=== PATIENT | female | born 1955 | race Caucasian/White ===

== ENCOUNTER 2022-12-10 07:40 | Outpatient (CLI) | payer OTHER, SELFPAY | END 2022-12-10 07:41 | disposition home or self-care (01) | LOC: NFLDREF 12-13 01:15 | PROVIDERS: PCP Internal Medicine; Referring Provider Internal Medicine; Visit Provider Internal Medicine | DX: E78.5 Hyperlipidemia, unspecified (principal) | CPT/HCPCS: 80061 ==

== ENCOUNTER 2022-12-10 15:47 | Outpatient (CLI) | payer OTHER, SELFPAY ==
--- NOTE | 2022-12-10 16:00 | CRLHL7_ITS ---
For Patients: As a result of the Cures Act, medical imaging exams and procedure reports are released immediately into your electronic medical record. You may view this report before your referring provider. If you have questions, please contact your health care provider. INDICATION: Nontoxic single thyroid nodule COMPARISON: none TECHNIQUE: Portillo scale and color Doppler images were acquired of the thyroid gland. FINDINGS: The thyroid gland demonstrates heterogeneous echogenicity and has a smooth outer contour. The right lobe measures 4.1 x 1.9 x 1.9 cm and the left lobe measures 3.9 x 2.0 x 2.2 cm in size. The isthmus measures 2 millimeters. Isoechoic nodule right thyroid lobe measures 1.1 x 1.5 x 1.4 cm. Slightly hypoechoic nodule right thyroid lobe measures 4 x 6 x 6 millimeters. Small hypoechoic nodule right thyroid lobe measures 3 x 3 x 4 millimeters. Additional hypoechoic nodule right thyroid lobe measures 2 x 2 x 3 millimeters. Slightly hypoechoic nodule left thyroid lobe measures 2.6 x 1.8 x 2.1 cm. The color Doppler images demonstrate normal vascularity. No adenopathy. IMPRESSION: 2.6 cm TR 4 nodule left thyroid lobe. By patient report, this has been previously biopsied. 1.5 cm TR 3 nodule right thyroid lobe. This could be followed up in 1 year. Dictated by Kendell Wise MD @ 12/11/2022 8:56:00 AM (Electronically Signed)
== END 2022-12-10 15:48 | disposition home or self-care (01) ==
LOC: US 15:49
PROVIDERS: PCP Internal Medicine; Visit Provider Internal Medicine
DX: E04.1 Nontoxic single thyroid nodule (principal)
CPT/HCPCS: 76536

== ENCOUNTER 2023-01-04 10:30 | Emergency (ER) | payer OTHER, SELFPAY ==
[2023-01-04 10:39] VITALS: BP 192/121; PULSE 82; RESP 18; TEMP 36.6; O2SAT 99
--- NOTE | 2023-01-04 11:25 | ED.GENADULT ---
HPI - General Adult General Chief complaint: Psychiatric Problem/Disorder Stated complaint: Mental health Time Seen by Provider: 01/04/23 11:25 History of Present Illness HPI narrative: call from Dr. Esteban. pt reports feeling anxious, depressed, despair , suicidal thoughts for several weeks. plan of carbon monoxide, but states she doesn't think she could go thru with it. 67-year-old woman presenting to the emergency department with concern of suicidal ideation. sent over to by primary care provider fo a mental health assessment. These concerns of recurrence of her back pain and trying to treat with the typical measures she used to use that are not helping is generating a great deal of anxiety she says. This also then leads her to feel more depressed. Underlying history of L5-S1 laminectomy with very good results. Has flared periodically over the years but doing exercises usually allows this to settle down and this time it is not. Has had depression for years and had taken sertraline for decades which also she says resulted in an colitis. Discontinued over this last summer and was doing quite well. Over the last 8-10 weeks has now had recurrence of her low back pain. It radiates alternating into both buttock into the posterior mid thighs. Improves when she is lying down; actually not present when she is lying down. Worse when she is sitting. Not so much an issue when ambulating. No functional difficulty she says i.e. no weakness, no loss of bowel or bladder control. It appears that without this recurrence of back pain would not be having or struggling with recurrence of anxiety and depression, or at least she identifies this as the source of recent difficulties. She does have family, multiple children and her to whom she has been talking. She has never engaged in therapy otherwise. Does have a primary care provider. Has apparently been set up for appointment with the back clinic locally; [place] was unaware. Since this recurrence of her back pain she has had thoughts of suicide. Has never attempted before. Her thoughts have included exposure to carbon monoxide. But she has since to say that she does not think she would ever go through with it. Otherwise has been treating this pain with ibuprofen and acetaminophen which does take some of the edge off. She has also been seeing a chiropractor she has seen over the years and re-engaging in exercises. She would like something to help with her anxiety. Later as we discuss potential medication management, she does express appropriate concern volunteering already known information about history of alcoholism. Related Data Home Medications Medication Instructions Recorded Confirmed calcium acetate 1 cap PO BID 12/07/22 01/04/23 cholecalciferol (vitamin D3) 50 50 mcg PO QDAY 12/07/22 01/04/23 mcg (2,000 unit) capsule famotidine 20 mg tablet 20 mg PO BID 12/07/22 01/04/23 multivitamin 1 tab PO QAM 12/07/22 01/04/23 pravastatin 40 mg tablet 40 mg PO DAILY 12/07/22 01/04/23 trazodone 50 mg tablet 100 mg PO .HS 12/07/22 01/04/23 acetaminophen 325 mg capsule 325 mg PO ONCE PRN 01/04/23 01/04/23 (Tylenol) aspirin 81 mg chewable tablet 81 mg PO QDAY 01/04/23 01/04/23 Previous Rx's Medication Instructions Recorded gabapentin 300 mg capsule 300 mg PO BID radicular pain #30 01/04/23 caps lorazepam 1 mg tablet 0.5 - 1 mg (0.5 - 1 x 1 mg) PO BID 01/04/23 PRN anxiety #8 tabs sertraline 50 mg tablet 50 mg PO QDAY #30 tabs 01/04/23 Allergies Allergy/AdvReac Type Severity Reaction Status Date / Time Sulfa (Sulfonamide Allergy Unknown Rash Verified 01/04/23 09:47 Antibiotics) atorvastatin [From Lipitor] AdvReac Unknown Muscle Pain Verified 01/04/23 09:47 Review of Systems Status of ROS: Reports: 6 or more systems reviewed and unremarkable except as noted in History and below [facility] Medical History History of depression ?Z86.59 - Personal history of other mental and behavioral disorders (ICD-10) Microscopic colitis ?K52.839 - Microscopic colitis, unspecified (ICD-10) History of abnormal cervical Pap smear (2009) ?Z87.42 - Personal history of other diseases of the female genital tract (ICD-10) Surgical History History of colonoscopy ?Z98.890 - Other specified postprocedural states (ICD-10) History of hysteroscopy ?Z98.890 - Other specified postprocedural states (ICD-10) History of salpingo-oophorectomy ?Z90.79 - Acquired absence of other genital organ(s) (ICD-10) ?Z90.721 - Acquired absence of ovaries, unilateral (ICD-10) Status post biopsy of thyroid gland (2009) ?Z98.890 - Other specified postprocedural states (ICD-10) History of conization of cervix (~1986) ?Z98.890 - Other specified postprocedural states (ICD-10) History of bilateral breast implants ?Z98.82 - Breast implant status (ICD-10) Family History Mother Breast cancer Sister Breast cancer Social History Smoking Status: Never smoker Do you use any of these nicotine containing products: None Second hand tobacco smoke exposure: No How often do you have a drink containing alcohol: never How often do you have six or more drinks on one occasion: Never AUDIT-C Alcohol total score: 0 Non-prescribed substance use: denies use Little interest or pleasure in doing things: nearly every day Feeling down, depressed, or hopeless: nearly every day service: No Exam Narrative: Exam Narrative: Prone to tears. Is pleasant. Easily conversant. Transitions without difficulty to sitting. Speech isn't pressured nor slurred. She is casually and appropriately groomed. Mood is depressed and anxious in affect congruent. Skin is warm and dry without evidence of trauma. She is well-perfused peripherally. Moving all extremities without difficulty and has good strength not exacerbating pain to flexion extension at the knees and thighs. No sensory deficits. Not able to reproduce pain to palpation over the back or SI joints or piriformis. Straight leg raise is negative. Const: Vital Signs, click to edit/add: Vital Signs - 24 hr 01/04/23 10:39 Temperature 97.8 F Pulse Rate [Right Pulse Oximeter] 82 Respiratory Rate 18 Blood Pressure [Ri ght Upper Arm] 192/121 H Pulse Oximetry 99 Oxygen Delivery Me thod Room Air Documenting provider has reviewed patient's vital signs: yes Course Vital Signs Vital signs: Initial Vital Signs Temperature 97.8 F 01/04/23 10:39 Temperature Source Temporal Artery Scan 01/04/23 10:39 Pulse Rate 82 01/04/23 10:39 Respiratory Rate 18 01/04/23 10:39 Blood Pressure 192/121 H 01/04/23 10:39 Blood Pressure Mean 144 H 01/04/23 10:39 Blood Pressure Position Sitting 01/04/23 10:39 Pulse Oximetry 99 01/04/23 10:39 Oxygen Delivery Method Room Air 01/04/23 10:39 Vital Signs Temperature 97.8 F 01/04/23 10:39 Pulse Rate 82 01/04/23 10:39 Respiratory Rate 18 01/04/23 10:39 Blood Pressure 192/121 H 01/04/23 10:39 Pulse Oximetry 99 01/04/23 10:39 Oxygen Delivery Method Room Air 01/04/23 10:39 Temperature 97.8 F 01/04/23 10:39 Pulse Rate 82 01/04/23 10:39 Respiratory Rate 18 01/04/23 10:39 Blood Pressure 192/121 H 01/04/23 10:39 Pulse Oximetry 99 01/04/23 10:39 Oxygen Delivery Method Room Air 01/04/23 10:39 Medications Administered Medications: Discontinued Medications Generic Name Dose Route Start Last Admin Trade Name Freq PRN Reason Stop Dose Admin Hydrocodone Bitart/Acetaminophen 2 tab 01/04/23 12:01 01/04/23 12:30 Hydrocodone-Acetamin 5-325 Mg 1 Tab PO 01/04/23 12:02 2 tab ONCE ONE Administration Lorazepam 0.5 mg 01/04/23 12:01 01/04/23 12:30 Lorazepam 0.5 Mg Tablet PO 01/04/23 12:02 0.5 mg ONCE ONE Administration Medical Decision Making MDM Narrative Medical decision making narrative: It appears that a good deal of what is driving these suicidal ideations is fear and anxiety over potential chronic nature of this recurrent pain. Description of location would suggest an L5-S1 dermatome radiculopathy/radiculitis. We discussed that more information and having further plan would be likely therapeutic. We are actually able to do an MRI the this afternoon. This will likely be needed going forward, albeit perhaps not immediately and she does not have red flag symptoms otherwise. I believe [place] to be having passive suicidal ideations. She is able to demonstrate forward thinking. I think would be appropriate to manage mental health, other than as above with outpatient management. Did discuss this case briefly with primary care provider. Anticipation had been for DEC assessment with medication recommendations. We can certainly proceed with this assessment. In the meantime would like treatment for what appears to be some not insignificant anxiety as well as this pain. Prescribed 2 tabs of 5/325 [place] and half a mg of lorazepam while in the emergency department. On reassessment was clearly more relaxed and comfortable. Lumbar spine MRI was completed. I did review images but radiology over-read as below Impression: 1. Mild lumbar spondylosis, with mild levoconvex curvature and trace degenerative retrolisthesis at L2-3. 2. At L4-5, mild diffuse disc bulge and mild facet arthropathy contribute to lateral recess narrowing contacting the descending bilateral L5 nerve roots without imaging evidence of impingement. 3. Otherwise, no significant neural foraminal or central spinal canal stenosis. Findings I think are consistent with reported distribution of symptoms. Symptoms again are most reproducible when she is sitting. I did review images/over-read with Mrs. Ortiz. She apparently had recently tried some remaining prednisone and felt like it made her more depressed. Anticipating follow-up with [facility] for further recommendations. [place] does note that she still has the sertraline available and could restart treatment. Will also make available small and temporary amount of lorazepam. Will also trial gabapentin. reports he himself has felt that helpful before. 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 See patient discharge plan Medical Records Medical records reviewed: Yes I reviewed the patient's medical records Discharge Plan Discharge Clinical Impression: Radicular low back pain, Depression, Anxiety Patient Disposition: Home w/ Parent or Adult Condition: Improved Additional Instructions: See discharge paperwork for pending therapy appointment and psychiatry appointment. Check with your medical record for timing of the back clinic appointment. See handout on exercises for radicular low back pain. Please take this to any follow-ups. Can continue to take ibuprofen or acetaminophen for pain. Alternative to the ibuprofen might be naproxen. You might want to take the ibuprofen and naproxen with a little bit of food. I understand your hesitance toward opiates and often there are other options. I understand that the prednisone you tried recently made your anxiety/depression worse. We can try gabapentin lower dose. Continue with your exercises. Try to stay active. Try to get quality and regular sleep. Sleep deprivation certainly can amplify feelings of anxiety and depression. You are receiving as discussed, a temporary prescription of lorazepam, as you restart your sertraline. If after talking to family, therapist, primary care provider you might otherwise feel unsafe, please return to the emergency department. Prescriptions: New lorazepam 1 mg tablet 0.5 - 1 mg PO BID PRN (Reason: anxiety) Qty: 8 0RF gabapentin 300 mg capsule 300 mg PO BID Qty: 30 0RF No Action famotidine 20 mg tablet 20 mg PO BID pravastatin 40 mg tablet 40 mg PO DAILY multivitamin Tablet 1 tab PO QAM cholecalciferol (vitamin D3) 50 mcg (2,000 unit) capsule 50 mcg PO QDAY calcium acetate 1 cap PO BID trazodone 50 mg tablet 100 mg PO .HS aspirin 81 mg tablet,chewable 81 mg PO QDAY acetaminophen [Tylenol] 325 mg capsule 325 mg PO ONCE PRN sertraline 50 mg tablet 50 mg PO QDAY Qty: 30 0RF Follow Up/Referrals: Bonnie Esteban MD [Primary Care Provider] - Stand Alone Forms: [employer] Info Instructions
--- NOTE | 2023-01-04 12:01 | CRLHL7_ITS ---
For Patients: As a result of the Century Cures Act, medical imaging exams and procedure reports are released immediately into your electronic medical record. You may view this report before your referring provider. If you have questions, please contact your health care provider. Indication: Right buttock pain, bilateral leg pain Technique: Multiplanar, multisequence, MRI of the lumbar spine, obtained without contrast. Comparison: No relevant comparison studies available at this institution. Findings: Mild levoconvex curvature, with preserved lumbar lordosis. Trace retrolisthesis at L2-3. No acute osseus abnormality. Vertebral body heights are grossly maintained. Unremarkable bone marrow signal. Conus medullaris terminates at L1-2. No concerning findings in the paraspinal soft tissues. The included SI joints are unremarkable. T12-L1: Mild diffuse disc bulge with left central cranial extrusion. No significant neural foraminal or spinal canal stenosis. L1-L2: Mild diffuse disc bulge. No significant neural foraminal or spinal canal stenosis. L2-L3: Mild diffuse disc bulge. No significant neural foramina or spinal canal stenosis. L3-L4: Mild diffuse disc bulge, mild facet arthropathy. Incidental small bilateral perineural cysts. No neural foraminal or spinal canal stenosis. L4-L5: Mild diffuse disc bulge, mild facet arthropathy. No left, mild right neural foraminal narrowing. Lateral recess narrowing contacting the descending L5 nerve roots without evidence of impingement or central spinal canal stenosis. L5-S1: Mild-moderate facet arthropathy. Incidental small lumbosacral perineural cysts. No neural foraminal or spinal canal stenosis. Impression: 1. Mild lumbar spondylosis, with mild levoconvex curvature and trace degenerative retrolisthesis at L2-3. 2. At L4-5, mild diffuse disc bulge and mild facet arthropathy contribute to lateral recess narrowing contacting the descending bilateral L5 nerve roots without imaging evidence of impingement. 3. Otherwise, no significant neural foraminal or central spinal canal stenosis. Dictated by Pooja Landaverde MD @ 01/04/2023 1:10:30 PM (Electronically Signed)
[2023-01-04] MEDS: HYDROCODONE-ACETAMIN 5-325 MG 1 TAB 2 TAB PO (12:30)
[2023-01-04] MEDS: LORazepam 0.5 MG TABLET PO (12:30)
== END 2023-01-04 14:47 | disposition home or self-care (01) ==
PROVIDERS: Emergency Provider Family Medicine; PCP Internal Medicine
DX: M54.50 Low back pain, unspecified (principal); F32.A Depression, unspecified; F41.8 Other specified anxiety disorders
CPT/HCPCS: 72148; 99284; A9270

== ENCOUNTER 2023-02-25 10:45 | Outpatient (RCR) | payer OTHER, SELFPAY ==
--- NOTE | 2023-01-26 13:44 | PT.OPEX ---
[facility] PT [facility] Outpatient Eval Start: 01/26/23 08:03 Freq: Status: Active Protocol: Document 01/26/23 08:05 CRP (Rec: 01/26/23 11:31 CRP [id number]) E-signed By Enrico Fernández PT Physical Therapy Outpatient Evaluation Insurance Information Recert Due Date 04/26/23 Insurance Name [employer] Medical Diagnosis Low back pain Treating Diagnosis LBP Back stiffness lower extremity pain Referring MD Dr Sparrow Subjective Subjective 10-25-22 had no specific injury but did strain her back. Walking up stairs and felt pain in low back. Did try to do some of her past back exercises. These exercises were not helping. Pain is mainly R SI area and down the R thigh. L side can also be an issue but R is worse. Pain is worse with sitting, hamstring stretch. If up and moving her pain is mild. When sitting, especially in the car pain will get up to moderate/severe with R LE pain . Lying on stomach will get the back pain to go away completely after about 30 minutes. Once she gets up the pain does return. Will have occasional tingling but no numbness. Has significant R LE short. Does wear lift in her shoe. Did go to chiropractor 2 times. Adjustments may have aggravated her R LE. Traction may have made the next day feel good. Objective Range of Motion Trunk ROM Flex min dec with SI pain on back to neutral Ext WNL with TL pain R SB WNL L SB min dec R rot WNL L rot Min dec Bilat hip ROM WNL Strength Myotomes WNL Posture Active ext pattern Sensation/Reflexes Sensation intact to light touch Other/Pertinent Objective SLR painful at 80 deg on R Segmental testing: Painful and hypomobile at L5 R UPA Assessment Assessment/Impression Pt presents to the clinic with c.o ongoing LBP and intermittent LE radiating pain . Pts signs and sxs are consistent with segmental mechanical dysfunction of the lower lumbar spine with referred pain into the LEs. Pts presentation is characterized by painful loss of lumbar spine ROM, adverse neurodynamics and painful hypomobility of lower lumbar spine segments. Skilled PT is necessary to incorporate ther ex, nm elie, ther act, manual therapy and pt education to decrease pain and improve functional mobility. 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 Pt will be 100% independent with HEP in 8 weeks. [address] 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 3. Pt will sit for work without pain in 12 weeks. Coordination/Communication With Referral Source,Patient Caregiver,Employer,Supervisor [place] ([facility]) Treatment Plan/Direct Interventions Joint Mobilization,Manual Therapy,Neuromuscular Re-ed, Self-Care/Home Management, Therapeutic Activities, Therapeutic Exercises,Traction (Mechanical) Patient Will Be Discharged From Therapy Completion of LTG(s),Skills Plateau,Independent w/HEP, Independently Progressing Evaluation Billing Untimed Code Treatment Minutes 30 Complexity Moderate Certification Information Initial Certification Date 01/26/23 Ending Certification Date 04/26/23 Provider Signature Shows Agreement With POC & Medical Necessity Physician Signature & Date Requested Please Sign/Date Here Physician Comment/Change : Physician NPI Number #
== END 2023-06-25 23:59 | disposition home or self-care (01) ==
PROVIDERS: PCP Internal Medicine; Visit Provider Family Medicine
DX: M54.50 Low back pain, unspecified (principal); M79.606 Pain in leg, unspecified; M25.69 Stiffness of other specified joint, not elsewhere classified; Z51.89 Encounter for other specified aftercare
CPT/HCPCS: 97110; 97140; 97162

== ENCOUNTER 2023-03-02 13:24 | Outpatient (CLI) | payer OTHER, SELFPAY ==
--- OUTSIDE RECORDS SUMMARY | 2023-03-02 13:27 | XMS_ITS | Clinical Summary ---
Author Name Unknown Organization [facility] Address [address] [place] [address] Care Team Providers Care Ortho Nurse Name Role Phone Cyndee Carranza MD Primary Care Provider [phone] Source Comments You are receiving this document as you are listed as the primary care provider,follow-up provider, or the patient has been referred to you for consultation.This is in compliance with the Medicare and[facility] Health Systemca[facility] EHR Incentive Program,which states Providers who transition their patient to another setting of careor provider of care or refers their patient to another provider of care shouldprovide summary care record for each transition of care or referral. [facility] Allergies Active Allergy Reactions Criticality Noted Date Comments Atorvastatin Muscle Aches/Weakness 04/09/2013 Sulfa Antibiotics Rash Medications Medication Sig Dispensed Refills Start Date End Date Status multivitamin (AKA THERAGRAN) tablet Take 1 Tablet by mouth daily. 30 Tab 11 09/04/2009 Active cholecalciferol (VITAMIN D3) 25 MCG (1000 UT) tablet Take 1 Tablet (1,000 Units) by mouth daily. 2 tabs/day 0 Active Calcium Carb-Cholecalciferol 500-3.125 MG-MCG TABS 0 08/31/2021 Active aspirin 81 MG chewable tablet Chew and swallow 1 Tablet (81 mg) by mouth daily. 30 Tablet 0 03/24/2022 Active sertraline (ZOLOFT) 100 MG tablet TAKE 2 TABLETS(200 MG) BY MOUTH DAILY 180 Tablet 3 05/12/2022 Active pravastatin (PRAVACHOL) 40 MG tabletIndications:Hy perlipidemia with target LDL less than 130 (HRC) TAKE 1 TABLET(40 MG) BY MOUTH DAILY AT BEDTIME 90 Tablet 3 05/14/2022 Active traZODone (DESYREL) 50 MG tablet TAKE 1 TO 2 TABLETS BY MOUTH AT BEDTIME NEEDED 180 Tablet 3 07/10/2022 Active famotidine (PEPCID) 20 MG tablet TAKE 1 TABLET(20 MG) BY MOUTH TWICE DAILY 180 Tablet 3 08/10/2022 Active balsalazide (COLAZAL) 750 MG capsuleIndications:C olitis Take 1 capsule po TID 270 Each 3 09/02/2022 Active mesalamine (LIALDA) 1.2 g enteric coated tabletIndications:Co litis Take 3 tablets PO QD with food 270 Tablet 3 09/24/2022 Active Active Problems Problem Noted Date Diagnosed Date TIA (transient ischemic attack) 04/01/2022 Overview: Seen in ED 03/24/22. Work up in progress. 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 Plan: Cotesting 02/2022 IFG (impaired fasting glucose) 12/06/2012 Lateral epicondylitis 01/14/2012 Colitis 12/17/2011 Vitamin D deficiency 06/03/2011 Hyperlipidemia with target LDL less than 130 Overview: ICD 10 Thyroid nodule 07/26/2009 Overview: Small right and larger left nodules. Left nodule biopsied 2009 and was benign. Needs yearly US follow up. Uterine myoma 01/31/2008 Breast implant removal status 12/31/2001 Depressive disorder 12/26/2001 Overview: DEPRESSIVE DISORDER NOS phq-9 done 12/17/11 Panic disorder without agoraphobia 12/26/2001 Back disorder 12/26/2001 Overview: Other unspecified back disorder Alcohol dependence in remission 12/26/2001 Overview: TREATMENT 1985 ; ALCOH DEP NEC/NOS-REMISS(aka ALCOHOL) Family history of malignant neoplasm of breast 1 02/25/2001 Overview: MOTHER AND ONE SISTER Resolved Problems Problem Noted Date Diagnosed Date Resolved Date Ovarian mass 01/18/2019 03/01/2019 Overview: Added automatically from request for surgery [id number] Endometrial polyp 01/18/2019 03/01/2019 Overview: Added automatically from request for surgery [id number] Obesity 03/18/2011 05/29/2020 Overview: weight concerns Encounters Date Type Department Care Team Description 01/21/2023 8:45 AM ENGINEERING INTERN Therapy [facility] [address] [address] July Leyva, PT 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) (Primary Dx) 01/13/2023 10:30 AM ENGINEERING INTERN Therapy [facility] [address] [address] Susie Lamb, PT 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) (Primary Dx) from Last 3 Months Immunizations Name Administration Dates Next Due Flu Vac (3+ yrs) 11/26/2020, 7,10/22/2012,2011,11/29/2009 Fluzone Qiv Multidose Vial 0 .25 (6-35 Mos) 10/27/2016 Influenza IIV4 (Quadrivalent ) 0.5mL ([id number]) 11/06/2019,10/25/2018,10/26/2017,2015,10/18/2014,10/31/2013 Influenza IIV4 (Quadrivalent ) Fluzone, 65+ Yrs 11/19/2021 Influenza, Unspecified Formulation 12/24/2007 MMR 01/04/1990 PCV13 (Prevnar) 05/19/2021 PPSV23 (Pneumovax) 06/16/2022,11/29/2009 Pfizer Bivalent 12+ 11/08/2021 Pfizer Monovalent 12+ 05/19/2021 Pfizer Monovalent 12+ Purple Top 01/10/2021,05/16,05/13/2020 Td 12/25/2002,10/23/1992 Tdap 06/16/2022,03/18/2011 Varicella 12/23/1995(Deferred: Immune by Jorge garcia) Zoster RZV (Shingrix) 09/20/2019,12/21/2018 Family History Medical History Relation Name Comments Heart Disease Father of heart disease age 69, multiple MIs first CABG 48, alcohol Cancer, Breast Mother Diabetes, Type II Mother Cataract Brother Cancer, Pancreatic Maternal Aunt Cataract Maternal Grandmother Cancer Paternal Grandfather ? colon cancer, colostomy Cancer, Ovary Paternal Grandmother Cancer, Breast Sister 1 Geeta BRCA testing negative. Cataract Sister 1 Geeta Glaucoma Sister 1 Geeta Hypertension Sister 1 Geeta Cancer, Breast Sister 2 Hyperlipidemia Sister 2 age 55, Cancer, Thyroid Sister 3 Macular Degeneration Negative Family History Retinal Detachment Negative Family History Relation Name Status Comments Father (Age 64) heart dise ase Mother (Age 57) cancer Brother Maternal Aunt Maternal Grandfather (Age 60) he art attack Maternal Grandmother (Age 94) ol d age Paternal Grandfather (Age 60) ca ncer Paternal Grandmother (Age 60) ca ncer Sister 1 Geeta Sister 2 Sister 3 Son Alive Social History Tobacco Use Types Packs/Day Years Used Date Smoking Tobacco: Never Passive Smoke Exposure: Never Smokeless Tobacco: Never Tobacco Cessation:Counseling Given: Not Answered Alcohol Use Standard Drinks/Week Comments Not Currently 0 (1 standard drink = 0.6 oz pure alcohol) h/o alcohol dependence, 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 PHQ-2 Answer Date Recorded PHQ-2 Score 0 06/16/2022 Sex and Gender Information Value Date Recorded Sex Assigned at Not on file Gender Identity Not on file Sexual Orientation Not on file Last Filed Vital Signs Vital Sign Reading Time Taken Comments Blood Pressure 106/73 08/22/2022 9:44 AM CDT Pulse 78 08/22/2022 9:44 AM CDT Temperature 36.7 ??C (98.1 ??F) 08/22/2022 9:44 AM CD T Respiratory Rate 18 05/26/2022 8:22 AM CDT Oxygen Saturation 98% 08/22/2022 9:44 AM CDT Inhaled Oxygen Concentration - - Weight 75.8 kg (167 lb) 08/22/2022 9:44 AM CDT s tated Height 163.8 cm (5' 4.5) 06/16/2022 9:28 AM CDT Body Mass Index 28.22 06/16/2022 9:28 AM CDT Plan of Treatment Upcoming Encounters Date Type Department Care Team Description 03/18/2023 1:40 PM ENGINEERING INTERN Appointment [place] [address] Ophthalmology [address] [place] [address] Dominga Fink, OD [address] [place] [address] Health Maintenance Due Date Last Done Comments COVID-19 Vaccine ( season) 2022 11/08/2021, 05/19/2021, 01/10/2021, Additional history exists Influenza (#1) 2022 11/19/2021, 11/15, 11/06/2019, Additional history exists Cholesterol 11/28/2022 11/28/2021, 04/17, 05/28/2020, Additional history exists Mammogram 11/28/2022 11/28/2021, 11/15, 08/29/2019, Additional history exists Medicare Annual Wellness Visit 02/15/2023 06/16/2022, 05/19/2021 Prediabetes: HGBA1C 07/03/2023 07/02/2022, 05/15/2021, 05/28/2020, Additional history exists Colonoscopy 09/03/2027 09/02/2017, 02/2009 (Historical Completion), 10/16/2009, Additional history exists DTaP/Tdap/Td (3 - Tdap) 06/16/2032 06/17/19 23, 03/18/2011, 12/25/2002, Additional history exists Hep C Screening (Preventive Services) Completed 12/17/2011 Cervical Cancer Screening Discontinued 2017, 02/27/2014, 06/04/2011, Additional history exists Zoster/Shingles Completed 09/20/2019, 12/21/2018 Dexa Completed 07/21/2021 Pneumococcal 65+ Yrs Completed 06/16/2022, 05/19/2021, 11/29/2009 HepA Aged Out No longer eligi ble based on patient's age to complete this topic HepB Aged Out No longer eligi ble based on patient's age to complete this topic Hib Aged Out No longer eligi ble based on patient's age to complete this topic IPV (Polio) Aged Out No longer eligi ble based on patient's age to complete this topic MCV4 Aged Out No longer eligi ble based on patient's age to complete this topic Advance Directives Latest Code Status on File Code Status Date Activated Date Inactivated Comments Full Code 12/22/2012 6:16 AM 12/22/2012 1:40 PM Code Status History Code Status Date Activated Date Inactivated Comments Full Code 04/10/2008 12:22 PM 04/10/2008 5:14 PM Care Teams Ortho Nurse Relationship Specialty Start Date End Date Cyndee Carranza MD [address] [place] [address] PCP - General 01/21/23
--- OUTSIDE RECORDS SUMMARY | 2023-03-02 13:27 | XMS_ITS | Encounter Summary ---
Author Name Unknown Organization [facility] Address [address] [place] [address] Care Team Providers Care Firefighter Type One Name Role Phone Leena Spivey MD Primary Care Provider [phone] Reason for Visit * Reason Comments ANXIETY Pt stated she is hav ing tingling on her right side of face but is stating that she is feeling anxious about daily life events right now. Pt is stating that she is lowering her anxiety medication right now but due to all the stress in her life at this time she is requesting a PRN to see if that will help with the anxiety. Encounter Details Date Type Department Care Team Description 08/22/2022 10:00 AM CDT Office Visit [facility] [address] [place] [phone] Larissa Patel, VOICE AND DATA TECHNICIAN, ELEVATOR CONSTRUCTOR HELPER [address] [place] [address] Right facial numbness (Primary Dx); Anxiety (HRC) Social History Tobacco Use Types Packs/Day Years Used Date Smoking Tobacco: Never Passive Smoke Exposure: Never Smokeless Tobacco: Never Alcohol Use Standard Drinks/Week Comments Not Currently 0 (1 standard drink = 0.6 oz pure alcohol) h/o alcohol dependence, 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 PHQ-2 Answer Date Recorded PHQ-2 Score 0 06/16/2022 Sex and Gender Information Value Date Recorded Sex Assigned at Not on file Gender Identity Not on file Sexual Orientation Not on file documented as of this encounter Last Filed Vital Signs Vital Sign Reading Time Taken Comments Blood Pressure 106/73 08/22/2022 9:44 AM CDT Pulse 78 08/22/2022 9:44 AM CDT Temperature 36.7 ??C (98.1 ??F) 08/22/2022 9:44 AM CD T Respiratory Rate - - Oxygen Saturation 98% 08/22/2022 9:44 AM CDT Inhaled Oxygen Concentration - - Weight 75.8 kg (167 lb) 08/22/2022 9:44 AM CDT s tated Height - - Body Mass Index 28.22 06/16/2022 9:28 AM CDT documented in this encounter Progress Notes * Larissa Patel, VOICE AND DATA TECHNICIAN, ELEVATOR CONSTRUCTOR HELPER - 08/22/2022 10:00 AM CDT Rooming Notes: Orquidea Ortiz is a 67 y.o.female presents to the Urgent Care for ANXIETY (Pt is stating that she is feeling anxious about daily life events right now. Pt is stating that she is lowering her anxiety medication right now but due to all the stress in her life at this time she is requesting a PRN to see if that will help with the anxiety. ) . anxiety 2 day(s) ago, symptoms unchanged. Pain present No. Previous episodes or similar occurrence once before, went to ER for similar episode in mar . Any home remedies tried None. Patient requests an excuse letter for work/school: No SUBJECTIVE: Orquidea Ortiz is a 67 y.o. old female who is here for anxiety and right facial numbness. Symptoms x 2 days. She is under a high level of stress. Sold her house and is moving. Has been weaning offher anxiety meds. She attributes her facial numbness to anxiety. However, she had a similar experience March of this year in the arm and was diagnosed with a TIA. She has no extremity involvement at this time. She does voice concern for TIA/CVA on exam. Significant positive medical hx: HLD, TIA, thyroid disease, panic disorder Social History Tobacco Use Smoking Status Never Passive exposure: Never Smokeless Tobacco Never OBJECTIVE: BP 106/73 (BP Location: Right Arm, BP Cuff Size: Large) Pulse 78 Temp 98.1 ??F (36.7 ??C) (Oral) Wt 167 lb (75.8 kg) Comment: stated LMP 04/06/2011 (Exact Date) SpO2 98% BMI 28.22 kg/m?? Appears healthy and alert, comfortable Neuro: A/Ox4, without gross neuro deficit, no facial droop. Skin: Normal skin color, temperature, and turgor; no visible rashes or lesions noted. ASSESSMENT/PLAN: ICD-10-CM 1. Right facial numbness R20.0 2. Anxiety (HRC) F41.9 Unable to evaluate TIA and/or CVA in urgent care. She must be seen in the ED. She is comfortable taking herself now. Larissa Patel APRN, CNP documented in this encounter Nursing Notes * Karla Watkins MA - 08/22/2022 10:00 AM CDT Orquidea Ortiz is a 67 y.o.female presents to the Urgent Care for ANXIETY (Pt is stating that she is feeling anxious about daily life events right now. Pt is stating that she is lowering her anxiety medication right now but due to all the stress in her life at this time she is requesting a PRN to see if that will help with the anxiety. ) . anxiety 2 day(s) ago, symptoms unchanged. Pain present No. Previous episodes or similar occurrence once before, went to ER for similar episode in mar . Any home remedies tried None. Patient requests an excuse letter for work/school: No documented in this encounter Plan of Treatment Upcoming Encounters Date Type Department Care Team Description 03/18/2023 1:40 PM MACHINE WHITENER Appointment [place] [address] Ophthalmology [address] [place] [address] Dominga Fink OD [address] [place] [address] documented as of this encounter Visit Diagnoses Diagnosis Right facial numbness- Primary Disturbance of skin sensation Anxiety (HRC) Anxiety state, unspecified documented in this encounter Care Teams Firefighter Type One Relationship Specialty Start Date End Date Leena Spivey MD [address] [facility] [place] [address] PCP - General 05/06/09 01/20/23 documented as of this encounter
--- OUTSIDE RECORDS SUMMARY | 2023-03-02 13:27 | XMS_ITS | Encounter Summary ---
Author Name Unknown Organization [facility] Address [address], [place] [address] Care Team Providers Care Computer Engineering Professor Name Role Phone Leena Spivey MD Primary Care Provider [phone] Reason for Visit * Reason Comments Refill budesonide (ENTOCORT EC) 3 MG capsule [Pharmacy Med Name: BUDESONIDE 3MG DR CAPSULES] Encounter Details Date Type Department Care Team Description 07/06/2022 Refill [facility] at [address] [address] Reny Crooks, DOPE SPRAYER, CAR REPAIRMAN [address] [place] [address] Refill (budesonide (ENTOCORT EC) 3 MG capsule [Pharmacy Med Name: BUDESONIDE 3MG [address] CAPSULES]) Social History Tobacco Use Types Packs/Day Years [...] on file documented as of this encounter Nursing Notes * Interface, Out [employer] Prov Query - 07/06/2022 6:04 PM CDT budesonide (ENTOCORT EC) 3 MG capsule [Pharmacy Med Name: BUDESONIDE 3MG DR CAPSULES] IBD - Antiinflammatory -> The request contains a note from the pharmacy. -> Refill x 12 months (until due for an office visit) Last qualifying visit: 05/13/2022 (in [facility] GASTRO[facility]OLOGY with RENY CROOKS) Next scheduled visit: None Last ordered by RENY CROOKS: 07/06/2022 (0 days ago) QTY: 126, Refills: 0, Sig: take 3 capsules (9 mg) by mouth daily for 28 days, then 2 capsules (6 mg) daily for 14 days, then 1 capsule (3 mg) daily for 14 days. (changed but equivalent) Glucose (serum): 97 mg/dL on 07/02/2022 BUN: 12 mg/dL on 07/02/2022 Cr: 1 mg/dL on 07/02/2022 Na: 142 mEq/L on 07/02/2022 K: 4 mEq/L on 07/02/2022 Ca: 9.5 mg/dL on 07/02/2022 [facility] Embedded Refills, Reference: [id number], 07/06/2022 6:04:42 PM CDT, Pool: GI Refill RN/CSS () [[id number]] ([id number]) * Interface, Out [employer] Prov Query - 07/06/2022 6:04 PM CDT The following lab order(s) may be associated with the Result Note below: BASIC METABOLIC PANEL Notes recorded by Reny Crooks on 07/02/2022 at 9:41 PM CDT The basic metabolic panel is normal. The CRP (inflammatory marker) is mildly elevated, this is a non-specific marker for inflammation. Reny Crooks APRN, CNP * Interface, Out [employer] Prov Query - 07/06/2022 6:04 PM CDT The following lab order(s) may be associated with the following Patient Result Comment (Entered by Nae Pop LPN at 07/03/2022 9:36 AM): BASIC METABOLIC PANEL The basic metabolic panel is normal. The CRP (inflammatory marker) is mildly elevated, this is a non-specific marker for inflammation. Reny Crooks APRN, CNP documented in this encounter Plan of Treatment Upcoming Encounters Date Type Department Care Team Description 03/18/2023 1:40 PM MOLDER AUTOMOBILE CARPETS Appointment [place] [address] Ophthalmology [address] [place] [address] Dominga Fink, OD [address] [place] [address] documented as of this encounter Visit Diagnoses Diagnosis Diarrhea, unspecified type Lymphocytic colitis Other and unspecified noninfectious gastroenteritis and colitis documented in this encounter Care Teams Computer Engineering Professor Relationship Specialty Start Date End Date Leena Spivey MD [address] [place] [address] PCP - General 05/06/09 01/20/23 documented as of this encounter
--- OUTSIDE RECORDS SUMMARY | 2023-03-02 13:27 | XMS_ITS | Encounter Summary ---
Author Name Unknown Organization [facility] Address [address] [address] Care Team Providers Care Supervisor Scenic Arts Name Role Phone Leena Spivey MD Primary Care Provider [phone] Reason for Visit * Reason Comments Refill famotidine (PEPCID) 20 MG tablet [Pharmacy Med Name: FAMOTIDINE 20MG TABLETS] Encounter Details Date Type Department Care Team Description 08/09/2022 Refill [facility] at [facility] [address] [place] [address] Reny Crooks, TISSUE INSERTER, ORDER DESK CALLER [address] [place] [address] Refill (famotidine (PEPCID) 20 MG tablet [Pharmacy Med Name: FAMOTIDINE 20MG TABLETS]) Social History Tobacco Use Types Packs/Day Years [...] as of this encounter Nursing Notes * Jeremy Dang RN - 08/10/2022 2:47 PM CDT Refilled per standing order protocol. Jeremy Dang RN 08/10/2022, 2:47 PM * Interface, Out [employer] Query - 08/09/2022 3:21 AM CDT famotidine (PEPCID) 20 MG tablet [Pharmacy Med Name: FAMOTIDINE 20MG TABLETS] GERD / PUD - H2 Blockers & Carafate -> Refill x 12 months, qty: 180, refills: 3 (until due for an office visit) Last qualifying visit: 05/13/2022 (in [facility] GASTROENTEROLOGY with RENY CROOKS) Next scheduled visit: None Last ordered by RENY CROOKS: 11/26/2021 (256 days ago) QTY: 180, Refills: 2, Sig: take 1tablet (20 mg) by mouth two times a day. (changed but equivalent) [employer] Embedded Refills, Reference: [id number], 08/09/2022 3:21:35 AM CDT, Pool: GI Refill RN/SUKHDEV (CHRIS) [[id number]] ([id number]) documented in this encounter Plan of Treatment Upcoming Encounters Date Type Department Care Team Description 03/18/2023 1:40 PM CARBON COATER MACHINE OPERATOR Appointment [place] [address] Ophthalmology [address] [place] [address] Dominga Fink, OD [address] [place] [address] documented as of this encounter Visit Diagnoses Not on filedocumented in this encounter Care Teams Supervisor Scenic Arts Relationship Specialty Start Date End Date Leena Spivey MD [address] [place] [address] PCP - General 05/06/09 01/20/23 documented as of this encounter
--- OUTSIDE RECORDS SUMMARY | 2023-03-02 13:27 | XMS_ITS | Encounter Summary ---
Author Name [facility] Address [address], [place] [address] Care Team Providers Care Portainer Operator Name Role Phone Leena Bourne MD Primary Care Provider [phone] Reason for Visit * Reason Comments Refill traZODone (DESYREL) 50 MG tablet [Pharmacy Med Name: TRAZODONE 50MG TABLETS] Encounter Details Date Type Department Care Team Description 07/08/2022 Refill [facility] [address] [facility] [place], [place] [id number] Leena Bourne MD [address] [place], [place] [id number] Refill (traZODone (DESYREL) 50 MG tablet [Pharmacy Med Name: TRAZODONE 50MG TABLETS]) Social History Tobacco Use Types Packs/Day [...] as of this encounter Nursing Notes * Greta Santos RN - 07/10/2022 12:47 PM CDT Refilled per standing order. * Interface, Out [employer] Prov Query - 07/08/2022 3:21 AM CDT traZODone (DESYREL) 50 MG tablet [Pharmacy Med Name: TRAZODONE 50MG TABLETS] Miscellaneous - 12 Month Visit 1 -> Refill x 12 months (until due for an office visit) -> Calculate the quantity and number of refills manually. Last qualifying visit: 06/16/2022 (with LEENA BOURNE) Next scheduled visit: None Last ordered by LEENA BOURNE: 05/19/2021 (415 days ago) QTY: 180, Refills: 3, Sig: take 1-2 tablets at bedtime as needed. (changed but equivalent) [employer] Embedded Refills, Reference: [id number], 07/08/2022 3:21:34 AM CDT, Pool: GEO MAXWELL RN ([id number]) documented in this encounter Plan of Treatment Upcoming Encounters Date Type Department Care Team Description 03/18/2023 1:40 PM ELECTRICAL MAINTENANCE MECHANIC Appointment [place] [address] Ophthalmology [address] [place] [address] Dominga Fink, OD [address] [place] [address] documented as of this encounter Visit Diagnoses Not on filedocumented in this encounter Care Teams Portainer Operator Relationship Specialty Start Date End Date Leena Bourne MD [address] [facility] [place] [address] PCP - General 05/06/09 01/20/23 documented as of this encounter
--- OUTSIDE RECORDS SUMMARY | 2023-03-02 13:27 | XMS_ITS | Encounter Summary ---
Author Name Unknown Organization [facility] Address [address] [address] Care Team Providers Care Assistant Professor Of Biology Name Role Phone Cyndee Carranza MD Primary Care Provider Reason for Visit * Reason Comments Spine Lumbar Encounter Details Date Type Department Care Team Description 01/21/2023 8:45 AM RESIDENTIAL INSTALLER Therapy [facility] [address] [phone] [place] [address] [place] [address] 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) (Primary Dx) Social History Tobacco Use Types Packs/Day Years [...] on file documented as of this encounter Progress Notes * July Leyva, PT - 01/21/2023 8:45 AM CST Physical Therapy Progress Note Visit Number: 2 Initial Certification Period: 01/13/2023 to 04/13/23 Referring Provider: Nader Sparrow Visit Diagnosis: 1. 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) Precautions: currently being treated for anxiety and depression; leg length discrepancy (right leg shorter, wears a lift in shoe) SUBJECTIVE: Using a mena chair- 60 of them every other day but does not hold No change in symptoms OBJECTIVE Current Objective Findings: Observation: lumbar lordosis decreased Strength: Core Strength: Isometric Transverse Abdominus activation: fair Flexibility:mild restrictions noted bilateral lumbar paraspinals Joint Mobility: Lumbar: pain reproduction L3-S1 Palpation/Tenderness - No tenderness Special Tests: Slump Test Left: Negative Slump Test Right: Negative SLR Left: symptom reproduction at 70 degrees hip flexion SLR Right: symptom reproduction at 70 degrees hip flexion Mobility/Transfer - slightly guarded Gait Exam - decreased bilateral arm swing; limited pelvic rotation noted in transverse plane; functional hip drop noted Treatment/Education Today: Therapuaetic exercise x35min Modified plank 3x60s Supermans [id number] holds Figure 4 bridge 2x10 5s holds Supine sciatic nerve glide *increased tension with head elevated and right leg straight Standing clamshell with exercise band 2x20 -changed and reviewed HEP Timed Code Treatment Minutes: 35 Total Treatment Minutes: 35 Current Home Exercise Program List: Access Code: [email or web address] URL: [email or web address] Date: 01/21/2023 Prepared by: July Ace Exercises - Supine Sciatic Nerve [place] - 1-2 x daily - 2 sets - 10 reps - Figure 4 Bridge - 1 x daily - 5 x weekly - 2 sets - 10 reps - 5s hold - Standing Clam with Resistance Loop - 1 x daily - 5 x weekly - 2 sets - 20 reps - Superman on Table - 1 x daily - 5 x weekly - 2 sets - 10 reps - 10s hold - Plank on Knees - 1 x daily - 5 x weekly - 1 sets - 3 reps - 60s hold *changed HEP ASSESSMENT/PROGRESS TOWARD GOALS: Patient presents with bilateral low back pain with radicular symptoms into bilateral posterior buttock and thighs with lumbar flexion with improved symptoms with lumbar extension. Today pt showed good fatigue with progressed HEP. Able to hold modified plank for 60s and superman for 10s. No increased symptoms at end of session. She will benefit from working with skilled physical therapy to work onaddressing identified deficits to help maximize symptom management and therapy goal achievement. Functional Goals/Outcomes: -HEP/Independent Management: Demonstrate independence with HEP and self- management following each treatment session MET -ADL's: Perform home management tasks with ease in 4-12 weeks. -Sit for greater than 1 hour(s) with minimal/no symptoms in 4-12 weeks for increased ease for completion of work tasks. PLAN: work on progressive core stabilization strengthening as tolerated DENTIAL INSTALLER documented in this encounter Plan of Treatment Upcoming Encounters Date Type Department Care Team Description 03/18/2023 1:40 PM RESIDENTIAL INSTALLER Appointment [place] [address] Ophthalmology [address] [place] [address] Dominga Fink, OD [address] [place] [address] documented as of this encounter Visit Diagnoses Diagnosis 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)- Primary documented in this encounter Care Teams Assistant Professor Of Biology Relationship Specialty Start Date End Date Cyndee Carranza MD [address] [place] [address] PCP - General 01/21/23 documented as of this encounter
--- OUTSIDE RECORDS SUMMARY | 2023-03-02 13:27 | XMS_ITS | Encounter Summary ---
Author Name Unknown Organization [facility] Address [address] [place] [address] Care Team Providers Care Sugar Laboratory Assistant Name Role Phone Leena Spivey MD Primary Care Provider [phone] Reason for Visit * Reason Comments Spine Lumbar Encounter Details Date Type Department Care Team Description 01/13/2023 10:30 AM AIRCRAFT WORKER Therapy [facility] [address] [address] [place] [address] [place], [place] [phone] Chronic bilateral low back pain with bilateral [...] as of this encounter Progress Notes * Susie Lamb, PT - 01/13/2023 10:30 AM CST Physical Therapy - Lumbar Spine Evaluation/Plan of Care Initial Certification Period: 01/13/2023 to 04/13/23 Referring Provider: Patient Self-Referral Visit Diagnosis: 1. 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) Precautions: currently being treated for anxiety and depression; leg length discrepancy (right leg shorter, wears a lift in shoe) Orders: Evaluate & treat Onset/Referral Date: onset 10-12 weeks ago SUBJECTIVE Reason for Visit: Patient is a 67 year old female who presents with about a 10- 12 week history of low back pain. She states she moved and and feels that moving/lifting boxes likely aggravated her symptoms. Feels the worse with sitting. She feels the best with standing and with laying on her stomach(is able to lay on her back as well). Pain will go into her buttocks bilaterally and can go into the back of there thighs to about mid thighs at times. Doing cobra stretch can make symptoms in legs improve. Possible feelings of tingling in her legs but she isn't sure. Symptoms are mostly achy in sensation. Patient Therapy Goals:Resume previous level of activity symptom free. Past Medical History: Patient has a past medical history of Alcohol dependence (HR), BP (high blood pressure) (HRC), Cervical uterine polyp, Chemical dependency (HRC), Depression, Depressive disorder, not elsewhere classified (HRC), Esophageal reflux, Gastrointestinal disease, High blood pressure (HRC), Hyperlipidemia (HRC), Inflammatory bowel disease (2009), Lymphocytic colitis, Prediabetes, Psychiatric disorder (HRC), and Uterine fibroid. MRI lumbar spine 01/04/23: multi level disc bulges Recently Experienced (Red Flags): None Recently Experienced (Yellow Flags): Emotional responses (worry, fear, anxiety) Previous Treatment: physical therapy Benefited from previous treatment: yes (2001) Pain details: Current pain intensity level: 4/10 Pain location: bilateral low back and bilateral buttock pain Other symptoms: bilateral pain into the posterior mid thighs Sleep interruptions: painful if she lays on her sides; feels better with laying on stomach or back Time of day worst pain: dependent on activity vs time of day Pain quality: Aching and occasionally sharp Aggravating factors:Sitting Relieving factors: Stretching and Standing Work/Leisure/Sport: 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 Patient History: Moderate Complexity: 1-2 personal factors and/or comorbidities that impact plan of care: depressionand anxiety OBJECTIVE Observation: lumbar lordosis decreased Screening: Hip Screen: Within Normal Limits Nalini Left: WNL Nalini Right: WNL Lumbar ROM: Flexion finger tips to floor Extension WFL Sidebend left WFL Sidebend right WFL Rotation left WFL Rotation right WFL Strength: Core Strength: Isometric Transverse Abdominus activation: fair Neurological: Myotomes/Strength: Left: Hip flexion (L1, 2): 5/5 Hip abduction: 4-/5 Hip extension: 4-/5 Knee extension (L3): 5/5 Knee flexion: 5/5 Ankle dorsiflexion (L4): 5/5 Great toe extension-EHL (L5): 5/5 Great toe flexion-FHL (S1): 5/5 Right: Hip flexion (L1, 2): 5/5 Hip abduction: 4-/5 Hip extension: 4-/5 Knee extension (L3): 5/5 Knee flexion: 5/5 Ankle dorsiflexion (L4): 5/5 Great toe extension-EHL (L5): 5/5 Great toe flexion-FHL (S1): 5/5 Dermatomes: WNL bilateral Toe Walk: WNL bilat Heel Walk: WNL bilat Flexibility:mild restrictions noted bilateral lumbar paraspinals Joint [...] in transverse plane; functional hip drop noted PHQ-2 Score: 6 (is under current treatment for anxiety and depression) Patient verbalizes safety. PT - Spine, Lumbar/SI Modified Oswestry Low Back Pain Questionnaire (0-100%, 0% being best): 32 Clinical Examination: High Complexity: Addressed 4 or more elements from body structures and functions (see above), and/or functional limitations as noted below. Today's Intervention/Charges: Physical Therapy Evaluation was completed and the patient was educated on the condition, planned therapy intervention and expectations from treatment. Therapeutic exercise x 15 minutes: patient instructed in and completed exercises with cuing to not push into painful range of motion; exercises sent to patient via e-mail for home exercise completion: Access Code: [email or web address] URL: [email or web address] Exercises - Supine Bridge - 1-2 x daily - 10-20 reps - Clamshell - 1-2 x daily - 15-30 reps - Supine Pelvic Rocking - 1-2 x daily - 10-15 reps - Standing Lumbar Extension - 3-5 x daily - 10 reps - Supine Sciatic Nerve [place] - 1-2 x daily - 2 sets - 10 reps Manual therapy x 8 minutes: prone grade II and III central posterior to anterior joint mobilizations to lumbar spine Timed Code Treatment Minutes: 23 Total Treatment Minutes: 40 ASSESSMENT Therapist Impression/Summary: Patient presents with bilateral low back pain with radicular symptomsinto bilateral posterior buttock and thighs with lumbar flexion with improved symptoms with lumbar extension. She presents with some pain reproduction with spring testing to lower lumbar spine. Core and hip weakness noted. Some neural tension noted at end ranges supine straight leg- raise. Limited sitting tolerance secondary to symptoms. She will benefit from working with skilled physical therapy to work on addressing identified deficits to help maximize symptom management and therapy goal achievement. PT Clinical Presentation: Low Complexity: Stable and Uncomplicated Clinical Decision Making: Low Complexity Recommendations/Equipment: No additional recommendations at this time Significant Impairments: Pain, Muscle tightness/decreased flexibility, Muscle weakness, Proprioception deficits, Postural restrictions Functional Limitations: difficulty with household tasks, difficulty meeting work demands, and difficulty with driving Goals/Functional Outcomes: -HEP/Independent Management: Demonstrate independence with HEP and self- management following each treatment session -ADL's: Perform home management tasks with ease in 4-12 weeks. -Sit for greater than 1 hour(s) with minimal/no symptoms in 4-12 weeks for increased ease for completion of work tasks. Barriers to Goal Achievement or Learning: none Prognosis: Good PLAN Planned Intervention/Education: ADL/Self Management, Education, Manual Therapy, Mechanical Traction, Neuromuscular Re-education, Therapeutic Activities, Therapeutic Exercise Frequency: 1 x week Duration: 90 days Discharge Plan: Patient will be discharged from therapy when goals are achieved or patient plateausin progress. Informed Consent: Patient and/or family in agreement with the care plan. Plan for Next Treatment: work on progressive core stabilization strengthening as tolerated The business objects analyst is completed by the therapist and the referring clinician's electronic signature certifies medical necessity for the plan above. RAFT WORKER documented in this encounter Plan of Treatment Upcoming Encounters Date Type Department Care Team Description 03/18/2023 1:40 PM AIRCRAFT WORKER Appointment [place] [address] Ophthalmology [address] [place] [address] Dominga Fink, OD [address] [place] [address] documented as of this encounter Visit Diagnoses Diagnosis 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)- Primary documented in this encounter Care Teams Sugar Laboratory Assistant Relationship Specialty Start Date End Date Leena Spivey MD [address] [place] [address] PCP - General 05/06/09 01/20/23 documented as of this encounter
--- OUTSIDE RECORDS SUMMARY | 2023-03-02 13:28 | XMS_ITS | Encounter Summary ---
Author Name Unknown Organization [facility] Address [address] [place] [address] Care Team Providers Care Hr Administrative Assistant Name Role Phone Leena Spivey MD Primary Care Provider [phone] Reason for Referral * Procedure/Equipment (Routine) - Incomplete Specialty Diagnoses / Procedures Referred By Endyac t Referred To Contact Diagnoses LLQ abdominal pain Procedures XR Abd 2 [place] [address] [place] [address] Referral ID Status Reason Start Date Expiration Date V isits Requested Visits Authorized [id number] Incomplete 05/26/2022 08/25/2023 1 1 Reason for Visit * Reason Comments STOMACH PROBLEM Having a hard time g oing to the bathroom since last Wednesday. Would like xray done to see if there is any blockage. Encounter Details Date Type Department Care Team Description 05/26/2022 8:20 AM CDT Office Visit [facility] [address] [place] [id number] [place] [address] [place] [address] LLQ abdominal pain (Primary Dx) Social History Tobacco Use Types Packs/Day Years Used Date Smoking Tobacco: Never Passive Smoke Exposure: Never Smokeless Tobacco: Never Alcohol Use Standard Drinks/Week Comments Not Currently 0 (1 standard drink = 0.6 oz pure alcohol) h/o alcohol dependence, 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 PHQ-2 Answer Date Recorded PHQ-2 Score 2 05/12/2022 Sex and Gender Information Value Date Recorded Sex Assigned at Not on file Gender Identity Not on file Sexual Orientation Not on file documented as of this encounter Last Filed Vital Signs Vital Sign Reading Time Taken Comments Blood Pressure 118/73 05/26/2022 8:22 AM CDT Pulse 64 05/26/2022 8:22 AM CDT Temperature 36.4 ??C (97.6 ??F) 05/26/2022 8:22 AM CD T Respiratory Rate 18 05/26/2022 8:22 AM CDT Oxygen Saturation - - Inhaled Oxygen Concentration - - Weight 79.5 kg (175 lb 6 oz) 05/26/2022 8:22 AM CDT Height - - Body Mass Index 29.18 05/13/2022 8:29 AM CDT documented in this encounter Progress Notes * Cecilia Winn MD - 05/26/2022 8:20 AM CDT Subjective: Orquidea Ortiz is a 67 y.o. female with history of colitis and typical bowel pattern consistent with diarrhea who comes in with constipation type pattern and pain with passage of narrow small stools since Wednesday night, a week ago. States she ate chocolate chip cookies on Wednesday, 2 days prior, after having been dieting and eating less for the most part for awhile. She allows herself treats periodically so the chocolate chip cookies were 1 of those treats. Following that, Wednesday she had some looser stools. Then Wednesday noticed low-grade fever and smaller amounts of stools being passed with pain associated with it in the left lower quadrant of her belly and stool caliber seemed narrow. By fever was gone and the pain has been gradually getting better over the last few days. Stillcan feel the discomfort in that location and the stools are more narrow than usual and less frequent. Sees GI for her colitis issues and they had suggested she get into urgent care to make sure she didnot have a bowel obstruction or something else going on. Denies any nausea or vomiting. Pain does not wrap around to her back or go anywhere else in the belly. She does know that she has diverticulosis but has never had diverticulitis that she is aware of. Objective: BP 118/73 (BP Location: Right Arm, BP Cuff Size: Regular) Pulse 64 Temp 97.6 ??F (36.4 ??C) (Tympanic) Resp 18 Wt 175 lb 6 oz (79.5 kg) LMP 04/06/2011 (Exact Date) BMI 29.18 kg/m?? Lungs: Clear Back: No CVA tenderness Abdomen: Nondistended, slightly hypoactive bowel sounds but no high tinkling sounds. Mild tenderness on palpation over the left lower quadrant but no guarding and no rebound or abdominal masses palpable. White count 6.1 Abdominal x-ray shows normal bowel and stool patterns with no excessive amounts of stool burden. Norenal stones noted either. Assessment: Left lower quadrant abdominal pain which could be related to some mild gas or mild constipation which is starting to resolve or could also be a GI bug which is viral in origin. Plan: Will have her eat a mild diet including no spicy or fried foods until her belly feels back to normal. Keep well hydrated. If fever returns or worsening belly pain, follow-up with her PCP or GI provider. Can also try citrucel/benefiber to help with mild constipation. Cecilia Winn MD documented in this encounter Plan of Treatment Upcoming Encounters Date Type Department Care Team Description 03/18/2023 1:40 PM WINDOWS APPLICATION ADMINISTRATOR Appointment [place] [address] Ophthalmology [address] [place] [address] Dominga Fink, OD [address] [place], [place] [phone] documented as of this encounter Procedures Procedure Name Priority Date/Time Associated Diagnosis Comments WBC, BLOOD Routine 05/26/2022 8:37 AM CDT LLQ abdominal pain documented in this encounter Results * XR Abd 2 Views Routine (05/26/2022 8:48 AM CDT) Anatomical Region Laterality Modality Abdomen Computed Radiogr aphy 05/26/2022 8:48 AM CDT Narrative 05/26/2022 8:53 AM CDT EXAM: XR ABD 2 VIEWS ROUTINE LOCATION: [facility] DATE/TIME: 05/26/2022 8:48 AM INDICATION: LLQ abdominal pain last few days COMPARISON: None. IMPRESSION: Normal bowel gas pattern with no signs of obstruction. Average colonic stool burden. No free air. No renal stones evident. Procedure Note Elias Benitez MD - 05/26/2022 EXAM: XR ABD 2 VIEWS ROUTINE LOCATION: [facility] DATE/TIME: 05/26/2022 8:48 AM INDICATION: LLQ abdominal pain last few days COMPARISON: None. IMPRESSION: Normal bowel gas pattern with no signs of obstruction. Averagecolonic stool burden. No free air. No renal stones evident. Cecilia Winn MD RAD GD * WBC, Blood (05/26/2022 8:37 AM CDT) WBC 6.1 3.5 - 10.5 x10(9)/L 05/26/2022 8:41 AM CDT [facility] Blood Venipuncture / Unknown 05/26/2022 8:37 AM CDT 05/26/2022 8:37 AM CDT Cecilia Winn MD LAB_1 [facility] [address] [facility] [place] [address], [facility] [phone] documented in this encounter Visit Diagnoses Diagnosis LLQ abdominal pain- Primary Abdominal pain, left lower quadrant LLQ abdominal pain Abdominal pain, left lower quadrant documented in this encounter Care Teams Hr Administrative Assistant Relationship Specialty Start Date End Date Leena Spivey MD [address] [place] [address] PCP - General 05/06/09 01/20/23 documented as of this encounter
--- OUTSIDE RECORDS SUMMARY | 2023-03-02 13:28 | XMS_ITS | Encounter Summary ---
Author Name Unknown Organization [facility] Address [address] [place] [address] Care Team Providers Care Criminal Justice Instructor Name Role Phone Leena Spivey MD Primary Care Provider [phone] Reason for Visit * Procedure/Equipment (Routine) - New Request Specialty Diagnoses / Procedures Referred By Contabhi t Referred To Contact Diagnoses TIA (transient ischemic attack) Leena Spivey MD [address] [place] [address] Referral ID Status Reason Start Date Expiration Date V isits Requested Visits Authorized [id number] New Request 03/31/2022 06/30/2023 1 1 Encounter Details Date Type Department Care Team Description 05/06/2022 11:00 AM CDT Notes/Orders [facility] [address] [place] [address] Social History Tobacco Use Types Packs/Day Years Used Date Smoking Tobacco: Never Smokeless Tobacco: Never Alcohol Use Standard Drinks/Week Comments Not Currently 0 (1 standard drink = 0.6 oz pure alcohol) h/o alcohol dependence, 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 PHQ-2 Answer Date Recorded PHQ-2 Score 0 03/31/2022 Sex and Gender Information Value Date Recorded Sex Assigned at Not on file Gender Identity Not on file Sexual Orientation Not on file documented as of this encounter Plan of Treatment Upcoming Encounters Date Type Department Care Team Description 03/18/2023 1:40 PM STEWARD DISHWASHER Appointment [place] [address] Ophthalmology [address] [place] [address] Dominga Fink, OD [address] [place] [address] Scheduled Referrals Name Type Priority Associated Diagnoses Orde r Schedule Event Monitor Referral Routine TIA (transient ischemic attack) Ordered: 03/31/2022 documented as of this encounter Visit Diagnoses Not on filedocumented in this encounter Care Teams Criminal Justice Instructor Relationship Specialty Start Date End Date Leena Spivey MD [address] [place] [address] PCP - General 05/06/09 01/20/23 documented as of this encounter
--- OUTSIDE RECORDS SUMMARY | 2023-03-02 13:28 | XMS_ITS | Encounter Summary ---
Author Name Unknown Organization [facility] [address] [place] [address] Care Team Providers Care Ladle Handler Name Role Phone Leena Spivey MD Primary Care Provider [phone] Reason for Visit * Procedure/Equipment (Routine) - New Request Specialty Diagnoses / Procedures Referred By Laura whitlock Referred To Contact Diagnoses TIA (transient ischemic attack) Procedures Echocardiogram Leena Spivey MD [address] [place] [address] Referral ID Status Reason Start Date Expiration Date V isits Requested Visits Authorized [id number] New Request 03/31/2022 06/30/2023 1 1 Encounter Details Date Type Department Care Team Description 05/06/2022 10:00 AM CDT Procedure Visit [facility] Cardiac Non-Invasive Lab [address] [place] [address] Social History Tobacco Use Types Packs/Day Years [...] as of this encounter Progress Notes * Evan Joyce P - 05/06/2022 10:00 AM CDT Orquidea Ortiz here for an Echocardiogram. Primary Care Provider: Leena Spivey MD Procedures done today: Routine Echocardiogram 20 gauge IV catheter inserted by [facility] in the right antecubital. IV site appears: normal with intact catheter. Number of attempts: 1 . Patient Given: Contrast and Bubble Study Contrast Given: Yes: Optison IV D/C'd by: Tolerated procedure without difficulty. P Results given to Donor Center Technician documented in this encounter Plan of Treatment Upcoming Encounters Date Type Department Care Team Description 03/18/2023 1:40 PM MINING PLANT OPERATOR Appointment [place] [address] Ophthalmology [address] [place] [address] Dominga Fink, TODD [address] [place] [address] documented as of this encounter Procedures Procedure Name Priority Date/Time Associated Diagnosis Comments ECHOCARDIOGRAM Routine 05/06/2022 10:05 AM CDT TIA (transient ischemic attack) EJECTION FRACTION Routine 05/06/2022 10: 05 AM CDT documented in this encounter Results * EJECTION FRACTION (05/06/2022 10:05 AM CDT) EF 60 % PROSOLV EF test type CATH PROSOLV 05/06/2022 10:0 5 AM CDT Leena Spivey MD [facility] CATH L AB/RH PROSOLV [address] [place], [place] [id number] * Echocardiogram (05/06/2022 10:05 AM CDT) 05/06/2022 10:0 5 AM CDT Narrative PROSOLV - 05/06/2022 1:53 PM CDT Summary ??1. Normal sinus rhythm during study. ??2. Normal LV size with normal wall thickness. Calculated bi-planes LVEF 55-60%. No regional wall motion abnormalities. (Normal function). Normal diastolic function. ??3. Normal RV size with normal systolic function. ??4. No significant valvular abnormalities. ??5. Negative bubble study. ??6. A prior study is not available for comparison. Report Signatures Finalized by Elias ??Maryjane ?? on 05/06/2022 01:45 PM Procedure Note Elias Wesley MD - 05/06/2022 Summary 1. Normal sinus rhythm during study. 2. Normal LV size with normal wall thickness. Calculated bi-planesLVEF 55-60%. No regional wall motion abnormalities. (Normal function). Normal diastolic function. 3. Normal RV size with normal systolic function. 4. No significant valvular abnormalities. 5. Negative bubble study. 6. A prior study is not available for comparison. Report Signatures Finalized by Elias Wesley MD on 05/06/2022 01:45 PM Leena Spivey MD ET ECHO ORDERABLES PROSOLV [address] [place] [address] documented in this encounter Visit Diagnoses Diagnosis TIA (transient ischemic attack) Unspecified transient cerebral ischemia documented in this encounter Care Teams Ladle Handler Relationship Specialty Start Date End Date Leena Spivey MD [address] [place] [address] PCP - General 05/06/09 01/20/23 documented as of this encounter
--- OUTSIDE RECORDS SUMMARY | 2023-03-02 13:28 | XMS_ITS | Encounter Summary ---
Author Name Unknown Organization [facility] Address [address], [place] [address] Care Team Providers Care Remedial Teacher Name Role Phone Leena Spivey MD Primary Care Provider [phone] Reason for Visit * Procedure/Equipment (Routine) - Incomplete Specialty Diagnoses / Procedures Referred By Laura t Referred To Contact Diagnoses LLQ abdominal pain Procedures XR Abd 2 [place] [address] [place] [address] Referral ID Status Reason Start Date Expiration Date V isits Requested Visits Authorized [id number] Incomplete 05/26/2022 08/25/2023 1 1 Encounter Details Date Type Department Care Team Description 05/26/2022 8:40 AM CDT Ancillary Procedure [facility] [address] [place] [id number] [place] [address] [place] [address] LLQ abdominal pain Social History Tobacco Use Types Packs/Day Years [...] Department Care Team Description 03/18/2023 1:40 PM RECYCLING MANAGER Appointment [place] [address] Ophthalmology [address] [place] [address] Dominga Fink, OD [address] [place] [address] documented as of this encounter Procedures Procedure Name Priority Date/Time Associated Diagnosis Comments XR ABD 2 VIEWS ROUTINE STAT 05/26/2022 8:48 AM CDT LLQ abdominal pain documented in this encounter Results * XR Abd 2 Views Routine (05/26/2022 8:48 AM CDT) Anatomical Region Laterality Modality Abdomen Computed Radiogr aphy 05/26/2022 8:48 AM CDT Narrative 05/26/2022 8:53 AM CDT EXAM: XR ABD 2 VIEWS ROUTINE LOCATION: [facility] DATE/TIME: 05/26/2022 8:48 AM INDICATION: LLQ abdominal pain last few days COMPARISON: None. IMPRESSION: Normal bowel gas pattern with no signs of obstruction. Average colonic stool burden. No free air. No renal stones evident. Procedure Note Elias Benitez MD - 05/26/2022 EXAM: XR ABD 2 VIEWS ROUTINE LOCATION: [facility] DATE/TIME: 05/26/2022 8:48 AM INDICATION: LLQ abdominal pain last few days COMPARISON: None. IMPRESSION: Normal bowel gas pattern with no signs of obstruction. Averagecolonic stool burden. No free air. No renal stones evident. Cecilia Winn MD RAD GD documented in this encounter Visit Diagnoses Diagnosis LLQ abdominal pain Abdominal pain, left lower quadrant documented in this encounter Care Teams Remedial Teacher Relationship Specialty Start Date End Date Leena Spivey MD [address] [place] [address] PCP - General 05/06/09 01/20/23 documented as of this encounter
--- OUTSIDE RECORDS SUMMARY | 2023-03-02 13:28 | XMS_ITS | Encounter Summary ---
Author Name Unknown Organization Replaced by [facility] Address [address], [place] [address] Care Team Providers Care Electrical Sign Wirer Name Role Phone Leena Spivey MD Primary Care Provider [phone] Reason for Visit * Reason Comments Consult, New Patient Encounter Details Date Type Department Care Team Description 04/03/2022 3:00 PM BAND SAWMILL OPERATOR Office Visit [facility] Physical Medicine [address] [place] [address] Ivan Saleh MD [address] [place], [place] [id number] TIA (transient ischemic attack) (Primary Dx) Social History Tobacco Use Types [...] Sign Reading Time Taken Comments Blood Pressure 127/76 04/03/2022 3:00 PM BAND SAWMILL OPERATOR Pulse 66 04/03/2022 3:00 PM BAND SAWMILL OPERATOR Temperature - - Respiratory Rate - - Oxygen Saturation - - Inhaled Oxygen Concentration - - Weight 83.4 kg (183 lb 12.8 oz) 04/03/2022 3:00 PM BAND SAWMILL OPERATOR Height - - Body Mass Index 30.59 03/24/2022 11:29 AM BAND SAWMILL OPERATOR documented in this encounter Patient Instructions * Attachments The following attachments cannot be sent through Care Everywhere. * TIA (Transient Ischemic Attack) (Mauritian) documented in this encounter Progress Notes * Ivan Saleh MD - 04/03/2022 3:00 PM CST Physical Medicine and Rehabilitation [facility] [address] [place] [address] Date of Service: 04/03/2022 Referring Provider: PATIENT SELF REFERRAL Primary Care Provider: Leena Spivey MD Chief Complaint Patient presents with Consult, New Patient History of Present Illness: I had the pleasure of meeting Ms. Orquidea Ortiz on 04/03/2022 in the physical medicine and rehabilitation outpatient clinic in consult for Self-Referral with regards to a transient ischemic attack. Orquidea Ortiz is a 67 y.o. old female with with a history of alcohol dependence in remission, panic disorder, hyperlipidemia, who [facility]22 for evaluationof right face and arm tingling. Patient stated that she had acute neuro symptoms on the right and subsequently took her blood pressure and was found to have a systolic of greater than 180. Patient was seen in the emergency department and stated that within 2 hours of being there that her symptoms completely resolved. Since then she has not had any repeat symptoms. Currently she states that she has full sensation and full strength throughout. She has no history of a TIA that she knows of. In theED, patient was given a loading dose of aspirin and then started on dual antiplatelet therapy. The plan is for her to be on dual antiplatelet therapy for approximately 3 weeks and then aspirin only. Patient has since been seen by her primary care doctor. She is committed to making both diet and lifestyle changes which includes tight glycemic control, blood pressure control and continuing her stroke prevention meds including a statin as well as the dual antiplatelet therapy as mentioned above. Past Medical History: Past Medical History: Diagnosis Date Alcohol dependence (HRC) In remission BP (high blood pressure) (HRC) Cervical uterine polyp Chemical dependency (HRC) alcohol Depression Depressive disorder, not elsewhere classified (HRC) Esophageal reflux Gastrointestinal disease High blood pressure (HRC) Hyperlipidemia (HRC) Lymphocytic colitis Prediabetes Psychiatric disorder (HRC) panic disorder Uterine fibroid Past Surgical History: Procedure Laterality Date BREAST AUGMENTATION Bilateral has had them removed. BREAST AUGMENTATION UNILATERAL 1990, 1997 implants removed BREAST BIOPSY Left 1997 benign, no scar CONIZATION CERV W/WO D&C; KNIF/LASR 30s minor dysplasia hysteroscocpy 01/14/06 & 04/10/08 removal of endometrial polyp, path polyp and PE hysteroscopy, polypectomy 02/13/2019 For benign endometrial polyp LAMINECT W/EXPLOR; LUMBAR EX SPONDY L5-S1 discectomy LIG FALLOPION TUBE ABD/VAG UNI/MIGUEL SALPINGO-OOPHORECTOMY Bilateral 02/13/2019 Laparoscopic; for benign ovarian cysts STRABISMUS SURG; 1 HORIZONTAL MUSC chilhood strabismus TONSILLECT PRIM/SEC; UNDER AGE 13 Family History: Family History Problem Relation Age of Onset Diabetes, Type II Mother Cancer, Breast Mother 57 Heart Disease Father of heart disease age 69, multiple MIs first CABG 48, alcohol Cataract Sister Glaucoma Sister Cancer, Breast Sister 45 BRCA testing negative. Hypertension Sister Hyperlipidemia Sister age 55, Cancer, Breast Sister 63 Cancer, Thyroid Sister Cataract Brother Cancer, Pancreatic Maternal Aunt 70 Cataract Maternal Grandmother Cancer, Ovary Paternal Grandmother 60 Cancer Paternal Grandfather ? colon cancer, colostomy Macular Degeneration Negative Family History Retinal Detachment Negative Family History Social history: Patient lives with her . She reports that she has never smoked. She has never used smokelesstobacco. Medications: Current Outpatient Medications Medication Sig Dispense Refill aspirin 81 MG chewable tablet Chew and swallow 1 Tablet (81 mg) by mouth daily. 30 Tablet 0 Calcium Carb-Cholecalciferol 500-3.125 MG-MCG TABS cholecalciferol (VITAMIN D3) 25 MCG (1000 UT) tablet Take 1 Tablet (1,000 Units) by mouth daily. 2 tabs/day clopidogrel (PLAVIX) 75 MG tablet Take 1 Tablet (75 mg) by mouth daily for 21 days. 21 Tablet 0 famotidine (PEPCID) 20 MG tablet Take 1 Tablet (20 mg) by mouth two times a day. 180 Tablet 2 mesalamine (LIALDA) 1.2 g enteric coated tablet Take 3 tablets PO QD with food 270 Tablet 3 multivitamin (AKA THERAGRAN) tablet Take 1 Tablet by mouth daily. 30 Tab 11 pravastatin (PRAVACHOL) 40 MG tablet Take 1 Tablet (40 mg) by mouth daily at bedtime. 90 Tablet 3 sertraline (ZOLOFT) 100 MG tablet Take 2 Tablets (200 mg) by mouth daily. 180 Tablet 3 traZODone (DESYREL) 50 MG tablet Take 1-2 tablets at bedtime as needed. 180 Tablet 3 No current facility-administered medications for this visit. Allergies: Allergies Allergen Reactions Lipitor [Atorvastatin] Muscle Aches/Weakness Sulfa Antibiotics Rash Review of Systems: Please see complete 14 system ROS in the EMR. Physical Exam: Vitals: 04/03/22 1500 BP: 127/76 Pulse: 66 General: NAD, pleasant Mental status: displays appropriate affect Head: normocephalic and atraumatic Eyes: conjunctivae, lids, pupils, and irises are within normal limits Respiratory: normal WOB, no cough on exam Cardiovascular: normal heart rate Extremities: no obvious swelling in any of the four extremities, Skin: intact where visible Posture: shoulders level, iliac crest level, no scoliosis, normal spine curvature Gait: normal: non antalgic or ataxic Range of motion: full functional range of motion in all joints tested Sensation: Sensation intact to light touch in all major dermatomes Cranial nerves 2-12 intact Reflexes: 2 + throughout Strength: 5/5 in all muscles tested Tone: no spasticity or atrophy noted Cognition: 12/12 months backwards, able to participate in conversation fully in appropriately Imaging: Reviewed Labs: Hemoglobin Date Value 03/24/2022 14.8 g/dL 11/28/2021 14.1 g/dL 05/15/2021 14.5 g/dL 07/29/2017 14.2 g/dl 02/19/2017 15.0 g/dl 12/24/2015 14.4 g/dl WBC Date Value 03/24/2022 7.3 x10(9)/L 11/28/2021 7.3 x10(9)/L 05/15/2021 6.3 x10(9)/L 07/29/2017 7.4 k/ul 02/18/2015 7.4 k/ul 08/14/2014 8.3 k/ul BUN Date Value 03/24/2022 12 mg/dL 07/29/2017 13 mg/dl Sodium (mmol/L) Date Value 03/24/2022 140 07/29/2017 140 Potassium (mmol/L) Date Value 03/24/2022 4.0 07/29/2017 3.9 Chloride (mmol/L) Date Value 03/24/2022 105 07/29/2017 106 CO2 (mmol/L) Date Value 03/24/2022 21 07/29/2017 25 Glucose Date Value 03/24/2022 117 mg/dL (H) 07/29/2017 70 mg/dl Creatinine Date Value 03/24/2022 0.75 mg/dL 07/29/2017 0.68 mg/dl GFR, Estimated Date Value 03/24/2022 >60 mL/min/1.73m2 11/28/2021 >60 mL/min/1.73m2 07/29/2017 >60 ml/min/1.73m2 GFR, Est., If Black (ml/min/1.73m2) Date Value 07/29/2017 >60 Calcium Date Value 03/24/2022 9.5 mg/dL 07/29/2017 10.4 mg/dl Anion Gap (calc.) (mmol/L) Date Value 07/29/2017 9 Anion Gap (mmol/L) Date Value 03/24/2022 14 C-Reactive Protein (mg/dL) Date Value 11/17/2018 0.7 07/29/2017 1.0 (H) ESR (mm/hr) Date Value 07/29/2017 26 (H) Alkaline Phosphatase (U/L) Date Value 11/28/2021 66 02/19/2017 81 Impression: 67 y.o. old female with a history of an apparent transient ischemic attack which took place on 03/24/22 presents for follow-up in [facility]. Patient doing very well without any ongoing symptoms and no repeat events. Plan: Patient education: I went over the above diagnoses and treatment plan with her and answered all of her questions. Exercise program: Home exercise program, remain active Medications: No medications prescribed this visit. Continue with dual antiplatelet therapy x3 weeksand then go to aspirin only per Neurology recommendations. Imaging Orders: None Interventions: None Referrals: No new referrals indicated Follow up: As needed Billing based on: Time Total time for the visit was 45 minutes including [id number] time spent reviewing records, counseling, and coordination of care. Ivan Saleh MD 04/03/2022 Physical Medicine and Rehabilitation SAWMILL OPERATOR documented in this encounter Plan of Treatment Upcoming Encounters Date Type Department Care Team Description 03/18/2023 1:40 PM BAND SAWMILL OPERATOR Appointment [place] [address] Ophthalmology [address] [place] [address] Dominga Fink, OD [address] [place] [address] documented as of this encounter Visit Diagnoses Diagnosis TIA (transient ischemic attack)- Primary Unspecified transient cerebral ischemia documented in this encounter Care Teams Electrical Sign Wirer Relationship Specialty Start Date End Date Leena Spivey MD [address] [place] [address] PCP - General 05/06/09 01/20/23 documented as of this encounter
--- OUTSIDE RECORDS SUMMARY | 2023-03-02 13:28 | XMS_ITS | Encounter Summary ---
Author Name Unknown Organization [facility] Address [address], [place] [address] Care Team Providers Care Gray Tender Name Role Phone Leena Spivey MD Primary Care Provider [phone] Encounter Details Date Type Department Care Team Description 07/03/2022 11:20 AM CDT Lab Visit [facility] [address] [place] [address] Diarrhea, unspecified type; Abdominal tenderness, rebound tenderness presence not specified, unspecified location Social History Tobacco Use Types Packs/Day Years [...] Department Care Team Description 03/18/2023 1:40 PM CENTRAL OFFICE TECHNICIAN Appointment [place] [address] Ophthalmology [address] [place] [address] Dominga Fink, OD [address] [place] [address] documented as of this encounter Procedures Procedure Name Priority Date/Time Associated Diagnosis Comments C.DIFFICILE TOXIN,MOLECULAR DETECTION Routine 07/02/2022 2:30 PM CDT Diarrhea, unspecified type ENTERIC PARASITE MOLECULAR DETECTION (GIARDIA, CRYPTOSPORIDIUM, E.HISTOLYTICA) Routine 07/02/2022 1:00 PM CDT Diarrhea, unspecified type OVA & PARASITE EXAM PANEL Routine 07/02/2022 1:00 PM CDT Diarrhea, unspecified type ENTERIC STOOL PATHOGENS PANEL Routine 07/02/2022 1:00 PM CDT Diarrhea, unspecified type Abdominal tenderness, rebound tenderness presence not specified, unspecified location ENTERIC STOOL PATHOGENS, MOLECULAR DETECTION PANEL Routine 07/02/2022 1:00 PM CDT Diarrhea, unspecified type Abdominal tenderness, rebound tenderness presence not specified, unspecified location OVA & PARASITE EXAM #1 Routine 07/02/2022 1:00 PM CDT Diarrhea, unspecified type documented in this encounter Results * C.Difficile Toxin,Molecular Detection, (07/02/2022 2:30 PM CDT) C.difficile by PCR Not Detected Not Detected 07/06/2022 10:21 AM CDT [facility] Stool 07/02/2022 2:30 PM CDT 07/03/2022 11:28 AM CDT [facility] - 07/06/2022 10:21 AM CDT Comment: A single negative test for C. difficile means the likelihood this organism is causing the diarrheal illness is extremely low. ??Therefore repeat testing within 7 days of the same diarrheal episode is strongly discouraged. Reny A Valeriy EARL CNP LAB_[address] [address], [facility] [phone] * Ova & Parasite Exam (07/02/2022 1:00 PM CDT) Ova and Parasite Result No Parasites Seen No Parasites Seen 07/06/2022 4:15 PM CDT [facility] Stool 07/02/2022 1:00 PM CDT 07/03/2022 11:28 AM CDT Reny Segovia Valeriy CASSIUS EARL LAB_1 [facility] [address] [place] [address], [facility] [phone] * Enteric Stool Pathogens, Molecular Detection Panel (07/02/2022 1:00 PM CDT) Pathologist [facility] Campylobacter Group Not Detected Not Detected MOLECULAR BLOOD CULTURE IDENTIFICATION 07/03/2022 8:08 PM CDT [facility] Salmonella Species Not Detected Not Detected MOLECULAR BLOOD CULTURE IDENTIFICATION 07/03/2022 8:08 PM CDT [facility] Shigella Species Not Detected Not Detected MOLECULAR BLOOD CULTURE IDENTIFICATION 07/03/2022 8:08 PM CDT [facility] Vibrio Group Not Detected Not Detected MOLECULAR BLOOD CULTURE IDENTIFICATION 07/03/2022 8:08 PM CDT [facility] Shiga toxin 1 Not Detected Not Detected MOLECULAR BLOOD CULTURE IDENTIFICATION 07/03/2022 8:08 PM CDT [facility] Shiga toxin 2 Not Detected Not Detected MOLECULAR BLOOD CULTURE IDENTIFICATION 07/03/2022 8:08 PM CDT [facility] Norovirus Not Detected Not Detected MOLECULAR BLOOD CULTURE IDENTIFICATION 07/03/2022 8:08 PM CDT [facility] Rotavirus Not Detected Not Detected MOLECULAR BLOOD CULTURE IDENTIFICATION 07/03/2022 8:08 PM CDT [facility] Yersinia enterocolitica Not Detected Not Detected MOLECULAR BLOOD CULTURE IDENTIFICATION 07/03/2022 8:08 PM CDT [facility] Stool 07/02/2022 1:00 PM CDT 07/03/2022 11:28 AM CDT Narrative [facility] - 07/03/2022 8:08 PM CDT Shiga toxin producing E. coli (STEC) typically harbor one or both genes that encode for Shiga toxins 1 and 2. Testing is performed by an automated system utilizing reverse head golf coach (RT), polymerase chain reaction (PCR), and array hybridization. Shiga toxin producing E. coli (STEC) typically harbor one or both genes that encode for Shiga toxins 1 and 2. Testing is performed by an automated system utilizing reverse head golf coach (RT), polymerase chain reaction (PCR), and array hybridization. Reny A Valeriy RAJAT CASSIUS [facility]_[id number] [place] [address] * Enteric Parasite Molecular Detection (Giardia, Cryptosporidium, E.histolytica) (07/02/2022 1:00 PM CDT) Cryptosporidium sp. DNA (C hominis and C parvum) Not Detected Not Detected 07/06/2022 12:28 PM CDT [facility] Entamoeba histolytica DNA Not Detected Not Detected 07/06/2022 12:28 PM CDT [facility] Giardia duodenalis (Giardia lamblia) DNA Not Detected Not Detected 07/06/2022 12:28 PM CDT [facility] Stool 07/02/2022 1:00 PM CDT 07/03/2022 11:28 AM CDT Narrative [facility] - 07/06/2022 12:28 PM CDT Methodology: Test performed by qualitative real-time PCR If stool PCR assays are negative and diarrhea persists for more than 14 days, consider stool examination for Ova and Parasites per Smart Set Reny A Valeriy RAJATCASSIUS LAB_1 Performing Organization Address City/[facility] Co de Phone Number [facility] [address] [address], [facility] [phone] documented in this encounter Visit Diagnoses Diagnosis Diarrhea, unspecified type Abdominal tenderness, rebound tenderness presence not specified, unspecified location documented in this encounter Care Teams Gray Tender Relationship Specialty Start Date End Date Leena Spivey MD [address] [place] [address] PCP - General 05/06/09 01/20/23 documented as of this encounter
--- OUTSIDE RECORDS SUMMARY | 2023-03-02 13:28 | XMS_ITS | Encounter Summary ---
Author Name Unknown Organization [facility] Address [address] [address] Care Team Providers Care Ophthalmic Tech Name Role Phone Leena Bourne MD Primary Care Provider [phone] Reason for Visit * Reason Comments Refill sertraline (ZOLOFT) 100 MG tablet [Pharmacy Med Name: SERTRALINE 100MG TABLETS] Encounter Details Date Type Department Care Team Description 05/09/2022 Refill [facility] [address] [place], [place] [phone] Leena Bourne MD [address] [place], [place] [phone] Refill (sertraline (ZOLOFT) 100 MG tablet [Pharmacy Med Name: SERTRALINE 100MG TABLETS]) Social History Tobacco Use Types Packs/Day [...] as of this encounter Nursing Notes * Arlene Jane RN - 05/12/2022 2:43 PM CDT Refill approved per standing order * Interface, Out Contract Live Query - 05/09/2022 3:22 AM CDT sertraline (ZOLOFT) 100 MG tablet [Pharmacy Med Name: SERTRALINE 100MG TABLETS] Antidepressants -> Refill x 12 months, qty: 180, refills: 3 (until due for an office visit) Last qualifying visit: 03/31/2022 (with LEENA BOURNE) Next scheduled visit: 05/12/2022 (with LEENA BOURNE) Last ordered by LEENA BOURNE: 05/19/2021 (355 days ago) QTY: 180, Refills: 3, Sig: take 2 tablets (200 mg) by mouth daily. (changed but equivalent) Age: 67 [employer], Reference: [id number], 05/09/2022 3:22:06 AM CDT, Pool: GEO MAXWELL RN ([id number]) documented in this encounter Plan of Treatment Upcoming Encounters Date Type Department Care Team Description 03/18/2023 1:40 PM ENROLLMENT ELIGIBILITY REPRESENTATIVE Appointment [place] [address] Ophthalmology [address] [place] [address] Dominga Fink, OD [address] [place] [address] documented as of this encounter Visit Diagnoses Not on filedocumented in this encounter Care Teams Ophthalmic Tech Relationship Specialty Start Date End Date Leena Bourne MD [address] [place] [address] PCP - General 05/06/09 01/20/23 documented as of this encounter
--- OUTSIDE RECORDS SUMMARY | 2023-03-02 13:28 | XMS_ITS | Encounter Summary ---
Author Name Unknown Organization [facility] Address [address] [place] [address] Care Team Providers Care Vertical Borer Name Role Phone Leena Spivey MD Primary Care Provider [phone] Encounter Details Date Type Department Care Team Description 05/06/2022 Notes/Orders [facility] Card[facility] Non-Invasive [facility] [address] [place] [id number] Leena Spivey MD [address] [place], [place] [phone] Atrial fibrillation, unspecified type (HRC) (Primary Dx) Social History Tobacco Use [...] Department Care Team Description 03/18/2023 1:40 PM DESKTOP SUPPORT TECHNICIAN Appointment [place] [address] Ophthalmology [address] [place] [address] Dominga Fink, OD [address] [place] [address] documented as of this encounter Procedures Procedure Name Priority Date/Time Associated Diagnosis Comments MCT -REMOTE 30 DAY ECG REVIEW AND INTERPRETATION Routine 06/04/2022 11:59 PM CDT Atrial fibrillation, unspecified type (HRC) documented in this encounter Results * MCT - [id number] (06/04/2022 11:59 PM CDT) 06/04/2022 11:5 9 PM CDT Narrative [facility] - 06/08/2022 5:06 PM CDT Sinus Rhythm, No Afib noted Confirmed by Carlos Aden ([id number]) on 06/08/2022 5:06:33 PM Procedure Note Janell Aden MD - 06/08/2022 Sinus Rhythm, No Afib noted Confirmed by Carlos Aden ([id number]) on 06/08/2022 5:06:33 PM Leena Spivey MD CARDIOLOGY/AR [facility] [address] [place] [address] documented in this encounter Visit Diagnoses Diagnosis Atrial fibrillation, unspecified type (HRC)- Primary documented in this encounter Care Teams Vertical Borer Relationship Specialty Start Date End Date Leena Spivey MD [address] [place] [address] PCP - General 05/06/09 01/20/23 documented as of this encounter
--- OUTSIDE RECORDS SUMMARY | 2023-03-02 13:28 | XMS_ITS | Encounter Summary ---
Author Name Unknown Organization [facility] Address [address], [place] [address] Care Team Providers Care Director Audience Marketing Name Role Phone Leena Spivey MD Primary Care Provider [phone] Encounter Details Date Type Department Care Team Description 07/02/2022 Notes/Orders [facility] [address] [place], [place] [phone] Burt Fernandez Hyperlipidemia with target low density lipoprotein (LDL) cholesterol less than 130 mg/dL (HRC) (Primary Dx) Social History Tobacco Use [...] Department Care Team Description 03/18/2023 1:40 PM TELETYPEWRITER OPERATOR Appointment [place] [address] Ophthalmology [address] [place] [address] Dominga Fink, OD [address] [place] [address] documented as of this encounter Visit Diagnoses Diagnosis Hyperlipidemia with target low density lipoprotein (LDL) cholesterol less than 130 mg/dL (HRC)- Primary documented in this encounter Care Teams Director Audience Marketing Relationship Specialty Start Date End Date Leena Spivey MD [address] [place] [address] PCP - General 05/06/09 01/20/23 documented as of this encounter
--- OUTSIDE RECORDS SUMMARY | 2023-03-02 13:28 | XMS_ITS | Encounter Summary ---
Author Name Unknown Organization [facility] Address [address], [place] [address] Care Team Providers Care Retail Sales Specialist Name Role Phone Leena Spivey MD Primary Care Provider [phone] Encounter Details Date Type Department Care Team Description 07/02/2022 9:10 AM CDT Lab Visit [facility] [address] [place], [place] [phone] IFG (impaired fasting glucose); Hyperlipidemia with target LDL less than 130 (HRC); Thyroid nodule (HRC); Diarrhea, unspecified type; Lymphocytic colitis Social History Tobacco Use Types Packs/Day Years [...] Department Care Team Description 03/18/2023 1:40 PM SENIOR CISCO NETWORK ENGINEER Appointment [place] [address] Ophthalmology [address] [place] [address] Dominga Fink, OD [address] [place] [address] documented as of this encounter Procedures Procedure Name Priority Date/Time Associated Diagnosis Comments CBC AND DIFFERENTIAL PANEL Routine 07/02/2022 9:15 AM CDT Diarrhea, unspecified type Lymphocytic colitis COMPLETE BLOOD COUNT-W/DIFF Routine 07/02/2022 9:15 AM CDT Diarrhea, unspecified type Lymphocytic colitis TSH, SENSITIVE Routine 07/02/2022 9:15 AM CDT Thyroid nodule (HRC) BASIC METABOLIC PANEL Routine 07/02/2022 9:15 AM CDT Diarrhea, unspecified type C-REACTIVE PROTEIN Routine 07/02/2022 9: 15 AM CDT Diarrhea, unspecified type Lymphocytic colitis HGB A1C Routine 07/02/2022 9:15 AM CDT IFG (impaired fasting glucose) AST Routine 07/02/2022 9:15 AM CDT Hyperlipidemia with target LDL less than 130 (HRC) documented in this encounter Results * Complete Blood Count-W/Diff (07/02/2022 9:15 AM CDT) WBC 6.5 3.5 - 10.5 x10(9)/L 07/02/2022 9:19 AM CDT [facility] RBC 4.44 3.90 - 5.03 x10(12)/L 07/02/2022 9:19 AM CDT [facility] Hemoglobin 13.2 12.0 - 15.5 g/dL 07/02/2022 9:19 AM CDT [facility] HCT 39.6 34.9 - 44.5 % 07/02/2022 9:19 AM CDT [facility] MCV 89.2 80.0 - 100.0 fL 07/02/2022 9:19 AM CDT [facility] MCH 29.7 27.6 - 33.3 pg 07/02/2022 9:19 AM CDT [facility] MCHC 33.3 31.5 - 35.2 g/dL 07/02/2022 9:19 AM CDT [facility] RDW 12.5 11.9 - 15.5 % 07/02/2022 9:19 AM CDT [facility] Platelets 234 150 - 450 x10(9)/L 07/02/2022 9:19 AM CDT [facility] Neutrophil Absolute 4.2 1.7 - 7.0 10(9)/L 07/02/2022 9:19 AM CDT [facility] Lymphocyte Absolute 1.6 1.0 - 4.8 10(9)/L 07/02/2022 9:19 AM CDT [facility] Monocyte Absolute 0.6 0.2 - 0.9 10(9)/L 07/02/2022 9:19 AM CDT [facility] Eosinophil Absolute 0.1 0.0 - 0.5 10(9)/L 07/02/2022 9:19 AM CDT [facility] Basophil Absolute 0.0 0.0 - 0.3 10(9)/L 07/02/2022 9:19 AM CDT [facility] Immature Granulocyte % 0.2 0.0 - 0.5 % 07/02/2022 9:19 AM CDT [facility] Blood Venipuncture / Unknown 07/02/2022 9:15 AM CDT 07/02/2022 9:15 AM CDT Reny A Valeriy EARL CNP LAB_1 [facility] [address] [place] [address], [facility] [phone] * (ABNORMAL) C-Reactive Protein (07/02/2022 9:15 AM CDT) [facility] C-Reactive Protein 1.1(H) 0.0 - 0.7 mg/dL 07/02/2022 4:10 PM CDT [facility] Blood Venipuncture / Unknown 07/02/2022 9:15 AM CDT 07/02/2022 9:15 AM CDT Reny A Valeriy EARL CNP LAB_1 [facility] [address] [address], [facility] [phone] * Basic Metabolic Panel (07/02/2022 9:15 AM CDT) Sodium 142 136 - 145 mmol/L 07/02/2022 4:10 PM CDT [facility] Potassium 4.0 3.5 - 5.1 mmol/L 07/02/2022 4:10 PM CDT [facility] Chloride 107 98 - 109 mmol/L 07/02/2022 4:10 PM CDT [facility] CO2 24 20 - 29 mmol/L 07/02/2022 4:10 PM CDT [facility] Anion Gap 11 7 - 16 mmol/L 07/02/2022 4:10 PM T [facility] Calcium 9.5 8.4 - 10.4 mg/dL 07/02/2022 4:10 PM T [facility] BUN 12 7 - 26 mg/dL 07/02/2022 4:10 PM T [facility] Creatinine 1.00 0.55 - 1.02 mg/dL 07/02/2022 4:10 PM T [facility] Glucose 97 70 - 100 mg/dL 07/02/2022 4:10 PM T [facility] Comment:The given reference range is for the fasting state. Non-fasting reference range for glucose is 70 - 180 mg/dL. Hours Fasting N/A 07/02/2022 4:10 PM T [facility] GFR, Estimated >60 >60 mL/min/1. 73m2 07/02/2022 4:10 PM T [facility] Blood Venipuncture / Unknown 07/02/2022 9:15 AM CDT 07/02/2022 9:15 AM CDT Reny A Valeriy EARL CNP LAB_1 [facility] [address] [address], [facility] [phone] [facility] [address] [place] [address] [phone] * TSH (07/02/2022 9:15 AM CDT) [facility] TSH, Sensitive 3.17 0.30 - 4.50 uIU/mL 07/02/2022 4:28 PM CDT [facility] Blood Venipuncture / Unknown 07/02/2022 9:15 AM CDT 07/02/2022 9:15 AM CDT Leena Spivey MD LAB_1 Performing Organization Address [facility]/ZIP Co de Phone Number [facility] [address] [phone] * AST (07/02/2022 9:15 AM CDT) [facility] AST (SGOT) 22 10 - 40 U/L 07/02/2022 4:10 PM CDT [facility] Blood Venipuncture / Unknown 07/02/2022 9:15 AM CDT 07/02/2022 9:15 AM CDT Leena Spivey MD LAB_1 Performing Organization Address [facility] de Phone Number [facility] [address] [phone] * (ABNORMAL) Hgb A1C (07/02/2022 9:15 AM CDT) [facility] Hemoglobin A1C 6.0(H) <=5.6 % 07/02/2022 4:25 PM CDT [facility] Estimated Average Glucose (Calc) 126 < 117 mg/dL 07/02/2022 4:25 PM T [facility] Comment:Estimated average gl ucose (eAG) converts A1c into glucose units (mg/dL) and estimates average glucose over the past approximately 3 months. The eAG reference interval (<117 mg/dL) corresponds to an A1c of <5.7%. Blood Venipuncture / Unknown 07/02/2022 9:15 AM CDT 07/02/2022 9:15 AM CDT Narrative [facility] - 07/02/2022 4:25 PM CDT For patients not previously diagnosed with diabetes: 5.7-6.4%: Increased risk for diabetes 6.5% and greater: Diagnostic for diabetes For patients diagnosed with diabetes: <8.0%: Goal of therapy for ages 18-75 Clinicians may recommend a higher or lower goal for specific individuals. Leena Spivey MD LAB_1 [facility] [address] [phone] documented in this encounter Visit Diagnoses Diagnosis IFG (impaired fasting glucose) Impaired fasting glucose Hyperlipidemia with target LDL less than 130 (HRC) Other and unspecified hyperlipidemia Thyroid nodule (HRC) Nontoxic uninodular goiter Diarrhea, unspecified type Lymphocytic colitis Other and unspecified noninfectious gastroenteritis and colitis documented in this encounter Care Teams Retail Sales Specialist Relationship Specialty Start Date End Date Leena Spivey MD [address] [place] [address] PCP - General 05/06/09 01/20/23 documented as of this encounter
--- OUTSIDE RECORDS SUMMARY | 2023-03-02 13:28 | XMS_ITS | Encounter Summary ---
Author Name Unknown Organization [facility] Address [address], [place] [address] Care Team Providers Care Blueprint Cutter Name Role Phone Leena Spivey MD Primary Care Provider [phone] Reason for Visit * Reason Comments COLITIS Encounter Details Date Type Department Care Team Description 05/13/2022 8:30 AM CDT Formerly [facility] at [address] [address] Reny Crooks, WINE STEWARD, HOSPITAL EDUCATION COORDINATOR [address] [place] [address] Lymphocytic colitis (Primary Dx); Gastroesophageal reflux disease, unspecified whether esophagitis present Social History Tobacco Use Types Packs/Day Years [...] Sign Reading Time Taken Comments Blood Pressure - - Pulse - - Temperature - - Respiratory Rate - - Oxygen Saturation - - Inhaled Oxygen Concentration - - Weight 79.4 kg (175 lb) 05/13/2022 8:29 AM CDT Height 165.1 cm (5' 5) 05/13/2022 8:29 AM CDT Body Mass Index 29.12 05/13/2022 8:29 AM CDT documented in this encounter Patient Instructions * Patient Instructions* Reny Crooks APRN, CNP - 05/13/2022 8:30 AM CDT Continue taking Lialda 1.2 grams 3 tablets daily 2. I will contact you regarding change in medication if appropriate. 3. Avoid NSAIDS such as Advil, Ibuprofen, Aleve, Motrin, Naproxen and Aspirin. You can take Tylenolfor pain, no more than 4000 mg total in 24 hours. 4. If needed you can take Imodium, do not take imodium if you have not had a bowel movement in 24 hours. 5. Take Famotidine 20 mg 1 tablet in the morning and 1 tablet at bedtime. 6. Follow anti reflux measures. 7. Follow up in 6-12 months, sooner if needed. Reny Crooks APRN, CNP * Attachments The following attachments cannot be sent through Care Everywhere. * GERD (Indonesian) documented in this encounter Progress Notes * Reny Crooks APRN, CNP - 05/13/2022 8:30 AM CDT GASTROENTEROLOGY [facility] [address] [place] [address], [address] Telemedicine appointment in light of COVID19 Pandemic DATE OF SERVICE: 05/13/2022 CONSULT reason: microscopic colitis HPI Orquidea Ortiz is a 67 y.o. old female who is seen for evaluation of Lymphocytic colitis. Last GI appointment 11/24/21 Telemedicine encounter via video due to COVID 19 pandemic. Patient with a history of panic disorder, alcohol dependence in remission, thyroid nodule, IFG, other specified hypothyroidism, seen for follow up lymphocytic colitis and GERD. Patient currently taking Lialda 1.2 grams 3 tablets daily for management of lymphocytic colitis. Denies side effects to Lialda. Previously took Pentasa with good control of her symptoms. Medication was changed due to insurance formulary changes. Patient is wondering about taking balsalazide rather than Lialda. Also wonders if this would be contraindicated with sulfa allergy. There is somewhat of a contraindication with allergy to sulfasalazine will check with the pharmacist regarding this. Budesonide taper, in the past has been helpful. Last took Budesonide in 2018. Imodium is helpful if she takes 2 tablets will have 3-4 days of decreased symptoms with possibly 1 day without a bowel movement. Denies constipation associated with taking Imodium. Taking a fiber supplement causes increased loose stools. She has two days of diarrhea per week. With 2-3 bowel movements in a day. Otherwise will have 2 bowel movements in a day the first is more formed and the second can be looser stools. Some days she has small amount of stool, each time she uses the bathroom. No abdomen pain, nausea, vomiting, constipation. GERD symptoms are under good control at this time and denies dysphagia at this time. She is taking famotidine 20 mg b.i.d. which has been helpful. If the medication becomes ineffective at some point could consider referral to surgeon for consideration of Bridgette fundoplication or LINX procedure. Patient can not take PPI due to history of lymphocytic colitis. 12/10/2021 EGD normal examined duodenum, erythematous mucosa in the stomach, multiple gastric polyps, gaping lower esophageal sphincter. Esophageal mucosal changes consistent with eosinophilic esophagitis. Z-line irregular at 37 cm from the incisors. Pepcid 20 mg b.i.d. was recommended for GERD symptoms as she can not take PPI due to microscopic colitis. Esophagus dilated with Savary dilator withmild resistance at 17 cm. Pathology: Stomach random minimal nonspecific chronic gastritis no H pylori. Esophagus middle 3rd esophageal mucosa with no diagnostic abnormality. GE junction gastric type mucosa with chronic inflammation reactive changes, no intestinal metaplasia identified. REVIEW OF SYSTEMS: Gastrointestinal: Rectal bleeding: No Blood in stool: No Diarrhea: Yes Constipation: No Abdominal pain: No Nausea: Yes Vomiting: No Gassiness or bloating: No Heartburn: No Difficult or painful swallowing: No Constitutional: Fevers: No Chills: No Night sweats: No Weight loss: No Wt Readings from Last 5 Encounters: 05/13/22 175 lb (79.4 kg) 04/03/22 183 lb 12.8 oz (83.4 kg) 04/01/22 187 lb 4.8 oz (85 kg) 03/24/22 190 lb 11.2 oz (86.5 kg) 12/10/21 181 lb 14.4 oz (82.5 kg) 12/10/21 EGD Impression: - Normal examined duodenum. - Erythematous mucosa in the stomach. Biopsied. - Multiple gastric polyps. - Gaping lower esophageal sphincter. - Esophageal mucosal changes consistent with eosinophilic esophagitis. Biopsied. Dilated. - Z-line irregular, 37 cm from the incisors. Biopsied. - The examination was otherwise normal. Recommendation: - Await pathology results. - Follow an antireflux regimen indefinitely. - Use Pepcid (famotidine) 20 mg PO BID. - Repeat upper endoscopy PRN for retreatment. - Return to referring physician as previously scheduled. Surgical Path - GI: [id number] Order: [id number] Collected 12/10/2021 12:04 Status: Final result Visible to patient: Yes (seen) Dx: Dysphagia, unspecified type Specimen Information: A: Stomach; Tissue B: Esophagus, middle third; Tissue C: GE Junction; Tissue 2 Result Notes Component FINAL DIAGNOSIS A. Stomach, random, biopsy: Minimal non-specific chronic gastritis Negative for Helicobacter pylori B. Esophagus, middle third, biopsy: Esophageal mucosa with no diagnostic abnormality C. GE Junction, biopsy: Gastric type mucosa with chronic inflammation reactive changes No intestinal metaplasia identified IMPRESSION/PLAN: Patient with a history of panic disorder, alcohol dependence in remission, thyroid nodule, IFG, other specified hypothyroidism, seen for follow up lymphocytic colitis and GERD. Lymphocytic colitis Currently taking Lialda 1.2 grams 3 tablets daily Denies side effects to Lialda. Previously took Pentasa changed due to insurance formulary changes. Patient questions if Balsalazide would be an option as the cost is less. Budesonide taper, helpful. Last took Budesonide in 2018. Imodium is helpful 2 tablets will have 3-4 days of decreased symptoms and 1 day without a bowel movement. Denies constipation associated with taking Imodium. Taking a fiber supplement causes increased loose stools. --no NSAIDs --will contact the patient regarding balasalzide is contraindicated with sulfa allergy. --can consider change to balsalazide, if ineffective would need to consider other options for managing lymphocytic colitis. 2. GERD GERD symptoms controlled at this time Denies dysphagia Taking famotidine 20 mg b.i.d. helpful. 12/10/2021 EGD normal examined duodenum, erythematous mucosa in the stomach, multiple gastric polyps, gaping lower esophageal sphincter. Esophageal mucosal changes consistent with eosinophilic esophagitis. Z-line irregular at 37 cm from the incisors. Pepcid 20 mg b.i.d. was recommended for GERD symptoms as she can not take PPI due to microscopic colitis. Esophagus dilated with Savary dilator withmild resistance at 17 cm. Pathology: Stomach random minimal nonspecific chronic gastritis no H pylori. Esophagus middle 3rd esophageal mucosa with no diagnostic abnormality. GE junction gastric type mucosa with chronic inflammation reactive changes, no intestinal metaplasia identified. --lifestyle changes: Avoid laying down until 2-3 hours after eating, avoid/minimize caffeine/chocolate/peppermint, avoid triggers: Spicy foods, etc; avoid tight fitting clothing --famotidine 20 mg b.i.d. --Consider referral to surgeon for consideration of Bridgette fundoplication or LINX procedure. Patient can not take PPI due to history of lymphocytic colitis. --anti-reflux measures provided on AVS GERD symptoms are under good control at this time and denies dysphagia at this time. She is taking famotidine 20 mg b.i.d. which has been helpful. If the medication becomes ineffective at some point could consider referral to surgeon for consideration of Bridgette fundoplication or LINX procedure. Patient can not take PPI due to history of lymphocytic colitis. 12/10/2021 EGD normal examined duodenum, erythematous mucosa in the stomach, multiple gastric polyps, gaping lower esophageal sphincter. Esophageal mucosal changes consistent with eosinophilic esophagitis. Z-line irregular at 37 cm from the incisors. Pepcid 20 mg b.i.d. was recommended for GERD symptoms as she can not take PPI due to microscopic colitis. Esophagus dilated with Savary dilator withmild resistance at 17 cm. Pathology: Stomach random minimal nonspecific chronic gastritis no H pylori. Esophagus middle 3rd esophageal mucosa with no diagnostic abnormality. GE junction gastric type mucosa with chronic inflammation reactive changes, no intestinal metaplasia identified. This visit was conducted via video. Location of clinician: clinic Location of patient: home Time spent on video in [id number] contact with patient, if applicable: 20 minutes where >80% was spent in counseling the patient regarding the impression and plan of care. Reny Crooks APRN, HOSPITAL EDUCATION COORDINATOR 05/13/2022, 8:30 AM This document may, in part, created with a voice recognition software and may contain some unintended word substitution or power originator errors. REVIEW OF SYSTEMS: The remainder of complete review of systems is negative unless otherwise stated above. PAST MEDICAL HISTORY: The patient has a past medical history of Alcohol dependence (HRC), BP (high blood pressure) (HRC), Cervical uterine polyp, Chemical dependency (HRC), Depression, Depressive disorder, not elsewhere classified (HRC), Esophageal reflux, Gastrointestinal disease, High blood pressu re (HRC), Hyperlipidemia (HRC), Lymphocytic colitis, Prediabetes, Psychiatric disorder (HRC), and Uterine fibroid. PAST SURGICAL HISTORY: has a past surgical history that includes Strabismus Surg; 1 Horizontal Musc; Laminect W/Explor; Lumbar Ex Spondy (L5-S1); breast augmentation unilateral (1990, 1997); Lig Fallopion Tube Abd/Vag Uni/Cole; Tonsillect Prim/Sec; Under Age 13; hysteroscocpy (01/14/06 & 04/10/08); Conization Cerv W/Wo D&C; Knif/Lasr (30s); salpingo-oophorectomy (Bilateral, 02/13/2019); hysteroscopy, polypectomy (02/13/2019); breast biopsy (, 1997); and breast augmentation (Bilateral). MEDICATIONS: Patient has a current medication list which includes the following prescription(s): aspirin, calcium carb-cholecalciferol, cholecalciferol, clopidogrel, famotidine, mesalamine, multivitamin, pravastatin, sertraline, and trazodone. ALLERGIES: Lipitor [atorvastatin] and Sulfa antibiotics SOCIAL HISTORY: The patient reports that she has never smoked. She has never used smokeless tobacco. She reports that she does not currently use alcohol. She reports that she does not use drugs. FAMILY HISTORY: The patient's family history includes Cancer in her paternal grandfather; Cancer, Breast (age of onset: 45) in her sister; Cancer, Breast (age of onset: 57) in her mother; Cancer, Breast (age of onset: 63) in her sister; Cancer, Ovary (age of onset: 60) in her paternal grandmother; Cancer, Pancreatic (age of onset: 70) in her maternal aunt; Cancer, Thyroid in her sister; Cataract in her brother, maternal grandmother, and sister; Diabetes, Type II in her mother; Glaucoma in her sister; Heart Disease in her father; Hyperlipidemia in her sister; Hypertension in her sister. There is no history of Macular Degeneration or Retinal Detachment. documented in this encounter Plan of Treatment Upcoming Encounters Date Type Department Care Team Description 03/18/2023 1:40 PM [facility] Appointment [place] [address] Ophthalmology [address] [place] [address] Dominga Fink, OD [address] [place] [address] documented as of this encounter Visit Diagnoses Diagnosis Lymphocytic colitis- Primary Other and unspecified noninfectious gastroenteritis and colitis Gastroesophageal reflux disease, unspecified whether esophagitis present documented in this encounter Care Teams Blueprint Cutter Relationship Specialty Start Date End Date Leena Spivey MD [address] [place] [address] PCP - General 05/06/09 01/20/23 documented as of this encounter
--- OUTSIDE RECORDS SUMMARY | 2023-03-02 13:28 | XMS_ITS | Encounter Summary ---
Author Name Unknown Organization [facility] Address [address], [place] [address] Care Team Providers Care Outboard Motorboat Operator Name Role Phone Leena Bourne MD Primary Care Provider [phone] Reason for Visit * Reason Comments Refill pravastatin (PRAVACH OL) 40 MG tablet [Pharmacy Med Name: PRAVASTATIN 40MG TABLETS] Encounter Details Date Type Department Care Team Description 05/12/2022 Refill [facility] [address] [place], [place] [id number] Leena Bourne MD [address] [place], [place] [id number] Refill (pravastatin (PRAVACHOL) 40 MG tablet [Pharmacy Med Name: PRAVASTATIN 40MG TABLETS]) Social History Tobacco Use Types Packs/Day [...] as of this encounter Nursing Notes * Paty Perez RN - 05/14/2022 10:42 AM CDT Refilled per standing order. * Alfred [facility] Query - 05/12/2022 3:22 AM CDT pravastatin (PRAVACHOL) 40 MG tablet [Pharmacy Med Name: PRAVASTATIN 40MG TABLETS] Miscellaneous - 12 Month Visit 1 -> Patient has a visit scheduled within the next 3 days. -> Refill x 12 months, qty: 90, refills: 3 (until due for an office visit) Last qualifying visit: 03/31/2022 (with LEENA BOURNE) Next scheduled visit: 05/12/2022 (with LEENA BOURNE) Last ordered by LEENA BOURNE: 05/23/2021 (354 days ago) QTY: 90, Refills: 3, Sig: take 1 tablet (40 mg) by mouth daily at bedtime. (changed but equivalent) [employer] Embedded Refills, Reference: [id number], 05/12/2022 3:22:09 AM CDT, Pool: GEO MAXWELL RN ([id number]) documented in this encounter Plan of Treatment Upcoming Encounters Date Type Department Care Team Description 03/18/2023 1:40 PM [facility] Appointment [place] [address] [place] [phone] Dominga Fink, OD [address] [place] [address] documented as of this encounter Visit Diagnoses Diagnosis Hyperlipidemia with target LDL less than 130 (HRC) Other and unspecified hyperlipidemia documented in this encounter Care Teams Outboard Motorboat Operator Relationship Specialty Start Date End Date Leena Bourne MD [address] [place] [address] PCP - General 05/06/09 01/20/23 documented as of this encounter
--- OUTSIDE RECORDS SUMMARY | 2023-03-02 13:28 | XMS_ITS | Encounter Summary ---
Author Name Unknown [facility] Address [address] [address] Care Team Providers Care Powder Truck Driver Name Role Phone Leena Spivey MD Primary Care Provider [phone] Reason for Visit * Reason Comments Reschedule Appointment Encounter Details Date Type Department Care Team Description 05/12/2022 [facility] [address] [facility] [place] [address] Leena Spivey MD [address] [place] [address] Reschedule Appointment Social History Tobacco Use Types Packs/Day Years [...] as of this encounter Nursing Notes * Betty Kinney I - 05/12/2022 3:07 PM CDT CA called patient to get her to schedule appt that she had with Dr. Spivey. Dr. Spivey is openingup her 05/21 please schedule on whatever time is open documented in this encounter Plan of Treatment Upcoming Encounters Date Type Department Care Team Description 03/18/2023 1:40 PM WIRE SETTER Appointment [place] [id number] Ophthalmology [address] [place] [address] Dominga Fink, OD [address] [place] [address] documented as of this encounter Visit Diagnoses Not on filedocumented in this encounter Care Teams Powder Truck Driver Relationship Specialty Start Date End Date Leena Spivey MD [address] [place] [address] PCP - General 05/06/09 01/20/23 documented as of this encounter
--- OUTSIDE RECORDS SUMMARY | 2023-03-02 13:28 | XMS_ITS | Encounter Summary ---
Author Name Unknown Organization [facility] Address [address] [place] [address] Care Team Providers Care Food Analyst Name Role Phone Leena Spivey MD Primary Care Provider [phone] Reason for Referral * Procedure/Equipment (Routine) - Incomplete Specialty Diagnoses / Procedures Referred By Laura whitlock Referred To Contact Diagnoses Thyroid nodule (HRC) Procedures US Thyroid Leena Spivey MD [address] [place] [address] Referral ID Status Reason Start Date Expiration Date V isits Requested Visits Authorized [id number] Incomplete 07/21/2022 10/20/2023 1 1 * Consult/Transfer Care (Routine) - New Request Specialty Diagnoses / Procedures Referred By Laura whitlock Referred To Contact Diagnoses Encounter for hearing examination, unspecified whether abnormal findings Leena Spivey MD [address] [place] [address] Referral ID Status Reason Start Date Expiration Date V isits Requested Visits Authorized [id number] New Request 06/16/2022 09/15/2023 1 1 Scheduling Instructions Your clinician has recommended an appointment with [facility]. You may call [phone] to schedule your appointment. We suggest you call your health insurance company about your coverage and benefits for this appointment. Question Answer Appointment Urgency? Non-Urgent Reason for visit? hearing test Reason for Visit * Reason Comments Medicare Annual Wellness Encounter Details Date Type Department Care Team Description 06/16/2022 9:30 AM CDT Office Visit [facility] [address] [facility] [place] [address] Leena Spivey MD [address] [place] [address] Encounter for Medicare annual wellness exam (Primary Dx); Hyperlipidemia with target LDL less than 130 (HRC); IFG (impaired fasting glucose); Thyroid nodule (HRC); Encounter for hearing examination, unspecified whether abnormal findings; Depressive disorder Social History Tobacco Use Types Packs/Day Years [...] Sign Reading Time Taken Comments Blood Pressure 102/71 06/16/2022 9:28 AM CDT Pulse 65 06/16/2022 9:28 AM CDT Temperature 36.3 ??C (97.4 ??F) 06/16/2022 9:28 AM CD T Respiratory Rate - - Oxygen Saturation 97% 06/16/2022 9:28 AM CDT Inhaled Oxygen Concentration - - Weight 77.8 kg (171 lb 9.6 oz) 06/16/2022 9:28 A M CDT Height 163.8 cm (5' 4.5) 06/16/2022 9:28 AM CDT Body Mass Index 29 06/16/2022 9:28 AM CDT documented in this encounter Patient Instructions * Patient Instructions* Leena Spivey MD - 06/16/2022 9:30 AM CDT It was a pleasure to see you in clinic. Please let me know if you have any questions or concerns: Please schedule Fasting lab visit in the next month. You can schedule this at any [facility]. Congratulations on the healthy changes you have made. Leena Spivey MD [facility]. [phone] Appointment Center [phone] CareLine (for evenings and weekends) [phone] If you would like to know cost before you schedule or have tests/procedures performed you can call the cost of care number which is [phone]. Recommended service/s may not be covered by your insurance coverage. To find out your specific benefit coverage, please call the number on the back of your insurance card. Annual Wellness Visit Summary Your care team is recommending the following tests, procedures or services. Some of these recommendations may not be fully covered by Medicare or your insurance. If you have questions, check with your insurance to determine coverage before completing these services. Health Maintenance Due Health Maintenance Due Topic Date Due DTaP/Tdap/Td (2 - Tdap) 03/18/2021 Prediabetes: HGBA1C 05/15/2022 Pneumococcal 65+ Yrs (3 - PPSV23 if available, else PCV20) 05/19/2022 If your Medicare Welcome or Annual Wellness Visit is showing you are due in the above list, this will be updated after this visit. You had this completed today and are not due for another year. documented in this encounter Progress Notes * Leena Spivey MD - 06/16/2022 9:30 AM CDT Medicare Annual Wellness Visit Subjective/Historical: Orquidea Ortiz is a 67 y.o. old female Chief Complaint Patient presents with Medicare Annual Wellness Orquidea Ortiz is a 67 y.o. female who comes to clinic today for medicare wellness visit and other concerns: Medicare wellness forms reviewed. She is very active. No memory concerns. No falls. Reviewed fall preventions. Current Concerns: TIA in March. Now on asa and statin. Will continue. Due to recheck FLP. Abd pain: seen in urgent care. Notes reviewed. Symptoms have resolved. Impaired fasting glucose: due for monitoring. Since March, she has changed her diet and has lostweight. Depression in remission. Discussed decreasing sertraline to 150 mg. Will follow up by my chart in 4weeks. No alcohol use. Thyroid nodule: needs repeat US in July. That will be 5 years of monitoring. Advance Directives: No advance directives are on file. Plan future discussion of advance directives. Observed Vitals: BP 102/71 (BP Location: Right Arm, BP Cuff Size: Regular - Long) Pulse 65 Temp 97.4 ??F(36.3 ??C) (Tympanic) Ht 5' 4.5 (1.638 m) Wt 171 lb 9.6 oz (77.8 kg) LMP 04/06/2011 (Exact Date) SpO2 97% BMI 29.00 kg/m?? Physical Exam: General Appearance: alert, well appearing, and in no apparent distress HEENT: lids normal, sclera clear, conjunctiva normal, and EOMs intact and oropharynx clear, ear canals clear, and TMs normal Neck: no lymphadenopathy and goiter unchanged. Heart: regular rate and rhythm and no murmurs, gallops or rubs Lungs: clear to auscultation and no wheezes, rales or rhonchi Assessment/Plan Encounter for Medicare annual wellness exam Hyperlipidemia with target LDL less than 130 (HRC) - Lipid Panel and Direct LDL (If Needed); Future - AST; Future - Est Pt Visit Mod (98790) 30-39 Min IFG (impaired fasting glucose) - Hgb A1C; Future - Est Pt Visit Mod (59589) 30-39 Min Thyroid nodule (HRC) - TSH; Future - US Thyroid; Future - Est Pt Visit Mod (82097) 30-39 Min Encounter for hearing examination, unspecified whether abnormal findings - Audiology Consult-Adult/Peds Depressive disorder - Est Pt Visit Mod (41494) 30-39 Min Other orders - PPSV23 (PNEUMOVAX) - TDAP Counseling and education provided today includes proper nutrition and health habits, fall prevention, and for those items ordered above. See plan for future preventive services in Patient Instructions. Leena Spivey MD 06/16/2022, 9:34 AM documented in this encounter Plan of Treatment Upcoming Encounters Date Type Department Care Team Description 03/18/2023 1:40 PM CASH MANAGEMENT ASSOCIATE Appointment [place] [address] Ophthalmology [address] [place] [address] Dominga Fink, OD [address] [place] [address] Scheduled Orders Name Type Priority Associated Diagnoses Orde r Schedule US Thyroid Imaging New Routine Thyroid nodule (HRC) Expected: 07/21/2022 (Approximate), Expires: 06/18/2023 Scheduled Referrals Name Type Priority Associated Diagnoses Orde r Schedule Audiology Consult-Adult/Peds Referral Routine Encounter for hearing examination, unspecified whether abnormal findings Ordered: 06/16/2022 documented as of this encounter Results * TSH (07/02/2022 9:15 AM CDT) TSH, Sensitive 3.17 0.30 - 4.50 uIU/mL 07/02/2022 4:28 PM CDT [facility] Blood Venipuncture / Unknown 07/02/2022 9:15 AM CDT 07/02/2022 9:15 AM CDT Leena Spivey MD LAB_1 [facility] [address] [phone] * AST (07/02/2022 9:15 AM CDT) AST (SGOT) 22 10 - 40 U/L 07/02/2022 4:10 PM CDT [facility] Blood Venipuncture / Unknown 07/02/2022 9:15 AM CDT 07/02/2022 9:15 AM CDT Leena Spivey MD LAB_1 Performing Organization Address [facility] Co de Phone Number [facility] [address] [phone] * (ABNORMAL) Hgb A1C (07/02/2022 9:15 AM CDT) Hemoglobin A1C 6.0(H) <=5.6 % 07/02/2022 4:25 PM CDT [facility] Estimated Average Glucose (Calc) 126 < 117 mg/dL 07/02/2022 4:25 PM CDT [facility] Comment:Estimated average gl ucose (eAG) converts A1c into glucose units (mg/dL) and estimates average glucose over the past approximately 3 months. The eAG reference interval (<117 mg/dL) corresponds to an A1c of <5.7%. Blood Venipuncture / Unknown 07/02/2022 9:15 AM CDT 07/02/2022 9:15 AM CDT Narrative [facility] - 07/02/2022 4:25 PM CDT For patients not previously diagnosed with diabetes: 5.7-6.4%: Increased risk for diabetes 6.5% and greater: Diagnostic for diabetes For patients diagnosed with diabetes: <8.0%: Goal of therapy for ages 18-75 Clinicians may recommend a higher or lower goal for specific individuals. Leena Spivey MD LAB_1 Performing Organization Address [facility] Co de Phone Number [facility] [address] [phone] documented in this encounter Visit Diagnoses Diagnosis Encounter for hearing examination, unspecified whether abnormal findings Hyperlipidemia with target LDL less than 130 (HRC) Other and unspecified hyperlipidemia IFG (impaired fasting glucose) Impaired fasting glucose Thyroid nodule (HRC) Nontoxic uninodular goiter Depressive disorder Depressive disorder, not elsewhere classified documented in this encounter Care Teams Food Analyst Relationship Specialty Start Date End Date Leena Spivey MD [address] [place] [address] PCP - General 05/06/09 01/20/23 documented as of this encounter
--- OUTSIDE RECORDS SUMMARY | 2023-03-02 13:28 | XMS_ITS | Encounter Summary ---
Author Name Unknown Organization [facility] Address [address], [place] [address] Care Team Providers Care Ophthalmic Assistant Name Role Phone Leena Spivey MD Primary Care Provider [phone] Reason for Visit * Reason Comments Refill mesalamine (LIALDA) 1.2 g enteric coated tablet [Pharmacy Med Name: MESALAMINE 1.2GM TABLETS] Encounter Details Date Type Department Care Team Description 06/28/2022 Refill [facility] at [address] [address] Reny Crooks APRN, WAFER FABRICATION OPERATOR [address] [place] [address] Refill (mesalamine (LIALDA) 1.2 g enteric coated tablet [Pharmacy Med Name: MESALAMINE 1.2GM TABLETS]) Social History Tobacco Use Types Packs/Day [...] as of this encounter Nursing Notes * Reny Crooks APRN, CASSIUS - 07/01/2022 12:26 PM CDT Will need to change therapy after lab testing is completed. Reny Crooks APRN, CNP * Reny Crooks APRN, CNP - 06/29/2022 3:54 PM CDT On line message sent to the patient If she would like to change medication. Reny Crooks APRN, CNP * Meredith Greer RN - 06/29/2022 3:49 PM CDT To Reny Crooks ENGINEERING GROUP LEADER to advise on refill of Lialda. Recent appt in April and TE from May 13 discuss changing to Balsalazide. Meredith Greer RN 06/29/2022, 3:50 PM * Interface, Out Surescripts Prov Query - 06/28/2022 3:22 AM CDT mesalamine (LIALDA) 1.2 g enteric coated tablet [Pharmacy Med Name: MESALAMINE 1.2GM TABLETS] IBD - Antiinflammatory -> Glucose (serum) is abnormal (117 mg/dL lies outside 60.0 mg/dL - 100.0 mg/dL) -> Refill x 9 months (until due for a(n) BUN check, Ca check, Cr check, Glucose (serum) check, Kcheck and Na check) Last qualifying visit: 05/13/2022 (in [facility] with RENY CROOKS) Next scheduled visit: None Last ordered by RENY CROOKS: 07/01/2021 (362 days ago) QTY: 270, Refills: 3, Sig: take 3tablets po qd with food (changed but equivalent) Glucose (serum): 117 mg/dL on 03/24/2022 BUN: 12 mg/dL on 03/24/2022 Cr: 0.75 mg/dL on 03/24/2022 Na: 140 mEq/L on 03/24/2022 K: 4 mEq/L on 03/24/2022 Ca: 9.5 mg/dL on 03/24/2022 [employer] Embedded Refills, Reference: [id number], 06/28/2022 3:22:04 AM CDT, Pool: GI Refill RN/CSS () [[id number]] ([id number]) documented in this encounter Plan of Treatment Upcoming Encounters Date Type Department Care Team Description 03/18/2023 1:40 PM RETAIL COORDINATOR Appointment [place] [address] Ophthalmology [address] [place] [address] Dominga Fink, OD [address] [place] [address] documented as of this encounter Visit Diagnoses Diagnosis Colitis Other and unspecified noninfectious gastroenteritis and colitis documented in this encounter Care Teams Ophthalmic Assistant Relationship Specialty Start Date End Date Leena Spivey MD [address] [place] [address] PCP - General 05/06/09 01/20/23 documented as of this encounter
--- OUTSIDE RECORDS SUMMARY | 2023-03-02 13:28 | XMS_ITS | Encounter Summary ---
Author Name Unknown Organization [facility] Address [address] [place] [address] Care Team Providers Care Touring Production Manager Name Role Phone Leena Spivey MD Primary Care Provider [phone] Reason for Visit * Reason Comments MEDICATION, NOS Encounter Details Date Type Department Care Team Description 05/13/2022 [facility] Care at [address] [address] Reny Crooks APRN, MATHEMATICS PROFESSOR [address] [place] [address] MEDICATION, NOS Social History Tobacco Use Types Packs/Day Years [...] as of this encounter Nursing Notes * Kaylynn Katz RN - 05/13/2022 2:10 PM CDT I called Pat back and updated her on Reny Crooks APRN, MATHEMATICS PROFESSOR Message below. She will contact the clinic when she needs the fill. Kaylynn Katz RN 05/13/2022, 2:10 PM * Reny Crooks APRN, CNP - 05/13/2022 1:46 PM CDT She should be able to just switch over to Balsalazide. Have her call or message when she needs th refill. Reny Crooks APRN, CNP * Kaylynn Katz RN - 05/13/2022 1:16 PM CDT I called Pat. Pat said its ok to wait. Pat did ask if she needed to wean off of Lialda and have it over lap with taking the balsalazide. Kaylynn Katz RN 05/13/2022, 1:26 PM * Reny Crooks APRN, CNP - 05/13/2022 10:34 AM CDT Please call the patient Discussed with the patient there should not be a contraindication with sulfa allergy and taking Balsalazide. Does she want the prescription sent now or wait until she is due for refill of the Lialda? Reny Crooks APRN, CNP documented in this encounter Plan of Treatment Upcoming Encounters Date Type Department Care Team Description 03/18/2023 1:40 PM HYDROGRAPHICAL TECHNICAL OFFICER Appointment [place] [address] Ophthalmology [address] [place] [address] Dominga Fink, TODD [address] [place] [address] documented as of this encounter Visit Diagnoses Not on filedocumented in this encounter Care Teams Touring Production Manager Relationship Specialty Start Date End Date Leena Spivey MD [address] [place] [address] PCP - General 05/06/09 01/20/23 documented as of this encounter
--- OUTSIDE RECORDS SUMMARY | 2023-03-02 13:29 | XMS_ITS | Encounter Summary ---
Author Name Unknown Organization [facility] Address [address], [place] [address] Care Team Providers Care Planograph Operator Name Role Phone Cyndee Carranza MD Primary Care Provider [phone] Encounter Details Date Type Department Care Team Description 09/02/2017 Consent for Procedure/Treatme [facility] [address] [place] [address] Sampson Crocker MD [address] [place] [address] INFORMED CONSENT FOR TREATMENTS OR PROCEDURES Social History Tobacco Use Types Packs/Day Years Used Date Smoking Tobacco: Never Smokeless Tobacco: Never Alcohol Use Standard Drinks/Week Comments No 0 (1 standard drink = 0.6 oz pur e alcohol) Sex and Gender Information Value Date Recorded Sex Assigned at Not on file Gender Identity Not on file Sexual Orientation Not on file documented as of this encounter Plan of Treatment Upcoming Encounters Date Type Department Care Team Description 03/18/2023 1:40 PM UTILITY LOCATE TECHNICIAN Appointment [place] [address] Ophthalmology [address] [place] [address] Dominga Fink, OD [address] [place] [address] documented as of this encounter Visit Diagnoses Not on filedocumented in this encounter Care Teams Planograph Operator Relationship Specialty Start Date End Date Cyndee Carranza MD [address] [place] [address] PCP - General 01/21/23 documented as of this encounter
--- OUTSIDE RECORDS SUMMARY | 2023-03-02 13:29 | XMS_ITS | Encounter Summary ---
Author Name Unknown Organization [facility] Address [address] [place] [address] Care Team Providers Care Muck Miner Name Role Phone Cyndee Carranza MD Primary Care Provider [phone] Encounter Details Date Type Department Care Team Description 01/18/2019 Consent for Procedure/Treatment [facility] INFORMED CONSENT RECORD Social History Tobacco Use Types Packs/Day Years Used Date Smoking Tobacco: Never Smokeless Tobacco: Never Alcohol Use Standard Drinks/Week Comments Not Currently 0 (1 standard drink = 0.6 oz pure alcohol) h/o alcohol dependence, 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 Sex and Gender Information Value Date Recorded Sex Assigned at Not on file Gender Identity Not on file Sexual Orientation Not on file documented as of this encounter Plan of Treatment Upcoming Encounters Date Type Department Care Team Description 03/18/2023 1:40 PM AUTOMATIC TIRE TESTER Appointment [place] [address] Ophthalmology [address] [facility] [place] [address] Dominga Fink, OD [address] [place] [address] documented as of this encounter Visit Diagnoses Not on filedocumented in this encounter Care Teams Muck Miner Relationship Specialty Start Date End Date Cyndee Carranza MD [address] [place] [address] PCP - General 01/21/23 documented as of this encounter
--- OUTSIDE RECORDS SUMMARY | 2023-03-02 13:29 | XMS_ITS | Encounter Summary ---
Author Name Unknown Organization [facility] Address [address] [address] Care Team Providers Care Group Fitness Assistant Department Head Name Role Phone Leena Spivey MD Primary Care Provider [phone] Reason for Visit * Procedure/Equipment (Routine) - Incomplete Specialty Diagnoses / Procedures Referred By Laura t Referred To Contact Procedures MR Brain W/WO IV Cont Annie Huerta PA-C [address] [place] [address] Referral ID Status Reason Start Date Expiration Date V isits Requested Visits Authorized [id number] Incomplete 03/24/2022 06/23/2023 1 1 Encounter Details Date Type Department Care Team Description 03/24/2022 1:45 PM WOOL HAT FORMING MACHINE TENDER Ancillary Procedure [facility] [address] [place] [address] Social History Tobacco Use Types Packs/Day Years Used Date Smoking Tobacco: Never Smokeless Tobacco: Never Alcohol Use Standard Drinks/Week Comments Not Currently 0 (1 standard drink = 0.6 oz pure alcohol) h/o alcohol dependence, 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 PHQ-2 Answer Date Recorded PHQ-2 Score 0 05/19/2021 Sex and Gender Information Value Date Recorded Sex Assigned at Not on file Gender Identity Not on file Sexual Orientation Not on file documented as of this encounter Plan of Treatment Upcoming Encounters Date Type Department Care Team Description 03/18/2023 1:40 PM WOOL HAT FORMING MACHINE TENDER Appointment [place] [address] Ophthalmology [address] [place] [address] Dominga Fink, OD [address] [place] [address] documented as of this encounter Procedures Procedure Name Priority Date/Time Associated Diagnosis Comments MR BRAIN W/WO IV CONT STAT 03/24/2022 2:19 PM WOOL HAT FORMING MACHINE TENDER documented in this encounter Visit Diagnoses Not on filedocumented in this encounter Administered Medications Inactive Administered Medications - up to 3 most recent administrations Medication Order MAR Action Action Date Dose Rate Site gadobutrol (GADAVIST) 1 MMOL/ML injection 8.5 mL 8.5 mL, Intravenous, ONCE (NON-SCHEDULED), Starting on Wed03/24/22 at 1357, Until Wed03/24/22 at 1410, For 1 dose Given 03/24/2022 2:10 PM WOOL HAT FORMING MACHINE TENDER 8.5 mL documented in this encounter Care Teams Group Fitness Assistant Department Head Relationship Specialty Start Date End Date Leena Spivey MD [address] [place] [address] PCP - General 05/06/09 01/20/23 documented as of this encounter
--- OUTSIDE RECORDS SUMMARY | 2023-03-02 13:29 | XMS_ITS | Encounter Summary ---
Author Name Unknown Organization formerly [facility] Address [address] [place] [address] Care Team Providers Care Business Process Engineer Name Role Phone Leena Spivey MD Primary Care Provider [phone] Reason for Referral * Consult/Transfer Care (Routine) - Closed Specialty Diagnoses / Procedures Referred By Contabhi t Referred To Contact Diagnoses Arm paresthesia, right TIA (transient ischemic attack) Annie Huerta PA-C [address] [place] [address] Referral ID Status Reason Start Date Expiration Date Visits Re quested Visits Authorized [id number] Closed 03/24/2022 06/22/2022 1 1 Scheduling Instructions Your clinician has recommended an appointment with [facility] for your ongoing patient care. You can quickly make your appointment online at [employer]/schedule. You can also call [phone] for help scheduling your appointment. We suggest you call your health insurance company about your coverage and benefits for this appointment. Question Answer What type of follow up? Routine Appointment Urgency? Within 1 Week (Urgent) Comments Primary Care Provider: Leena Spivey MD EL OPERATOR * Procedure/Equipment (Routine) - Incomplete Specialty Diagnoses / Procedures Referred By Contac t Referred To Contact Procedures MR Brain W/WO IV Cont Annie Huerta PA-C [address] [place] [address] Referral ID Status Reason Start Date Expiration Date V isits Requested Visits Authorized [id number] Incomplete 03/24/2022 06/23/2023 1 1 EL OPERATOR * Procedure/Equipment (Routine) - Incomplete Specialty Diagnoses / Procedures Referred By Laura t Referred To Contact Procedures CT Angio Head Neck W IV Cont Code CVA Annie Huerta PA-C [address] [place] [id number] Referral ID Status Reason Start Date Expiration Date V isits Requested Visits Authorized [id number] Incomplete 03/24/2022 06/23/2023 1 1 EL OPERATOR Reason for Visit * Reason Comments SENSORY PROBLEM--FOCAL--ED Right side fa ce, hand/arm numbness Encounter Details Date Type Department Care Team Description 03/24/2022 11:18 AM SHOVEL OPERATOR - 03/24/2022 3:32 PM SHOVEL OPERATOR [facility] [address] [place] [address] [phone] Renard Michael MD [address] [place] [address] [phone] Arm paresthesia, right (Primary Dx); TIA (transient ischemic attack) Discharge Disposition: Home Social History Tobacco Use Types Packs/Day Years [...] Sign Reading Time Taken Comments Blood Pressure 139/78 03/24/2022 12:30 PM SHOVEL OPERATOR Pulse 65 03/24/2022 12:30 PM SHOVEL OPERATOR Temperature 36.7 ??C (98.1 ??F) 03/24/2022 1 1:29 AM SHOVEL OPERATOR Respiratory Rate 16 03/24/2022 12:1 5 PM SHOVEL OPERATOR Oxygen Saturation 97% 03/24/2022 12: 30 PM SHOVEL OPERATOR Inhaled Oxygen Concentration - - Weight 86.5 kg (190 lb 11.2 oz) 023 11:29 AM SHOVEL OPERATOR Height 165.1 cm (5' 5) 03/24/2022 11:2 9 AM SHOVEL OPERATOR Body Mass Index 31.73 03/24/2022 11:29 AM SHOVEL OPERATOR documented in this encounter Discharge Instructions * Discharge Instructions* Annie Huerta PA-C - 03/24/2022 3:05 PM SHOVEL OPERATOR You may have had a TIA. You need to see your primary care provider to have a workup to further assess your risk for stroke. All of your testing today was normal. Start taking 81 mg of aspirin every day. Come back to the ER if you have progressive numbness, headache, chest pain, weakness, slurred speech. EL OPERATOR * Attachments The following attachments cannot be sent through Care Everywhere. * Numbness and Tingling (Lithuanian) documented in this encounter Medications at Time of Discharge Medication Sig Dispensed Refills Start Date End Date aspirin 81 MG chewable tablet Chew and swallow 1 Tablet (81 mg) by mouth daily. 30 Tablet 0 03/24/2022 Calcium Carb-Cholecalciferol 500-3.125 MG-MCG TABS 0 08/31/2021 cholecalciferol (VITAMIN D3) 25 MCG (1000 UT) tablet Take 1 Tablet (1,000 Units) by mouth daily. 2 tabs/day 0 multivitamin (AKA THERAGRAN) tablet Take 1 Tablet by mouth daily. 30 Tab 11 09/04/2009 famotidine (PEPCID) 20 MG tablet Take 1 Tablet (20 mg) by mouth two times a day. 180 Tablet 2 11/26/2021 08/10/2022 mesalamine (LIALDA) 1.2 g enteric coated tabletIndications:Colit is Take 3 tablets PO QD with food 270 Tablet 3 07/01/2021 09/24/2022 pravastatin (PRAVACHOL) 40 MG tabletIndications:Hyper lipidemia with target LDL less than 130 (HRC) Take 1 Tablet (40 mg) by mouth daily at bedtime. 90 Tablet 3 05/23/2021 05/14/2022 sertraline (ZOLOFT) 100 MG tablet Take 2 Tablets (200 mg) by mouth daily. 180 Tablet 3 05/19/2021 05/12/2022 traZODone (DESYREL) 50 MG tablet Take 1-2 tablets at bedtime as needed. 180 Tablet 3 05/19/2021 07/10/2022 documented as of this encounter Consult Notes * Deepika Persaud MD - 03/24/2022 12:27 PM CST [facility] Date of Service: 03/24/2022 Chief Complaint: Stroke alert History of Present Illness: Orquidea is a 67 y.o. year-old with HTN, HLD, pre diabetes, lymphocyticcolitis, prior alcohol dependence brought to the ED due to sudden onset of right arm numbness/abnormal feeling (described as swelling and tightness) which then went to the right face. No headache. Noweakness, no difficulty walking. Onset was around 9::30 AM per nurse triage note. 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 for lower back, hx of back surgery 2002 Exercise No Bike Helmet Yes Seat Belt Yes Self-Exams Yes Social History Narrative Not on file Social Determinants of Health Financial Resource Strain: Not on file Food Insecurity: Not on file Transportation Needs: Not on file Physical Activity: Not on file Intimate Partner Violence: Not on file Housing Stability: Not on file Family History Problem Relation Age of Onset [...] Family History Retinal Detachment Negative Family History Physical Examination: Patient Vitals for the past 4 hrs: BP Temp Temp src Pulse Resp SpO2 Height Weight 03/24/22 1215 (!) 141/93 -- -- 62 16 98 % -- -- 03/24/22 1200 (!) 161/85 -- -- 64 -- 99 % -- -- 03/24/22 1145 (!) 149/70 -- -- 66 13 99 % -- -- 03/24/22 1135 -- -- -- 64 12 98 % -- -- 03/24/22 1130 (!) 143/84 -- -- 65 15 98 % -- -- 03/24/22 1129 (!) 123/108 98.1 ??F (36.7 ??C) Oral 68 16 98 % 5' 5 (1.651 m) 86.5 kg (190 lb 11.2 oz) 03/24/22 1125 -- -- -- 70 16 99 % -- -- 03/24/22 1120 (!) 123/108 -- -- 67 -- 98 % -- -- General: sitting in bed, NAD 1A: Level of Consciousness: No Deficits (+0) 1B: Ask Month and Age: No Deficit (+0) 1C: Tell Patient To Open and Close Eyes, then Hand Elephant Tamer Squeeze: No Deficit (+0) 2: Test Horizontal Extraocular Movements: No Deficit (+0) 3: Test Visual Wagner: No Deficit (+0) 4: Test Facial Palsy: No Deficit (+0) 5A: Test Left Arm Motor Drift: No Deficit (+0) 5B: Test Right Arm Motor Drift: No Deficit (+0) 6A: Test Left Leg Motor Drift: No Deficit (+0) 6B: Test Right Leg Motor Drift: No Deficit (+0) 7: Test Limb Ataxia: No Deficit (+0) 8: Test Sensation: No Deficit (+0) 9: Test Language/Aphasia: No Deficit (+0) 10: Test Dysarthria: No Deficit (+0) 11: Test Extinction/Inattention: No Deficit (+0) Total NIHSS: 0 Impression: Orquidea is a 67 y.o. year-old with HTN, HLD, pre diabetes, lymphocytic colitis, prior alcohol dependence brought to the ED due to sudden onset of right arm numbness/abnormal feeling (described as swelling and tightness) which then went to the right face. CT and CTA head and neck unremarkable. No tPA given the minor sx. ABCD2 score is 2 so she could be appropriate for outpatient work up if MRI isnegative. Recommendations: -ASA 325 mg once and 81 mg/day ongoing -Plavix 75 mg/day for 21 days and then stop it (continue just aspirin monotherapy) -MRI brain -TTE -A1c, lipids -If outpatient, recommend neurology f/u within 2 weeks Deepika Persaud MD 03/24/2022, 12:27 PM I spent greater than 30 critical care minutes with the care of the patient including face to face time, counseling, coordination of care, and chart review. Pt is critically ill in the ED with a stroke EL OPERATOR documented in this encounter ED Notes * Radha Harris RN - 03/24/2022 3:30 PM CST [facility] ED Nursing Discharge Note Arrival Information: Patient arrived: Ambulance Patient escorted by: EMS/Ambulance Discharge Information: Patient discharged: Home Patient accompanied by: Transport mode: personal vehicle Discharge instructions given and explained to patient: Patient appropriately dressed for weather: Yes LDA in place: Patient verbalized understanding of discharge plan and capable of completing discharge plan: Yes Does patient require hand-off or assistance with discharge plan: No Belongings and medication returned to patient and prompted to retrieve weapons: Yes Patient level of pain on discharge: Holds documented by nursing during this visit - reviewed chart for most current hold status: Yes Legal Status Orders (From admission, onward) None EL OPERATOR * Annie Huerta PA-C - 03/24/2022 11:33 AM CST [facility] Emergency Medicine Visit Note Chief Complaint: SENSORY PROBLEM--FOCAL--ED (Right side face, hand/arm numbness) HPI Orquidea Ortiz is a 67 y.o. old female With a history of alcohol dependence in remission, panic disorder, hyperlipidemia, who presents to emergency department for evaluation of right face and arm tingling that began 40 minutes ago. Sx's are now improving. She did not feel like she had any weakness or deficit. No vision change, headache, injury, speech change, trouble thinking. She was at work on her computer when this started. Also denies chest pain, shortness of breath, vomiting. Triage Vitals [03/24/22 1129] Temp 98.1 ??F (36.7 ??C) Temp src Oral Pulse 68 Resp 16 BP (!) 123/108 SpO2 98 % Physical Exam Vitals reviewed. Constitutional: Appearance: She is well-developed. HENT: Head: Normocephalic and atraumatic. Cardiovascular: Rate and Rhythm: Normal rate. Pulmonary: Effort: Pulmonary effort is normal. Breath sounds: Normal breath sounds. Abdominal: Palpations: Abdomen is soft. Tenderness: There is no abdominal tenderness. Musculoskeletal: General: Normal range of motion. Cervical back: Normal range of motion. Neurological: Mental Status: She is alert and oriented to person, place, and time. GCS: GCS eye subscore is 4. GCS verbal subscore is 5. GCS motor subscore is 6. Cranial Nerves: No cranial nerve deficit or dysarthria. Sensory: No sensory deficit. Motor: No weakness. Psychiatric: Mood and Affect: Mood normal. Behavior: Behavior normal. MDM: Patient presents to the emergency department for evaluation of numbness of right side of her face and arm. This has improved since onset 40 minutes ago. She has some subjective paresthesias at this time, but overall her NIH score is 0. A code CVA was called. Neurologist evaluated the patient at bedside, and agrees that her symptoms are very minimal, and would not recommend any intervention at this time. Will proceed with CT/CTA, likely MRI as well. She is overall a fairly healthy patient, in his low risk for other events. Annie Huerta PA-C ED Course as of 03/24/22 1515 Tue Mar 24, [address]/CTA without intracranial bleed or vascular abnormality. CTA neck likewise is reassuring. Will proceed with MRI. [EA] 1318 ATTENDING: I personally saw the patient, performed oconnor elements of the visit, and supervised patient care with the program clinician. MDM: 67 yo female with hx of CVD risk factors, here with transient right face and arm parasthesias. Given time course, code CVA called, low NIH score. CT/CTA sarahy rgently obtained and normal. Will obtain labs, MRI, reassess. If benign workup, likely outpt eval for TIA, close follow up, return for worsening sxs. CRITICAL CARE ADDENDUM: Based on my exam, arrived critically ill, requiring my immediate evaluation. Critical situation: focal neurologic abnormalities concerning for acute CVA. Interventions to address the situation:see attending physician, physician team assistant and/or resident/fellow physician notes for interventions., IV fluids, emergent diagnostic testing, and consulted with neurology Critical care time: 15 minutes performing reviewing test results, coordination of care, documentation, discussion with family to obtain medical information for decision making, and discussion with consultants.Time excludes teaching time and procedures. [BW] 2052 MRI without any significant findings. Will discuss with Neurology. Will discuss with Neurology. [EA] 1457 Patient signed out pending Neurology discussion of inpatient vs outpatient workup. [EA] 1503 Discussed with Neurology. Agrees patient can discharge with close follow up. Advises 81 mg daily ASA. Discussed with patient. She will follow closely with primary care provider. Indications for return to the ER were discussed. Patient discharged in stable condition. [EA] ED Course User Index [BW] Renard Michael MD [EA] Annie uHerta PA-C Clinical Impressions as of 03/24/22 1515 Arm paresthesia, right TIA (transient ischemic attack) EL OPERATOR documented in this encounter Plan of Treatment Upcoming Encounters Date Type Department Care Team Description 03/18/2023 1:40 PM SHOVEL OPERATOR Appointment [place] [address] [address] [address] [place] [address] Dominga Fink, OD [address] [place] [address] Scheduled Referrals Name Type Priority Associated Diagnoses Orde r Schedule Primary Care Follow-Up Referral Routine Arm paresthesia, right TIA (transient ischemic attack) Ordered: 03/24/2022 documented as of this encounter Procedures Procedure Name Priority Date/Time Associated Diagnosis Comments MR BRAIN W/WO IV CONT STAT 03/24/2022 2:19 PM SHOVEL OPERATOR [id number] ELECTROCARDIOGRAM TRACING STAT 03/24/2022 12:[address] ANGIO HEAD NECK W IV CONT CODE CVA STAT 03/24/2022 11:53 AM SHOVEL OPERATOR BASIC METABOLIC PANEL STAT 03/24/2022 11:34 AM SHOVEL OPERATOR APTT (ACTIVATED PARTIAL THROMBOPLASTIN TIME STAT 03/24/2022 11:34 AM SHOVEL OPERATOR TROPONIN I STAT 03/24/2022 11:34 AM SHOVEL OPERATOR COMPLETE BLOOD COUNT-NO DIFF STAT 03/24/2022 11:34 AM SHOVEL OPERATOR INR/PROTIME STAT 03/24/2022 11:34 AM SHOVEL OPERATOR documented in this encounter Results * MR Brain W/WO IV Cont (03/24/2022 2:19 PM SHOVEL OPERATOR) Anatomical Region Laterality Modality Head Magnetic Resonan ce 03/24/2022 2:19 PM SHOVEL OPERATOR Narrative 03/24/2022 2:30 PM SHOVEL OPERATOR EXAM: MR BRAIN W/WO IV CONT LOC[facility]: [facility] DATE/TIME: 03/24/2022 2:19 PM INDICATION: Transient ischemic attack (TIA). Right face and arm weakness. COMPARISON: CTA 03/24/2022 CONTRAST: GADOBUTROL 1 MMOL/ML IV SOLN 8.5 mL TECHNIQUE: Routine multiplanar multisequence head MRI without and with intravenous contrast. FINDINGS: INTRACRANIAL CONTENTS: No acute or subacute infarct. No mass, acute hemorrhage, or extra-axial fluid collections. Scattered nonspecific foci of T2/FLAIR hyperintense signal in the cerebral white matter. Unchanged, age-appropriate ventricles and sulci. Normal position of the cerebellar tonsils. No pathologic contrast enhancement. SELLA: No abnormality accounting for technique. OSSEOUS STRUCTURES/SOFT TISSUES: Normal marrow signal. The major intracranial vascular flow voids are maintained. ORBITS: No abnormality accounting for technique. SINUSES/MASTOIDS: Mucosal thickening primarily involving the ethmoid air cells. No middle ear or mastoid effusion. IMPRESSION: 1. ??No acute intracranial process. 2. ??A few T2/FLAIR hyperintensities within the cerebral white matter may reflect minor sequela of previous left vascular ischemic or inflammatory insults and have also been described in the setting of chronic migraine headaches. Procedure Note Kristian López MD - 03/24/2022 EXAM: MR BRAIN W/WO IV CONT LOCATION: [facility] DATE/TIME: 03/24/2022 2:19 PM INDICATION: Transient ischemic attack (TIA). Right face and armweakness. COMPARISON: CTA 03/24/2022 CONTRAST: GADOBUTROL 1 MMOL/ML IV SOLN 8.5 mL TECHNIQUE: Routine multiplanar multisequence head MRI without and withintravenous contrast. FINDINGS: INTRACRANIAL CONTENTS: No acute or subacute infarct. No mass, acutehemorrhage, or extra-axial fluid collections. Scattered nonspecific fociof T2/FLAIR hyperintense signal in the cerebral white matter. Unchanged,age-appropriate ventricles and sulci. Normal position of the cerebellartonsils. No pathologic contrast enhancement. SELLA: No abnormality accounting for technique. OSSEOUS STRUCTURES/SOFT TISSUES: Normal marrow signal. The majorintracranial vascular flow voids are maintained. ORBITS: No abnormality accounting for technique. SINUSES/MASTOIDS: Mucosal thickening primarily involving the ethmoid aircells. No middle ear or mastoid effusion. IMPRESSION: 1. No acute intracranial process. 2. A few T2/FLAIR hyperintensities within the cerebral white matter mayreflect minor sequela of previous left vascular ischemic or inflammatoryinsults and have also been described in the setting of chronic migraineheadaches. Annie Huerta PA-C RAD MRI * ECG 12-Lead (03/24/2022 12:00 PM SHOVEL OPERATOR) Ventricular Rate 65 BPM [facility] Atrial Rate 65 BPM [facility] P-R Interval 144 ms [facility] QRS Duration 82 ms MUSE [facility] QT 450 ms MUSE [facility] QTc 468 ms MUSE [facility] P Steele 23 degrees MUSE GHP R Steele 29 degrees MUSE GHP T Steele 58 degrees MUSE [facility] 03/24/2022 12:0 0 PM SHOVEL OPERATOR Narrative [facility] - 03/25/2022 1:59 PM SHOVEL OPERATOR Sinus rhythm Normal ECG When compared with ECG of 18-JAN-2019 14:36, No significant change was found Confirmed by Elias Wesley ([id number]) on 03/25/2022 1:59:07 PM Procedure Note Elias Wesley MD - 03/25/2022 Sinus rhythm Normal ECG When compared with ECG of 18-JAN-2019 14:36, No significant change was found Confirmed by Elias Wesley ([id number]) on 03/25/2022 1:59:07 PM Annie A Arcand PA-C EKG [facility] [address] [place] [address] * CT Angio Head Neck W IV Cont Code CVA (03/24/2022 11:53 AM SHOVEL OPERATOR) Anatomical Region Laterality Modality Head, Vascular Computed Tomogra phy 03/24/2022 11:5 3 AM SHOVEL OPERATOR Narrative 03/24/2022 12:40 PM SHOVEL OPERATOR EXAM: CT ANGIO HEAD NECK W IV CONT CODE CVA LOCATION: [facility] DATE/TIME: 03/24/2022 11:53 AM INDICATION: Neuro deficit, acute, stroke suspected. Right facial and arm weakness. COMPARISON: None. CONTRAST: IOHEXOL 350 MG/ML IV SOLN 100 mL. TECHNIQUE: Head and neck CT angiogram with IV contrast. Noncontrast head CT followed by axial helical CT images of the head and neck vessels obtained during the arterial phase of intravenous contrast administration. Axial 2D reconstructed images and multiplanar 3D MIP reconstructed images of the head and neck vessels were performed by the technologist. Dose reduction techniques were used. All stenosis measurements made according to NASCET criteria unless otherwise specified. FINDINGS: NONCONTRAST HEAD CT: INTRACRANIAL CONTENTS: No finding for intracranial hemorrhage, mass or convincing finding for acute infarct. Mild prominence of the lateral ventricles. There is low-attenuation change along the lateral aspect of both temporal lobes, left greater than right, and favored to relate to beam hardening artifact. Cerebellar tonsils are normally positioned. Sella is unremarkable for technique. Corpus callosum is normally formed. VISUALIZED ORBITS/SINUSES/MASTOIDS: No intraorbital abnormality. No paranasal sinus mucosal disease. No middle ear or mastoid effusion. BONES/SOFT TISSUES: Calvarium is intact, without fracture or suspicious lytic or blastic foci. HEAD CTA: ANTERIOR CIRCULATION: Mild atherosclerotic plaque is seen within both carotid siphons with mild associated luminal narrowing but no clear flow-limiting stenosis. Anterior and middle cerebral arteries are patent. POSTERIOR CIRCULATION: Right vertebral artery is slightly larger than the left. Intracranial vertebral arteries, basilar artery and posterior cerebral arteries are normal in appearance. Posterior communicating arteries are not identified. DURAL VENOUS SINUSES: Dural venous sinuses are not well evaluated on the basis of this exam. NECK CTA: RIGHT CAROTID: No measurable stenosis or dissection. LEFT CAROTID: No measurable stenosis or dissection. VERTEBRAL ARTERIES: No focal stenosis or dissection. Right vertebral artery is slightly larger than the left. AORTIC ARCH: Left common carotid artery arises from the takeoff of the right brachiocephalic artery. Visualized aortic arch otherwise unremarkable. NONVASCULAR STRUCTURES: Visualized portion of the lungs reveals small amount of apical scarring but otherwise clear. There are bilateral heterogeneously attenuating but predominantly low-attenuation nodules within both lobes of the thyroid. The larger focus on the left measures up to 2 cm in diameter. These are better visualized on prior thyroid ultrasound from 07/21/2021. IMPRESSION: HEAD CT: 1. ??No finding for intracranial hemorrhage or mass or convincing finding for acute infarct. 2. ??Apparent low-attenuation change within the lateral aspect of both temporal lobes is favored to relate to artifact/technique. HEAD CTA: 1. ??Mild atherosclerotic plaque is seen within both carotid siphons. Mild associated luminal narrowing without flow limiting stenosis. 2. ??No finding for aneurysm or vascular cutoff. NECK CTA: 1. ??No significant stenosis is seen within either cervical carotid or vertebral system. No findings for dissection. 2. ??Bilateral thyroid nodules, better evaluated on thyroid ultrasound from 07/22/2019. Findings for the noncontrast head CT and CTA vascular findings were communicated to the stroke team at 11:48 and 11:54 AM respectively. ? Procedure Note Chester Trinidad II, MD - 03/24/2022 EXAM: CT ANGIO HEAD NECK W IV CONT CODE CVA [facility] DATE/TIME: 03/24/2022 11:53 AM INDICATION: Neuro deficit, acute, stroke suspected. Right facial and armweakness. COMPARISON: None. CONTRAST: IOHEXOL 350 MG/ML IV SOLN 100 mL. TECHNIQUE: Head and neck CT angiogram with IV contrast. Noncontrast headCT followed by axial helical CT images of the head and neck vesselsobtained during the arterial phase of intravenous contrast administration.Axial 2D reconstructed images and multiplanar 3D MIP reconstructed imagesof the head and neck vessels were performed by the technologist. Dosereduction techniques were used. All stenosis measurements made accordingto NASCET criteria unless otherwise specified. FINDINGS: NONCONTRAST HEAD CT: INTRACRANIAL CONTENTS: No finding for intracranial hemorrhage, mass orconvincing finding for acute infarct. Mild prominence of the lateralventricles. There is low-attenuation change along the lateral aspect ofboth temporal lobes, left greater than right, and favored to relate tobeam hardening artifact. Cerebellar tonsils are normally positioned. Sellais unremarkable for technique. Corpus callosum is normally formed. VISUALIZED ORBITS/SINUSES/MASTOIDS: No intraorbital abnormality. Noparanasal sinus mucosal disease. No middle ear or mastoid effusion. BONES/SOFT TISSUES: Calvarium is intact, without fracture or suspiciouslytic or blastic foci. HEAD CTA: ANTERIOR CIRCULATION: Mild atherosclerotic plaque is seen within bothcarotid siphons with mild associated luminal narrowing but no clearflow-limiting stenosis. Anterior and middle cerebral arteries arepatent. POSTERIOR CIRCULATION: Right vertebral artery is slightly larger than theleft. Intracranial vertebral arteries, basilar artery and posteriorcerebral arteries are normal in appearance. Posterior communicatingarteries are not identified. DURAL VENOUS SINUSES: Dural venous sinuses are not well evaluated on thebasis of this exam. NECK CTA: RIGHT CAROTID: No measurable stenosis or dissection. LEFT CAROTID: No measurable stenosis or dissection. VERTEBRAL ARTERIES: No focal stenosis or dissection. Right vertebralartery is slightly larger than the left. AORTIC ARCH: Left common carotid artery arises from the takeoff of theright brachiocephalic artery. Visualized aortic arch otherwiseunremarkable. NONVASCULAR STRUCTURES: Visualized portion of the lungs reveals smallamount of apical scarring but otherwise clear. There are bilateralheterogeneously attenuating but predominantly low-attenuation noduleswithin both lobes of the thyroid. The larger focus on the left measures upto 2 cm in diameter. These are better visualized on prior thyroidultrasound from 07/21/2021. IMPRESSION: HEAD CT: 1. No finding for intracranial hemorrhage or mass or convincing findingfor acute infarct. 2. Apparent low-attenuation change within the lateral aspect of bothtemporal lobes is favored to relate to artifact/technique. HEAD CTA: 1. Mild atherosclerotic plaque is seen within both carotid siphons. Mildassociated luminal narrowing without flow limiting stenosis. 2. No finding for aneurysm or vascular cutoff. NECK CTA: 1. No significant stenosis is seen within either cervical carotid orvertebral system. No findings for dissection. 2. Bilateral thyroid nodules, better evaluated on thyroid ultrasound from07/22/2019. Findings for the noncontrast head CT and CTA vascular findings werecommunicated to the stroke team at 11:48 and 11:54 AM respectively. Annie Huerta PA-C RAD CT * Troponin I (03/24/2022 11:34 AM SHOVEL OPERATOR) Troponin I <0.01 0.00 - 0.03 ng/mL 03/24/2022 12:14 PM SHOVEL OPERATOR [facility] Blood Venipuncture / Unknown 03/24/2022 11:34 AM SHOVEL OPERATOR 03/24/2022 11:39 AM SHOVEL OPERATOR Annie VAUGHN-C LAB_1 Performing Organization Address [facility]/[place] [address], [facility] [phone] * aPTT (Activated Partial Thromboplastin Time) (03/24/2022 11:34 AM SHOVEL OPERATOR) APTT 24.0 22.5 - 36.5 Seconds 03/24/2022 11:52 AM SHOVEL OPERATOR [facility] Blood Venipuncture / Unknown 03/24/2022 11:34 AM SHOVEL OPERATOR 03/24/2022 11:39 AM SHOVEL OPERATOR Annie A Bradley VAUGHN-C LAB_1 Performing Organization Address [facility] [place] [address], [facility] [phone] * INR/Protime (03/24/2022 11:34 AM SHOVEL OPERATOR) Protime 12.9 11.8 - 14.6 Seconds 03/24/2022 11:52 AM SHOVEL OPERATOR [facility] INR 1.0 0.9 - 1.1 03/24/2022 11:52 AM SHOVEL OPERATOR [facility] Blood Venipuncture / Unknown 03/24/2022 11:34 AM SHOVEL OPERATOR 03/24/2022 11:39 AM SHOVEL OPERATOR Narrative [facility] - 03/24/2022 11:52 AM SHOVEL OPERATOR Therapeutic range determined by protocol established by anticoagulation provider. Annie VAUGHN-C LAB_1 [place] [address], [facility] [phone] * (ABNORMAL) Basic Metabolic Panel (03/24/2022 11:34 AM SHOVEL OPERATOR) Pathologist [facility] Sodium 140 136 - 145 mmol/L 03/24/2022 12:[address] [facility] Potassium 4.0 3.5 - 5.1 mmol/L 03/24/2022 12:[address] [facility] Chloride 105 98 - 109 mmol/L 03/24/2022 12:[address] [facility] CO2 21 20 - 29 mmol/L 03/24/2022 12:[address] [facility] Anion Gap 14 7 - 16 mmol/L 03/24/2022 12:[address] [facility] Calcium 9.5 8.4 - 10.4 mg/dL 03/24/2022 12:[address] [facility] BUN 12 7 - 26 mg/dL 03/24/2022 12:[address] [facility] Creatinine 0.75 0.55 - 1.02 mg/dL 03/24/2022 12:[address] [facility] Glucose 117(H) 70 - 100 mg/dL 03/24/2022 12:[address] [facility] Comment:The given reference range is for the fasting state. Non-fasting reference range for glucose is 70 - 180 mg/dL. GFR, Estimated >60 >60 mL/min/1.7 3m2 03/24/2022 12:[address] [facility] Blood Venipuncture / Unknown 03/24/2022 11:34 AM SHOVEL OPERATOR 03/24/2022 11:39 AM SHOVEL OPERATOR Annie Huerta PA-C LAB_1 [place] [address], [facility] [phone] * Complete Blood Count-No Diff (03/24/2022 11:34 AM SHOVEL OPERATOR) Pathologist [facility] WBC 7.3 3.5 - 10.5 x10(9)/L 03/24/2022 11:[address] [facility] RBC 4.88 3.90 - 5.03 x10(12)/L 03/24/2022 11:[address] [facility] Hemoglobin 14.8 12.0 - 15.5 g/dL 03/24/2022 11:[address] [facility] HCT 43.5 34.9 - 44.5 % 03/24/2022 11:[address] [facility] MCV 89.1 80.0 - 100.0 fL 03/24/2022 11:[address] [facility] MCH 30.3 27.6 - 33.3 pg 03/24/2022 11:[address] [facility] MCHC 34.0 31.5 - 35.2 g/dL 03/24/2022 11:[address] [facility] RDW 12.3 11.9 - 15.5 % 03/24/2022 11:[address] [facility] Platelets 255 150 - 450 x10(9)/L 03/24/2022 11:[address] [facility] Automated NRBC 0 <=0 /100 WBC 03/24/2022 11:[address] [facility] Blood Venipuncture / Unknown 03/24/2022 11:34 AM SHOVEL OPERATOR 03/24/2022 11:39 AM SHOVEL OPERATOR Annie Huerta PA-C LAB_1 Performing Organization Address City/State/[facility] Co de Phone Number [address] [phone] documented in this encounter Visit Diagnoses Diagnosis Arm paresthesia, right- Primary Disturbance of skin sensation TIA (transient ischemic attack) Unspecified transient cerebral ischemia * Triage Assessment Note - Radha Harris RN - 03/24/2022 11:27 AM SHOVEL OPERATOR Alert female arrived via cart accompanied by EMS. Pt arriving w reports of right side face, arm/hand numbness (started 1040). Paradise score neg. Pt denies head ache, vertigo, or balance issues. Provider to room upon pt arrival. EL OPERATOR documented in this encounter Active and Recently Administered Medications Care Teams Business Process Engineer Relationship Specialty Start Date End Date Leena Spivey MD [address] [place] [address] PCP - General 05/06/09 01/20/23 documented as of this encounter
--- OUTSIDE RECORDS SUMMARY | 2023-03-02 13:29 | XMS_ITS | Encounter Summary ---
Author Name Unknown Organization [facility] Address [address] [place] [address] Care Team Providers Care Sales And Service Engineer Name Role Phone Cyndee Carranza MD Primary Care Provider [phone] Encounter Details Date Type Department Care Team Description 02/07/2019 Correspondence External to External, [place] [address] RH CONSENT AND RELEASE Social History Tobacco Use Types Packs/Day Years [...] Department Care Team Description 03/18/2023 1:40 PM SOLID WASTE COLLECTION WORKER Appointment [place] [address] Ophthalmology [address] [place] [address] Dominga Fink, OD [address] [place] [address] documented as of this encounter Visit Diagnoses Not on filedocumented in this encounter Care Teams Sales And Service Engineer Relationship Specialty Start Date End Date Cyndee Carranza MD [address] [place] [address] PCP - General 01/21/23 documented as of this encounter
--- OUTSIDE RECORDS SUMMARY | 2023-03-02 13:29 | XMS_ITS | Encounter Summary ---
Author Name Unknown Organization [facility] Address [address] [place] [address] Care Team Providers Care Spent Grain Dryer Name Role Phone Cyndee Carranza MD Primary Care Provider [phone] Encounter Details Date Type Department Care Team Description 01/18/2019 Consent for Procedure/Treatmen t [facility] RH HYSTERECTOMY ACKNOWLEDGEMENT STATEMENT Social History Tobacco Use Types Packs/Day Years [...] Department Care Team Description 03/18/2023 1:40 PM PHARMACY STUDENT Appointment [place] [address] Ophthalmology [address] [place] [address] Dominga Fink, OD [address] [place] [address] documented as of this encounter Visit Diagnoses Not on filedocumented in this encounter Care Teams Spent Grain Dryer Relationship Specialty Start Date End Date Cyndee Carranza MD [address] [place] [address] PCP - General 01/21/23 documented as of this encounter
--- OUTSIDE RECORDS SUMMARY | 2023-03-02 13:29 | XMS_ITS | Encounter Summary ---
Author Name Unknown Organization [facility] Address [address] [address] Care Team Providers Care Documentation Consultant Name Role Phone Leena Spivey MD Primary Care Provider [phone] Reason for Visit * Procedure/Equipment (Routine) - Incomplete Specialty Diagnoses / Procedures Referred By Contac t Referred To Contact Procedures CT Angio Head Neck W IV Cont Code Annie Brandt PA-C [address] [place] [address] Referral ID Status Reason Start Date Expiration Date V isits Requested Visits Authorized [id number] Incomplete 03/24/2022 06/23/2023 1 1 Encounter Details Date Type Department Care Team Description 03/24/2022 11:35 AM CHANCELLOR Ancillary Procedure [facility] [address] [place] [address] Social History Tobacco Use Types Packs/Day Years [...] Department Care Team Description 03/18/2023 1:40 PM CHANCELLOR Appointment [place] [address] Ophthalmology [address] [place] [address] Dominga Fink, OD [address] [place] [address] documented as of this encounter Procedures Procedure Name Priority Date/Time Associated Diagnosis Comments CT ANGIO HEAD NECK W IV CONT CODE CVA STAT 03/24/2022 11:53 AM CHANCELLOR documented in this encounter Visit Diagnoses Not on filedocumented in this encounter Administered Medications Inactive Administered Medications - up to 3 most recent administrations Medication Order MAR Action Action Date Dose Rate Site iohexol (OMNIPAQUE 350) 350 MG/ML injection 100 mL 100 mL, Intravenous, ONCE, On Wed03/24/22 at 1215, For 1 dose Given 03/24/2022 11:46 AM CHANCELLOR 100 mL documented in this encounter Care Teams Documentation Consultant Relationship Specialty Start Date End Date Leena Spivey MD [address] [place] [address] PCP - General 05/06/09 01/20/23 documented as of this encounter
--- OUTSIDE RECORDS SUMMARY | 2023-03-02 13:29 | XMS_ITS | Encounter Summary ---
Author Name Unknown Organization [facility] Address [address], [place] [address] Care Team Providers Care Feather Drying Machine Operator Name Role Phone Leena Bourne MD Primary Care Provider [phone] Reason for Visit * Reason Comments Refill clopidogrel (PLAVIX) 75 MG tablet [Pharmacy Med Name: CLOPIDOGREL 75MG TABLETS] Encounter Details Date Type Department Care Team Description 04/01/2022 Refill [facility] [address] [place], [place] [id number] Leena Bourne MD [address] [place], [place] [id number] Refill (clopidogrel (PLAVIX) 75 MG tablet [Pharmacy Med Name: CLOPIDOGREL 75MG TABLETS]) Social History Tobacco Use Types Packs/Day [...] as of this encounter Nursing Notes * Licha Meyer LPN - 04/06/2022 2:25 PM CST Informed Jsoe's pharmacist per Dr. Bourne's message below. Patient also informed. Licha Levy LPN Please contact patient and pharmacy. She only needs to be on this medication for 3 weeks. So 3 months supply not appropriate. Leena Bourne MD LEAD * Leena Bourne MD - 04/06/2022 1:20 PM CST Please contact patient and pharmacy. She only needs to be on this medication for 3 weeks. So 3 months supply not appropriate. Leena Bourne MD LEAD * Interface, Out Surescripts Prov Query - 04/01/2022 4:57 PM CST clopidogrel (PLAVIX) 75 MG tablet [Pharmacy Med Name: CLOPIDOGREL 75MG TABLETS] None Exists -> The request contains a note from the pharmacy. -> Medication cannot be delegated. Last qualifying visit: 03/31/2022 (with LEENA BOURNE) Next scheduled visit: 05/12/2022 (with LEENA BOURNE) Last ordered by LEENA BOURNE: 04/01/2022 (0 days ago) QTY: 21, Refills: 0, Sig: take 1 tablet(75 mg) by mouth daily for 21 days. (changed but equivalent) [employer] Embedded Refills, Reference: [id number], 04/01/2022 4:57:38 PM ETL LEAD, Pool: GEO MAXWELL RN ([id number]) LEAD documented in this encounter Plan of Treatment Upcoming Encounters Date Type Department Care Team Description 03/18/2023 1:40 PM ETL LEAD Appointment [place] [address] Ophthalmology [address] [place] [address] Dominga Fink, OD [address] [place] [address] documented as of this encounter Visit Diagnoses Not on filedocumented in this encounter Care Teams Feather Drying Machine Operator Relationship Specialty Start Date End Date Leena Bourne MD [address] [place] [address] PCP - General 05/06/09 01/20/23 documented as of this encounter
--- OUTSIDE RECORDS SUMMARY | 2023-03-02 13:29 | XMS_ITS | Encounter Summary ---
Author Name Unknown Organization [facility] Address [address], [place] [address] Care Team Providers Care Cook Enchilada Name Role Phone Leena Spivey MD Primary Care Provider [phone] Reason for Visit * Reason Comments [place] [facility] Seat #2 Encounter Details Date Type Department Care Team Description 03/06/2022 11:20 AM RAW STOCK DRIER TENDER Office Visit [facility] [address] [place] [address] Twyla Perez, BEAR [address] [place] [address] [place] [facility] (Seat #2) Social History Tobacco Use Types Packs/Day Years [...] as of this encounter Progress Notes * Twyla Perez DDS - 03/06/2022 11:20 AM CST DENTAL VISIT NOTE Subjective Reason for Visit/Chief Complaint: Lorene is a 66 y.o. female who presents for [place] [facility] (Seat #2) Chief Complaint: No CC Objective/Assessment Chart Review: The following information was reviewed with the patient: Medical history, Dental history, Problem list, Periodontal charting, and Radiographs. DIAGNOSIS: History of root canal procedure (primary encounter diagnosis) Fracture of tooth enamel and dentin PROGNOSIS: #2 Favorable Plan Treatment Discussion: I discussed the Dental findings, Prognosis, and Treatment options with patient. All questions answered and the patient gave informed consent to proceed with dental treatment/services. Procedural Pause: Patient identity verified: Yes Treatment plan/site verified with the patient: Yes Instruments/equipment verified: Yes Medication/allergy contraindications: No Completed Procedures: ANESTHESIA: None used CROWN AND BRIDGE SEAT, #2: [place] cementation with glass ionomer Radiographs: N/A Verified occlusion, contacts, margins, aesthetics, and cement removal POST-OP INSTRUCTIONS: Patient was advised of normal post-operative instructions Care was assisted by EZEKIEL Betancourt DDS 03/06/2022, 11:39 AM Next Planned Visit: recall --End of Progress Note-- 11:23 AM STOCK DRIER TENDER documented in this encounter Plan of Treatment Upcoming Encounters Date Type Department Care Team Description 03/18/2023 1:40 PM RAW STOCK DRIER TENDER Appointment [place] [address] Ophthalmology [address] [place] [address] Dominga Fink, OD [address] [place] [address] documented as of this encounter Procedures Procedure Name Priority Date/Time Associated Diagnosis Comments 2 CROWN SEAT Routine 03/06/2022 11:20 AM RAW STOCK DRIER TENDER History of root canal procedure Fracture of tooth enamel and dentin documented in this encounter Visit Diagnoses Diagnosis History of root canal procedure- Primary Fracture of tooth enamel and dentin documented in this encounter Care Teams Cook Enchilada Relationship Specialty Start Date End Date Leena Spivey MD [address] [place] [address] PCP - General 05/06/09 01/20/23 documented as of this encounter
--- OUTSIDE RECORDS SUMMARY | 2023-03-02 13:29 | XMS_ITS | Encounter Summary ---
Author Name Unknown Organization [facility] Address [address] [place] [address] Care Team Providers Care Technician Support Association Name Role Phone Leena Spivey MD Primary Care Provider [phone] Reason for Referral * Consult/Transfer Care (Routine) - New Request Specialty Diagnoses / Procedures Referred By Laura whitlock Referred To Contact Diagnoses TIA (transient ischemic attack) Leena Spivey MD [address] [place] [address] Referral ID Status Reason Start Date Expiration Date V isits Requested Visits Authorized [id number] New Request 03/31/2022 06/30/2023 1 1 Scheduling Instructions Your clinician has recommended an appointment with [facility] Neurology. You can quickly make your appointment by calling [phone] We suggest you call your health insurance company about your coverage and benefits for this appointment. Question Answer Appointment Urgency? Within 1 Week (Urgent) Reason for visit? follow up TIA UM WORKER * Procedure/Equipment (Routine) - New Request Specialty Diagnoses / Procedures Referred By Laura whitlock Referred To Contact Diagnoses TIA (transient ischemic attack) Leena Spivey MD [address] [place] [address] Referral ID Status Reason Start Date Expiration Date V isits Requested Visits Authorized [id number] New Request 03/31/2022 06/30/2023 1 1 Scheduling Instructions You will be contacted within a week by cardiology regarding your monitor heating and blending supervisor. This recommended service may not be covered by your insurance coverage. We suggest you call your health insurance company about your coverage and benefits for this appointment. Question Answer Appointment Urgency? Non-Urgent Location: [facility] Is patient appropriate candidate for self hookup of monitor? Yes Does this patient have a pacemaker No Diagnosis: Post Stroke/TIA UM WORKER * Procedure/Equipment (Routine) - New Request Specialty Diagnoses / Procedures Referred By Laura whitlock Referred To Contact Diagnoses TIA (transient ischemic attack) Procedures Echocardiogram Leena Spivey MD [address] [place] [address] Referral ID Status Reason Start Date Expiration Date V isits Requested Visits Authorized [id number] New Request 03/31/2022 06/30/2023 1 1 UM WORKER Reason for Visit * Reason Comments Ed Discharge Follow-up * Consult/Transfer Care (Routine) - Closed Specialty Diagnoses / Procedures Referred By Laura whitlock Referred To Contact Diagnoses Arm paresthesia, right TIA (transient ischemic attack) Annie Huerta PA-C [address] [place] [id number] Referral ID Status Reason Start Date Expiration Date Visits Re quested Visits Authorized [id number] Closed 03/24/2022 06/22/2022 1 1 Encounter Details Date Type Department Care Team Description 03/31/2022 5:30 PM VACUUM WORKER Office Visit [facility] [address] [place], [place] [phone] Leena Spivey MD [address] [place], [place] [id number] TIA (transient ischemic attack) (Primary Dx) Social [...] Sign Reading Time Taken Comments Blood Pressure 120/82 04/01/2022 4:51 PM VACUUM WORKER Pulse 79 04/01/2022 4:51 PM VACUUM WORKER Temperature - - Respiratory Rate - - Oxygen Saturation 97% 04/01/2022 4:51 PM VACUUM WORKER Inhaled Oxygen Concentration - - Weight 85 kg (187 lb 4.8 oz) 04/01/2022 4:51 PM VACUUM WORKER Height - - Body Mass Index 31.17 03/24/2022 11:29 AM VACUUM WORKER documented in this encounter Patient Instructions * Patient Instructions* Leena Spivey MD - 03/31/2022 5:30 PM VACUUM WORKER It was a pleasure to see you in clinic. Please let me know if you have any questions or concerns: I've placed orders for echocardiogram and heart monitor for further evaluation of TIA. I will talk with neurology tomorrow about the second anti-platelet drug they had initially talked about. I've also placed order for f/u I neurology. Leena Spivey MD [facility]. [phone] Appointment Center [phone] CareLine (for evenings and weekends) [phone] If you would like to know cost before you schedule or have tests/procedures performed you can call the cost of care number which is [phone]. Recommended service/s may not be covered by your insurance coverage. To find out your specific benefit coverage, please call the number on the back of your insurance card. UM WORKER * Attachments The following attachments cannot be sent through Care Everywhere. * Diet: DASH (Afghan) documented in this encounter Progress Notes * Leena Spivey MD - 03/31/2022 5:30 PM CST Historical: Chief Complaint Patient presents with Ed Discharge Follow-up Orquidea Ortiz is a 67 y.o. female seen today for followup of recent ED visit at [facility] 03/24/22.She was seen for evaluation of paresthesias of right arm and right side of face. She had evaluationincluding MRI showing non-specific changes. CTA of carotids did not show stenosis. No significant abnormalities of labs or EKG. She was seen by neurology in the ED. Recommendations were for ASA loading dose and then daily 81 g.Also 3 weeks of clopidogrel. She was discharged on ASA only. She feels well today. No recurrence of symptoms. She has been working on changing her diet and getting more exercise. Out snow shoeing over the weekend without problems. She report that her BP at home has been elevated with systolic in 140-150. BP is normal in clinic x2 readings. She does remember that her BP was lower when taken by the paramedics that when she had taken it at home. So her cuff may not be accurate. Emergency Department Follow-Up Which emergency department were you seen at? [facility] Date of Emergency Department Visit? March 24, 2022 What were you seen for? Right arm paresthesia and TIA Do you know what tests were performed while you were there? YES, Brain MRI, CT Angio Head and Neck,Cardiac Monitoring, CBC, BMP, INR/Protime, aPTT, Troponin 1, and ECG 12-Lead Did you receive any treatment(s) in the emergency room? YES IV Fluid and Medications Since you were seen in the emergency department, have your symptoms improved, worsened or stayed the same? Improved I have personally reviewed the patient's allergies, medications, and past medical history in detailand updated the patient record as necessary. Observed: BP 120/82 Pulse 79 Wt 187 lb 4.8 oz (85 kg) LMP 04/06/2011 (Exact Date) SpO2 97% BMI 31.17 kg/m?? Physical Exam: alert,well appearing, no acute distress. HEENT : pupils equal and reactive to light and accomadation, pharynx benign. LUNGS:clear COR:regular rate and rhythm no murmur. Assessment/Plan: Orquidea Ortiz is a 67 y.o. female seen today for f/u ER visit for TIA. Discussed with neurologyand she should be on both aspiring and clopidogrel. Clopidogrel can be discontinued after 3 weeks. Orders placed for further evaluation with event monitor and echocardiogram. Will have her schedule nurse visit for BP check and to check her cuff for accuracy. TIA (transient ischemic attack) - Echocardiogram; Future - Event Monitor - Neurology Consult-Adults Other orders - clopidogrel (PLAVIX) 75 MG tablet; Take 1 Tablet (75 mg) by mouth daily for 21 days. Please see orders and patient instructions Leena Spivey MD UM WORKER documented in this encounter Plan of Treatment Upcoming Encounters Date Type Department Care Team Description 03/18/2023 1:40 PM VACUUM WORKER Appointment [place] [address] Ophthalmology [address] [place] [address] Dominga Fink, TODD [address] [place] [address] Scheduled Referrals Name Type Priority Associated Diagnoses Orde r Schedule Event Monitor Referral Routine TIA (transient ischemic attack) Ordered: 03/31/2022 Neurology Consult-Adults Referral Routine TIA (transient ischemic attack) Ordered: 03/31/2022 documented as of this encounter Results * Echocardiogram (05/06/2022 10:05 AM CDT) 05/06/2022 [...] PM Leena Spivey MD ET ECHO ORDERABLES Performing Organization Address City/State/[facility] Co de Phone Number [facility] [address] [place] [address] documented in this encounter Visit Diagnoses Diagnosis TIA (transient ischemic attack)- Primary Unspecified transient cerebral ischemia TIA (transient ischemic attack) Unspecified transient cerebral ischemia documented in this encounter Care Teams Technician Support Association Relationship Specialty Start Date End Date Leena Spivey MD [address] [place] [address] PCP - General 05/06/09 01/20/23 documented as of this encounter
--- OUTSIDE RECORDS SUMMARY | 2023-03-02 13:29 | XMS_ITS | Encounter Summary ---
Author Name Unknown Organization [facility] Address [address] [place] [address] Care Team Providers Care Singe Machine Operator Name Role Phone Leena Spivey MD Primary Care Provider [phone] Reason for Visit * Reason Comments HYPERTENSION SWELLING Encounter Details Date Type Department Care Team Description 03/24/2022 Nurse Triage Careline [address] [place], [place] [address] Unassigned, Provider [address] [place] [address] HYPERTENSION; SWELLING Social History Tobacco Use Types Packs/Day Years [...] as of this encounter Nursing Notes * Dianna Castaneda RN - 03/24/2022 10:16 AM CST Verified patient identity: Yes Situation/Background (brief explanation of current symptoms/situation): Patient reports swelling and tightness in both hand in both hands more in right. She reports possibly numbness/tingling in right hand that started 1 hr ago.She denies any chest pain or difficulty breathing. Reports her current BP is 183/76. Reviewed with patient pertinent medical history (as it related to the call): Yes Reviewed with patient pertinent medications (as they relate to call): Yes Reviewed with patient pertinent allergies (as they relate to call): Yes Reason for Disposition [1] Numbness (i.e., loss of sensation) of the face, arm / hand, or leg / foot on one side of the body AND [2] sudden onset AND [3] present now Protocols used: Neurologic [id number] Plan: Patient to call 911. Patient/caller agrees with plan. Patient/caller verbalizes understandingand has no further questions at this time. Advised patient/caller to call back CareLine if there are further questions or concerns. The CareLine is available 07/09. Dianna Hua RN 03/24/2022 10:22 AM OR ACCOUNT REPRESENTATIVE * Indiana Daugherty - 03/24/2022 10:01 AM CST Verified patient identity using three identifiers: Yes Caller's relationship to patient: Self Do you get your primary care at a [facility] or [facility] clinic: [facility] Do you see a PN specialist for the reason you are calling? No [facility] Select Member: No Are you calling about a positive COVID result: No Symptoms Describe the reason for call/symptoms (include location and duration if applicable): BP 183/76 - swelling in hands Plan:Caller transferred directly to CareLine nurse. OR ACCOUNT REPRESENTATIVE documented in this encounter Plan of Treatment Upcoming Encounters Date Type Department Care Team Description 03/18/2023 1:40 PM SENIOR ACCOUNT REPRESENTATIVE Appointment [place] [address] Ophthalmology [address] [place] [address] Dominga Fink, OD [address] [place] [address] documented as of this encounter Visit Diagnoses Not on filedocumented in this encounter Care Teams Singe Machine Operator Relationship Specialty Start Date End Date Leena Spivey MD [address] [place], [place] [id number] PCP - General 05/06/09 01/20/23 documented as of this encounter
--- OUTSIDE RECORDS SUMMARY | 2023-03-02 13:29 | XMS_ITS | Encounter Summary ---
Author Name Unknown Organization [facility] Address [address] [address] Care Team Providers Care Senior Planning Analyst Name Role Phone Cyndee Carranza MD Primary Care Provider [phone] Encounter Details Date Type Department Care Team Description 09/02/2017 Correspondence [facility] Gastroenterology [address] [facility] [place] [address] Sampson Crocker MD [address] [place] [address] INSTRUCTIONS AFTER COLONOSCOPY Social History Tobacco Use Types Packs/Day Years [...] Department Care Team Description 03/18/2023 1:40 PM DRIER TRANSFER CAR OPERATOR Appointment [place] [address] Ophthalmology [address] [place] [address] Dominga Fink, OD [address] [place] [address] documented as of this encounter Visit Diagnoses Not on filedocumented in this encounter Care Teams Senior Planning Analyst Relationship Specialty Start Date End Date Cyndee Carranza MD [address] [place] [address] PCP - General 01/21/23 documented as of this encounter
--- OUTSIDE RECORDS SUMMARY | 2023-03-02 13:29 | XMS_ITS | Encounter Summary ---
Author Name Unknown Organization [facility] Address [address] [place] [address] Care Team Providers Care Brake Holder Name Role Phone Cyndee Carranza MD Primary Care Provider [phone] Encounter Details Date Type Department Care Team [...] Department Care Team Description 03/18/2023 1:40 PM RESEARCH CHIEF ENGINEER Appointment [place] [address] Ophthalmology [address] [place] [address] Dominga Fink, OD [address] [place] [address] documented as of this encounter Visit Diagnoses Not on filedocumented in this encounter Care Teams Brake Holder Relationship Specialty Start Date End Date Cyndee Carranza MD [address] [place] [address] PCP - General 01/21/23 documented as of this encounter
--- OUTSIDE RECORDS SUMMARY | 2023-03-02 13:29 | XMS_ITS | Encounter Summary ---
Author Name Unknown Organization [facility] Address [address], [place] [address] Care Team Providers Care Historic Sites Registrar Name Role Phone Leena Spivey MD Primary Care Provider [phone] Reason for Visit * Reason Comments [facility] Seat #2 Encounter Details Date Type Department Care Team Description 03/04/2022 8:10 AM BRAIN SURGEON Office Visit [facility] [address] [place] [address] Twyla Perez, LORIS [address] [place] [address] [facility] (Seat #2) Social History [...] Progress Notes * Twyla Perez DDS - 03/04/2022 8:10 AM CST DENTAL VISIT NOTE Subjective Reason for Visit/Chief Complaint: Lorene is a 66 y.o. female who presents for [facility] (Seat #2) Chief Complaint: [...] Procedures: ANESTHESIA: None used CROWN AND BRIDGE RETURN: #2 in progress. Return to lab for Inadequate contacts. Temporary made with custom material crown material was seated with with non-eugenol. Verified occlusion, contacts, margins, aesthetics, and cement removal. Post-Op Instructions: Patient was advised of normal post-operative instructions Care was assisted by EZEKIEL Betancourt DDS 03/04/2022, 9:52 AM Next Planned Visit: crown seat #2 --End of Progress Note-- 8:20 AM N SURGEON documented in this encounter Plan of Treatment Upcoming Encounters Date Type Department Care Team Description 03/18/2023 1:40 PM BRAIN SURGEON Appointment [place] [address] Ophthalmology [address] [place] [address] Dominga Fink, OD [address] [place] [address] documented as of this encounter Procedures Procedure Name Priority Date/Time Associated Diagnosis Comments 2 CROWN INTERIM VISIT Routine 03/04/2022 8:10 AM BRAIN SURGEON History of root canal procedure Fracture of tooth enamel and dentin documented in this encounter Visit Diagnoses Diagnosis History of root canal procedure- Primary Fracture of tooth enamel and dentin documented in this encounter Care Teams Historic Sites Registrar Relationship Specialty Start Date End Date Leena Spivey MD [address] [place] [address] PCP - General 05/06/09 01/20/23 documented as of this encounter
--- OUTSIDE RECORDS SUMMARY | 2023-03-02 13:29 | XMS_ITS | Encounter Summary ---
Author Name Unknown Organization [facility] Address [address] [place] [address] Care Team Providers Care Contact Center Engineer Name Role Phone Cyndee Carranza MD Primary Care Provider [phone] Encounter Details Date Type Department Care Team [...] Department Care Team Description 03/18/2023 1:40 PM FOOD DEHYDRATOR OPERATOR Appointment [place] [address] Ophthalmology [address] [facility] [place] [address] Dominga Fink, OD [address] [place] [address] documented as of this encounter Visit Diagnoses Not on filedocumented in this encounter Care Teams Contact Center Engineer Relationship Specialty Start Date End Date Cyndee Carranza MD [address] [place] [address] PCP - General 01/21/23 documented as of this encounter
--- OUTSIDE RECORDS SUMMARY | 2023-03-02 13:30 | XMS_ITS | Encounter Summary ---
Author Name Unknown [facility] Address [address] [address] Care Team Providers Care Log Manager Name Role Phone Cyndee Carranza MD Primary Care Provider [phone] Encounter Details Date Type Department Care Team Description 01/27/1996 Orders Only Neeraj Zhong Social History Tobacco Use Types Packs/Day Years Used Date Smoking Tobacco: Never Assessed Sex and Gender Information Value Date Recorded Sex Assigned at Not on file Gender Identity Not on file Sexual Orientation Not on file documented as of this encounter Plan of Treatment Upcoming Encounters Date Type Department Care Team Description 03/18/2023 1:40 PM CIVIL ATTORNEY Appointment [place] [address] Ophthalmology [address] [place] [address] Dominga Fink, OD [address] [place] [address] documented as of this encounter Visit Diagnoses Not on filedocumented in this encounter Care Teams Log Manager Relationship Specialty Start Date End Date Cyndee Carranza MD [address] [place] [address] PCP - General 01/21/23 documented as of this encounter
--- OUTSIDE RECORDS SUMMARY | 2023-03-02 13:30 | XMS_ITS | Encounter Summary ---
Author Name Unknown Organization [facility] Address [address] [address] Care Team Providers Care Senior Industrial Engineer Name Role Phone Cyndee Carranza MD Primary Care Provider [phone] Encounter Details Date Type Department Care Team Description 09/26/1996 Orders Only Neeraj Zhong Social History Tobacco Use Types Packs/Day Years Used Date Smoking Tobacco: Never Assessed Sex and Gender Information Value Date Recorded Sex Assigned at Not on file Gender Identity Not on file Sexual Orientation Not on file documented as of this encounter Plan of Treatment Upcoming Encounters Date Type Department Care Team Description 03/18/2023 1:40 PM CORN SHUCKER Appointment [place] [address] Ophthalmology [address] [place] [address] Dominga Fink, OD [address] [place] [address] documented as of this encounter Visit Diagnoses Not on filedocumented in this encounter Care Teams Senior Industrial Engineer Relationship Specialty Start Date End Date Cyndee Carranza MD [address] [place] [address] PCP - General 01/21/23 documented as of this encounter
--- OUTSIDE RECORDS SUMMARY | 2023-03-02 13:30 | XMS_ITS | Encounter Summary ---
Author Name Unknown Organization [facility] Address [address] [place] [address] Care Team Providers Care Publications Writer Name Role Phone Cyndee Carranza MD Primary Care Provider [phone] Encounter Details Date Type Department Care Team Description 12/22/1995 Orders Only Garland Phillips MD [address] [place], [place] [address] Social History Tobacco Use Types Packs/Day Years Used Date Smoking Tobacco: Never Assessed Sex and Gender Information Value Date Recorded Sex Assigned at Not on file Gender Identity Not on file Sexual Orientation Not on file documented as of this encounter Plan of Treatment Upcoming Encounters Date Type Department Care Team Description 03/18/2023 1:40 PM SAW EDGE FUSER CIRCULAR Appointment [place] [address] Ophthalmology [address] [place] [address] Dominga Fink, OD [address] [place] [address] documented as of this encounter Visit Diagnoses Not on filedocumented in this encounter Care Teams Publications Writer Relationship Specialty Start Date End Date Cyndee Carranza MD [address] [place] [address] PCP - General 01/21/23 documented as of this encounter
--- OUTSIDE RECORDS SUMMARY | 2023-03-02 13:30 | XMS_ITS | Encounter Summary ---
Author Name Unknown Organization [facility] Address [address] [address] Care Team Providers Care Production Assembly Operator Name Role Phone Cyndee Carranza MD Primary Care Provider [phone] Encounter Details Date Type Department Care Team Description 01/07/2015 Correspondence None No Primary/Referring, Phy CHIROPRACTIC PT LIABILITY PAW Social History Tobacco Use Types Packs/Day Years [...] Department Care Team Description 03/18/2023 1:40 PM SUGAR CANE PLANTER Appointment [place] [address] Ophthalmology [address] [place] [address] Dominga Fink, OD [address] [place] [address] documented as of this encounter Visit Diagnoses Not on filedocumented in this encounter Care Teams Production Assembly Operator Relationship Specialty Start Date End Date Cyndee Carranza MD [address] [place] [address] PCP - General 01/21/23 documented as of this encounter
--- OUTSIDE RECORDS SUMMARY | 2023-03-02 13:30 | XMS_ITS | Encounter Summary ---
Author Name Unknown Organization [facility] Address [address] [address] Care Team Providers Care Stallion Manager Name Role Phone Cyndee Carranza MD Primary Care Provider [phone] Encounter Details Date Type Department Care Team Description 12/22/2012 Consent for Procedure/Treatment [facility] Department INFORMED CONSENT [...] as of this encounter Progress Notes * [facility], PROVIDER - 12/22/2012 12:00 AM CST UM CURATOR documented in this encounter Plan of Treatment Upcoming Encounters Date Type Department Care Team Description 03/18/2023 1:40 PM MUSEUM CURATOR Appointment [place] [address] Ophthalmology [address] [place] [address] Dominga Fink, OD [address] [place] [address] documented as of this encounter Visit Diagnoses Not on filedocumented in this encounter Care Teams Stallion Manager Relationship Specialty Start Date End Date Cyndee Carranza MD [address] [place] [address] PCP - General 01/21/23 documented as of this encounter
--- OUTSIDE RECORDS SUMMARY | 2023-03-02 13:30 | XMS_ITS | Encounter Summary ---
Author Name Unknown Organization [facility] Address [address] [address] Care Team Providers Care Air Valve Repairer Name Role Phone Cyndee Carranza MD Primary Care Provider Encounter Details Date Type Department Care Team Description 01/31/1996 Orders Only Neeraj Zhong Social History Tobacco Use Types Packs/Day Years Used Date Smoking Tobacco: Never Assessed Sex and Gender Information Value Date Recorded Sex Assigned at Not on file Gender Identity Not on file Sexual Orientation Not on file documented as of this encounter Plan of Treatment Upcoming Encounters Date Type Department Care Team Description 03/18/2023 1:40 PM RETAIL TRAINING MANAGER Appointment [place] [address] Ophthalmology [address] [place] [phone] Dominga Fink, OD [address] [place] [address] documented as of this encounter Visit Diagnoses Not on filedocumented in this encounter Care Teams Air Valve Repairer Relationship Specialty Start Date End Date Cyndee Carranza MD [address] [place] [address] PCP - General 01/21/23 documented as of this encounter
--- OUTSIDE RECORDS SUMMARY | 2023-03-02 13:30 | XMS_ITS | Encounter Summary ---
Author Name Unknown Organization [facility] Address [address] [address] Care Team Providers Care Technical Aide Name Role Phone Cyndee Carranza MD Primary Care Provider [phone] Encounter Details Date Type Department Care Team Description 12/31/1995 Orders Only ErpyandyingMichael Social History Tobacco Use Types Packs/Day Years Used Date Smoking Tobacco: Never Assessed Sex and Gender Information Value Date Recorded Sex Assigned at Not on file Gender Identity Not on file Sexual Orientation Not on file documented as of this encounter Plan of Treatment Upcoming Encounters Date Type Department Care Team Description 03/18/2023 1:40 PM AQUARIST Appointment [place] [address] Ophthalmology [address] [place] [phone] Dominga Fink, OD [address] [place] [address] documented as of this encounter Visit Diagnoses Not on filedocumented in this encounter Care Teams Technical Aide Relationship Specialty Start Date End Date Cyndee Carranza MD [address] [place] [address] PCP - General 01/21/23 documented as of this encounter
--- OUTSIDE RECORDS SUMMARY | 2023-03-02 13:30 | XMS_ITS | Encounter Summary ---
Author Name Unknown Organization [facility] Address [address] [address] Care Team Providers Care Medical Cost Consultant Name Role Phone Cyndee Carranza MD Primary Care Provider [phone] Encounter Details Date Type Department Care Team Description 10/17/1996 Orders Only Neeraj Zhong Social History Tobacco Use Types Packs/Day Years Used Date Smoking Tobacco: Never Assessed Sex and Gender Information Value Date Recorded Sex Assigned at Not on file Gender Identity Not on file Sexual Orientation Not on file documented as of this encounter Plan of Treatment Upcoming Encounters Date Type Department Care Team Description 03/18/2023 1:40 PM SAFETY SEALER Appointment [place] [address] Ophthalmology [address] [place] [phone] Dominga Fink, OD [address] [place] [address] documented as of this encounter Visit Diagnoses Not on filedocumented in this encounter Care Teams Medical Cost Consultant Relationship Specialty Start Date End Date Cyndee Carranza MD [address] [place] [address] PCP - General 01/21/23 documented as of this encounter
--- OUTSIDE RECORDS SUMMARY | 2023-03-02 13:30 | XMS_ITS | Encounter Summary ---
Author Name Unknown Organization [facility] Address [address] [address] Care Team Providers Care Hog Confinement System Manager Name Role Phone Cyndee Carranza MD Primary Care Provider Encounter Details Date Type Department Care Team Description 04/03/1996 Orders Only Neeraj Zhong Social History Tobacco Use Types Packs/Day Years Used Date Smoking Tobacco: Never Assessed Sex and Gender Information Value Date Recorded Sex Assigned at Not on file Gender Identity Not on file Sexual Orientation Not on file documented as of this encounter Plan of Treatment Upcoming Encounters Date Type Department Care Team Description 03/18/2023 1:40 PM BUSINESS DEAN Appointment [place] [address] Ophthalmology [address] [place] [phone] Dominga Fink, OD [address] [place] [address] documented as of this encounter Visit Diagnoses Not on filedocumented in this encounter Care Teams Hog Confinement System Manager Relationship Specialty Start Date End Date Cyndee Carranza MD [address] [place] [address] PCP - General 01/21/23 documented as of this encounter
--- OUTSIDE RECORDS SUMMARY | 2023-03-02 13:30 | XMS_ITS | Encounter Summary ---
Author Name Unknown Organization [facility] Address [address] [place] [address] Care Team Providers Care Bingo Manager Name Role Phone Cyndee Carranza MD Primary Care Provider [phone] Encounter Details Date Type Department Care Team Description 09/02/2006 Consent for Procedure/Treatme [facility] Gastroenterology [address] [place], [place] [phone] Sonu Mireles MD [facility] [address] [place] [address] [facility] Colonoscopy Informed Consent Social History Tobacco Use Types Packs/Day Years Used Date Smoking Tobacco: Never Alcohol Use Standard Drinks/Week Comments Not Asked 0 (1 standard drink = 0.6 oz pur e alcohol) Sex and Gender Information Value Date Recorded Sex Assigned at Not on file Gender Identity Not on file Sexual Orientation Not on file documented as of this encounter Progress Notes * Sonu Mireles - 09/02/2006 12:00 AM CDT documented in this encounter Plan of Treatment Upcoming Encounters Date Type Department Care Team Description 03/18/2023 1:40 PM LIP CUTTER AND SCORER Appointment [place] [address] Ophthalmology [address] [place] [phone] Dominga Fink, OD [address] [place] [address] documented as of this encounter Visit Diagnoses Not on filedocumented in this encounter Care Teams Bingo Manager Relationship Specialty Start Date End Date Cyndee Carranza MD [address] [place] [address] PCP - General 01/21/23 documented as of this encounter
--- OUTSIDE RECORDS SUMMARY | 2023-03-02 13:30 | XMS_ITS | Encounter Summary ---
Author Name Unknown Organization [facility] Address [address] [address] Care Team Providers Care Graphic Designer Name Role Phone Cyndee Carranza MD Primary Care Provider [phone] Encounter Details Date Type Department Care Team Description 02/23/1997 Orders Only Neeraj Zhong Social History Tobacco Use Types Packs/Day Years Used Date Smoking Tobacco: Never Assessed Sex and Gender Information Value Date Recorded Sex Assigned at Not on file Gender Identity Not on file Sexual Orientation Not on file documented as of this encounter Plan of Treatment Upcoming Encounters Date Type Department Care Team Description 03/18/2023 1:40 PM DIRECTOR WRITING Appointment [place] [address] Ophthalmology [address] [place] [phone] Dominga Fink, OD [address] [place] [address] documented as of this encounter Visit Diagnoses Not on filedocumented in this encounter Care Teams Graphic Designer Relationship Specialty Start Date End Date Cyndee Carranza MD [address] [place] [address] PCP - General 01/21/23 documented as of this encounter
--- OUTSIDE RECORDS SUMMARY | 2023-03-02 13:30 | XMS_ITS | Encounter Summary ---
Author Name Unknown Organization [facility] Address [address] [place] [address] Care Team Providers Care Nail Kegger Name Role Phone Cyndee Carranza MD Primary Care Provider [phone] Encounter Details Date Type Department Care Team Description 07/22/2015 Correspondence None No Primary/Referring, Phy AUTH TO BILL SELF PAY CHARGES IN LIEU OF INSUREANC Social History Tobacco Use Types Packs/Day Years [...] Department Care Team Description 03/18/2023 1:40 PM GROCERY SACKER Appointment [place] [address] Ophthalmology [address] [facility] [place] [address] Dominga Fink, OD [address] [place] [address] documented as of this encounter Visit Diagnoses Not on filedocumented in this encounter Care Teams Nail Kegger Relationship Specialty Start Date End Date Cyndee Carranza MD [address] [place] [address] PCP - General 01/21/23 documented as of this encounter
--- OUTSIDE RECORDS SUMMARY | 2023-03-02 13:30 | XMS_ITS | Encounter Summary ---
Author Name Unknown Organization [facility] Address [address] [place] [address] Care Team Providers Care Crab Butcher Name Role Phone Cyndee Carranza MD Primary Care Provider [phone] Encounter Details Date Type Department Care Team Description 10/11/1996 Orders Only Teressa Salas MD [address] [place] [address] Social History Tobacco Use Types Packs/Day Years Used Date Smoking Tobacco: Never Assessed Sex and Gender Information Value Date Recorded Sex Assigned at Not on file Gender Identity Not on file Sexual Orientation Not on file documented as of this encounter Plan of Treatment Upcoming Encounters Date Type Department Care Team Description 03/18/2023 1:40 PM CLAIM APPROVER Appointment [place] [address] Ophthalmology [address] [place] [address] Dominga Fink, OD [address] [place] [address] documented as of this encounter Visit Diagnoses Not on filedocumented in this encounter Care Teams Crab Butcher Relationship Specialty Start Date End Date Cyndee Carranza MD [address] [place] [address] PCP - General 01/21/23 documented as of this encounter
--- OUTSIDE RECORDS SUMMARY | 2023-03-02 13:30 | XMS_ITS | Encounter Summary ---
Author Name Unknown Organization [facility] Address [address] [address] Care Team Providers Care Hand Binder Cutter Name Role Phone Cyndee Carranza MD Primary Care Provider Encounter Details Date Type Department Care Team Description 01/19/1996 Orders Only Neeraj Zhong Social History Tobacco Use Types Packs/Day Years Used Date Smoking Tobacco: Never Assessed Sex and Gender Information Value Date Recorded Sex Assigned at Not on file Gender Identity Not on file Sexual Orientation Not on file documented as of this encounter Plan of Treatment Upcoming Encounters Date Type Department Care Team Description 03/18/2023 1:40 PM DRYWALL INSTALLER Appointment [place] [address] Ophthalmology [address] [place] [phone] Dominga Fink, OD [address] [place] [address] documented as of this encounter Visit Diagnoses Not on filedocumented in this encounter Care Teams Hand Binder Cutter Relationship Specialty Start Date End Date Cyndee Carranza MD [address] [place] [address] PCP - General 01/21/23 documented as of this encounter
--- OUTSIDE RECORDS SUMMARY | 2023-03-02 13:30 | XMS_ITS | Encounter Summary ---
Author Name Unknown Organization [facility] Address [address] [place] [address] Care Team Providers Care Bottom Filler Name Role Phone Cyndee Carranza MD Primary Care Provider [phone] Encounter Details Date Type Department Care Team Description 11/04/2015 [facility] Internal Medicine [address] [place] [id number] Leena Spivey MD [address] [place], [place] [phone] Social History Tobacco Use Types Packs/Day Years Used Date Smoking Tobacco: Never Smokeless Tobacco: Never Alcohol Use Standard Drinks/Week Comments No 0 (1 standard drink = 0.6 oz pur e alcohol) Sex and Gender Information Value Date Recorded Sex Assigned at Not on file Gender Identity Not on file Sexual Orientation Not on file documented as of this encounter Nursing Notes * Zachary Fernandez CMA - 11/04/2015 4:09 PM CDT Pt notified. aZchary Fernandez CMA 11/04/2015, 4:09 PM documented in this encounter Plan of Treatment Upcoming Encounters Date Type Department Care Team Description 03/18/2023 1:40 PM PAVING AND SURFACING LABOURER Appointment [place] [address] Ophthalmology [address] [place] [address] Dominga Fink, OD [address] [place] [address] documented as of this encounter Visit Diagnoses Diagnosis Encounter for long-term (current) use of medications- Primary Encounter for long-term (current) use of other medications documented in this encounter Care Teams Bottom Filler Relationship Specialty Start Date End Date Cyndee Carranza MD [address] [facility] [place], [place] [phone] PCP - General 01/21/23 documented as of this encounter
--- OUTSIDE RECORDS SUMMARY | 2023-03-02 13:30 | XMS_ITS | Encounter Summary ---
Author Name Unknown Organization [facility] Address [address] [address] Care Team Providers Care Weld Engineer Name Role Phone Cyndee Carranza MD Primary Care Provider [phone] Encounter Details Date Type Department Care Team Description 08/07/2014 Consent for Procedure/Treatment [facility] Department INFORMED CONSENT [...] Department Care Team Description 03/18/2023 1:40 PM PUDDLER HELPER Appointment [place] [address] Ophthalmology [address] [place] [phone] Dominga Fink, OD [address] [place] [address] documented as of this encounter Visit Diagnoses Not on filedocumented in this encounter Care Teams Weld Engineer Relationship Specialty Start Date End Date Cyndee Carranza MD [address] [place] [address] PCP - General 01/21/23 documented as of this encounter
--- OUTSIDE RECORDS SUMMARY | 2023-03-02 13:30 | XMS_ITS | Encounter Summary ---
Author Name Unknown Organization [facility] Address [address], [place] [address] Care Team Providers Care Dry Pan Feeder Name Role Phone Cyndee Carranza MD Primary Care Provider [phone] Encounter Details Date Type Department Care Team Description 04/29/1996 Orders Only Puja Hernandez Social History Tobacco Use Types Packs/Day Years Used Date Smoking Tobacco: Never Assessed Sex and Gender Information Value Date Recorded Sex Assigned at Not on file Gender Identity Not on file Sexual Orientation Not on file documented as of this encounter Plan of Treatment Upcoming Encounters Date Type Department Care Team Description 03/18/2023 1:40 PM BUFFERER Appointment [place] [address] Ophthalmology [address] [place] [phone] Dominga Fink, OD [address] [place] [address] documented as of this encounter Visit Diagnoses Not on filedocumented in this encounter Care Teams Dry Pan Feeder Relationship Specialty Start Date End Date Cyndee Carranza MD [address] [place] [address] PCP - General 01/21/23 documented as of this encounter
--- NOTE | 2023-03-02 13:40 | CRLHL7_ITS ---
For Patients: As a result of the Century Cures Act, medical imaging exams and procedure reports are released immediately into your electronic medical record. You may view this report before your referring provider. If you have questions, please contact your health care provider. BILATERAL SCREENING MAMMOGRAM WITH COMPUTER-AIDED DETECTION AND TOMOSYNTHESIS TECHNIQUE: CC and MLO views were obtained. These mammographic images have been obtained using full-field digital technique. These mammographic images were interpreted with the benefit of computer-aided detection. Breast Tomosynthesis was used in this interpretation. COMPARISON FILM: 11/28/21, 11/26/20, 08/29/19. FINDINGS: There are scattered areas of fibroglandular density. IMPRESSION: There is no radiographic evidence for malignancy. ASSESSMENT: BI-RADS Category 2: Benign RECOMMENDATION: Routine screening mammogram in 1 year. A lay language report of this examination will be provided to the patient. Kendell Wsie M.D. Diagnostic Radiologist [email or web address] SP/Dictated by: Kendell Wise MD @ 03/12/2023 12:00:00 PM (Electronically Signed)
== END 2023-03-02 13:25 | disposition home or self-care (01) ==
LOC: MAMMO 13:25
PROVIDERS: PCP Internal Medicine; Visit Provider Internal Medicine
DX: Z12.31 Encounter for screening mammogram for malignant neoplasm of breast (principal)
CPT/HCPCS: 77063; 77067

== ENCOUNTER 2023-09-10 10:21 | Emergency (ER) | payer OTHER, SELFPAY ==
[2023-09-10 10:25] VITALS: BP 129/81; PULSE 78; RESP 18; TEMP 36.3; O2SAT 98
--- NOTE | 2023-09-10 11:06 | CRLHL7_ITS ---
For Patients: As a result of the Cures Act, medical imaging exams and procedure reports are released immediately into your electronic medical record. You may view this report before your referring provider. If you have questions, please contact your health care provider. INDICATION: Fall, left upper anterior rib pain COMPARISON: None. TECHNIQUE: Three views chest and left ribs. FINDINGS: No acute or healing rib fractures. Other osseous structures in the field of view appear normal. Normal bone mineralization. No focal bone lesion. No focal or diffuse lung opacities. No pneumothorax. No pleural effusion. IMPRESSION: Normal chest and left rib radiographs. Dictated by Erin Tucker MD @ 09/10/2023 11:30:27 AM (Electronically Signed)
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
--- OUTSIDE RECORDS SUMMARY | 2023-09-10 11:24 | XMS_ITS | Encounter Summary ---
Author Organization [facility] Address [address] [address] Care Team Providers Care Service Or Work Dispatcher Chief Name Role Phone Cyndee Carranza MD Primary Care Provider [phone] Encounter Details Date Type Department Care Team (Late st Contact Info) Description 02/07/2019 Correspondence External to External, [place] [address] RH CONSENT AND RELEASE Social History Tobacco [...] as of this encounter Plan of Treatment Scheduled Procedures Name Priority Associated Diagnoses Date/Ti me PLACEMENT SPINAL CORD STIMULATOR TRIAL Lumbar radiculitis documented as of this encounter Visit Diagnoses Not on filedocumented in this encounter Care Teams Service Or Work Dispatcher Chief Relationship Specialty Start Date End Date Cyndee Carranza MD [address] [place] [address] PCP - General 01/21/23 documented as of this encounter
--- OUTSIDE RECORDS SUMMARY | 2023-09-10 11:24 | XMS_ITS | Encounter Summary ---
Author Organization [facility] Address [address], [place] [address] Care Team Providers Care Shift Production Supervisor Name Role Phone Cyndee Carranza MD Primary Care Provider [phone] Reason for Visit * Reason Comments QUESTIONS, GENERAL Entered automaticall y based on patient selection in [employer]. Encounter Details Date Type Department Care Team (Late st Contact Info) Description 09/02/2023 7:45 AM CDT E-Visit [facility] Pain Management [address] [facility] [place], [place] [phone] Sudheer Hussein, [address] [place], [place] [id number] Chief Comp: QUESTIONS, GENERAL Social History Tobacco Use Types Packs/Day Years [...] as of this encounter Nursing Notes * Coretta Garcia - 09/09/2023 2:07 PM CDT No Prior Authorization Needed Date Entered: 09/03/23 10:04 AM CPT: 27302 Procedure: PLACEMENT SPINAL CORD STIMULATOR TRIAL DX: M54.16 DOS: Inpatient/Outpatient: Outpatient Provider: Dr. Hussein Location: 435 Reference #: [id number] Insurance: [email or web address] Med Adv Contact/Submission: Portal documented in this encounter Plan of Treatment Scheduled Procedures Name Priority Associated Diagnoses Date/Ti me PLACEMENT SPINAL CORD STIMULATOR TRIAL Lumbar radiculitis documented as of this encounter Visit Diagnoses Not on filedocumented in this encounter Care Teams Shift Production Supervisor Relationship Specialty Start Date End Date Cyndee Carranza MD [address] [place] [address] PCP - General 01/21/23 documented as of this encounter
--- OUTSIDE RECORDS SUMMARY | 2023-09-10 11:24 | XMS_ITS | Encounter Summary ---
Author Organization [facility] Address [address] [place] [address] Care Team Providers Care Corporate Human Resources Manager Name Role Phone Cyndee Carranza MD Primary Care Provider [phone] Reason for Visit * Reason Onset Date Comments Refill 07/25/2023 traZODone (DESYR EL) 50 MG tablet Encounter Details Date Type Department Care Team (Late st Contact Info) Description 07/25/2023 Refill [facility] [address] [facility]. [place], [place] [phone] Cyndee Carranza MD [address] [place], [place] [phone] Refill (traZODone (DESYREL) 50 MG tablet) Social History Tobacco Use Types Packs/Day Years [...] as of this encounter Nursing Notes * Harshad Peña - 07/27/2023 3:45 PM CDT Medication Refill - Due for Visit Refill was approved for 90 day supply, patient is due to be seen in the next 90 days. Called patient, was: Successful in reaching patient We recently received a refill request for one of your medications. To continue managing your medication refills, your clinician would like to see you for a(n): Patient is due for: Video/Office Visit Patient declined to schedule due to: patient informed * Becka Sam, RN - 07/27/2023 3:45 PM CDT Further Assistance Needed on Refill from Master At Arms Patient is due for Qualifying Visit or Qualifying Visit & lab(s) Medication has been refilled for 90 day supply per standing order. Patient is due for a Office/Video Visit in the next 90 days. Call Patient and document using .[email or web address]. After attempting to schedule patient: Close encounter. Medication(s) refilled per standing order. Requested Prescriptions Pending Prescriptions Disp Refills traZODone (DESYREL) 50 MG tablet 180 Tablet Sig: TAKE 1 TO 2 TABLETS BY MOUTH AT BEDTIME NEEDED * Aamir Lu Xrwcomm - 07/25/2023 10:03 AM CDT traZODone (DESYREL) 50 MG tablet Miscellaneous - 12 Month Visit 1 -> An office visit is overdue (performed over 13 months ago, required every 12 months). Last qualifying visit: 06/16/2022 (with CHRISTIANO BOURNE) Next scheduled visit: None Last ordered by CHRISTIANO BOURNE: 07/10/2022 (380 days ago) QTY: 180, Refills: 3, Sig: take 1 to 2 tablets by mouth at bedtime as needed (unchanged) [facility] Embedded Refills, Reference: [id number], 07/25/2023 10:03:08 AM CDT, Pool: Refill Centralized Services - Primary Care ([id number]) documented in this encounter Plan of Treatment Scheduled Procedures Name Priority Associated Diagnoses Date/Ti me PLACEMENT SPINAL CORD STIMULATOR TRIAL Lumbar radiculitis documented as of this encounter Visit Diagnoses Not on filedocumented in this encounter Care Teams Corporate Human Resources Manager Relationship Specialty Start Date End Date Cyndee Carranza MD [address] [place] [address] PCP - General 01/21/23 documented as of this encounter
--- OUTSIDE RECORDS SUMMARY | 2023-09-10 11:24 | XMS_ITS | Encounter Summary ---
Author Organization [facility] Address [address] [place] [address] Care Team Providers Care Bandsaw Operator Name Role Phone Cyndee Carranza MD Primary Care Provider [phone] Reason for Visit * Reason Onset Date Comments Refill 07/29/2023 pravastatin (PRA VACHOL) 40 MG tablet Encounter Details Date Type Department Care Team (Late st Contact Info) Description 07/29/2023 Refill [facility] [address] [facility] [place], [place] [phone] Cyndee Carranza MD [address] [place], [place] [phone] Refill (pravastatin (PRAVACHOL) 40 MG tablet) Social History Tobacco Use Types [...] of this encounter Nursing Notes * Paty Baugh RN - 07/30/2023 4:29 PM CDT Refill request denied. Request send to incorrect clinician. * Cassia Danielle - 07/30/2023 11:26 AM CDT Medication Refill - Due for Visit Medication still pending, patient is due to be seen in the next 30 days. Called patient, was: Successful in reaching patient. We recently received a refill request for one of your medications. To continue managing your medication refills, your clinician would like to see you for a(n): Patient is due for a: Video/Office Visit Patient declined to schedule due to: Patient no longer receiving care within organization. Frontline Action: Remove pended medication and Sign Visit or if unable, route as low priority to Refill executor of estate. * Greta Santos RN - 07/30/2023 10:14 AM CDT Further Assistance Needed on Refill from Delicatessen Goods Stock Clerk Patient is due for Qualifying Visit or Qualifying Visit and Lab(s) Medication is still pending. Patient is due for an Office/Video Visit in the next 30 days. Call Patient and document using .Lottay. After attempting to schedule patient: If appointment is scheduled within 60 days: Please route to: Primary Care: Refill sugar chipper machine operator Specialty Care: Refill sugar chipper machine operator/Care Team Pool If unable to schedule appointment or scheduled greater than 60 days: Please route to: Cyndee Carranza MD Requested Prescriptions Pending Prescriptions Disp Refills pravastatin (PRAVACHOL) 40 MG tablet 90 Tablet 0 Sig: Take 1 Tablet (40 mg) by mouth daily at bedtime. * Aamir Lu Xrwcomm - 07/29/2023 1:13 PM CDT pravastatin (PRAVACHOL) 40 MG tablet Miscellaneous - 12 Month Visit 1 -> Unable to determine if sig has changed, review required. -> An office visit is overdue (performed 14 months ago, required every 12 months). Last qualifying visit: 06/16/2022 (with CHRISTIANO BOURNE) Next scheduled visit: None Last ordered by CHRISTIANO BOURNE: 04/30/2023 (90 days ago) QTY: 90, Refills: 0, Sig: take 1 tablet(40 mg) by mouth daily at bedtime (changed) [facility] Embedded Refills, Reference: [id number], 07/29/2023 1:12:58 PM CDT, Pool: Refill Centralized Services - Primary Care ([id number]) * Aamir Lu - 07/29/2023 11:54 AM CDT The patient chart could not be locked at 07/29/2023 11:54 AM by [employer] in order to process thisrefill request. Please try re-routing to attempt to retry processing through [employer]. * Tabitha Refillwizard Xrwcomm - 07/29/2023 11:08 AM CDT The patient chart could not be locked at 07/29/2023 11:08 AM by [employer] in order to process thisrefill request. Please try re-routing to attempt to retry processing through [employer]. * Aamir Lu - 07/29/2023 10:58 AM CDT The patient chart could not be locked at 07/29/2023 10:58 AM by [employer] in order to process thisrefill request. Please try re-routing to attempt to retry processing through [employer]. documented in this encounter Plan of Treatment Scheduled Procedures Name Priority Associated Diagnoses Date/Ti me PLACEMENT SPINAL CORD STIMULATOR TRIAL Lumbar radiculitis documented as of this encounter Visit Diagnoses Diagnosis Hyperlipidemia with target LDL less than 130 (HRC) Other and unspecified hyperlipidemia documented in this encounter Care Teams Bandsaw Operator Relationship Specialty Start Date End Date Cyndee Carranza MD [address] [place] [address] PCP - General 01/21/23 documented as of this encounter
--- OUTSIDE RECORDS SUMMARY | 2023-09-10 11:24 | XMS_ITS | Encounter Summary ---
Author Organization [facility] Address [address], [place] [address] Care Team Providers Care Needle Punch Machine Operator Name Role Phone Cyndee Carranza MD Primary Care Provider [phone] Encounter Details Date Type Department Care Team (Late st Contact Info) Description 01/18/2019 Consent for Procedure/Treatme nt [facility] Department INFORMED CONSENT RECORD Social History Tobacco [...] on filedocumented in this encounter Care Teams Needle Punch Machine Operator Relationship Specialty Start Date End Date Cyndee Carranza MD [address] [place] [address] PCP - General 01/21/23 documented as of this encounter
--- OUTSIDE RECORDS SUMMARY | 2023-09-10 11:24 | XMS_ITS | Continuity of Care Document ---
Author Organization [facility] Address [address] [place] [address] Phone Care Team Providers Care National Opelint Analyst Name Role Phone Austen Franklin Unavailable Unavailable Allergies, Adverse Reactions, Alerts Substance Reaction Status Criticality ATORVASTATIN CALCIUM leg painMuscle weakness Active No Information Sulfa (Sulfonamide Antibiotics) Hives Active No Information Medications Medication Instructions Dosage Effective Dates (start - stop) Status Comments CALCIUM ACETATE (unknown strength) Not Available - Active TRAZODONE HCL (unknown strength) Not Available - Active THERA-D (unknown strength) Not Available - Active DULOXETINE HCL (unknown strength) Not Available - Active GABAPENTIN (unknown strength) Not Available - Active PRAVASTATIN SODIUM (unknown strength) Not Available - Active MELOXICAM (unknown strength) Not Available - Active FAMOTIDINE (unknown strength) Not Available - Active LORAZEPAM (unknown strength) Not Available - Active TYLOPHEN (unknown strength) Not Available - Active Procedures Procedure Date OFFICE/OUTPATIENT VISIT EST Phone OFFICE/OUTPATIENT VISIT EST Phone Office/Outpatient Visit,Est, Mod 2023 Office/Outpatient Visit,Est, Mod 2023 Office/Outpatient Visit,New, Mod 2023 Advance Directives Directive Yes / No Effective Date File Name No Information Encounters Encounter Description Practice Location Reason(s) For Visit Diagnoses Date Provider Providers Copied on Encounter OFFICE/OUTPAT IENT VISIT EST Phone [facility], [address], [place], [id number], [place] tel:[phone] [facility] No Information Hebert Boyce. [facility], [address], [facility], [id number] , [place]. tel:[phone] Referring Provider: Bonnie Morales, [facility] [address] [place], [address]. tel:[phone] OFFICE/OUTPAT IENT VISIT EST Phone [facility], [address], [place], [id number], [place] tel:[phone] [facility] Spinal stenosis, lumbar region Apr-2 [address] [facility], [address], [facility], [id number] , [place]. [phone] Referring Provider: Bonnie Morales, [facility] [address] [place], [address]. tel:[phone] Office/Outpat ient Visit,Est, Mod [facility], [address], [place], [id number], [place] tel:[phone] [facility] Spinal stenosis, lumbar region with neurogenic claudication Apr-0 4 Hebert Boyce. [facility], [address], [facility] [place], [address] , [place]. [phone] Referring Provider: Bonnie Morales, [facility] [address] [place], [address]. tel:[phone] Office/Outpat ient Visit,Est, Mod [facility], [address], [place], [id number], [place] tel:[phone] [facility] Low back pain, unspecifiedRadi culopathy, lumbar regionSpinal stenosis, lumbar region with neurogenic claudication Feb-0 4 Kenia Brown. [facility], [address] [place] [address], [address], [place], [place], [address] , [place]. tel:[phone] Referring Provider: Bonnie Morales, [facility] [address] [place], [address]. tel:[phone] Office/Outpat ient Visit,New, Gaurang Majano/HAYLEE Fox, [address], [place], [place], [id number], [place] tel:[phone] [facility] Other intervertebral disc degeneration, lumbar region 4 Marky Sarmiento. [facility], [address], [address], [place], [place], [id number] , [place]. tel:[phone] Referring Provider: Nader Velasco, [facility] [address] [place], [address]. 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
--- OUTSIDE RECORDS SUMMARY | 2023-09-10 11:24 | XMS_ITS | Encounter Summary ---
Author Organization [facility] Address [address] [place] [address] Care Team Providers Care Ring Barker Operator Name Role Phone Cyndee Carranza MD Primary Care Provider [phone] Reason for Visit * Reason Comments LETTER NEEDED Outside Records on File [facility] Encounter Details Date Type Department Care Team (Late st Contact Info) Description 08/06/2023 Telephone [facility] [address] [facility] [place], [place] [phone] Sudheer Hussein, [address] [place], [place] [phone] LETTER NEEDED; Outside Records on File ([facility]) Social History Tobacco Use Types Packs/Day Years [...] as of this encounter Nursing Notes * Glendy Cordova RN - 08/11/2023 2:47 PM CDT Moved to scanning from Right fax. Glendy Cordova RN 08/11/2023, 2:48 PM * Austin Wong - 08/11/2023 10:41 AM CDT Received outside records from [facility] Date(s) of services: 02/25/23 - 06/22/23 15 pages Records placed in provider folder in right fax on 08/11/23 So we don't lose the fax, please print or send to scan - (remember faxes auto delete in 60 days) Austin Wong 08/11/2023, 10:41 AM * Coretta Garcia - 08/09/2023 12:22 PM CDT Information from RN faxed to [facility] for SCS trial PA. Thanks! * Glendy Cordova RN - 08/09/2023 12:03 PM CDT Letter and OV notes placed on machine fancy stitcher desk. Please forward letter for no PT and OV from Dr. Mccullough, [facility] Neurosurgery for PA for SCS trial. Thank you, Glendy Cordova RN 08/09/2023, 12:05 PM * Glendy Cordova RN - 08/06/2023 5:14 PM CDT Per pt message 08/06/2023 My last physical therapy was in early February at [facility] in [place]. It did help a little. I have been doing some of the exercises they gave me and they havedefinitely made me stronger but not a lot of help with the pain. Glendy Cordova RN 08/06/2023, 5:15 PM Message from patient. Fagoting Machine Operator requested pt request office visit note from consult noted below: I think it might be helpful to know that I consulted Darron Sarmiento MD, PhD from [facility] about surgical options and he indicated that there was nothing he could do surgically. In case you need additional documentation. Thanks. Glendy Cordova RN 08/09/2023, 11:36 AM documented in this encounter Plan of Treatment Scheduled Procedures Name Priority Associated Diagnoses Date/Ti me PLACEMENT SPINAL CORD STIMULATOR TRIAL Lumbar radiculitis documented as of this encounter Visit Diagnoses Not on filedocumented in this encounter Care Teams Ring Barker Operator Relationship Specialty Start Date End Date Cyndee Carranza MD [address] [place] [address] PCP - General 01/21/23 documented as of this encounter
--- OUTSIDE RECORDS SUMMARY | 2023-09-10 11:24 | XMS_ITS | Encounter Summary ---
Author Organization [facility] Address [address], [place] [address] Care Team Providers Care Card Checker Name Role Phone Cyndee Carranza MD Primary Care Provider Encounter Details Date Type Department Care Team (Latest Contact Info) Description 01/18/2019 Consent for Procedure/Treatm ent [facility] Department RH HYSTERECTOMY ACKNOWLEDGEMENT STATEMENT Social [...] on filedocumented in this encounter Care Teams Card Checker Relationship Specialty Start Date End Date Cyndee Carranza MD [address] [place] [address] PCP - General 01/21/23 documented as of this encounter
--- OUTSIDE RECORDS SUMMARY | 2023-09-10 11:24 | XMS_ITS | Encounter Summary ---
Author Organization [facility] Address [address] [address] Care Team Providers Care Jig And Fixture Repairer Name Role Phone Cyndee Carranza MD Primary Care Provider [phone] Reason for Referral * Consult/Transfer Care (Routine) - New Request Specialty Diagnoses / Procedures Referred By Laura whitlock Referred To Contact Diagnoses Lumbar radiculitis Sudheer Hussein DO [address] [place] [address] Referral ID Status Reason Start Date Expiration Date V isits Requested Visits Authorized [id number] New Request 08/04/2023 11/02/2024 1 1 Scheduling Instructions Your clinician has recommended an appointment for a pain consultation within [facility]. For scheduling at our [facility] or [place] location please call [phone]. To schedule at our [place] location call [phone]. Question Answer Appointment Urgency? Non-Urgent Consult for Interventional Pain Consult Reason for visit? scs trial Comments Please schedule the patient to see a Pain Psychologist in the Pain Management department. Reason for Visit * Reason Comments QUESTIONS, GENERAL Entered automaticall y [facility] Encounter Details Date Type Department Care Team ([facility] st Contact Info) Description 07/30/2023 10:00 AM CDT E-Visit [facility] Pain Management [address] [place] [address] Sudheer Hussein DO [address] [place] [address] Dx: Lumbar radiculitis (Primary Dx) Social History Tobacco Use Types [...] as of this encounter Nursing Notes * Sudheer Hussein DO - 08/04/2023 12:33 PM CDT Noted Fyi I ordered dr. Hernandez appt and scs trial * Bam Martel RN - 07/30/2023 10:20 AM CDT patient gave status update post L4 TESI. Do you recommend to place orders to proceed with SCS? Per patient's E-visit message: Update on Steroid injection. It has been two weeks since the L4 steroid shot. While I had about 4 days of improvement I am back to the pre-shot pain level It seems these injections don't provide senior living relief. Thanks for trying but I think we need to move on to the stimulator. Let me know whats next. Pat 07/16/23 PROCEDURE: Right L4 Transforaminal Epidural Steroid injection under flouroscopy 06/30/23 Patient last OV with . Per visit note: Assessment: 1. Chronic low back pain, facet 2. Lumbar radicular pain, L4/5, nn irritation Plan Patient education: I went over the above diagnoses and treatment plan with her and answered all of her questions. Reviewed images Right L4 tesi Continue hep May do future therapy pending #3 Consider SCS No new medications Thank you for the consult. Sudheer Hussein DO 06/30/2023, 9:34 AM documented in this encounter Plan of Treatment Scheduled Procedures Name Priority Associated Diagnoses Date/Ti me PLACEMENT SPINAL CORD STIMULATOR TRIAL Lumbar radiculitis Scheduled Referrals Name Type Priority Associated Diagnoses Orde r Schedule PAIN PSYCHOLOGIST CONSULT [CXP803] Referral Routine Lumbar radiculitis Ordered: 08/04/2023 documented as of this encounter Visit Diagnoses Diagnosis Lumbar radiculitis- Primary Thoracic or lumbosacral neuritis or radiculitis, unspecified documented in this encounter Care Teams Jig And Fixture Repairer Relationship Specialty Start Date End Date Cyndee Carranza MD [address] [place] [address] PCP - General 01/21/23 documented as of this encounter
--- OUTSIDE RECORDS SUMMARY | 2023-09-10 11:24 | XMS_ITS | Encounter Summary ---
Author Organization [facility] Address [address] [place] [id number] Care Team Providers Care Sole Stapler Welt Name Role Phone Cyndee Carranza MD Primary Care Provider [phone] Reason for Visit * Reason Comments Refill famotidine (PEPCID) 20 MG tablet [Pharmacy Med Name: FAMOTIDINE 20MG TABLETS] Encounter Details Date Type Department Care Team (Late st Contact Info) Description 07/25/2023 Refill [facility] [address] [address] Reny Crooks, WOODWORKING MACHINE OFFBEARER, [employer]ER [address] [place] [address] Refill (famotidine (PEPCID) 20 MG [...] as of this encounter Nursing Notes * Dolly Vargas - 07/26/2023 1:08 PM CDT Medication Refill - Overdue Visit Called patient, was: Successful in reaching patient We recently received a refill request on one of your medications. Your clinician would like to see you for a(n): office visit Patient declined to schedule due to: Patient goes to [facility] now, will have them take care of this Please route to: (HP) Care Team Pool/ (PN) Clinician * Angy Waldron - 07/26/2023 9:56 AM CDT Please call patient and let them know a courtesy refill has been sent to their pharmacy. Please schedule patient for a follow up appointment with Reny Crooks APRN, CASSIUS in order tocontinue to receive refills. Thanks. Angy Waldron 12/24/2022, 12:40 PM * Aamir Lu Xrwcomm - 07/25/2023 3:45 AM CDT famotidine (PEPCID) 20 MG tablet [Pharmacy Med Name: FAMOTIDINE 20MG TABLETS] GERD / PUD - H2 Blockers & Carafate -> An office visit is overdue (performed 15 months ago, required every 12 months). -> Refill x 3 months (courtesy refill. overdue for an office visit) Last qualifying visit: 05/13/2022 (in [facility] with RENY CROOKS) Next scheduled visit: None Last ordered by RENY CROOKS: 08/10/2022 (349 days ago) QTY: 180, Refills: 3, Sig: take 1tablet(20 mg) by mouth twice daily (unchanged) [facility] Embedded Refills, Reference: [id number], 07/25/2023 3:45:45 AM CDT, Pool: ANN-MARIE Moody RN/SUKHDEV () [[id number]] ([id number]) documented in this encounter Plan of Treatment Scheduled Procedures Name Priority Associated Diagnoses Date/Ti me PLACEMENT SPINAL CORD STIMULATOR TRIAL Lumbar radiculitis documented as of this encounter Visit Diagnoses Not on filedocumented in this encounter Care Teams Sole Stapler Welt Relationship Specialty Start Date End Date Cyndee Carranza MD [address] [facility] [place] [address] PCP - General 01/21/23 documented as of this encounter
--- OUTSIDE RECORDS SUMMARY | 2023-09-10 11:24 | XMS_ITS | Clinical Summary ---
[facility] Address [address] [place] [address] Care Team Providers Care Safety Clothing And Equipment Developer Name Role Phone Cyndee Carranza MD Primary Care Provider [phone] Source Comments You are receiving this document as you are listed as the primary care provider,follow-up provider, or the patient has been referred to you for consultation.This is in compliance with the Medicare andMedicaid EHR Incentive Program,which states Providers who transition their patient to another setting of careor provider of care or refers their patient to another provider of care shouldprovide summary care record for each transition of care or referral. [employer] Allergies Active Allergy Reactions Criticality Noted Date Comments Atorvastatin Muscle Aches/Weakness 04/09/2013 Sulfa Antibiotics Rash Medications Medication Sig Dispensed Refills Start Date End Date Status multivitamin (AKA THERAGRAN) tablet Take 1 Tablet by mouth daily. 30 Tab 11 09/04/2009 Active cholecalciferol (VITAMIN D3) 25 MCG (1000 UT) tablet Take 1 Tablet (1,000 Units) by mouth daily. 2 tabs/day Active Calcium Carb-Cholecalciferol 500-3.125 MG-MCG TABS 08/31/2021 Active aspirin 81 MG chewable tablet Chew and swallow 1 Tablet (81 mg) by mouth daily. 30 Tablet 03/24/2022 Active sertraline (ZOLOFT) 100 MG tablet TAKE 2 TABLETS(200 MG) BY MOUTH DAILY 180 Tablet 3 05/12/2022 Active balsalazide (COLAZAL) 750 MG capsuleIndications:C olitis Take 1 capsule po TID 270 Each 3 09/02/2022 Active mesalamine (LIALDA) 1.2 g enteric coated tabletIndications:Co litis Take 3 tablets PO QD with food 270 Tablet 3 09/24/2022 Active pravastatin (PRAVACHOL) 40 MG tabletIndications:Hy perlipidemia with target LDL less than 130 (HRC) TAKE 1 TABLET(40 MG) BY MOUTH DAILY AT BEDTIME 90 Tablet 04/30/2023 Active acetaminophen (TYLENOL EXTRA STRENGTH) 500 MG tablet 11/02/2022 Active budesonide (ENTOCORT EC) 3 MG capsule 03/31/2023 Active Calcium Acetate 667 MG Active DULoxetine (CYMBALTA) 60 MG capsule Take 1 Capsule (60 mg) by mouth daily. 06/22/2023 Active gabapentin (NEURONTIN) 300 MG capsule Take 2 Capsules (600 mg) by mouth three times a day. 06/16/2023 Active LORazepam (ATIVAN) 1 MG tablet Active famotidine (PEPCID) 20 MG tablet TAKE 1 TABLET(20 MG) BY MOUTH TWICE DAILY 180 Tablet 07/26/2023 Active traZODone (DESYREL) 50 MG tablet TAKE 1 TO 2 TABLETS BY MOUTH AT BEDTIME NEEDED 180 Tablet 07/27/2023 Active Active Problems Problem Noted Date Diagnosed Date Follow-up examination 07/29/2023 Lumbar radiculitis 06/30/2023 TIA (transient ischemic attack) 04/01/2022 Overview: Seen in ED 03/24/22. Work up in progress. 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 [address] [place] [address] Sudheer Hussein DO Chief Comp: QUESTIONS, GENERAL 08/06/2023 Telephone [facility] [address] [facility] [place] [address] Sudheer Hussein DO LETTER NEEDED; Outside Records on File ([facility]) 08/04/2023 Prep for Surgery [facility] [address] [place] [address] Sudheer Hussein, Lumbar radiculitis (Primary Dx) 07/30/2023 10:00 AM CDT E-Visit [facility] [address] [place] [address] Sudheer Hussein DO Dx: Lumbar radiculitis (Primary Dx) 07/29/2023 Refill [facility] [address] [place] [address] Cyndee Carranza MD Refill (pravastatin (PRAVACHOL) 40 MG tablet) 07/29/2023 Notes/Orders [facility] [address] [place] [address] Sudheer Hussein DO Follow-up examination (Primary Dx) 07/25/2023 Refill [facility] [address] [place] [address] Cyndee Carranza MD Refill (traZODone (DESYREL) 50 MG tablet) 07/25/2023 Refill [facility] at [address] [phone] Reny Crooks, RAJAT, WAFER POLISHER Refill (famotidine (PEPCID) 20 MG tablet [Pharmacy Med Name: FAMOTIDINE 20MG TABLETS]) 07/16/2023 8:20 AM CDT - 07/16/2023 8:40 AM CDT Surgery [facility] [address] [place] [address] Sudheer Hussein DO INJECTION TRANSFORAMINAL APPROACH EPIDURAL LUMBAR SPINE right L4 07/16/2023 7:39 AM CDT - 07/16/2023 8:38 AM CDT Hospital Encounter [facility] [address] [place] [address] Sudheer Hussein DO Lumbar radiculitis Discharge Disposition: Home 07/16/2023 6:35 AM CDT Ancillary Procedure [facility] [place] [address] [place] [address] Snian Mccullough MD Lumbosacral radiculopathy at L5; Low back pain radiating to both legs; Greater trochanteric bursitis of both hips; Bilateral iliotibial band tendinitis; Pain of both sacroiliac joints (HRC); Tarlov cyst 07/14/2023 8:00 AM CDT Telemedicine [facility] [address] [facility] [place] [address] Teressa Hernandez, PhD, LP Pain disorder associated with psychological factors and medical condition (HRC) (Primary Dx); Chronic pain disorder 06/30/2023 9:15 AM CDT Office Visit [facility] [address] [facility] [place] [address] Sudheer Hussein, Lumbar radiculitis (Primary Dx) from Last 3 Months Immunizations Name Administration Dates Next Due Flu Vac (3+ yrs) 11/26/2020, 7,10/22/2012,2011,11/29/2009 Influenza ([place] Only) (Flul aval Quad 0.5, 3+ yrs) 10/27/2016 Influenza IIV4 (Quadrivalent ) 0.5mL ([id number]) 11/06/2019,10/25/2018,10/26/2017,2015,10/18/2014,10/31/2013 Influenza IIV4 (Quadrivalent ) Fluzone, 65+ [...] Sign Reading Time Taken Comments Blood Pressure 137/74 07/16/2023 7:42 AM CDT Pulse 77 07/16/2023 7:42 AM CDT Temperature 36.3 ??C (97.3 ??F) 07/16/2023 7:42 AM CD T Respiratory Rate 18 07/16/2023 7:42 AM CDT Oxygen Saturation 98% 07/16/2023 7:42 AM CDT Inhaled Oxygen Concentration - - Weight 80.7 kg (178 lb) 06/30/2023 9:26 AM CDT Height 162.6 cm (5' 4) 06/30/2023 9:26 AM CDT Body Mass Index 30.55 06/30/2023 9:26 AM CDT Plan of Treatment Scheduled Procedures Name Priority Associated Diagnoses Date/Ti me PLACEMENT SPINAL CORD STIMULATOR TRIAL Lumbar radiculitis Health Maintenance Due Date Last Done Comments MTM Targeted 1955 COVID-19 Vaccine ( season) 2022 11/08/2021, 05/19/2021, 01/10/2021, Additional history exists Cholesterol 11/28/2022 11/28/2021, 04/17, 05/28/2020, Additional history exists Mammogram 11/28/2022 11/28/2021, 11/15, 08/29/2019, Additional history exists Medicare Annual Wellness Visit 02/15/2023 06/16/2022, 05/19/2021 Prediabetes: HGBA1C 07/03/2023 07/02/2022, 05/15/2021, 05/28/2020, Additional history exists Influenza (#1) 2023 11/03/2022, 06/2021, 11/26/2020, Additional history exists Colonoscopy 09/03/2027 09/02/2017, 02/2009 [...] on patient's age to complete this topic Procedures Procedure Name Priority Date/Time Associated Diagnosis Comments INTERVENTIONAL PAIN PROCEDURE Routine 07/16/2023 8:32 AM CDT Lumbosacral radiculopathy at L5 Low back pain radiating to both legs Greater trochanteric bursitis of both hips Bilateral iliotibial band tendinitis Pain of both sacroiliac joints (HRC) Tarlov cyst INJECTION TRANSFORAMINAL APPROACH EPIDURAL LUMBAR SPINE PAIN 07/16/2023 8:20 AM CDT Lumbar radiculitis Case Notes INJECTION TRANSFORAMINAL APPROACH EPIDURAL LUMBAR SPINE right L4 HGB A1C Routine 07/02/2022 9:15 AM CDT IFG (impaired fasting glucose) LIPID PANEL & DIRECT LDL (IF NEEDED) Routine 11/28/2021 9:18 AM CDT Hyperlipidemia with target LDL less than 130 MM MAMMOGRAM SCREENING BILAT W 3D HO W CAD Routine 11/28/2021 9:16 AM CDT DXA BONE DENSITY SPINE/HIP Routine 07/21/2021 3:11 PM CDT Menopausal disorder COLONOSCOPY Routine 09/02/2017 11:26 AM CDT Diarrhea, unspecified type Lymphocytic colitis PAP TEST, ROUTINE Routine 02/22/2017 4:19 PM SLEEPING [employer] Screening for malignant neoplasm of cervix HEPATITIS C ANTIBODY, WITH REFLEX Routine 12/17/2011 9:18 AM CDT Special screening examination for viral disease from Last 3 Months or Most Recently Relevant to Health Maintenance Results * Interventional Pain Procedure (07/16/2023 8:32 AM CDT) Anatomical Region Laterality Modality X-Ray Angiograph y Narrative 07/16/2023 8:34 AM CDT This is an imaging order that has been read externally. Sinan Mccullough MD RAD GD * (ABNORMAL) Hgb A1C (07/02/2022 9:15 AM CDT) Hemoglobin A1C 6.0(H) <=5.6 % 07/02/2022 4:25 PM CDT [facility] Estimated Average Glucose (Calc) 126 < 117 mg/dL 07/02/2022 4:25 PM CDT [facility] Comment:Estimated average gl ucose (eAG) converts A1c into glucose units (mg/dL) and estimates average glucose over the past approximately 3 months. The eAG reference interval (<117 mg/dL) corresponds to an A1c of <5.7%. Blood Venipuncture / Unknown 07/02/2022 9:15 AM CDT 07/02/2022 9:15 AM CDT Narrative [facility] - 07/02/2022 4:25 PM CDT For patients not previously diagnosed with diabetes: 5.7-6.4%: Increased risk for diabetes 6.5% and greater: Diagnostic for diabetes For patients diagnosed with diabetes: <8.0%: Goal of therapy for ages 18-75 Clinicians may recommend a higher or lower goal for specific individuals. Leena Spivey MD LAB_1 [facility] [address] [phone] * (ABNORMAL) Lipid Panel and Direct LDL(If Needed) (11/28/2021 9:18 AM CDT) [facility] Cholesterol 224(H) 0 - 199 mg/dL 11/28/2021 5:49 PM CDT [facility] Triglyceride 260(H) <=149 mg/dL 11/28/2021 5:49 PM CDT [facility] HDL Cholesterol 52 >=40 mg/dL 11/28/2021 5:49 PM CDT [facility] LDL, Calculated 120 <130 mg/dL 11/28/2021 5:49 PM CDT [facility] Non HDL Chol, Calculated 172(H) <=159 mg/dL 11/28/2021 5:49 PM CDT [facility] Cholesterol/HDL Ratio 4.3 11/28/2021 5:49 PM CDT [facility] Hours Fasting 2 11/28/2021 5:49 PM CDT [facility] Blood Venipuncture / Unknown 11/28/2021 9:18 AM CDT 11/28/2021 9:18 AM CDT Leena Spivey MD LAB_1 [facility] [address] [address], [facility] [phone] [facility] [address] [place] [address], [facility] [phone] * MM Mammogram Screening Bilat W 3D Ho W CAD (11/28/2021 9:16 AM CDT) Anatomical Region Laterality Modality Breast Bilateral Mammography Impressions 12/01/2021 5:28 PM CDT : ACR BI-RADS Category 2: Benign RECOMMENDATION: Follow Up Imaging in 12 months - Bilateral The provided family history indicates that the patient might be at a high lifetime risk of breast cancer. Consider a formal risk assessment if not previously performed. The results and recommendations of this examination will be communicated to the patient. Narrative 12/01/2021 5:28 PM CDT MM MAMMOGRAM SCREENING BILAT W 3D HO W CAD performed on 11/28/21 Compared to: 11/26/2020 MM Mammogram Screening Bilat W 3D Ho W CAD, 08/29/2019 MM Mammogram Screening Bilat W 3D Ho W CAD, 05/06/2018 MM Mammogram Screening Bilat W 3D Ho W CAD, 08/29/2015 MM Mammogram Screening Bilat W CAD, and priors to 09/12/2007 BILATERAL SCREENING MAMMOGRAM ?? FINDINGS: Bilateral screening mammogram was performed with the assistance of Computer-Aided Detection and breast tomosynthesis. The breasts have scattered areas of fibroglandular density. There are benign findings, not significantly changed. There is no radiographic evidence of malignancy. ?? Leena Spivey MD RAD LUIS MIGUEL * DXA Bone Density Spine/Hip (07/21/2021 3:11 PM CDT) Anatomical Region Laterality Modality Lower Extremity, Spine, Hip, L-Spine Other Narrative 07/22/2021 11:57 AM CDT [employer] Effects Person and Model of Instrument: [employer] Demographics Age: 66 y.o. Gender: female Height: 5' 4.5 (1.638 m) Weight: 175 lb (79.4 kg) Race: Medical/Surgical History Menstrual periods:None Age of menopause:56 History of hip fractures in parents:No History of previous fractures occurring spontaneously, or a fracture as a result of a fall from a standing height or less:Yes If yes, indicated area:ribs Glucocorticoids use:No Currently taking medication:None Have or had listed medical conditions:None Dietary/Habit Alcohol 3 units or more per day (on average):No Currently smoking:No Other pertinent history: Dual-X-ray Absorptiometry (DXA Results) AP spine (L1-L4) Left hip (neck) Left ??hip (total) ?? BMD (gm/cm2) 0.813 0.644 0.723 ? T score -2.1 -1.8 -1.8 ? Z score -0.3 -0.3 -0.6 ?? %change from previous scan dated: ? FRAX Score: 10 YR Risk Hip Fracture % 1.3% Typical threshold to start therapy in patients is a 10-year risk of hip fracture >3%. Clinician? s judgment and/or patient preferences may indicate treatment for people with 10-year fracture probabilities above or below these levels. 10 YR Risk Major Osteoporotic Fracture % 9.8% Typical threshold to start therapy in patients is a 10-year risk of any osteoporotic fracture >20%.Clinicians judgment and/or patient preferences may indicate treatment for people with 10-year fracture probabilities above or below these levels. Comments: *Degenerative joint disease, compression fractures, or calcification artifacts may falsely increase bone mineral density. Diagnosis: *Osteopenia of left hip. Patient has a low risk of fracture. Recommendations:. *Recommend lifestyle modifications, including proper calcium/vitamin d intake, weight bearing exercises, and fall prevention. *Consider follow up DXA ??in 3-5 years, unless clinical circumstances change. WHO DEFINITIONS: Normal BMD: T-score ? -1.0 Osteopenia: T-score between -1.0 and -2.5 Osteoporosis: T-score ? -2.5 FRAX Score : ??The FRAX?? algorithms give the 10-year probability of fracture. The output is a 10-year probability of hip fracture and the 10-year probability of a major osteoporotic fracture (clinical spine, forearm, hip or shoulder fracture). ?? The FRAX score takes into account the bone density, but also age, gender, weight, height, previous fracture, parental hip fracture, smoking status, glucocorticoid intake, history of RA, secondary osteoporosis, and high alcohol intake in determining fracture risk in patients with osteopenia and osteoporosis. FRAX and Fracture Risk Categories in terms of major osteoporotic fracture risk (clinical spine, forearm, hip, or shoulder): < 10% ? = ? low fracture risk ? 10% and <15% ?= ? mildly increased fracture risk ? 15% and <20% ?= ? moderately increased fracture risk ? 20% and <30% ?= ?high fracture risk ? 30% ? = ? very high fracture risk A clinician may consider FDA-approved medical therapies in postmenopausal women and men aged 50 years and older, if one or more of the following is present (clinical correlation required and therapy may not always be indicated): 1. ??The patient has a hip or vertebral (clinical or morphometric) fracture. 2. ??T-score ? -2.5 at the femoral neck, hip, or spine after appropriate evaluation to exclude secondary causes. 3. ??Low bone mass (T-score between -1.0 and -2.5 at the femoral neck, hip or spine) and a 10-year probability of a hip fracture ? 3% or a 10-year probability of a major osteoporosis-related fracture ? 20% based on the FRAX scores. 4. ??Clinicians judgment and/or patient preferences may result in a decision to patients with 10-year fracture probabilities above or below these levels. Leena Spivey MD RAD DEXA * COLONOSCOPY [[id number]] (09/02/2017 11:26 AM CDT) 09/02/2017 11:2 6 AM CDT Narrative GI ([facility]) - 09/02/2017 11:56 AM CDT Indications: ? Diarrhea, Family history of colon cancer in a distant ? relative, Follow-up of microscopic colitis Providers: ? Sampson Crocker MD, Karolyn Hill RN, Nae ? Domenica Pop LPN Patient Profile: ? This is a 62 year old female here for ? diarrhea/microscopic colitis; +FH CRC (PGF). Referring MD: ?Reny Crooks NP Medicines: ? Midazolam 4 mg IV, Fentanyl 100 micrograms IV Complications: ? No immediate complications. Procedure: ? Pre-Anesthesia Assessment: ? - Prior to the procedure, a History and Physical was ? performed, and patient medications and allergies were ? reviewed. The patient is competent. The risks and ? benefits of the procedure and the sedation options ? and risks were discussed with the patient. All ? questions were answered and informed consent was ? obtained. Patient identification and proposed ? procedure were verified by the physician and the ? nurse in the procedure room. Mental Status ? Examination: alert and oriented. Airway Examination: ? normal oropharyngeal airway and neck mobility. ? Respiratory Examination: clear to auscultation. CV ? Examination: normal. Prophylactic Antibiotics: The ? patient does not require prophylactic antibiotics. ? Prior Anticoagulants: The patient has taken no ? previous anticoagulant or antiplatelet agents. ASA ? Grade Assessment: II - A patient with mild systemic ? disease. After reviewing the risks and benefits, the ? patient was deemed in satisfactory condition to ? undergo the procedure. The anesthesia plan was to use ? moderate sedation / analgesia (conscious sedation). ? Immediately prior to administration of medications, ? the patient was re-assessed for adequacy to receive ? sedatives. The heart rate, respiratory rate, oxygen ? saturations, blood pressure, adequacy of pulmonary ? ventilation, and response to care were monitored ? throughout the procedure. The physical status of the ? patient was re-assessed after the procedure. ? After I obtained informed consent, the scope was ? passed under direct vision. Prior to sedation, ? patient identity and procedure was reverified. ? Throughout the procedure, the patient's blood ? pressure, pulse, and oxygen saturations were ? monitored continuously. The [id number] was introduced ? through the anus and advanced to the terminal ileum, ? with identification of the appendiceal orifice and IC ? valve. The colonoscopy was performed without ? difficulty. The patient tolerated the procedure well. ? The quality of the bowel preparation was evaluated ? using the BBPS ([place] Bowel Preparation Scale) with ? scores of: Right Colon = 2 (minor amount of residual ? staining, small fragments of stool and/or opaque ? liquid, but mucosa seen well), Transverse Colon = 3 ? (entire mucosa seen well with no residual staining, ? small fragments of stool or opaque liquid) and Left ? Colon = 3 (entire mucosa seen well with no residual ? staining, small fragments of stool or opaque liquid). ? The total BBPS score equals 8. The quality of the ? bowel preparation was good. Findings: ? The terminal ileum appeared normal. ? Normal mucosa was found in the entire colon. Biopsies for histology ? were taken with a cold forceps from the cecum, ascending colon, ? transverse colon, descending colon and sigmoid colon for evaluation ? of microscopic colitis. ? A few small and large-mouthed diverticula were found in the ascending ? colon. ? Many small and large-mouthed diverticula were found in the sigmoid ? colon. There was narrowing of the colon in association with the ? diverticular opening. ? Non-bleeding internal hemorrhoids were found during retroflexion. The ? hemorrhoids were small. Moderate Sedation: ? Moderate (conscious) sedation was administered by the endoscopy nurse ? and supervised by the endoscopist. The following parameters were ? monitored: oxygen saturation, heart rate, blood pressure, and ? response to care. Total physician intraservice time was 15 minutes. Impression: ?- The examined portion of the ileum was normal. ? - Normal mucosa in the entire examined colon. ? Biopsied. ? - Diverticulosis in the ascending colon. ? - Moderate diverticulosis in the sigmoid colon. There ? was narrowing of the colon in association with the ? diverticular opening. ? - Non-bleeding internal hemorrhoids. Recommendation: ?- Await pathology results. ? - High fiber diet. ? - Use fiber, for example Citrucel, Fibercon, Konsyl ? or Metamucil. ? - Imodium 1-2 caplets PO PRN after loose bowel ? movement. Procedure Code(s): ?? --- Professional --- ? 37473 ? G0500 ? --- Technical --- ? 31040 ? G0500 Diagnosis Code(s): ?? --- Professional --- ? K64.8 ? R19.7 ? Z80.0 ? K52.839 ? K57.30 ? --- Technical --- ? K64.8 ? R19.7 ? Z80.0 ? K52.839 ? K57.30 CPT copyright 2016 [employer]. All rights reserved. The codes documented in this report are preliminary and upon forge operator helper review may be revised to meet current compliance requirements. Attending Participation: Sampson Crocker MD 09/02/2017 11:55:57 AM This report has been signed electronically. Number of Addenda: 0 Note Initiated On: 09/02/2017 11:26 AM Procedure Note Sampson Crocker MD - 09/02/2017 Indications: Diarrhea, Family history of colon cancer in a distant relative, Follow-up of microscopic colitis Providers: Sampson Crocker MD, Karolyn Hill RN, Nae Pop LPN Patient Profile: This is a 62 year old female here for diarrhea/microscopic colitis; +FH CRC (PGF). Referring MD: Reny Crooks NP Medicines: Midazolam 4 mg IV, Fentanyl 100 micrograms IV Complications: No immediate complications. Procedure: Pre-Anesthesia Assessment: - Prior to the procedure, a History and Physical was performed, and patient medications and allergies were reviewed. The patient is competent. The risks and benefits of the procedure and the sedation options and risks were discussed with the patient. All questions were answered and informed consent was obtained. Patient identification and proposed procedure were verified by the physician and the nurse in the procedure room. Mental Status Examination: alert and oriented. Airway Examination: normal oropharyngeal airway and neck mobility. Respiratory Examination: clear to auscultation. CV Examination: normal. Prophylactic Antibiotics: The patient does not require prophylactic antibiotics. Prior Anticoagulants: The patient has taken no previous anticoagulant or antiplatelet agents. ASA Grade Assessment: II - A patient with mild systemic disease. After reviewing the risks and benefits, the patient was deemed in satisfactory condition to undergo the procedure. The anesthesia plan was to use moderate sedation / analgesia (conscious sedation). Immediately prior to administration of medications, the patient was re-assessed for adequacy to receive sedatives. The heart rate, respiratory rate, oxygen saturations, blood pressure, adequacy of pulmonary ventilation, and response to care were monitored throughout the procedure. The physical status of the patient was re-assessed after the procedure. After I obtained informed consent, the scope was passed under direct vision. Prior to sedation, patient identity and procedure was reverified. Throughout the procedure, the patient's blood pressure, pulse, and oxygen saturations were monitored continuously. The [id number] was introduced through the anus and advanced to the terminal ileum, with identification of the appendiceal orifice and IC valve. The colonoscopy was performed without difficulty. The patient tolerated the procedure well. The quality of the bowel preparation was evaluated using the BBPS ([place] Bowel Preparation Scale) with scores of: Right Colon = 2 (minor amount of residual staining, small fragments of stool and/or opaque liquid, but mucosa seen well), Transverse Colon = 3 (entire mucosa seen well with no residual staining, small fragments of stool or opaque liquid) and Left Colon = 3 (entire mucosa seen well with no residual staining, small fragments of stool or opaque liquid). The total BBPS score equals 8. The quality of the bowel preparation was good. Findings: The terminal ileum appeared normal. Normal mucosa was found in the entire colon. Biopsies for histology were taken with a cold forceps from the cecum, ascending colon, transverse colon, descending colon and sigmoid colon for evaluation of microscopic colitis. A few small and large-mouthed diverticula were found in the ascending colon. Many small and large-mouthed diverticula were found in the sigmoid colon. There was narrowing of the colon in association with the diverticular opening. Non-bleeding internal hemorrhoids were found during retroflexion. The hemorrhoids were small. Moderate Sedation: Moderate (conscious) sedation was administered by the endoscopy nurse and supervised by the endoscopist. The following parameters were monitored: oxygen saturation, heart rate, blood pressure, and response to care. Total physician intraservice time was 15 minutes. Impression: - The examined portion of the ileum was normal. - Normal mucosa in the entire examined colon. Biopsied. - Diverticulosis in the ascending colon. - Moderate diverticulosis in the sigmoid colon. There was narrowing of the colon in association with the diverticular opening. - Non-bleeding internal hemorrhoids. Recommendation: - Await pathology results. - High fiber diet. - Use fiber, for example Citrucel, Fibercon, Konsyl or Metamucil. - Imodium 1-2 caplets PO PRN after loose bowel movement. Procedure Code(s): --- Professional --- 74647 G0500 --- Technical --- 90863 G0500 Diagnosis Code(s): --- Professional --- K64.8 R19.7 Z80.0 K52.839 K57.30 --- Technical --- K64.8 R19.7 Z80.0 K52.839 K57.30 CPT copyright 2016 [employer]. All rights reserved. The codes documented in this report are preliminary and upon forge operator helper review may be revised to meet current compliance requirements. Attending Participation: Sampson Crocker MD 09/02/2017 11:55:57 AM This report has been signed electronically. Number of Addenda: 0 Note Initiated On: 09/02/2017 11:26 AM Sampson Crocker MD DIGESTIVE CARE Performing Organization Address City/State/[facility] Co de Phone Number GI (PROVATION) [place], [place] * Pap Test, Routine (02/22/2017 4:19 PM SLEEPING CAR PORTER) Cytology, Pap (NOTE) Lens Matcher Cytology Report Patient Name: ROGERS LINN Taken: 02/22/2017 Received: 02/23/2017 Reported: 02/25/2017 Physician(s): LEENA SPIVEY ?Source of Specimen Pap Test, Routine Cervical/Endocervi raul: ?Specimen Adequacy ?Satisfactory for evaluation. ??Endocervical component present. ? Final Cytologic Interpretation/Res ult NEGATIVE FOR INTRAEPITHELIAL LESION OR MALIGNANCY (NILM) ?? *Electronically Signed Out By Merced Ndiaye CT(ASCP)* Merced Ndiaye CT(ASCP) ? Pap Smear History Date of Last Menstrual Period: 04/06/2011 ?? Microscopic Description Microscopic examination is performed. [facility] Department of Pathology [address] [place] [address] ??[id number] [facility] 02/22/2017 4:19 PM SLEEPING CAR PORTER 02/23/2017 3:39 PM SLEEPING CAR PORTER Leena Spivey MD LAB_1 [facility] [phone] * HEPATITIS C ANTIBODY, WITH REFLEX (12/17/2011 9:18 AM CDT) Anti-HCV Negative (Non Reactive) [facility] Comment:Does Not Rule Out In fection with HCV 12/17/2011 9:18 AM CDT 12/17/2011 9:35 AM CDT Leena Spivey MD LAB_1 Performing Organization Address City/[facility]/ZIP Co de Phone Number [employer] [address] [address] from Last 3 Months or Most Recently Relevant to Health Maintenance Advance Directives * Full Code (Latest Code Status on File) Date Activated Date Inactivated Comments 12/22/2012 6:16 AM 12/22/2012 1:40 PM * Full Code Date Activated Date Inactivated Comments 04/10/2008 12:22 PM 04/10/2008 5:14 PM Care Teams Safety Clothing And Equipment Developer Relationship Specialty Start Date End Date Cyndee Carranza MD [address] [place] [address] PCP - General 01/21/23
--- OUTSIDE RECORDS SUMMARY | 2023-09-10 11:24 | XMS_ITS | Encounter Summary ---
Author Organization [facility] Address [address] [place] [address] Care Team Providers Care Catalyst Unit Operator Name Role Phone Cyndee Carranza MD Primary Care Provider [phone] Reason for Visit * Procedure/Equipment (Routine) - New Request Specialty Diagnoses / Procedures Referred By Laura whitlock Referred To Contact Diagnoses Lumbosacral radiculopathy at L5 Low back pain radiating to both legs Greater trochanteric bursitis of both hips Bilateral iliotibial band tendinitis Pain of both sacroiliac joints (HRC) Tarlov cyst Procedures Interventional Pain Procedure Sinan Mccullough MD [address] [place] [address] Referral ID Status Reason Start Date Expiration Date V isits Requested Visits Authorized [id number] New Request 06/01/2023 08/30/2024 1 1 Encounter Details Date Type Department Care Team (Late st Contact Info) Description 07/16/2023 6:35 AM CDT Ancillary Procedure [facility] [address] [place] [address] Sinan Mccullough MD [address] [place], [place] [id number] Lumbosacral radiculopathy at L5; Low back pain radiating to both legs; Greater trochanteric bursitis of both hips; Bilateral iliotibial band tendinitis; Pain of both sacroiliac joints (HRC); Tarlov cyst Social History Tobacco Use Types Packs/Day Years [...] Lumbar radiculitis documented as of this encounter Procedures Procedure Name Priority Date/Time Associated Diagnosis Comments INTERVENTIONAL PAIN PROCEDURE Routine 07/16/2023 8:32 AM CDT Lumbosacral radiculopathy at L5 Low back pain radiating to both legs Greater trochanteric bursitis of both hips Bilateral iliotibial band tendinitis Pain of both sacroiliac joints (HRC) Tarlov cyst documented in this encounter Results * Interventional Pain Procedure (07/16/2023 8:32 AM CDT) Anatomical Region Laterality Modality X-Ray Angiograph y Narrative 07/16/2023 8:34 AM CDT This is an imaging order that has been read externally. Sinan Mccullough MD RAD GD documented in this encounter Visit Diagnoses Diagnosis Lumbosacral radiculopathy at L5 Thoracic or lumbosacral neuritis or radiculitis, unspecified Low back pain radiating to both legs Lumbago Greater trochanteric bursitis of both hips Enthesopathy of hip region Bilateral iliotibial band tendinitis Pain of both sacroiliac joints (HRC) Tarlov cyst Mononeuritis of unspecified site documented in this encounter Care Teams Catalyst Unit Operator Relationship Specialty Start Date End Date Cyndee Carranza MD [address] [place] [address] PCP - General 01/21/23 documented as of this encounter
--- OUTSIDE RECORDS SUMMARY | 2023-09-10 11:24 | XMS_ITS | Encounter Summary ---
Author Organization [facility] Address [address], [place] [address] Care Team Providers Care Grocery Packer Name Role Phone Cyndee Carranza MD Primary Care Provider [phone] Encounter Details Date Type Department Care Team (Late st Contact Info) Description 07/16/2023 8:20 AM CDT - 07/16/2023 8:40 AM CDT Surgery [facility] [address] [place] [address] Sudheer Hussein, [address] [place], [place] [id number] INJECTION TRANSFORAMINAL APPROACH EPIDURAL LUMBAR SPINE right L4 Social History Tobacco Use Types Packs/Day Years [...] CDT Inhaled Oxygen Concentration - - Weight - - Height - - Body Mass Index - - documented in this encounter Discharge Instructions * Discharge Instructions* Meredith Moffett RN - 07/16/2023 8:04 AM CDT Discharge Instructions for: Orquidea Ortiz Thank you for choosing [facility] as your provider. A copy of your discharge instructions has been given to you. Please read the instructions carefully. The surgery nurse will review thisinformation with you and answer your questions. General Information Surgeon(s): Sudheer Hussein, Procedure(s): INJECTION TRANSFORAMINAL APPROACH EPIDURAL LUMBAR SPINE right L4 Surgeon Orders/Follow Up Appointment Interventional Pain Procedure Standing Status: Future Standing Exp. Date: 06/29/24 See case request procedure Your clinician has recommended an appointment with [facility] Pain Intervention. You may call [phone] to schedule your appointment. Procedures Other (comments) Imaging Department may modify order per department protocol. Revisions will be made without the need for a new order to be placed. Yes Epidural: Transforaminal Lumbar Epidural Instructions Follow up appointment (Non-pain department) Call or message in [address] Hussein for update: [phone] Transforaminal Lumbar Epidural Instructions Rest today. Do not drive until tomorrow. Apply ice to site (20 minutes on/20 minutes off) for the next 48 hours if you experience any soreness or pain. No heat to site for the next 48 hours. Resume diet and medications (you can start your blood thinner tonight). If you have a spinal cord stimulator which was off during the procedure, you may turn it back on in24 hours If you experience shortness of breath, pain when breathing, or severe swelling, notify your doctor.If it is after normal clinic hours (8:00 am to 5:00 pm), go to the nearest Emergency Room. You may experience the following symptoms up to 6 hours after your injections: warmth, tingling, heaviness, or numbness. If these symptoms last more than 12 hours, call your doctor. If you have severe headaches with positional changes, excruciating pain, worsening weakness or worsening numbness please call your doctor's office or the Careline at [phone]. If you have loss of bowel and bladder control- please go directly to the ER. Prior to your injection you completed a questionnaire regarding your pain. We are sending you home with 2 other questionnaires to fill out: one will be filled out in 5-10 days and then the other willbe filled out in 30 days after your injection. Please complete these questionnaires and return themin the self- addressed stamped envelopes that are providing to you. Your participation in completingthese forms will help us serve you better. We appreciate your help in collecting this information. Thank you for your help in improving patient care and experience at [facility]. Contact Information After hours call the Careline at [phone]. Please call your clinic during business hours. Physical Medicine and Rehab: [phone] Neurosurgery: [phone] Interventional Pain: [phone] Anesthesia Local: A local anesthetic was used for your procedure. Do not drive a motor vehicle for 24 hours. Additional Information Let's talk about the DANGER SIGNALS to watch for after you go home. I should call my clinic if I experience any of the following: *Temperature higher than 101 degrees Fahrenheit *Redness that has spread *Persistent bleeding *Infected drainage from injection site *Reaction to new medications *Severe pain *Swelling For Diabetic patients- The steroid used for your injection today may raise your blood sugar levels for the next 2 weeks. Check blood sugar levels more frequently and call your primary MD if there are problems. If you are taking blood thinners and had stopped them, you may restart your medication tonight. It is normal to experience a flushing sensation after the injection of a steroid medication. It is NOT normal to have an increased temperature. You may shower but DO NOT soak the injections sites (bath, hot tub, and swimming) for 2 days post injection. Medications You can resume your home medications. It is important to us that you had a great experience and great care. We want you to be completely satisfied with all aspects of your care. You might be receiving a survey in the next couple of weeksabout the care you received. We would appreciate it very much if you would complete and return it. It is our goal to make [facility] your hospital of choice and want you to feel confident in recommending [facility] to your family and friends. Thank you for choosing [facility]. The nurse has reviewed the above discharge instructions with me. I understand my discharge instructions. documented in this encounter Medications at Time of Discharge Medication Sig Dispensed Refills Start Date End Date acetaminophen (TYLENOL EXTRA STRENGTH) 500 MG tablet 11/02/2022 aspirin 81 MG chewable tablet Chew and swallow 1 Tablet (81 mg) by mouth daily. 30 Tablet 03/24/2022 balsalazide (COLAZAL) 750 MG capsuleIndications:Col itis Take 1 capsule po TID 270 Each 3 09/02/2022 budesonide (ENTOCORT EC) 3 MG capsule 03/31/2023 Calcium Acetate 667 MG Calcium Carb-Cholecalciferol 500-3.125 MG-MCG TABS 08/31/2021 cholecalciferol (VITAMIN D3) 25 MCG (1000 UT) tablet Take 1 Tablet (1,000 Units) by mouth daily. 2 tabs/day DULoxetine (CYMBALTA) 60 MG capsule Take 1 Capsule (60 mg) by mouth daily. 06/22/2023 gabapentin (NEURONTIN) 300 MG capsule Take 2 Capsules (600 mg) by mouth three times a day. 06/16/2023 LORazepam (ATIVAN) 1 MG tablet mesalamine (LIALDA) 1.2 g enteric coated tabletIndications:Coli tis Take 3 tablets PO QD with food 270 Tablet 3 09/24/2022 multivitamin (AKA THERAGRAN) tablet Take 1 Tablet by mouth daily. 30 Tab 11 09/04/2009 pravastatin (PRAVACHOL) 40 MG tabletIndications:Hype rlipidemia with target LDL less than 130 (HRC) TAKE 1 TABLET(40 MG) BY MOUTH DAILY AT BEDTIME 90 Tablet 04/30/2023 sertraline (ZOLOFT) 100 MG tablet TAKE 2 TABLETS(200 MG) BY MOUTH DAILY 180 Tablet 3 05/12/2022 famotidine (PEPCID) 20 MG tablet TAKE 1 TABLET(20 MG) BY MOUTH TWICE DAILY 180 Tablet 3 08/10/2022 07/26/2023 traZODone (DESYREL) 50 MG tablet TAKE 1 TO 2 TABLETS BY MOUTH AT BEDTIME NEEDED 180 Tablet 3 07/10/2022 07/25/2023 documented as of this encounter Procedure Notes * Sudheer Hussein DO - 07/16/2023 7:39 AM CDT PROCEDURE: Right L4 Transforaminal Epidural Steroid injection under flouroscopy Dx: 1. Lumbar radiculitis Referring physician:Dr. Hussein CONSENT: After discussing the risks, benefits, and alternatives to the procedure, the patient expressed understanding and wished to proceed. The risks included bleeding, infection, nerve damage, and spinal headache. The pt signed the consent form. PROCEDURE DESCRIPTION: Pause for the cause was performed. The pt was brought to the flouroscopy suite and placed in the prone position. After identifying theL4-5 space fluoroscopically, the skin was draped and prepped in the usual sterile fashion using Chlohexadine times three. The skin and subcutaneous tissue were anesthetized with 1% lidocaine. Using a22G, 5 inch spinal needle, the L4/5 foramen on the right was approached at the 6 o'clock position of the L4 pedicle. Negative aspiration was performed with no evidence of CSF. Omnipaque 300- 1.0 ml was then injected which showed a successful epidurogram. This was confirmed under flouroscopy in oblique/AP/lateral views. Then 10mg of Dexamethsone with 2ml of 0.25% Bupivicaine, total volume 3ml, was injected without complications. The needle was withdrawn. The skin was cleaned and a band-aid was placed. The pt tolerated the procedure well. Dr. Sudheer Hussein documented in this encounter Plan of Treatment Scheduled Orders Name Type Priority Associated Diagnoses Orde r Schedule Interventional Pain Procedure Imaging New Routine Lumbar radiculitis Expected: 06/30/2023 (Approximate), Expires: 06/29/2024 Scheduled Procedures Name Priority Associated Diagnoses Date/Ti me PLACEMENT SPINAL CORD STIMULATOR TRIAL Lumbar radiculitis documented as of this encounter Procedures Procedure Name Priority Date/Time Associated Diagnosis Comments INJECTION TRANSFORAMINAL APPROACH EPIDURAL LUMBAR SPINE PAIN 07/16/2023 8:20 AM CDT Lumbar radiculitis Case Notes INJECTION TRANSFORAMINAL APPROACH EPIDURAL LUMBAR SPINE right L4 documented in this encounter Visit Diagnoses Diagnosis Lumbar radiculitis- Primary Thoracic or lumbosacral neuritis or radiculitis, unspecified Lumbar radiculitis Thoracic or lumbosacral neuritis or radiculitis, unspecified Lumbar radiculitis Thoracic or lumbosacral neuritis or radiculitis, unspecified documented in this encounter Admitting Diagnoses Diagnosis Lumbar radiculitis Thoracic or lumbosacral neuritis or radiculitis, unspecified documented in this encounter Administered Medications Inactive Administered Medications - up to 3 most recent administrations Medication Order MAR Action Action Date Dose Rate Site BUPivacaine 0.25% PF (2.5 mg/mL) (SENSORCAINE) injection ONCE PRN, Starting on Wed07/16/23 at 0933, Until Wed07/16/23 at 1039, Intra-op Given 07/16/2023 9:33 AM CDT 2 mL dexAMETHasone PF (DECADRON) injection ONCE PRN, Starting on Wed07/16/23 at 0933, Until Wed07/16/23 at 1039, Intra-op Given 07/16/2023 9:33 AM CDT 10 mg lidocaine (XYLOCAINE) 1 % injection ONCE PRN, Starting on Wed07/16/23 at 0933, Until Wed07/16/23 at 1039, Intra-op Given 07/16/2023 9:33 AM CDT 6 mL documented in this encounter Care Teams Grocery Packer Relationship Specialty Start Date End Date Cyndee Carranza MD [address] [place] [address] PCP - General 01/21/23 documented as of this encounter
--- OUTSIDE RECORDS SUMMARY | 2023-09-10 11:24 | XMS_ITS | Encounter Summary ---
Author Organization [facility] Address [address] [place] [address] Care Team Providers Care Liquid Compounder Name Role Phone Cyndee Carranza MD Primary Care Provider [phone] Encounter Details Date Type Department Care Team (Latest Contact Info) Description 06/07/2023 Orders Only HIM DEPARTMENT ProviderSerina [place] [address] Social History Tobacco Use Types Packs/Day Years [...] Procedure Name Priority Date/Time Associated Diagnosis Comments MRI-SCAN 06/07/2023 documented in this encounter Results * MRI-SCAN (06/07/2023) Interface Provider DUMMY/OTHER/AR documented in this encounter Visit Diagnoses Not on filedocumented in this encounter Care Teams Liquid Compounder Relationship Specialty Start Date End Date Cyndee Carranza MD [address] [place] [id number] PCP - General 01/21/23 documented as of this encounter
--- OUTSIDE RECORDS SUMMARY | 2023-09-10 11:24 | XMS_ITS | Encounter Summary ---
Author Organization [facility] Address [address] [place] [address] Care Team Providers Care Belt Notcher Name Role Phone Cyndee Carranza MD Primary Care Provider [phone] Reason for Referral * Procedure/Equipment (Routine) - Authorized Specialty Diagnoses / Procedures Referred By Contac t Referred To Contact Diagnoses Lumbar radiculitis Procedures Case Request OR - Neurosurgery: PLACEMENT SPINAL CORD STIMULATOR TRIAL Sudheer Hussein DO [address] [place] [address] Referral ID Status Reason Start Date Expiration Date V isits Requested Visits Authorized [id number] Authorized 08/04/2023 11/02/2024 1 1 * Procedure/Equipment (Routine) - New Request Specialty Diagnoses / Procedures Referred By Contac t Referred To Contact Diagnoses Lumbar radiculitis Procedures Interventional Pain Procedure Sudheer Hussein DO [address] [place] [address] Referral ID Status Reason Start Date Expiration Date V isits Requested Visits Authorized [id number] New Request 08/04/2023 11/02/2024 1 1 Encounter Details Date Type Department Care Team (Latest Contact Info) Description 08/04/[address] [facility] [address] [facility] [place] [address] Sudheer Hussein, DO [address] [place], [place] [id number] Lumbar radiculitis (Primary Dx) Social History Tobacco [...] of this encounter Plan of Treatment Scheduled Orders Name Type Priority Associated Diagnoses Orde r Schedule Interventional Pain Procedure Imaging New Routine Lumbar radiculitis Expected: 08/04/2023 (Approximate), Expires: 08/03/2024 Scheduled Procedures Name Priority Associated Diagnoses Date/Ti me PLACEMENT SPINAL CORD STIMULATOR TRIAL Lumbar radiculitis documented as of this encounter Visit Diagnoses Diagnosis Lumbar radiculitis- Primary Thoracic or lumbosacral neuritis or radiculitis, unspecified documented in this encounter Care Teams Belt Notcher Relationship Specialty Start Date End Date Cyndee Carranza MD [address] [place] [address] PCP - General 01/21/23 documented as of this encounter
--- OUTSIDE RECORDS SUMMARY | 2023-09-10 11:24 | XMS_ITS | Encounter Summary ---
Author Organization [facility] Address [address], [place] [address] Care Team Providers Care Brick Paver Name Role Phone Cyndee Carranza MD Primary Care Provider [phone] Reason for Referral * Procedure/Equipment (Routine) - New Request Specialty Diagnoses / Procedures Referred By Laura whitlock Referred To Contact Diagnoses Lumbar radiculitis Procedures Interventional Pain Procedure Sudheer Hussein DO [address] [place] [address] Referral ID Status Reason Start Date Expiration Date V isits Requested Visits Authorized [id number] New Request 06/30/2023 09/28/2024 1 1 Encounter Details Date Type Department Care Team (Latest Contact Info) Description 07/16/2023 7:39 AM CDT - 07/16/2023 8:38 AM CDT Hospital Encounter [facility] [address] [place] [address] Sudheer Hussein DO [address] [place], [place] [id number] Lumbar radiculitis Discharge Disposition: Home Social History Tobacco Use [...] for: Orquidea Ortiz Thank you for choosing [facility] as your provider. A copy of your discharge instructions has been given to you. Please read the instructions carefully. The surgery nurse will review thisinformation with you and answer your questions. General Information Surgeon(s): Sudheer Hussein DO Procedure(s): INJECTION TRANSFORAMINAL APPROACH EPIDURAL LUMBAR SPINE right L4 Surgeon Orders/Follow Up Appointment Interventional Pain Procedure Standing Status: Future Standing Exp. Date: 06/29/24 See case request procedure Your clinician has recommended an appointment with [facility] Pain Intervention. You may call [phone] to schedule your appointment. Procedures Other (comments) Imaging Department may modify order per department protocol. Revisions will be made without the need for a new order to be placed. Yes Epidural: Transforaminal Lumbar Epidural Instructions Follow up appointment (Non-pain department) Call or message in [address] Hussein for update: [phone] Transforaminal Lumbar Epidural Instructions Rest today. Do [...] your doctor's office or the Careline at [phone]. If you have loss of bowel and [...] in improving patient care and experience at [facility]. Contact Information After hours call the Careline at [phone]. Please call your clinic during business hours. Physical Medicine and Rehab: [phone] Neurosurgery: [phone] Interventional Pain: [phone] Anesthesia Local: A local anesthetic was used [...] it. It is our goal to make [facility] your hospital of choice and want you to feel confident in recommending [facility] to your family and friends. Thank you [...] unspecified documented in this encounter Care Teams Brick Paver Relationship Specialty Start Date End Date Cyndee Carranza MD [address] [place] [address] PCP - General 01/21/23 documented as of this encounter
--- OUTSIDE RECORDS SUMMARY | 2023-09-10 11:24 | XMS_ITS | Encounter Summary ---
[facility] Organization [facility] Address [address], [place] [address] Care Team Providers Care Hot Sealing Machine Operator Name Role Phone Cyndee Carranza MD Primary Care Provider [phone] Encounter Details Date Type Department Care Team [...] on filedocumented in this encounter Care Teams Hot Sealing Machine Operator Relationship Specialty Start Date End Date Cyndee Carranza MD [address] [place] [address] PCP - General 01/21/23 documented as of this encounter
--- OUTSIDE RECORDS SUMMARY | 2023-09-10 11:24 | XMS_ITS | Encounter Summary ---
Author Organization [facility] Address [address] [address] Care Team Providers Care Injury Prevention Coordinator Name Role Phone Cyndee Carranza MD Primary Care Provider [phone] Reason for Referral * Procedure/Equipment (Routine) - Incomplete Specialty Diagnoses / Procedures Referred By Contac t Referred To Contact Diagnoses Lumbar radiculitis Procedures Case Request OR - Neurosurgery: INJECTION TRANSFORAMINAL APPROACH EPIDURAL LUMBAR SPINE right L4 Sudheer Hussein DO [address] [place] [address] Referral ID Status Reason Start Date Expiration Date V isits Requested Visits Authorized [id number] Incomplete 06/30/2023 09/28/2024 1 1 Reason for Visit * Reason Comments CONSULT Spinal cord stim, lo w back pain Encounter Details Date Type Department Care Team (Latest Contact Info) Description 06/30/2023 9:15 AM CDT Office Visit [facility] [address] [place], [place] [id number] Sudheer Hussein DO [address] [place], [place] [phone] Lumbar radiculitis (Primary Dx) Social History Tobacco [...] Sign Reading Time Taken Comments Blood Pressure 135/82 06/30/2023 9:26 AM CDT Pulse 74 06/30/2023 9:26 AM CDT Temperature - - Respiratory Rate - - Oxygen Saturation - - Inhaled Oxygen Concentration - - Weight 80.7 kg (178 lb) 06/30/2023 9:26 AM CDT Height 162.6 cm (5' 4) 06/30/2023 9:26 AM CDT Body Mass Index 30.55 06/30/2023 9:26 AM CDT documented in this encounter Patient Instructions * Patient Instructions* Sudheer Hussein DO - 06/30/2023 9:15 AM CDT Set up L4 injection May consider stimulator Dr. Daniela Hussein documented in this encounter Progress Notes * Sudheer Hussein DO - 06/30/2023 9:15 AM CDT I had the pleasure of meeting Ms. Orquidea Ortiz on 06/30/2023 in the outpatient pain clinic in consult for Self-Referral with regards to her back pain. Subjective: 68 yo female with c/o low back pain, buttock pain, right hamstring pain. Pain after moving in 11/07.Pain at 06/24. Went to [place], PT, shoe wear, continues to have pain. Saw surgery, no surgery decompression planned. Rec: SCS trial. Had mri done with lumbar ddd and L4/5 bulge with L5 nn irritation. Had 2 injections, no relief. No leg weakness. No b/b issues. Pt taking tylenol 4grams per day, [id number] per day. Had bilateral MBB L345, no sig relief, had right L5 snrb, no relief. Injections at [facility]. Past Medical History: Diagnosis Date Alcohol dependence (HRC) In remission BP (high blood pressure) (HRC) Cervical uterine polyp Chemical dependency (HRC) alcohol Depression Depressive disorder, not elsewhere classified (HRC) Esophageal reflux Gastrointestinal disease High blood pressure (HRC) Hyperlipidemia (HRC) Inflammatory bowel disease 2009 Colitis Lymphocytic colitis Prediabetes Psychiatric disorder (HRC) panic [...] Bilateral 02/13/2019 Laparoscopic; for benign ovarian cysts SPINE SURGERY 2001 STRABISMUS SURG; 1 HORIZONTAL MUSC chilhood strabismus TONSILLECT PRIM/SEC; UNDER AGE 13 TUBAL LIGATION 1984 Medications: Outpatient Medications Prior to Visit Medication Sig Dispense Refill acetaminophen (TYLENOL EXTRA STRENGTH) 500 MG tablet aspirin 81 MG chewable tablet Chew and swallow 1 Tablet (81 mg) by mouth daily. 30 Tablet 0 balsalazide (COLAZAL) 750 MG capsule Take 1 capsule po TID 270 Each 3 budesonide (ENTOCORT EC) 3 MG capsule Calcium Acetate 667 MG Calcium Carb-Cholecalciferol 500-3.125 MG-MCG TABS cholecalciferol (VITAMIN D3) 25 MCG (1000 UT) tablet Take 1 Tablet (1,000 Units) by mouth daily. 2 tabs/day DULoxetine (CYMBALTA) 60 MG capsule Take 1 Capsule (60 mg) by mouth daily. famotidine (PEPCID) 20 MG tablet TAKE 1 TABLET(20 MG) BY MOUTH TWICE DAILY 180 Tablet 3 gabapentin (NEURONTIN) 300 MG capsule Take 2 Capsules (600 mg) by mouth three times a day. LORazepam (ATIVAN) 1 MG tablet mesalamine (LIALDA) 1.2 g enteric coated tablet Take 3 tablets PO QD with food 270 Tablet 3 multivitamin (AKA THERAGRAN) tablet Take 1 Tablet by mouth daily. 30 Tab 11 pravastatin (PRAVACHOL) 40 MG tablet TAKE 1 TABLET(40 MG) BY MOUTH DAILY AT BEDTIME 90 Tablet 0 sertraline (ZOLOFT) 100 MG tablet TAKE 2 TABLETS(200 MG) BY MOUTH DAILY 180 Tablet 3 traZODone (DESYREL) 50 MG tablet TAKE 1 TO 2 TABLETS BY MOUTH AT BEDTIME NEEDED 180 Tablet 3 No facility-administered medications prior to visit. Allergies: Allergies for Lorene Ortiz Status Agent Date Noted Reaction Type Active LIPITOR [ATORVASTATIN] 04/09/2013 Muscle Aches/Weakness Intolerance Active SULFA ANTIBIOTICS Rash Family History: family history includes Cancer in her paternal [...] in her sister; Cataract in her brother, maternalgrandmother, and sister; Diabetes, Type II in her mother; Glaucoma in her sister; Heart Disease in her father; Hyperlipidemia in her sister; Hypertension in her sister. There is no history of Macular Degeneration or Retinal Detachment. Social history: she is retired. Objective: Vitals: 06/30/23 0926 BP: 135/82 Pulse: 74 Nad, a/o Mood/affect good At/nc Gt normal Normal lumbar lordosis Trunk arom wfl Pain with left SB. Pt able to walk on heels/toes Assessment: 1. Chronic low back pain, facet [...] unspecified documented in this encounter Care Teams Injury Prevention Coordinator Relationship Specialty Start Date End Date Cyndee Carranza MD [address] [place] [address] PCP - General 01/21/23 documented as of this encounter
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
--- OUTSIDE RECORDS SUMMARY | 2023-09-10 11:24 | XMS_ITS | Encounter Summary ---
Author Organization [facility] Address [address] [address] Care Team Providers Care Gliding Pilot Instructor Name Role Phone Cyndee Carranza MD Primary Care Provider [phone] Encounter Details Date Type Department Care Team (Late st Contact Info) Description 07/29/2023 Notes/Orders [facility] Pain Management [address] [facility] [place], [place] [phone] Sudheer Hussein DO [address] [place], [place] [phone] Follow-up examination (Primary Dx) Social History Tobacco Use Types [...] as of this encounter Visit Diagnoses Diagnosis Follow-up examination- Primary Unspecified follow-up examination documented in this encounter Care Teams Gliding Pilot Instructor Relationship Specialty Start Date End Date Cyndee Carranza MD [address] [place] [address] PCP - General 01/21/23 documented as of this encounter
--- OUTSIDE RECORDS SUMMARY | 2023-09-10 11:25 | XMS_ITS | Encounter Summary ---
Author Organization [facility] Address [address], [place] [address] Care Team Providers Care Disk Operator Name Role Phone Cyndee Carranza MD Primary Care Provider [phone] Encounter Details Date Type Department Care Team (Late st Contact Info) Description 09/02/2017 Correspondence [facility] Gastroenterology [address] [place] [address] [place] [address] Sampson Crocker MD INSTRUCTIONS AFTER COLONOSCOPY Social History Tobacco Use [...] on filedocumented in this encounter Care Teams Disk Operator Relationship Specialty Start Date End Date Cyndee Carranza MD [address] [place] [address] PCP - General 01/21/23 documented as of this encounter
--- OUTSIDE RECORDS SUMMARY | 2023-09-10 11:25 | XMS_ITS | Encounter Summary ---
Author Organization [facility] Address [address] [place] [address] Care Team Providers Care Quality Assurance Coordinator Name Role Phone Cyndee Carranza MD Primary Care Provider [phone] Encounter Details Date Type Department Care Team (Late st Contact Info) Description 08/07/2014 Consent for Procedure/Treatme nt [facility] INFORMED CONSENT RECORD Social History [...] on filedocumented in this encounter Care Teams Quality Assurance Coordinator Relationship Specialty Start Date End Date Cyndee Carranza MD [address] [place] [address] PCP - General 01/21/23 documented as of this encounter
--- OUTSIDE RECORDS SUMMARY | 2023-09-10 11:25 | XMS_ITS | Encounter Summary ---
Author Organization [facility] Address [address], [place] [address] Care Team Providers Care Custodial Operations Manager Name Role Phone Cyndee Carranza MD Primary Care Provider [phone] Encounter Details Date Type Department Care Team (Latest Contact Info) Description 01/27/1996 Orders Only Neeraj Zhong Social [...] on filedocumented in this encounter Care Teams Custodial Operations Manager Relationship Specialty Start Date End Date Cyndee Carranza MD [address] [place] [address] PCP - General 01/21/23 documented as of this encounter
--- OUTSIDE RECORDS SUMMARY | 2023-09-10 11:25 | XMS_ITS | Encounter Summary ---
Author Organization [facility] Address [address] [place] [address] Care Team Providers Care Roller Skate Assembler Name Role Phone Cyndee Carranza MD Primary Care Provider [phone] Encounter Details Date Type Department Care Team (Latest Contact Info) Description 10/11/1996 Orders Only Teressa Salas MD [address] [place] [address] Social History Tobacco Use Types Packs/Day Years [...] on filedocumented in this encounter Care Teams Roller Skate Assembler Relationship Specialty Start Date End Date Cyndee Carranza MD [address] [place] [address] PCP - General 01/21/23 documented as of this encounter
--- OUTSIDE RECORDS SUMMARY | 2023-09-10 11:25 | XMS_ITS | Encounter Summary ---
Author Organization [facility] Address [address] [place] [address] Care Team Providers Care Night Auditor Name Role Phone Cyndee Carranza MD Primary Care Provider [phone] Encounter Details Date Type Department Care Team (Late st Contact Info) Description 09/02/2017 Consent for Procedure/Treatme [facility] Gastroenterology [address] [place] [address] [place] [address] Sampson Crocker MD INFORMED CONSENT FOR TREATMENTS OR PROCEDURES Social [...] on filedocumented in this encounter Care Teams Night Auditor Relationship Specialty Start Date End Date Cyndee Carranza MD [address] [place] [address] PCP - General 01/21/23 documented as of this encounter
--- OUTSIDE RECORDS SUMMARY | 2023-09-10 11:25 | XMS_ITS | Encounter Summary ---
Author Organization [facility] Address [address] [address] Care Team Providers Care Cafeteria Server Name Role Phone Cyndee Carranza MD Primary Care Provider [phone] Encounter Details Date Type Department Care Team (Late st Contact Info) Description 01/07/2015 Correspondence None No Primary/Referring, Phy [...] on filedocumented in this encounter Care Teams Cafeteria Server Relationship Specialty Start Date End Date Cyndee Carranza MD [address] [place] [address] PCP - General 01/21/23 documented as of this encounter
--- OUTSIDE RECORDS SUMMARY | 2023-09-10 11:25 | XMS_ITS | Encounter Summary ---
Author Organization [facility] Address [address], [place] [address] Care Team Providers Care Abrasive Sawyer Name Role Phone Cyndee Carranza MD Primary Care Provider [phone] Encounter Details Date Type Department Care Team (Latest Contact Info) Description 10/17/1996 Orders Only Neeraj Zhong Social [...] on filedocumented in this encounter Care Teams Abrasive Sawyer Relationship Specialty Start Date End Date Cyndee Carranza MD [address] [place] [address] PCP - General 01/21/23 documented as of this encounter
--- OUTSIDE RECORDS SUMMARY | 2023-09-10 11:25 | XMS_ITS | Encounter Summary ---
Author Organization [facility] Address [address] [address] Care Team Providers Care Luggage Attendant Name Role Phone Cyndee Carranza MD Primary Care Provider [phone] Encounter Details Date Type Department Care Team (Late st Contact Info) Description 07/22/2015 Correspondence None No Primary/Referring, y AUTH TO BILL SELF PAY CHARGES IN [...] on filedocumented in this encounter Care Teams Luggage Attendant Relationship Specialty Start Date End Date Cyndee Carranza MD [address] [place] [address] PCP - General 01/21/23 documented as of this encounter
--- OUTSIDE RECORDS SUMMARY | 2023-09-10 11:25 | XMS_ITS | Encounter Summary ---
Author Organization [facility] Address [address] [address] Care Team Providers Care Terminal Manager Name Role Phone Cyndee Carranza MD Primary Care Provider [phone] Encounter Details Date Type Department Care Team (Latest Contact Info) Description 01/31/1996 Orders Only Neeraj Zhong Social [...] on filedocumented in this encounter Care Teams Terminal Manager Relationship Specialty Start Date End Date Cyndee Carranza MD [address] [place] [address] PCP - General 01/21/23 documented as of this encounter
--- OUTSIDE RECORDS SUMMARY | 2023-09-10 11:25 | XMS_ITS | Encounter Summary ---
Author Organization [facility] Address [address], [place] [address] Care Team Providers Care Licensed Nursing Assistant Name Role Phone Cyndee Carranza MD Primary Care Provider [phone] Encounter Details Date Type Department Care Team (Latest Contact Info) Description 02/23/1997 Orders Only Neeraj Zhong Social [...] on filedocumented in this encounter Care Teams Licensed Nursing Assistant Relationship Specialty Start Date End Date Cyndee Carranza MD [address] [place] [address] PCP - General 01/21/23 documented as of this encounter
--- OUTSIDE RECORDS SUMMARY | 2023-09-10 11:25 | XMS_ITS | Encounter Summary ---
Author Organization [facility] Address [address], [place] [address] Care Team Providers Care Woodworker Helper Name Role Phone Cyndee Carranza MD Primary Care Provider [phone] Encounter Details Date Type Department Care Team (Late st Contact Info) Description [facility] [address] [place] [id number] Leena Spivey MD Social History Tobacco Use Types Packs/Day Years [...] - 11/04/2015 4:09 PM CDT Pt notified. Zachary Fernandez CMA 11/04/2015, 4:09 PM documented in this encounter Plan of Treatment Scheduled Procedures Name Priority Associated Diagnoses Date/Ti me PLACEMENT SPINAL CORD STIMULATOR TRIAL Lumbar radiculitis documented as of this encounter Visit Diagnoses Diagnosis Encounter for long-term (current) use of medications- Primary Encounter for long-term (current) use of other medications documented in this encounter Care Teams Woodworker Helper Relationship Specialty Start Date End Date Cyndee Carranza MD [address] [place] [address] PCP - General 01/21/23 documented as of this encounter
--- OUTSIDE RECORDS SUMMARY | 2023-09-10 11:25 | XMS_ITS | Encounter Summary ---
Author Organization [facility] Address [address], [place] [address] Care Team Providers Care Document Control Manager Name Role Phone Cyndee Carranza MD Primary Care Provider [phone] Encounter Details Date Type Department Care Team (Latest Contact Info) Description 09/26/1996 Orders Only Neeraj Zhong Social [...] on filedocumented in this encounter Care Teams Document Control Manager Relationship Specialty Start Date End Date Cyndee Carranza MD [address] [place] [address] PCP - General 01/21/23 documented as of this encounter
--- OUTSIDE RECORDS SUMMARY | 2023-09-10 11:25 | XMS_ITS | Encounter Summary ---
Author Organization [facility] Address [address] [address] Care Team Providers Care Senior Planning Analyst Name Role Phone Cyndee Carranza MD Primary Care Provider Encounter Details Date Type Department Care Team (Latest Contact Info) Description 12/31/1995 Orders Only ErpMichael gomez Social History Tobacco Use Types Packs/Day Years [...] Date Cyndee Carranza MD [address] [place] [address] PCP - General 01/21/23 documented as of this encounter
--- OUTSIDE RECORDS SUMMARY | 2023-09-10 11:25 | XMS_ITS | Encounter Summary ---
Author Organization [facility] Address [address], [place] [address] Care Team Providers Care Prorate Clerk Name Role Phone Cyndee Carranza MD Primary Care Provider [phone] Encounter Details Date Type Department Care Team (Late st Contact Info) Description 01/18/2019 Consent for Procedure/Treatme nt [facility] Department INFORMED CONSENT RECORD Social History Tobacco [...] on filedocumented in this encounter Care Teams Prorate Clerk Relationship Specialty Start Date End Date Cyndee Carranza MD [address] [place] [address] PCP - General 01/21/23 documented as of this encounter
--- OUTSIDE RECORDS SUMMARY | 2023-09-10 11:25 | XMS_ITS | Encounter Summary ---
Author Organization [facility] Address [address] [address] Care Team Providers Care Channel Marketing Program Manager Name Role Phone Cyndee Carranza MD Primary Care Provider [phone] Encounter Details Date Type Department Care Team (Late st Contact Info) Description 12/22/2012 Consent for Procedure/Treatme nt [facility] INFORMED CONSENT RECORD Social History Tobacco Use [...] as of this encounter Progress Notes * [facility], PROVIDER - 12/22/2012 12:00 AM CST FIELD ROUSTABOUT documented in this encounter Plan of Treatment Scheduled Procedures Name Priority Associated Diagnoses Date/Ti me PLACEMENT SPINAL CORD STIMULATOR TRIAL Lumbar radiculitis documented as of this encounter Visit Diagnoses Not on filedocumented in this encounter Care Teams Channel Marketing Program Manager Relationship Specialty Start Date End Date Cyndee Carranza MD [address] [facility] [place] [address] PCP - General 01/21/23 documented as of this encounter
--- OUTSIDE RECORDS SUMMARY | 2023-09-10 11:25 | XMS_ITS | Encounter Summary ---
Author Organization [facility] Address [address] [place] [address] Care Team Providers Care Skein Spooler Name Role Phone Cyndee Carranza MD Primary Care Provider [phone] Encounter Details Date Type Department Care Team (Latest Contact Info) Description 12/22/1995 Orders Only Garland Phillips MD [address] [place] [address] Social History Tobacco Use Types Packs/Day Years [...] on filedocumented in this encounter Care Teams Skein Spooler Relationship Specialty Start Date End Date Cyndee Carranza MD [address] [place] [address] PCP - General 01/21/23 documented as of this encounter
--- OUTSIDE RECORDS SUMMARY | 2023-09-10 11:25 | XMS_ITS | Encounter Summary ---
Author Organization [facility] Address [address] [address] Care Team Providers Care Mountain Or Glacier Guide Name Role Phone Cyndee Carranza MD Primary Care Provider [phone] Encounter Details Date Type Department Care Team (Latest Contact Info) Description 01/19/1996 Orders Only Neeraj Zhong Social [...] on filedocumented in this encounter Care Teams Mountain Or Glacier Guide Relationship Specialty Start Date End Date Cyndee Carranza MD [address] [place] [address] PCP - General 01/21/23 documented as of this encounter
--- OUTSIDE RECORDS SUMMARY | 2023-09-10 11:25 | XMS_ITS | Encounter Summary ---
Author Organization [facility] Address [address], [place] [address] Care Team Providers Care Haul Driver Name Role Phone Cyndee Carranza MD Primary Care Provider [phone] Encounter Details Date Type Department Care Team (Late st Contact Info) Description 09/02/2006 Consent for Procedure/Treatme [facility] Gastroenter[facility] [address] [place], [place] [phone] Sonu Mireles MD [facility] [address] [place], [place] [id number] [facility] Informed Consent Social History Tobacco [...] on filedocumented in this encounter Care Teams Haul Driver Relationship Specialty Start Date End Date Cyndee Carranza MD [address] [place] [id number] PCP - General 01/21/23 documented as of this encounter
--- OUTSIDE RECORDS SUMMARY | 2023-09-10 11:25 | XMS_ITS | Encounter Summary ---
Author Organization [facility] Address [address] [address] Care Team Providers Care International Travel Consultant Name Role Phone Cyndee Carranza MD Primary Care Provider [phone] Encounter Details Date Type Department Care Team (Latest Contact Info) Description 04/03/1996 Orders Only Neeraj Zhong Social [...] on filedocumented in this encounter Care Teams International Travel Consultant Relationship Specialty Start Date End Date Cyndee Carranza MD [address] [place] [address] PCP - General 01/21/23 documented as of this encounter
--- OUTSIDE RECORDS SUMMARY | 2023-09-10 11:25 | XMS_ITS | Encounter Summary ---
Author Organization [facility] Address [address], [place] [address] Care Team Providers Care Care Coordination Manager Name Role Phone Cyndee Carranza MD Primary Care Provider [phone] Encounter Details Date Type Department Care Team (Latest Contact Info) Description 04/29/1996 Orders Only Puja Hernandez Social [...] on filedocumented in this encounter Care Teams Care Coordination Manager Relationship Specialty Start Date End Date Cyndee Carranza MD [address] [place] [address] PCP - General 01/21/23 documented as of this encounter
== END 2023-09-10 12:05 | disposition home or self-care (01) ==
PROVIDERS: Emergency Provider Emergency Medicine Emergency Medical Services; PCP Internal Medicine
DX: S20.212A Contusion of left front wall of thorax, initial encounter (principal); V19.3XXA Pedal cyclist (driver) (passenger) injured in unspecified nontraffic accident, initial encounter
CPT/HCPCS: 71101; 99283; 99284

== ENCOUNTER 2023-11-08 11:18 | Outpatient (CLI) | payer OTHER, SELFPAY ==
--- OUTSIDE RECORDS SUMMARY | 2023-11-08 11:29 | XMS_ITS | Continuity of Care Document ---
Author Organization [facility] Address [address] [place] [address] Phone Care Team Providers Care General Technician Name Role Phone Austen Franklin Unavailable Unavailable Allergies, Adverse Reactions, Alerts Substance Reaction Status Criticality ATORVASTATIN CALCIUM leg painMuscle weakness Active No Information Sulfa (Sulfonamide Antibiotics) Hives Active No Information Medications Medication Instructions Dosage Effective Dates (start - stop) Status Comments TYLOPHEN (unknown strength) Not Available - Active LORAZEPAM (unknown strength) Not Available - Active FAMOTIDINE (unknown strength) Not Available - Active MELOXICAM (unknown strength) Not Available - Active PRAVASTATIN SODIUM (unknown strength) Not Available - Active GABAPENTIN (unknown strength) Not Available - Active DULOXETINE HCL (unknown strength) Not Available - Active THERA-D (unknown strength) Not Available - Active TRAZODONE HCL (unknown strength) Not Available - Active CALCIUM ACETATE (unknown strength) Not Available - Active Procedures [...] VISIT EST Phone [facility], [address], [place], [id number], [place] tel:[phone] [facility] No Information Hebert Boyce. [facility], [address], [facility], [id number] , [place]. tel:[phone] Referring Provider: Bonnie Morales, [facility] [address] [place], [address]. tel:[phone] OFFICE/OUTPAT IENT VISIT EST Phone [facility], [address], [place], [place], [id number], [place] tel:[phone] [facility] Spinal stenosis, lumbar region Apr-2 3 4 Hebert Boyce. [facility], [address], [facility], [place], [id number] , [place]. [phone] Referring Provider: Bonnie Morales, [facility] [address] [place], [address]. tel:[phone] Office/Outpat ient Visit,Est, Mod [facility], [address], [place], [place], [id number], [place] tel:[phone] [facility] Spinal stenosis, lumbar region with neurogenic claudication Apr-0 4 Hebert Boyce. [facility], [address], [facility], [place], [id number] , [place]. [phone] Referring Provider: Bonnie Morales, [facility] [address] [place], [address]. tel:[phone] Office/Outpat ient Visit,Est, Mod [facility], [address], [place], [id number], [place] tel:[phone] [facility] [place] Low back pain, unspecifiedRadi culopathy, lumbar regionSpinal stenosis, lumbar region with neurogenic claudication Feb-0 4 Kenia Brown. [facility], [address] [place] [address], [address], [place], [place], [id number] , [place]. tel:[phone] Referring Provider: Bonnie Morales, [facility] [address] [place], [address]. tel:[phone] Office/Outpat ient Visit,New, Gaurang Majano/HAYLEE Fox, [address], [place], [place], [id number], [place] tel:[phone] [facility] Other intervertebral disc degeneration, lumbar region 4 Marky Sarmiento. [facility], [address], [address], [place], [place], [id number] , [place]. tel:[phone] Referring Provider: Nader Velasco, [facility] [address] [place], [address]. tel:[phone] Family History Family Member Type Diagnosis Age At Onset Sister Problem (finding) Hypertension Mother Problem (finding) Hypertension Father Problem (finding) Cardiovascular disease Sister Problem (finding) Cancer, unknown type Father Problem (finding) Hypertension Mother Problem (finding) Diabetes mellitus Mother Problem (finding) Cancer, unknown type Payers Payer name Insurance type Covered alliance party ID Authorsonia arita(s) [employer] Jtanny CALVERT [id number] Social History Type Description Quantity Date Captured [...]
--- OUTSIDE RECORDS SUMMARY | 2023-11-08 11:30 | XMS_ITS | Encounter Summary ---
Author Organization [facility] Address [address], [place] [address] Care Team Providers Care Instructional Manager Name Role Phone Cyndee Carranza MD Primary Care Provider [phone] Reason for Visit * Reason Comments Refill famotidine (PEPCID) 20 MG tablet [Pharmacy Med Name: FAMOTIDINE 20MG TABLETS] Encounter Details Date Type Department Care Team (Late st Contact Info) Description 07/25/2023 Refill [facility] at [address] [address] Reny Crooks, OPERATION RESEARCH ANALYST, REGULATORY COORDINATOR [address] [place] [address] Refill (famotidine (PEPCID) 20 MG [...] schedule due to: Patient goes to [facility] now, will have them take care of [...] mg) by mouth twice daily (unchanged) [facility] Embedded Refills, Reference: [id number], 07/25/2023 3:45:45 AM CDT, Pool: ANN-MARIE Moody RN/SUKHDEV () [[id number]] ([id number]) documented in this encounter Plan of Treatment Upcoming Encounters Date Type Department Care Team (Latest Contact Info) Description 11/18/2023 2:55 PM CDT Hospital Encounter [facility] Day Surgery [address] [address] Sudheer Hussein DO [address] [place] [address] 11/18/2023 2:55 PM CDT - 11/18/2023 3:45 PM CDT Surgery [facility] [place] [address] [place] [address] Sudheer Hussein DO [address] [place] [address] PLACEMENT SPINAL CORD STIMULATOR TRIAL 11/24/2023 10:00 AM CDT Appointment [facility] [address] [place], [place] [phone] Scheduled Procedures Name Priority Associated Diagnoses Date/Ti me PLACEMENT SPINAL CORD STIMUL ATOR TRIAL Lumbar radiculitis 11/18/2023 2:55 PM CDT documented as of this encounter Visit Diagnoses Not on filedocumented in this encounter Care Teams Instructional Manager Relationship Specialty Start Date End Date Cyndee Carranza MD [address] [place] [address] PCP - General 01/21/23 documented as of this encounter
--- OUTSIDE RECORDS SUMMARY | 2023-11-08 11:30 | XMS_ITS | Encounter Summary ---
Author Organization [facility] Address [address] [place] [address] Care Team Providers Care Equipment Maintenance Superintendent Name Role Phone Cyndee Carranza MD Primary Care Provider [phone] Reason for Referral * Procedure/Equipment (Routine) - Authorized Specialty Diagnoses / Procedures Referred By Contac t Referred To Contact Diagnoses Lumbar radiculitis Procedures Case Request OR - Neurosurgery: PLACEMENT SPINAL CORD STIMULATOR TRIAL Sudheer Hussein DO [address] [place] [address] Referral ID Status Reason Start Date Expiration Date V isits Requested Visits Authorized [id number] Authorized 08/04/2023 11/02/2024 1 1 * Procedure/Equipment (Routine) - New Request Specialty Diagnoses / Procedures Referred By Contac t Referred To Contact Diagnoses Lumbar radiculitis Procedures Interventional Pain Procedure Sudheer Hussein DO [address] [place] [address] Referral ID Status Reason Start Date Expiration Date V isits Requested Visits Authorized [id number] New Request 08/04/2023 11/02/2024 1 1 Encounter Details Date Type Department Care Team (Latest Contact Info) Description 08/04/2023 Prep for Surgery [facility] Pain [facility] [address] [place] [address] Sudheer Hussein DO [address] [place] [address] Lumbar radiculitis (Primary Dx) Social History Tobacco [...] Description 11/18/2023 2:55 PM CDT Hospital Encounter [facility] Surgery [place] [address] [place] [address] Sudheer Hussein DO [address] [place] [address] 11/18/2023 2:55 PM CDT - 11/18/2023 3:45 PM CDT Surgery [facility] Surgery [place] [address] [place] [address] Sudheer Hussein DO [address] [place] [address] PLACEMENT SPINAL CORD STIMULATOR TRIAL 11/24/2023 10:00 AM CDT Appointment [facility] Pain [facility] [address] [place] [address] Scheduled Orders Name Type Priority Associated Diagnoses Orde r Schedule Interventional Pain Procedure Imaging New Routine Lumbar radiculitis Expected: 08/04/2023 (Approximate), Expires: 08/03/2024 Scheduled Procedures Name Priority Associated Diagnoses Date/Ti me PLACEMENT SPINAL CORD STIMUL ATOR TRIAL Lumbar radiculitis 11/18/2023 2:55 PM CDT documented as of this encounter Visit Diagnoses Diagnosis Lumbar radiculitis- Primary Thoracic or lumbosacral neuritis or radiculitis, unspecified Lumbar radiculitis- Primary Thoracic or lumbosacral neuritis or radiculitis, unspecified Lumbar radiculitis Thoracic or lumbosacral neuritis or radiculitis, unspecified documented in this encounter Care Teams Equipment Maintenance Superintendent Relationship Specialty Start Date End Date Cyndee Carranza MD [address] [place] [address] PCP - General 01/21/23 documented as of this encounter
--- OUTSIDE RECORDS SUMMARY | 2023-11-08 11:30 | XMS_ITS | Encounter Summary ---
[facility] Address [address] [place] [address] Care Team Providers Care Store Sales Manager Name Role Phone Cyndee Carranza MD Primary Care Provider [phone] Reason for Visit * Reason Comments MEDICATION THERAPY MANAGEMENT Encounter Details Date Type Department Care Team (Late st Contact Info) Description 09/29/2023 2:00 PM CDT Phone Visit [facility] [address] [place], [place] [phone] Floridalma Vidales PharmD [address] [place], [place] [phone] Polypharmacy (Primary Dx) Social History Tobacco Use Types Packs/Day Years Used Date Smoking Tobacco: Never Passive Smoke Exposure: Never Smokeless Tobacco: Never Alcohol Use Standard Drinks/Week Comments Not Currently 0 (1 standard drink = 0.6 oz pure alcohol) h/o alcohol dependence, 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 PHQ-2 Answer Date Recorded PHQ-2 Score 0 09/29/2023 Sex and Gender Information Value Date Recorded Sex Assigned at Not on file Gender Identity Not on file Sexual Orientation Not on file documented as of this encounter Last Filed Vital Signs Vital Sign Reading Time Taken Comments Blood Pressure 129/81 09/10/2023 2:23 PM CDT [facility] Everywhere Pulse 78 09/10/2023 2:23 PM CDT Temperature - - Respiratory Rate - - Oxygen Saturation - - Inhaled Oxygen Concentration - - Weight - - Height - - Body Mass Index - - documented in this encounter Patient Instructions * Patient Instructions* Floridalma Vidales PharmD - 09/29/2023 2:00 PM CDT Images from the original note were not included. It was a pleasure working with you today. Below is a summary of our conversation. Please feel free to call me with any questions or concerns. My To-Do List: What we talked about: What I should do: It is unusual to have home blood pressure reading higher than clinic and ER readings. Consider bringing your home blood pressure cuff into clinic to check against clinic cuffs. What we talked about: What I should do: In combination famotidine, trazodone and duloxetine may increase the risk of heart rhythm changes (QT prolongation). Your last EKG did not show this change. Periodic EKG rechecks may be recommended to monitor for QT changes. What we talked about: What I should do: There are a few case reports of gabapentin causing muscle weakness. It is more commonly seen as a pravastatin side effect. If muscle weakness becomes unmanageable let your doctors know. Follow-up with me in 6-12 months or sooner if questions or concerns arise. Thanks, Floridalma Vidales PharmD [facility] documented in this encounter Progress Notes * Floridalma Vidales PharmD - 09/29/2023 2:00 PM CDT Images from the original note were not included. Subjective Orquidea Ortiz is a 68 y.o. female who was referred by Insurance company seen over the phone forAnnual Medicare medication review. 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 Budesonide is working well to control diarrhea and other associated symptoms. No appreciable side effects. budesonide (ENTOCORT EC) 3 MG capsule Take 2 tablets daily AM HTN Clinic blood pressures in goal. 129/81, 78 Home monitoring: Yes; elevated 140s/80s at home, however patient questions if cuff is accurate. Hasnot had it checked against clinic cuffs. Hyperlipidemia Patient reports muscle weakness, but this started many years after pravastatin adn coincides with gabapentin therapy. Patient does have a history of intolerance to statins. No longer taking aspirin. pravastatin (PRAVACHOL) 40 MG tablet TAKE 1 TABLET(40 MG) BY MOUTH DAILY AT BEDTIME GI H2 sara working well. She does notice if dosage is missed. famotidine (PEPCID) 20 MG tablet TAKE 1 TABLET(20 MG) BY MOUTH TWICE DAILY Mental Health 07/14/2023 8:00 AM PHQ-9 PHQ9 Score - Smartform (Adult) 1 Index Date: No date on file. 09/29/2023 2:00 PM 03/27/2022 10:00 AM 05/19/2021 2:00 PM 05/28/2020 9:30 AM 12/17/2011 8:20 AM LAST GAD7 SCORE DATE GLENDY-7 TOTAL SCORE 0 0 0 0 0 QT interval within normal limits on EKG 09/06/2022 Allanny CE. Denies s/s of serotonin syndrome including: hypertension, hyperthermia, myoclonus, mental status changes DULoxetine (CYMBALTA) 60 MG capsule Take 1 Capsule (60 mg) by mouth daily. LORazepam (ATIVAN) 1 MG tablet Take 1 tablet as needed traZODone (DESYREL) 50 MG tablet TAKE 1 TO 2 TABLETS BY MOUTH AT BEDTIME NEEDED Pain Patient hoping to eventually taper off pain medications if nerve stimulator improves back pain as anticipated. Some fatigue from gabapentin, but manageable. acetaminophen (TYLENOL EXTRA STRENGTH) 500 MG tablet Take 2 tablets every 6 hours gabapentin (NEURONTIN) 300 MG capsule Take 2 Capsules (600 mg) by mouth three times a day. Supplementation Calcium Carb-Cholecalciferol 500-3.125 MG-MCG TABS Take 2 tablets cholecalciferol (VITAMIN D3) 25 MCG (1000 UT) tablet Take 1 Tablet (1,000 Units) by mouth daily. 2 tabs/day multivitamin (AKA THERAGRAN) tablet Take 1 Tablet by mouth daily. Pt denies dizziness, headache, chest pain/pressure, palpitations, edema, bruising, and bleeding. 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 Adherence: # of times per day patient takes meds: 4 # of missed doses in the past week: 0 Use of supportive adherence tools: pill box Med cost concerns: no Objective BP 129/81 Comment: [facility] Everywhere Pulse 78 LMP 04/06/2011 (Exact Date) BP Readings from Last 2 Encounters: 07/16/23 137/74 06/30/23 135/82 Pulse Readings from Last 2 Encounters: 07/16/23 77 06/30/23 74 Lab Results Component Value Date SODIUM 142 07/02/2022 K 4.0 07/02/2022 MG 2.1 07/19/2009 CA 9.5 07/02/2022 BUN 12 07/02/2022 CREATININE 1.00 07/02/2022 GFR >60 07/02/2022 AST 22 07/02/2022 ALT 21 11/28/2021 ALB 4.2 11/28/2021 HGB 13.2 07/02/2022 INR 1.0 03/24/2022 HGBA1C 6.0 (H) 07/02/2022 CHOL 224 (H) 11/28/2021 LDL 120 11/28/2021 HDL 52 11/28/2021 TRI 260 (H) 11/28/2021 TSH 3.17 07/02/2022 VTD25 47 04/02/2017 Heart Health: Your health record shows you've had a stroke or heart attack, or evidence of arterialnarrowing due to cholesterol plaque (atherosclerosis).You can improve your heart health by doing the following in order of priority: Start or increase your dose of cholesterol medication (statin or other medication to lower cholesterol). For information on self-directed lifestyle change for weight management, go to www.myhealthwizard.org Wizard?? Assessment BP goal: <140/90. Pt is at goal. LDL goal: low intensity statin. Pt is at goal, highest tolerated dosage 1. Elevated home blood pressure Effectiveness - blood pressure monitoring needed. Status: Resolved 2. Mental health and duloxetine, trazodone Safety - Adverse Drug Reaction: clinically relevant drug interaction present Status: Resolved Concurrent use with famotidine increases risk of QT prolongation. 3. Pain control and gabapentin Safety - Adverse Drug Reaction: possible adverse reactions present Status: Resolved Muscle weakness Plan 1) Recommend patient bring home BP cuff to next clinic visit to compare readings. Patient aware it is unusual to have elevated home readings and goal readings in ER/clinic. 2) Consider follow-up EKG since starting duloxetine. QT interval within normal limits on last EKG while patient was on sertraline. 3) Patient advised there are case reports of muscle weakness with gabapentin use, however statins are more likely to cause. Patient voice understanding. 4) A copy of the After Visit Summary and/or Medicare letter was provided to patient, details were reviewed by me and all questions were answered. 5) Follow-up with me in 6-12 months or sooner if questions or concerns arise. Updated Pogo[employer] list and reviewed medications including indications with patient. Total time spent with patient 16 - 30 min minutes. Floriadlma Vidales PharmD Clinical Pharmacist Medication Therapy Management Program # of DTPs: 3 # of DTPs resolved: 3 Billing Requirements: Recipient of visit: Patient Medicare CI: no Clinician location:clinic Patient location: home Billing based on time. documented in this encounter Plan of Treatment Upcoming Encounters Date Type Department Care Team (Latest Contact Info) Description 11/18/2023 2:55 PM CDT Hospital Encounter [facility] [place] [facility] [place] [address] [place] [address] Sudheer Hussein DO [address] [place] [address] 11/18/2023 2:55 PM CDT - 11/18/2023 3:45 PM CDT Surgery [facility] [place] [address] [place] [address] Sudheer Hussein DO [address] [place] [address] PLACEMENT SPINAL CORD STIMULATOR TRIAL 11/24/2023 10:00 AM CDT Appointment [facility] [address] [place] [address] Scheduled Procedures Name Priority Associated Diagnoses Date/Ti me PLACEMENT SPINAL CORD STIMUL ATOR TRIAL Lumbar radiculitis 11/18/2023 2:55 PM CDT documented as of this encounter Visit Diagnoses Diagnosis Lumbar radiculitis- Primary Thoracic or lumbosacral neuritis or radiculitis, unspecified Polypharmacy- Primary Issue of repeat prescriptions Lumbar radiculitis Thoracic or lumbosacral neuritis or radiculitis, unspecified documented in this encounter Care Teams Store Sales Manager Relationship Specialty Start Date End Date Cyndee Carranza MD [address] [place] [address] PCP - General 01/21/23 documented as of this encounter
--- OUTSIDE RECORDS SUMMARY | 2023-11-08 11:30 | XMS_ITS | Encounter Summary ---
Author Organization [facility] Address [address], [place] [address] Care Team Providers Care Cupola Melting Supervisor Name Role Phone Cyndee Carranza MD Primary Care Provider [phone] Reason for Visit * Reason Comments QUESTIONS, GENERAL Entered automaticall y based on patient selection in [email or web address]. Encounter Details Date Type Department Care Team (Late st Contact Info) Description 09/02/2023 7:45 AM CDT E-Visit [facility] [address] [facility] [place], [place] [phone] Sudheer Hussein, [address] [place], [place] [phone] Chief Comp: QUESTIONS, GENERAL Social History Tobacco [...] Needed Date Entered: 09/03/23 10:04 AM CPT: 03058 Procedure: PLACEMENT SPINAL CORD STIMULATOR TRIAL DX: M54.16 DOS: Inpatient/Outpatient: Outpatient Provider: Dr. Hussein Location: [address] Reference #: [id number] Insurance: [email or web address] Med Adv Contact/Submission: Portal documented in this encounter Plan of Treatment Upcoming Encounters Date Type Department Care Team (Latest Contact Info) Description 11/18/2023 2:55 PM CDT Hospital Encounter [address] [address] Sudheer Hussein, [address] [place] [address] 11/18/2023 2:55 PM CDT - 11/18/2023 3:45 PM CDT Surgery [facility] [address] [place] [address] Sudheer Hussein, [address] [place] [address] PLACEMENT SPINAL CORD STIMULATOR TRIAL 11/24/2023 10:00 AM CDT Appointment [facility] [address] [place] [address] Scheduled Procedures Name Priority Associated Diagnoses Date/Ti me PLACEMENT SPINAL CORD STIMUL ATOR TRIAL Lumbar radiculitis 11/18/2023 2:55 PM CDT documented as of this encounter Visit Diagnoses Not on filedocumented in this encounter Care Teams Cupola Melting Supervisor Relationship Specialty Start Date End Date Cyndee Carranza MD [address] [place] [address] PCP - General 01/21/23 documented as of this encounter
--- OUTSIDE RECORDS SUMMARY | 2023-11-08 11:30 | XMS_ITS | Clinical Summary ---
Author Organization [facility] Address [address] [place] [address] Care Team Providers Care Ticker Installer Name Role Phone Cyndee Carranza MD Primary Care Provider Source Comments You are receiving this document [...] for each transition of care or referral. [facility] Allergies Active Allergy Reactions Criticality Noted Date [...] tabs/day Active Calcium Carb-Cholecalciferol 500-3.125 MG-MCG TABS Take 2 Tablets by mouth daily. 08/31/2021 Active pravastatin (PRAVACHOL) 40 MG tabletIndications:Hy perlipidemia with target LDL less than 130 (HRC) TAKE 1 TABLET(40 MG) BY MOUTH DAILY AT BEDTIME 90 Tablet 04/30/2023 Active acetaminophen (TYLENOL EXTRA STRENGTH) 500 MG tablet Take 2 Tablets (1,000 mg) by mouth every 6 hours as needed. 11/02/2022 Active budesonide (ENTOCORT EC) 3 MG capsule Take 2 Capsules (6 mg) by mouth daily. 03/31/2023 Active DULoxetine (CYMBALTA) 60 MG capsule Take 1 Capsule (60 mg) by mouth daily. 06/22/2023 Active gabapentin (NEURONTIN) 300 MG capsule Take 2 Capsules (600 mg) by mouth three times a day. 06/16/2023 Active LORazepam (ATIVAN) 1 MG tablet Take 1 Tablet (1 mg) by mouth every 8 hours as needed. Active famotidine (PEPCID) 20 MG tablet TAKE 1 TABLET(20 MG) BY MOUTH TWICE DAILY 180 Tablet 07/26/2023 Active traZODone (DESYREL) 50 MG tablet TAKE 1 TO 2 TABLETS BY MOUTH AT BEDTIME NEEDED 180 Tablet 07/27/2023 Active Active Problems Problem Noted Date Diagnosed Date Follow-up examination 07/29/2023 Lumbar radiculitis 06/30/2023 TIA (transient ischemic attack) 04/01/2022 Overview (04/01/2022): Seen in ED 03/24/22. Work up in progress. 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 Plan: Cotesting 02/2022 IFG (impaired fasting glucose) 12/06/2012 Lateral epicondylitis 01/14/2012 Colitis 12/17/2011 Vitamin D deficiency 06/03/2011 Hyperlipidemia with target LDL less than 130 Overview (10/24/2014): ICD 10 Thyroid nodule 07/26/2009 Overview (12/30/2011): Small right and larger left nodules. Left nodule biopsied 2009 and was benign. Needs yearly US follow up. Uterine myoma 01/31/2008 Breast implant removal status 12/31/2001 Depressive disorder 12/26/2001 Overview (10/07/2016): DEPRESSIVE DISORDER NOS phq-9 done 12/17/11 Panic disorder without agoraphobia 12/26/2001 Back disorder 12/26/2001 Overview (10/07/2016): Other unspecified back disorder Alcohol dependence in remission 12/26/2001 Overview (10/07/2016): TREATMENT 1985 ; ALCOH DEP NEC/NOS-REMISS(aka ALCOHOL) Family history of malignant neoplasm of breast 1 02/25/2001 Overview (12/26/2001): MOTHER AND ONE SISTER Resolved Problems Problem Noted Date Diagnosed Date Resolved Date Ovarian mass 01/18/2019 03/01/2019 Overview (01/18/2019): Added automatically from request for surgery [id number] Endometrial polyp 01/18/2019 03/01/2019 Overview (01/18/2019): Added automatically from request for surgery [id number] Obesity 03/18/2011 05/29/2020 Overview (10/07/2016): weight concerns Encounters Date Type Department Care Team Description 11/06/2023 6:20 AM CDT E-Visit [facility] [address] [place] [address] Sudheer Hussein DO Chief Comp: QUESTIONS, GENERAL 10/25/2023 Refill [facility] [address] [phone] Reny Crooks, CLINICAL STUDIES SPECIALIST, PRIVATE MORTGAGE BANKER SAFE Refill (famotidine (PEPCID) 20 MG tablet [Pharmacy Med Name: FAMOTIDINE 20MG TABLETS]) 10/13/2023 2:45 PM CDT E-Visit [facility] [address] [place] [address] Sudheer Hussein DO Chief Comp: QUESTIONS, GENERAL 09/29/2023 2:00 PM CDT Phone Visit [facility] [address] [place] [address] Floridalma Vidales, PharmD Polypharmacy (Primary Dx) 09/02/2023 7:45 AM CDT E-Visit [facility] [address] [place] [address] Sudheer Hussein DO Chief Comp: QUESTIONS, GENERAL from Last 3 Months Immunizations Name Administration Dates Next Due Flu Vac (3+ yrs) 11/26/2020, 7,10/22/2012,2011,11/29/2009 Influenza ([place] Only) (Flul aval Quad 0.5, 3+ yrs) 10/27/2016 Influenza IIV4 (Quadrivalent ) 0.5mL (15407) 11/06/2019,10/25/2018,10/26/2017,2015,10/18/2014,10/31/2013 Influenza IIV4 (Quadrivalent ) Fluzone, 65+ [...] Blood Pressure 129/81 09/10/2023 2:23 PM CDT [facility] Everywhere Pulse 78 09/10/2023 2:23 PM CDT Temperature 36.3 ??C (97.3 ??F) 07/16/2023 7 :42 AM CDT Respiratory Rate 18 07/16/2023 7:42 AM CDT Oxygen Saturation 98% 07/16/2023 7:4 2 AM CDT Inhaled Oxygen Concentration - - Weight 80.7 kg (178 lb) 06/30/2023 9:26 AM CDT Height 162.6 cm (5' 4) 06/30/2023 9:26 AM CDT Body Mass Index 30.55 06/30/2023 9:26 AM CDT Plan of Treatment Upcoming Encounters Date Type Department Care Team (Latest Contact Info) Description 11/18/2023 2:55 PM CDT Hospital [facility] [address] [place] [address] Sudheer Hussein, DO [address] [place] [address] 11/18/2023 2:55 PM CDT - 11/18/2023 3:45 PM CDT Surgery [facility] [address] [place] [address] Sudheer Hussein DO [address] [place] [address] PLACEMENT SPINAL CORD STIMULATOR TRIAL 11/24/2023 10:00 AM CDT Appointment [facility] [address] [facility] [place] [address] Scheduled Procedures Name Priority Associated Diagnoses Date/Ti me PLACEMENT SPINAL CORD STIMUL ATOR TRIAL Lumbar radiculitis 11/18/2023 2:55 PM CDT Health Maintenance Due Date Last Done Comments RSV (1 - Risk 60-74 years 1-dose series) 2016 Cholesterol 11/28/2022 11/28/2021, 04/17, 05/28/2020, Additional history exists Mammogram 11/28/2022 11/28/2021, 11/15, 08/29/2019, Additional history exists Medicare Annual Wellness Visit 02/15/2023 06/16/2022, 05/19/2021 Prediabetes: HGBA1C 07/03/2023 07/02/2022, 05/15/2021, 05/28/2020, Additional history exists MTM Targeted 09/28/2024 09/29/2023, 09/29/2023 Colonoscopy 09/03/2027 09/02/2017, 02/2009 (Historical Completion), 10/16/2009, Additional history exists DTaP/Tdap/Td (3 - Tdap) 06/16/2032 06/17/19 23, 03/18/2011, 12/25/2002, Additional history exists Hep C Screening (Preventive Services) Completed 12/17/2011 Cervical Cancer Screening Discontinued 2017, 02/27/2014, 06/04/2011, Additional history exists Zoster/Shingles Completed 09/20/2019, 12/21/2018 Dexa Completed 07/21/2021 Pneumococcal 65+ Yrs Completed 06/16/2022, 05/19/2021, 11/29/2009 COVID-19 Vaccine Completed 10/29/2023, , 05/19/2021, Additional history exists Influenza Completed 10/29/2023, 10/16, 11/19/2021, Additional history exists HepA Aged Out No longer eligi ble [...] Procedure Name Priority Date/Time Associated Diagnosis Comments HGB A1C Routine 07/02/2022 9:15 AM CDT [...] Lymphocytic colitis PAP TEST, ROUTINE Routine 02/22/2017 4:1 9 PM MACHINE SHOP REPAIR TECHNICIAN Screening for malignant neoplasm of cervix HEPATITIS C ANTIBODY, WITH REFLEX Routine 12/17/2011 9:18 AM CDT Special screening examination for viral disease from Last 3 Months or Most Recently Relevant to Health Maintenance Results * (ABNORMAL) Hgb A1C (07/02/2022 9:15 AM CDT) Hemoglobin A1C 6.0(H) <=5.6 % 07/02/2022 4:25 PM CDT [facility] Estimated Average Glucose (Calc) 126 < 117 mg/dL 07/02/2022 4:25 PM CDT [facility] Comment:Estimated average gl ucose (eAG) converts A1c into glucose units (mg/dL) and estimates average glucose over the past approximately 3 months. The eAG reference interval (<117 mg/dL) corresponds to an A1c of <5.7%. Blood Venipuncture / Unknown 07/02/2022 9:15 AM CDT 07/02/2022 9:15 AM CDT Narrative [facility] - 07/02/2022 4:25 PM CDT For patients not previously diagnosed with diabetes: 5.7-6.4%: Increased risk for diabetes 6.5% and greater: Diagnostic for diabetes For patients diagnosed with diabetes: <8.0%: Goal of therapy for ages 18-75 Clinicians may recommend a higher or lower goal for specific individuals. Leena Spivey MD LAB_1 [facility] [address] [phone] * (ABNORMAL) Lipid Panel and Direct LDL(If Needed) (11/28/2021 9:18 AM CDT) [facility] Signature Cholesterol 224(H) 0 - 199 mg/dL 11/28/2021 5:49 PM T [facility] Triglyceride 260(H) <=149 mg/dL 11/28/2021 5:49 PM T [facility] HDL Cholesterol 52 >=40 mg/dL 11/28/2021 5:49 PM T [facility] LDL, Calculated 120 <130 mg/dL 11/28/2021 5:49 PM T [facility] Non HDL Chol, Calculated 172(H) <=159 mg/dL 11/28/2021 5:49 PM T [facility] Cholesterol/HDL Ratio 4.3 11/28/2021 5:49 PM T [facility] Hours Fasting 2 11/28/2021 5:49 PM T [facility] Blood Venipuncture / Unknown 11/28/2021 9:18 AM CDT 11/28/2021 9:18 AM CDT Leena Spivey MD LAB_1 [facility] [address] [address] [phone] [facility] [place] [address], [facility] [phone] * MM Mammogram Screening Bilat W 3D [...] L-Spine Other Narrative 07/22/2021 11:57 AM CDT Gas Producer and Model of Instrument: Bebitos Demographics Age: 66 y.o. Gender: female Height: [...] Leena Spivey MD RAD DEXA * COLONOSCOPY [[id number]] (09/02/2017 11:26 AM CDT) 09/02/2017 11:2 6 [...] oxygen saturations were ? monitored continuously. The CF-RA286O was introduced ? through the anus and advanced to the terminal ileum, ? with identification of the appendiceal orifice and IC ? valve. The colonoscopy was performed without ? difficulty. The patient tolerated the procedure well. ? The quality of the bowel preparation was evaluated ? using the BBPS (Brock[place] Bowel Preparation Scale) with ? scores of: [...] Procedure Code(s): ?? --- Professional --- ? 26176 ? G0500 ? --- Technical --- ? 34362 ? G0500 Diagnosis Code(s): ?? --- Professional --- ? K64.8 ? R19.7 ? Z80.0 ? K52.839 ? K57.30 ? --- Technical --- ? K64.8 ? R19.7 ? Z80.0 ? K52.839 ? K57.30 CPT copyright 2016 [employer]. All rights reserved. The codes documented in this report are preliminary and upon jig builder helper review may be revised to meet [...] and oxygen saturations were monitored continuously. The CF-PE103I was introduced through the anus and advanced to the terminal ileum, with identification of the appendiceal orifice and IC valve. The colonoscopy was performed without difficulty. The patient tolerated the procedure well. The quality of the bowel preparation was evaluated using the BBPS (Brockport Bowel Preparation Scale) with scores of: Right [...] bowel movement. Procedure Code(s): --- Professional --- 45578 G0500 --- Technical --- 94584 G0500 Diagnosis Code(s): --- Professional --- K64.8 R19.7 Z80.0 K52.839 K57.30 --- Technical --- K64.8 R19.7 Z80.0 K52.839 K57.30 CPT copyright 2016 [employer]. All rights reserved. The codes documented in this report are preliminary and upon jig builder helper review may be revised to meet current compliance requirements. Attending Participation: Sampson Crocker MD 09/02/2017 11:55:57 AM This report has been signed electronically. Number of Addenda: 0 Note Initiated On: 09/02/2017 11:26 AM Sampson Crocker MD DIGESTIVE CARE Performing Organization Address City/State/[facility] Co de Phone Number (PROVATION) [place], [place] * Pap Test, Routine (02/22/2017 4:19 PM MACHINE SHOP REPAIR TECHNICIAN) Cytology, Pap (NOTE) Injection Molding Process Technician Cytology Report Patient Name: ROGERS LINN Taken: 02/22/2017 Received: 02/23/2017 Reported: 02/25/2017 Physician(s): LEENA SPIVEY ?Source of Specimen Pap Test, Routine Cervical/Endocervi raul: ?Specimen Adequacy ?Satisfactory for evaluation. ??Endocervical component present. ? Final Cytologic Interpretation/Res ult NEGATIVE FOR INTRAEPITHELIAL LESION OR MALIGNANCY (NILM) ?? *Electronically Signed Out By Merced RASMUSSEN(ASCP)* Merced Ndiaye CT(ASCP) ? Pap Smear History Date of Last Menstrual Period: 04/06/2011 ?? Microscopic Description Microscopic examination is performed. [facility] Department of Pathology [address] [place] [address] ??[id number] [facility] 02/22/2017 4:19 PM MACHINE SHOP REPAIR TECHNICIAN 02/23/2017 3:39 PM MACHINE SHOP REPAIR TECHNICIAN Leena Spivey MD LAB_1 [facility] [phone] * HEPATITIS C ANTIBODY, WITH REFLEX (12/17/2011 9:18 AM CDT) Anti-HCV Negative (Non Reactive) [facility] Comment:Does Not Rule Out In fection with HCV 12/17/2011 9:18 AM CDT 12/17/2011 9:35 AM CDT Leena Spivey MD [facility]1 [facility] [address] [address] from Last 3 Months or Most Recently Relevant to Health Maintenance Advance Directives * Full Code (Latest Code Status on File) Date Activated Date Inactivated Comments 12/22/2012 6:16 AM 12/22/2012 1:40 PM * Full Code Date Activated Date Inactivated Comments 04/10/2008 12:22 PM 04/10/2008 5:14 PM Care Teams Ticker Installer Relationship Specialty Start Date End Date Cyndee Carranza MD [address] [place] [address] [facility] - General 01/21/23
--- OUTSIDE RECORDS SUMMARY | 2023-11-08 11:30 | XMS_ITS | Encounter Summary ---
Author Organization [facility] Address [address] [place] [address] Care Team Providers Care Livestock Caretaker Name Role Phone Cyndee Carranza MD Primary Care Provider [phone] Reason for Visit * Reason Comments Refill famotidine (PEPCID) 20 MG tablet [Pharmacy Med Name: FAMOTIDINE 20MG TABLETS] Encounter Details Date Type Department Care Team (Late st Contact Info) Description 10/25/2023 Refill [facility] at [address] [address] Reny Crooks, CORRESPONDENCE SPECIALIST, PAINT DEPARTMENT SUPERVISOR [address] [place] [address] Refill (famotidine (PEPCID) 20 MG [...] Nursing Notes * Kaylynn Katz RN - 10/25/2023 1:21 PM CDT Refill requested for famotidine. Last refill 07/26/23 x 3 months Last visit 05/13/22 Next visit none Overdue for follow up. Per chart review: Medication Refill - Overdue Visit Called patient, was: Successful in reaching patient We recently received a refill request on one of your medications. Your clinician would like to see you for a(n): office visit Patient declined to schedule due to: Patient [facility] now, will have them take care of this Please route to: (HP) Care Team Jeremías/ (PN) Clinician Refill not given. Kaylynn Katz RN 10/25/2023, 1:23 PM * Aamir Lu Xrwcomm - 10/25/2023 3:44 AM CDT famotidine (PEPCID) 20 MG tablet [Pharmacy Med Name: FAMOTIDINE 20MG TABLETS] GERD / PUD - H2 Blockers & Carafate -> An office visit is overdue (performed 18 months ago, required every 12 months). Last qualifying visit: 05/13/2022 (in [facility] with RENY CROOKS) Next scheduled visit: None Last ordered by RENY CROOKS: 07/26/2023 (91 days ago) QTY: 180, Refills: 0, Sig: take 1 tablet(20 mg) by mouth twice daily (unchanged) Unified Office Embedded Refills, Reference: [id number], 10/25/2023 3:44:48 AM Jeremías VEGA: GI Refill EMILEE/SUKHDEV () [[id number]] (32921) documented in this encounter Plan of Treatment Upcoming Encounters Date Type Department Care Team (Latest Contact Info) Description 11/18/2023 2:55 PM CDT Hospital Encounter [address] [address] Sudheer Hussein DO [address] [place] [address] 11/18/2023 2:55 PM CDT - 11/18/2023 3:45 PM CDT Surgery [facility] [address] [place] [address] Sudheer Hussein, [address] [place] [address] PLACEMENT SPINAL CORD STIMULATOR TRIAL 11/24/2023 10:00 AM CDT Appointment [facility] [address] [facility] [place] [address] Scheduled Procedures Name Priority Associated Diagnoses Date/Ti me PLACEMENT SPINAL CORD STIMUL ATOR TRIAL Lumbar radiculitis 11/18/2023 2:55 PM CDT documented as of this encounter Visit Diagnoses Not on filedocumented in this encounter Care Teams Livestock Caretaker Relationship Specialty Start Date End Date Cyndee Carranza MD [address] [place] [address] PCP - General 01/21/23 documented as of this encounter
--- OUTSIDE RECORDS SUMMARY | 2023-11-08 11:30 | XMS_ITS | Encounter Summary ---
Author Organization [facility] Address [address] [place] [address] Care Team Providers Care Drill Setup Operator Name Role Phone Cyndee Carranza MD Primary Care Provider [phone] Reason for Visit * Reason Comments QUESTIONS, GENERAL Entered automaticall y based on patient selection in [employer]. Encounter Details Date Type Department Care Team (Late st Contact Info) Description 10/13/2023 2:45 PM CDT E-Visit [facility] [address] [facility]. [place], [place] [id number] Sudheer Hussein, [address] [place], [place] [id number] Chief Comp: QUESTIONS, GENERAL Social History Tobacco [...] encounter Nursing Notes * Coretta Garcia - 10/14/2023 2:12 PM CDT Patient is aware. Has been rescheduled to 11/17 for SCS trial. And 11/23 for the Lead pull. Thanks! * Glendy Cordova RN - 10/14/2023 11:22 AM CDT Please call patient to reschedule SCS trial scheduled for 10/28/[address] Hussein. Pt is on antibiotics and will need to be done x 1 week. Pt notified via my chart message and will await a call to reschedule to next available on 11/18/23. Thank you. Glendy Cordova RN 10/14/2023, 11:23 AM * Sudheer Hussein DO - 10/14/2023 11:06 AM CDT Procedure for me should be changed Will need to be done with abx x [address] Daniela Hussein * Glendy Cordova RN - 10/14/2023 9:[address] 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 Pt will take last dose on 10/27/23. Pt is scheduled for SCS trail on 10/28/23. Had a malenoma removed from shoulder last Wednesday will be on doxycycline until a day before my spinal stimulator procedure on 10/27. Any concerns or issues with this? Does patient need to reschedule SCS trial? 06/30/23 last OV Sudheer Hussein DO Assessment: 1. Chronic low back pain, facet 2. Lumbar radicular pain, L4/5, nn irritation Plan Patient education: I went over the above diagnoses and treatment plan with her and answered all of her questions. Reviewed images Right L4 tesi Continue hep May do future therapy pending #3 Consider SCS No new medications Thank you for the consult. Sudheer Hussein DO 06/30/2023, 9:34 AM Glendy Cordova RN 10/14/2023, 9:32 AM documented in this encounter Plan of Treatment Upcoming Encounters Date Type Department Care Team (Latest Contact Info) Description 11/18/2023 2:55 PM CDT Hospital Encounter [facility] [address] [place] [address] Sudheer Hussein, DO [address] [place] [address] 11/18/2023 2:55 PM CDT - 11/18/2023 3:45 PM CDT Surgery [facility] [address] [place] [address] Sudheer Hussein, [address] [place] [address] PLACEMENT SPINAL CORD STIMULATOR TRIAL 11/24/2023 10:00 AM CDT Appointment [facility] [address] [facility] [place] [address] Scheduled Procedures Name Priority Associated Diagnoses Date/Ti me PLACEMENT SPINAL CORD STIMUL ATOR TRIAL Lumbar radiculitis 11/18/2023 2:55 PM CDT documented as of this encounter Visit Diagnoses Not on filedocumented in this encounter Care Teams Drill Setup Operator Relationship Specialty Start Date End Date Cyndee Carranza MD [address] [place] [address] PCP - General 01/21/23 documented as of this encounter
--- OUTSIDE RECORDS SUMMARY | 2023-11-08 11:30 | XMS_ITS | Encounter Summary ---
Author Organization [facility] Address [address] [address] Care Team Providers Care Donor Services Manager Name Role Phone Cyndee Carranza MD Primary Care Provider [phone] Reason for Visit * Reason Comments QUESTIONS, GENERAL Entered automaticall y based on patient selection in [employer]. Encounter Details Date Type Department Care Team (Late st Contact Info) Description 11/06/2023 6:20 AM CDT E-Visit [facility] Pain Management [address] [facility] [place], [place] [id number] Sudheer Hussein, [address] [place], [place] [phone] Chief Comp: QUESTIONS, GENERAL Social History Tobacco [...] Nursing Notes * Glendy Cordova RN - 11/08/2023 11:09 AM CDT Called patient and answered questions about scs and managing hypoglycemia prior to SCS trial while NPO. Advised patient to call pcp regarding hypoglycemia management prior to procedure. Pt agreeable and will contact pcp. Glendy Cordova RN 11/08/2023, 11:11 AM documented in this encounter Plan of Treatment Upcoming Encounters Date Type Department Care Team (Latest Contact Info) Description 11/18/2023 2:55 PM CDT Hospital Encounter [facility] [address] [place] [address] Sudheer Hussein, [address] [place] [address] 11/18/2023 2:55 PM CDT - 11/18/2023 3:45 PM CDT Surgery [facility] [address] [place] [address] Sudheer Hussein, [address] [place] [address] PLACEMENT SPINAL CORD STIMULATOR TRIAL 11/24/2023 10:00 AM CDT Appointment [facility] Pain Management [address] [place] [address] Scheduled Procedures Name Priority Associated Diagnoses Date/Ti me PLACEMENT SPINAL CORD STIMUL ATOR TRIAL Lumbar radiculitis 11/18/2023 2:55 PM CDT documented as of this encounter Visit Diagnoses Not on filedocumented in this encounter Care Teams Donor Services Manager Relationship Specialty Start Date End Date Cyndee Carranza MD [address] [place] [address] PCP - General 01/21/23 documented as of this encounter
--- OUTSIDE RECORDS SUMMARY | 2023-11-08 11:30 | XMS_ITS | Encounter Summary ---
Author Organization [facility] Address [address] [place] [address] Care Team Providers Care Alignment Mechanic Name Role Phone Cyndee Cararnza MD Primary Care Provider [phone] Reason for Visit * Reason Comments LETTER NEEDED Outside Records on File [facility] Encounter Details Date Type Department Care Team (Late st Contact Info) Description 08/06/2023 Telephone [facility] Pain Management [address] [facility] [place], [place] [phone] Sudheer Hussein, [address] [place], [place] [phone] LETTER NEEDED; Outside Records on File ([facility] [place]) Social History Tobacco Use Types Packs/Day Years [...] 10:41 AM CDT Received outside records from [facility] Date(s) of services: 02/25/23 - 06/22/23 15 pages Records placed in provider folder in right fax on 08/11/23 So we don't lose the fax, please print or send to scan - (remember faxes auto delete in 60 days) Austin Wong 08/11/2023, 10:41 AM * Coretta Garcia - 08/09/2023 12:22 PM CDT Information from RN faxed to [facility] for SCS trial PA. Thanks! * Glendy Cordova RN - 08/09/2023 12:03 PM CDT Letter and OV notes placed on certified medical assistant desk. Please forward letter for no PT and OV from Dr. Mccullough, [facility] Neurosurgery for PA for SCS trial. Thank you, Glendy Cordova RN 08/09/2023, 12:05 PM * Glendy Cordova RN - 08/06/2023 5:14 PM CDT Per pt message 08/06/2023 My last physical therapy was in early February at [facility] in [place]. It did help a little. I have been doing some of the exercises they gave me and they havedefinitely made me stronger but not a lot of help with the pain. Glendy Cordova RN 08/06/2023, 5:15 PM Message from patient. Dish Technician requested pt request office visit note from consult noted below: I think it might be helpful to know that I consulted Darron Sarmiento MD, PhD from [facility] about surgical options and he indicated that there was nothing he could do surgically. In case you need additional documentation. Thanks. Glendy Cordova, RN 08/09/2023, 11:36 AM documented in this encounter Plan of Treatment Upcoming Encounters Date Type Department Care Team (Latest Contact Info) Description 11/18/2023 2:55 PM CDT Hospital Encounter [facility] [place] [address] [place] [address] Sudheer Hussein, DO [address] [place] [address] 11/18/2023 2:55 PM CDT - 11/18/2023 3:45 PM CDT Surgery [address] [address] Sudheer Hussein, [address] [place] [address] PLACEMENT SPINAL CORD STIMULATOR TRIAL 11/24/2023 10:00 AM CDT Appointment [facility] Pain Management [address] [place] [address] Scheduled Procedures Name Priority Associated Diagnoses Date/Ti me PLACEMENT SPINAL CORD STIMUL ATOR TRIAL Lumbar radiculitis 11/18/2023 2:55 PM CDT documented as of this encounter Visit Diagnoses Not on filedocumented in this encounter Care Teams Alignment Mechanic Relationship Specialty Start Date End Date Cyndee Carranza MD [address] [place] [address] PCP - General 01/21/23 documented as of this encounter
--- OUTSIDE RECORDS SUMMARY | 2023-11-08 11:31 | XMS_ITS | Encounter Summary ---
Author Organization [facility] Address [address], [place] [address] Care Team Providers Care Metal Off Bearer Name Role Phone Cyndee Carranza MD Primary Care Provider [phone] Encounter Details Date Type Department Care Team (Late st Contact Info) Description 12/22/2012 Consent for Procedure/Treatme nt [facility] Department INFORMED CONSENT RECORD Social History Tobacco [...] as of this encounter Progress Notes * [facility], PROVIDER - 12/22/2012 12:00 AM CST RINARY INSPECTOR documented in this encounter Plan of Treatment Upcoming Encounters Date Type Department Care Team (Latest Contact Info) Description 11/18/2023 2:55 PM CDT Hospital Encounter [facility] Same Day Surgery [place] [address] [place] [address] Sudheer Hussein, DO [address] [place] [address] 11/18/2023 2:55 PM CDT - 11/18/2023 3:45 PM CDT Surgery [facility] Same Day Surgery [place] [address] [place] [address] Sudheer Hussein, DO [address] [place] [address] PLACEMENT SPINAL CORD STIMULATOR TRIAL 11/24/2023 10:00 AM CDT Appointment [facility] Pain Management [address] [place] [address] Scheduled Procedures Name Priority Associated Diagnoses Date/Ti me PLACEMENT SPINAL CORD STIMUL ATOR TRIAL Lumbar radiculitis 11/18/2023 2:55 PM CDT documented as of this encounter Visit Diagnoses Not on filedocumented in this encounter Care Teams Metal Off Bearer Relationship Specialty Start Date End Date Cyndee Carranza MD [address] [place] [address] PCP - General 01/21/23 documented as of this encounter
--- OUTSIDE RECORDS SUMMARY | 2023-11-08 11:31 | XMS_ITS | Encounter Summary ---
Author Organization [facility] Address [address], [place] [address] Care Team Providers Care Direct Entry Midwife Name Role Phone Cyndee Carranza MD Primary Care Provider [phone] Encounter Details Date Type Department Care Team (Late st Contact Info) Description 09/02/2017 Correspondence [facility] Gastroenterology [address] [place] [address] [place] [id number] Sampson Crocker MD INSTRUCTIONS AFTER COLONOSCOPY [...] Description 11/18/2023 2:55 PM CDT Hospital Encounter [facility] Same Day Surgery Center [address] [place] [address] Sudheer Hussein DO [address] [place], [place] [phone] 11/18/2023 2:55 PM CDT - 11/18/2023 3:45 PM CDT Surgery [facility] Day Surgery [address] [address] Sudheer Hussein DO [address] [place], [place] [phone] PLACEMENT SPINAL CORD STIMULATOR TRIAL 11/24/2023 10:00 AM CDT Appointment [facility] Pain Management [address] [facility] [place] [address] Scheduled Procedures Name Priority Associated Diagnoses Date/Ti me PLACEMENT SPINAL CORD STIMUL ATOR TRIAL Lumbar radiculitis 11/18/2023 2:55 PM CDT documented as of this encounter Visit Diagnoses Not on filedocumented in this encounter Care Teams Direct Entry Midwife Relationship Specialty Start Date End Date Cyndee Carranza MD [address] [place] [address] PCP - General 01/21/23 documented as of this encounter
--- OUTSIDE RECORDS SUMMARY | 2023-11-08 11:31 | XMS_ITS | Encounter Summary ---
Author Organization [facility] Address [address] [address] Care Team Providers Care Acid Tank Cleaner Name Role Phone Cyndee Carranza MD Primary Care Provider [phone] Encounter Details Date Type Department Care Team [...] 11/18/2023 2:55 PM CDT Hospital Encounter [facility] Surgery [address] [address] Sudheer Hussein DO [address] [place] [address] 11/18/2023 2:55 PM CDT - 11/18/2023 3:45 PM CDT Surgery [facility] Surgery [place] [address] [place] [address] Sudheer Hussein DO [address] [place] [address] PLACEMENT SPINAL CORD STIMULATOR TRIAL 11/24/2023 10:00 AM CDT Appointment [facility] [place] Pain Management [address] [place] [address] Scheduled Procedures Name Priority Associated Diagnoses Date/Ti me PLACEMENT SPINAL CORD STIMUL ATOR TRIAL Lumbar radiculitis 11/18/2023 2:55 PM CDT documented as of this encounter Visit Diagnoses Not on filedocumented in this encounter Care Teams Acid Tank Cleaner Relationship Specialty Start Date End Date Cyndee Carranza MD [address] [place] [address] PCP - General 01/21/23 documented as of this encounter
--- OUTSIDE RECORDS SUMMARY | 2023-11-08 11:31 | XMS_ITS | Encounter Summary ---
Author Organization [facility] Address [address], [place] [address] Care Team Providers Care Customer Service Operator Name Role Phone Cyndee Carranza MD Primary Care Provider [phone] Encounter Details Date Type Department Care Team [...] 2:55 PM CDT Hospital Encounter [facility] Surgery [address] [address] Sudheer Hussein DO [address] [place] [address] 11/18/2023 2:55 PM CDT - 11/18/2023 3:45 PM CDT Surgery [facility] [place] [address] [place] [address] Sudheer Hussein DO [address] [place] [address] PLACEMENT SPINAL CORD STIMULATOR TRIAL 11/24/2023 10:00 AM CDT Appointment [facility] [place] Pain Management [address] [place] [address] Scheduled Procedures Name Priority Associated Diagnoses Date/Ti me PLACEMENT SPINAL CORD STIMUL ATOR TRIAL Lumbar radiculitis 11/18/2023 2:55 PM CDT documented as of this encounter Visit Diagnoses Not on filedocumented in this encounter Care Teams Customer Service Operator Relationship Specialty Start Date End Date Cyndee Carranza MD [address] [place] [address] PCP - General 01/21/23 documented as of this encounter
--- OUTSIDE RECORDS SUMMARY | 2023-11-08 11:31 | XMS_ITS | Encounter Summary ---
Author Organization [facility] Address [address], [place] [address] Care Team Providers Care Performance Makeup Artist Name Role Phone Cyndee Carranza MD Primary Care Provider [phone] Encounter Details Date Type Department Care Team (Latest Contact Info) Description 12/22/1995 Orders Only Garland Phillips MD [address] [place] [address] Social History Tobacco Use Types Packs/Day Years Used Date Smoking Tobacco: Never Assessed Sex and Gender Information Value Date Recorded Sex Assigned at Not on file Gender Identity Not on file Sexual Orientation Not on file documented as of this encounter Plan of Treatment Upcoming Encounters Date Type Department Care Team (Latest Contact Info) Description 11/18/2023 2:55 PM CDT Hospital Encounter [facility] Same Day Surgery [address] [address] Sudheer Hussein, [address] [place] [address] 11/18/2023 2:55 PM CDT - 11/18/2023 3:45 PM CDT Surgery [facility] Same Day Surgery [address] [address] Sudheer Hussein, [address] [place] [address] PLACEMENT SPINAL CORD STIMULATOR TRIAL 11/24/2023 10:00 AM CDT Appointment [facility] Pain Management [address] [facility] [place], [place] [phone] Scheduled Procedures Name Priority Associated Diagnoses Date/Ti me PLACEMENT SPINAL CORD STIMUL ATOR TRIAL Lumbar radiculitis 11/18/2023 2:55 PM CDT documented as of this encounter Visit Diagnoses Not on filedocumented in this encounter Care Teams Performance Makeup Artist Relationship Specialty Start Date End Date Cyndee Carranza MD [address] [place] [address] PCP - General 01/21/23 documented as of this encounter
--- OUTSIDE RECORDS SUMMARY | 2023-11-08 11:31 | XMS_ITS | Encounter Summary ---
Author Organization [facility] Address [address] [address] Care Team Providers Care Baby Stroller Rental Clerk Name Role Phone Cyndee Carranza MD Primary Care Provider [phone] Encounter Details Date Type Department Care Team (Late st Contact Info) Description 01/18/2019 Consent for Procedure/Treatme nt [facility] Department INFORMED CONSENT RECORD Social History [...] Description 11/18/2023 2:55 PM CDT Hospital Encounter [facility] Day Surgery [address] [address] Sudheer Hussein DO [address] [place] [address] 11/18/2023 2:55 PM CDT - 11/18/2023 3:45 PM CDT Surgery [facility] Day Surgery [address] [address] Sudheer Hussein DO [address] [place] [address] PLACEMENT SPINAL CORD STIMULATOR TRIAL 11/24/2023 10:00 AM CDT Appointment [facility] Pain Management [address] [facility]. [place], [place] [phone] Scheduled Procedures Name Priority Associated Diagnoses Date/Ti me PLACEMENT SPINAL CORD STIMUL ATOR TRIAL Lumbar radiculitis 11/18/2023 2:55 PM CDT documented as of this encounter Visit Diagnoses Not on filedocumented in this encounter Care Teams Baby Stroller Rental Clerk Relationship Specialty Start Date End Date Cyndee Carranza MD [address] [place] [address] PCP - General 01/21/23 documented as of this encounter
--- OUTSIDE RECORDS SUMMARY | 2023-11-08 11:31 | XMS_ITS | Encounter Summary ---
Author Organization [facility] Address [address], [place] [address] Care Team Providers Care Apprentice Painter Hand Name Role Phone Cyndee Carranza MD Primary Care Provider [phone] Encounter Details Date Type Department Care Team [...] Description 11/18/2023 2:55 PM CDT Hospital Encounter [facility] Surgery [address] [address] Sudheer Hussein DO [address] [place] [address] 11/18/2023 2:55 PM CDT - 11/18/2023 3:45 PM CDT Surgery [facility] [place] [address] [place] [address] Sudheer Hussein DO [address] [place] [address] PLACEMENT SPINAL CORD STIMULATOR TRIAL 11/24/2023 10:00 AM CDT Appointment [facility] [place] Pain Management [address] [place] [address] Scheduled Procedures Name Priority Associated Diagnoses Date/Ti me PLACEMENT SPINAL CORD STIMUL ATOR TRIAL Lumbar radiculitis 11/18/2023 2:55 PM CDT documented as of this encounter Visit Diagnoses Not on filedocumented in this encounter Care Teams Apprentice Painter Hand Relationship Specialty Start Date End Date Cyndee Carranza MD [address] [place] [address] PCP - General 01/21/23 documented as of this encounter
--- OUTSIDE RECORDS SUMMARY | 2023-11-08 11:31 | XMS_ITS | Encounter Summary ---
Author Organization [facility] Address [address] [address] Care Team Providers Care Environmental Health Officer Name Role Phone Cyndee Carranza MD Primary Care Provider [phone] Encounter Details Date Type Department Care Team (Late st Contact Info) Description 07/22/2015 Correspondence None No Primary/Referring, Phy [...] Description 11/18/2023 2:55 PM CDT Hospital Encounter [facility] Same Day Surgery [address] [address] Sudheer Hussein, [address] [place] [address] 11/18/2023 2:55 PM CDT - 11/18/2023 3:45 PM CDT Surgery [facility] Same Day Surgery [address] [address] Sudheer Hussein DO [address] [place] [address] PLACEMENT SPINAL CORD STIMULATOR TRIAL 11/24/2023 10:00 AM CDT Appointment [facility] Pain Management [address] [facility]. [place], [place] [phone] Scheduled Procedures Name Priority Associated Diagnoses Date/Ti me PLACEMENT SPINAL CORD STIMUL ATOR TRIAL Lumbar radiculitis 11/18/2023 2:55 PM CDT documented as of this encounter Visit Diagnoses Not on filedocumented in this encounter Care Teams Environmental Health Officer Relationship Specialty Start Date End Date Cyndee Carranza MD [address] [place] [address] PCP - General 01/21/23 documented as of this encounter
--- OUTSIDE RECORDS SUMMARY | 2023-11-08 11:31 | XMS_ITS | Encounter Summary ---
Author Organization [facility] Address [address] [address] Care Team Providers Care Health Sciences Manager Name Role Phone Cyndee Carranza MD Primary Care Provider [phone] Encounter Details Date Type Department Care Team (Latest Contact Info) Description 12/31/1995 Orders Only [facility] Social History Tobacco Use Types Packs/Day Years Used Date Smoking Tobacco: Never Assessed Sex and Gender Information Value Date Recorded Sex Assigned at Not on file Gender Identity Not on file Sexual Orientation Not on file documented as of this encounter Plan of Treatment Upcoming Encounters Date Type Department Care Team (Latest Contact Info) Description 11/18/2023 2:55 PM CDT Hospital Encounter [facility] [place] [address] [place] [address] Sudheer Hussein DO [address] [place] [address] 11/18/2023 2:55 PM CDT - 11/18/2023 3:45 PM CDT Surgery [facility] [place] [address] [place] [address] Sudheer Hussein DO [address] [place] [address] PLACEMENT SPINAL CORD STIMULATOR TRIAL 11/24/2023 10:00 AM CDT Appointment [facility] [place] Pain Management [address] [facility] [place] [address] Scheduled Procedures Name Priority Associated Diagnoses Date/Ti me PLACEMENT SPINAL CORD STIMUL ATOR TRIAL Lumbar radiculitis 11/18/2023 2:55 PM CDT documented as of this encounter Visit Diagnoses Not on filedocumented in this encounter Care Teams Health Sciences Manager Relationship Specialty Start Date End Date Cyndee Carranza MD [address] [place] [address] PCP - General 01/21/23 documented as of this encounter
--- OUTSIDE RECORDS SUMMARY | 2023-11-08 11:31 | XMS_ITS | Encounter Summary ---
Author Organization [facility] Address [address], [place] [address] Care Team Providers Care Flexible Machining System Machinist Name Role Phone Cyndee Carranza MD Primary Care Provider [phone] Encounter Details Date Type Department Care Team (Late st Contact Info) Description 09/02/2017 Consent for Procedure/Treatme [facility] Gastroenterology [address] [place] [address] [place] [address] Sampson Crocker MD INFORMED CONSENT FOR [...] Description 11/18/2023 2:55 PM CDT Hospital Encounter [facility] Same Day Surgery [facility] [address] [place] [address] Sudheer Hussein DO [address] [place] [address] 11/18/2023 2:55 PM CDT - 11/18/2023 3:45 PM CDT Surgery [facility] Surgery [place] [address] [place] [address] Sudheer Hussein DO [address] [place] [address] PLACEMENT SPINAL CORD STIMULATOR TRIAL 11/24/2023 10:00 AM CDT Appointment [facility] Pain Management [address] [facility] [address] Scheduled Procedures Name Priority Associated Diagnoses Date/Ti me PLACEMENT SPINAL CORD STIMUL ATOR TRIAL Lumbar radiculitis 11/18/2023 2:55 PM CDT documented as of this encounter Visit Diagnoses Not on filedocumented in this encounter Care Teams Flexible Machining System Machinist Relationship Specialty Start Date End Date Cyndee Carranza MD [address] [place] [address] PCP - General 01/21/23 documented as of this encounter
--- OUTSIDE RECORDS SUMMARY | 2023-11-08 11:31 | XMS_ITS | Encounter Summary ---
Author Organization [facility] Address [address] [address] Care Team Providers Care Damper Worker Name Role Phone Cyndee Carranza MD Primary Care Provider [phone] Encounter Details Date Type Department Care Team [...] 2:55 PM CDT Hospital Encounter [facility] Same Day Surgery Center [address] [place] [address] Sudheer Hussein DO [address] [place] [address] 11/18/2023 2:55 PM CDT - 11/18/2023 3:45 PM CDT Surgery [facility] Day Surgery [address] [address] Sudheer Hussein DO [address] [place] [address] PLACEMENT SPINAL CORD STIMULATOR TRIAL 11/24/2023 10:00 AM CDT Appointment [facility] Pain Management [address] [facility]. [place], [place] [phone] Scheduled Procedures Name Priority Associated Diagnoses Date/Ti me PLACEMENT SPINAL CORD STIMUL ATOR TRIAL Lumbar radiculitis 11/18/2023 2:55 PM CDT documented as of this encounter Visit Diagnoses Not on filedocumented in this encounter Care Teams Damper Worker Relationship Specialty Start Date End Date Cyndee Carranza MD [address] [place] [address] PCP - General 01/21/23 documented as of this encounter
--- OUTSIDE RECORDS SUMMARY | 2023-11-08 11:31 | XMS_ITS | Encounter Summary ---
Author Organization [facility] Address [address], [place] [address] Care Team Providers Care Clipper Counters Name Role Phone Cyndee Carranza MD Primary Care Provider [phone] Encounter Details Date Type Department Care Team [...] PM CDT Hospital Encounter [facility] [place] [address] [place] [address] Sudheer Hussein DO [address] [place] [address] 11/18/2023 2:55 PM CDT - 11/18/2023 3:45 PM CDT Surgery [facility] [place] [address] [place] [address] Sudheer Hussein DO [address] [place] [address] PLACEMENT SPINAL CORD STIMULATOR TRIAL 11/24/2023 10:00 AM CDT Appointment [facility] [place] Pain Management [address] [facility] [place] [address] Scheduled Procedures Name Priority Associated Diagnoses Date/Ti me PLACEMENT SPINAL CORD STIMUL ATOR TRIAL Lumbar radiculitis 11/18/2023 2:55 PM CDT documented as of this encounter Visit Diagnoses Not on filedocumented in this encounter Care Teams Clipper Counters Relationship Specialty Start Date End Date Cyndee Carranza MD [address] [place] [address] PCP - General 01/21/23 documented as of this encounter
--- OUTSIDE RECORDS SUMMARY | 2023-11-08 11:31 | XMS_ITS | Encounter Summary ---
Author Organization [facility] Address [address], [place] [address] Care Team Providers Care Lithopone Mill Worker Name Role Phone Cyndee Carranza MD Primary Care Provider [phone] Encounter Details Date Type Department Care Team [...] PM CDT Hospital Encounter [facility] Surgery [address] [address] Sudheer Hussein DO [address] [place] [address] 11/18/2023 2:55 PM CDT - 11/18/2023 3:45 PM CDT Surgery [facility] Surgery [place] [address] [place] [address] Sudheer Hussein DO [address] [place] [address] PLACEMENT SPINAL CORD STIMULATOR TRIAL 11/24/2023 10:00 AM CDT Appointment [facility] [place] Pain Management [address] [place] [address] Scheduled Procedures Name Priority Associated Diagnoses Date/Ti me PLACEMENT SPINAL CORD STIMUL ATOR TRIAL Lumbar radiculitis 11/18/2023 2:55 PM CDT documented as of this encounter Visit Diagnoses Not on filedocumented in this encounter Care Teams Lithopone Mill Worker Relationship Specialty Start Date End Date Cyndee Carranza MD [address] [place] [address] PCP - General 01/21/23 documented as of this encounter
--- OUTSIDE RECORDS SUMMARY | 2023-11-08 11:31 | XMS_ITS | Encounter Summary ---
Author Organization [facility] Address [address] [address] Care Team Providers Care Director Of Accreditation Name Role Phone Cyndee Carranza MD Primary Care Provider [phone] Encounter Details Date Type Department Care Team [...] 2:55 PM CDT Hospital Encounter [facility] Surgery [address] [address] Sudheer Hussein DO [address] [place] [address] 11/18/2023 2:55 PM CDT - 11/18/2023 3:45 PM CDT Surgery [facility] Surgery [place] [address] [place] [address] Sudheer Hussein DO [address] [place] [address] PLACEMENT SPINAL CORD STIMULATOR TRIAL 11/24/2023 10:00 AM CDT Appointment [facility] [place] Pain Management [address] [place] [address] Scheduled Procedures Name Priority Associated Diagnoses Date/Ti me PLACEMENT SPINAL CORD STIMUL ATOR TRIAL Lumbar radiculitis 11/18/2023 2:55 PM CDT documented as of this encounter Visit Diagnoses Not on filedocumented in this encounter Care Teams Director Of Accreditation Relationship Specialty Start Date End Date Cyndee Carranza MD [address] [place] [address] PCP - General 01/21/23 documented as of this encounter
--- OUTSIDE RECORDS SUMMARY | 2023-11-08 11:31 | XMS_ITS | Encounter Summary ---
Author Organization [facility] Address [address], [place] [address] Care Team Providers Care Management Professor Name Role Phone Cyndee Carranza MD Primary Care Provider [phone] Encounter Details Date Type Department Care Team [...] Description 11/18/2023 2:55 PM CDT Hospital Encounter [facility] Same Day Surgery Center [address] [place] [address] Sudheer Hussein DO [address] [place] [address] 11/18/2023 2:55 PM CDT - 11/18/2023 3:45 PM CDT Surgery [facility] Day Surgery [address] [address] Sudheer Hussein DO [address] [place] [address] PLACEMENT SPINAL CORD STIMULATOR TRIAL 11/24/2023 10:00 AM CDT Appointment [facility] Pain Management [address] [facility] [place], [place] [id number] Scheduled Procedures Name Priority Associated Diagnoses Date/Ti me PLACEMENT SPINAL CORD STIMUL ATOR TRIAL Lumbar radiculitis 11/18/2023 2:55 PM CDT documented as of this encounter Visit Diagnoses Not on filedocumented in this encounter Care Teams Management Professor Relationship Specialty Start Date End Date Cyndee Carranza MD [address] [place] [address] PCP - General 01/21/23 documented as of this encounter
--- OUTSIDE RECORDS SUMMARY | 2023-11-08 11:31 | XMS_ITS | Encounter Summary ---
Author Organization [facility] Address [address], [place] [address] Care Team Providers Care Limited Radiology Technician Name Role Phone Cyndee Carranza MD Primary Care Provider [phone] Encounter Details Date Type Department Care Team (Late st Contact Info) Description 11/04/2015 [facility] Internal Medicine [address] [place] [address] Leena Spivey MD Social History Tobacco Use [...] 2:55 PM CDT Hospital Encounter [facility] Same Day Surgery Center [address] [place] [address] Sudheer Hussein, DO [address] [place] [address] 11/18/2023 2:55 PM CDT - 11/18/2023 3:45 PM CDT Surgery [facility] Same [facility] Surgery [facility] [address] [place] [address] Sudheer Hussein, DO [address] [place] [address] PLACEMENT SPINAL CORD STIMULATOR TRIAL 11/24/2023 10:00 AM CDT Appointment [facility] Pain Management 295 [facility] [place] [address] Scheduled Procedures Name Priority Associated Diagnoses Date/Ti me PLACEMENT SPINAL CORD STIMUL ATOR TRIAL Lumbar radiculitis 11/18/2023 2:55 PM CDT documented as of this encounter Visit Diagnoses Diagnosis Encounter for long-term (current) use of medications- Primary Encounter for long-term (current) use of other medications Lumbar radiculitis Thoracic or lumbosacral neuritis or radiculitis, unspecified documented in this encounter Care Teams Limited Radiology Technician Relationship Specialty Start Date End Date Cyndee Carranza MD [address] [place] [address] PCP - General 01/21/23 documented as of this encounter
--- OUTSIDE RECORDS SUMMARY | 2023-11-08 11:31 | XMS_ITS | Encounter Summary ---
Author Organization [facility] Address [address] [address] Care Team Providers Care Civil Technician Name Role Phone Cyndee Carranza MD Primary Care Provider [phone] Encounter Details Date Type Department Care Team (Late st Contact Info) Description 08/07/2014 Consent for Procedure/Treatme nt [facility] Department INFORMED CONSENT RECORD Social History [...] 2:55 PM CDT Hospital Encounter [facility] Same Day Surgery [address] [address] Sudheer Hussein, [address] [place] [address] 11/18/2023 2:55 PM CDT - 11/18/2023 3:45 PM CDT Surgery [facility] Day Surgery [address] [address] Sudheer Hussein DO [address] [place] [address] PLACEMENT SPINAL CORD STIMULATOR TRIAL 11/24/2023 10:00 AM CDT Appointment [facility] Pain Management [address] [place] [address] Scheduled Procedures Name Priority Associated Diagnoses Date/Ti me PLACEMENT SPINAL CORD STIMUL ATOR TRIAL Lumbar radiculitis 11/18/2023 2:55 PM CDT documented as of this encounter Visit Diagnoses Not on filedocumented in this encounter Care Teams Civil Technician Relationship Specialty Start Date End Date Cyndee Carranza MD [address] [place] [address] PCP - General 01/21/23 documented as of this encounter
--- OUTSIDE RECORDS SUMMARY | 2023-11-08 11:31 | XMS_ITS | Encounter Summary ---
Author Organization [facility] Address [address] [address] Care Team Providers Care Summer Babysitter Name Role Phone Cyndee Carranza MD Primary Care Provider [phone] Encounter Details Date Type Department Care Team [...] Description 11/18/2023 2:55 PM CDT Hospital Encounter [facility] Surgery [address] [address] Sudheer Hussein DO [address] [place] [address] 11/18/2023 2:55 PM CDT - 11/18/2023 3:45 PM CDT Surgery [facility] Surgery [place] [address] [place] [address] Sudheer Hussein DO [address] [place] [address] PLACEMENT SPINAL CORD STIMULATOR TRIAL 11/24/2023 10:00 AM CDT Appointment [facility] [place] Pain Management [address] [place] [address] Scheduled Procedures Name Priority Associated Diagnoses Date/Ti me PLACEMENT SPINAL CORD STIMUL ATOR TRIAL Lumbar radiculitis 11/18/2023 2:55 PM CDT documented as of this encounter Visit Diagnoses Not on filedocumented in this encounter Care Teams Summer Babysitter Relationship Specialty Start Date End Date Cyndee Carranza MD [address] [place] [address] PCP - General 01/21/23 documented as of this encounter
--- OUTSIDE RECORDS SUMMARY | 2023-11-08 11:31 | XMS_ITS | Encounter Summary ---
Author Organization [facility] Address [address], [place] [address] Care Team Providers Care Vault Service Mechanic Name Role Phone Cyndee Carranza MD Primary Care Provider [phone] Encounter Details Date Type Department Care Team (Late st Contact Info) Description 02/07/2019 Correspondence External to External, [place] [address] RH CONSENT AND RELEASE Social History Tobacco [...] 2:55 PM CDT Hospital Encounter [facility] [place] [address] [place] [address] Sudheer Hussein DO [address] [place] [address] 11/18/2023 2:55 PM CDT - 11/18/2023 3:45 PM CDT Surgery [facility] Surgery [place] [address] [place] [address] Sudheer Hussein DO [address] [place] [address] PLACEMENT SPINAL CORD STIMULATOR TRIAL 11/24/2023 10:00 AM CDT Appointment [facility] Pain Management 295 [facility] [place] [address] Scheduled Procedures Name Priority Associated Diagnoses Date/Ti me PLACEMENT SPINAL CORD STIMUL ATOR TRIAL Lumbar radiculitis 11/18/2023 2:55 PM CDT documented as of this encounter Visit Diagnoses Not on filedocumented in this encounter Care Teams Vault Service Mechanic Relationship Specialty Start Date End Date Cydnee Carranza MD [address] [place] [address] PCP - General 01/21/23 documented as of this encounter
--- OUTSIDE RECORDS SUMMARY | 2023-11-08 11:31 | XMS_ITS | Encounter Summary ---
Author Organization [facility] Address [address], [place] [address] Care Team Providers Care Rehabilitation Inspector Name Role Phone Cyndee Carranza MD Primary Care Provider [phone] Encounter Details Date Type Department Care Team (Late st Contact Info) Description 09/02/2006 Consent for Procedure/Treatme nt [facility] Specialty [facility] [address] [place], [place] [id number] Sonu Mireles MD SPECIAL[facility] [address] [place] [address] [facility] Informed Consent Social History Tobacco [...] Description 11/18/2023 2:55 PM CDT Hospital Encounter [facility] Same Day Surgery Center [address] [place] [address] Sudheer Hussein, [address] [place] [address] 11/18/2023 2:55 PM CDT - 11/18/2023 3:45 PM CDT Surgery [facility] Same Day Surgery Center [address] [place] [address] Sudheer Hussein DO [address] [place] [address] PLACEMENT SPINAL CORD STIMULATOR TRIAL 11/24/2023 10:00 AM CDT Appointment [facility] Pain Management [address] [facility] [place] [address] Scheduled Procedures Name Priority Associated Diagnoses Date/Ti me PLACEMENT SPINAL CORD STIMUL ATOR TRIAL Lumbar radiculitis 11/18/2023 2:55 PM CDT documented as of this encounter Visit Diagnoses Not on filedocumented in this encounter Care Teams Rehabilitation Inspector Relationship Specialty Start Date End Date Cyndee Carranza MD [address] [place] [address] PCP - General 01/21/23 documented as of this encounter
--- OUTSIDE RECORDS SUMMARY | 2023-11-08 11:31 | XMS_ITS | Encounter Summary ---
Author Organization [facility] Address [address], [place] [address] Care Team Providers Care Art Tracer Name Role Phone Cyndee Carranza MD Primary Care Provider [phone] Encounter Details Date Type Department Care Team (Late st Contact Info) Description 01/18/2019 Consent for Procedure/Treatme nt [facility] Department INFORMED CONSENT RECORD Social History Tobacco [...] Description 11/18/2023 2:55 PM CDT Hospital Encounter [facility] Day Surgery [address] [address] Sudheer Hussein DO [address] [place] [address] 11/18/2023 2:55 PM CDT - 11/18/2023 3:45 PM CDT Surgery [facility] Day Surgery [address] [address] Sudheer Hussein DO [address] [place] [address] PLACEMENT SPINAL CORD STIMULATOR TRIAL 11/24/2023 10:00 AM CDT Appointment [facility] Pain Management [address] [facility] [place], [place] [id number] Scheduled Procedures Name Priority Associated Diagnoses Date/Ti me PLACEMENT SPINAL CORD STIMUL ATOR TRIAL Lumbar radiculitis 11/18/2023 2:55 PM CDT documented as of this encounter Visit Diagnoses Not on filedocumented in this encounter Care Teams Art Tracer Relationship Specialty Start Date End Date Cyndee Carranza MD [address] [place] [address] PCP - General 01/21/23 documented as of this encounter
--- OUTSIDE RECORDS SUMMARY | 2023-11-08 11:31 | XMS_ITS | Encounter Summary ---
Author Organization [facility] Address [address], [place] [address] Care Team Providers Care Repair Weaver Name Role Phone Cyndee Carranza MD Primary Care Provider [phone] Encounter Details Date Type Department Care Team [...] Description 11/18/2023 2:55 PM CDT Hospital Encounter [facility] Surgery [address] [address] Sudheer Hussein DO [address] [place] [address] 11/18/2023 2:55 PM CDT - 11/18/2023 3:45 PM CDT Surgery [facility] Surgery [place] [address] [place] [address] Sudheer Hussein DO [address] [place] [address] PLACEMENT SPINAL CORD STIMULATOR TRIAL 11/24/2023 10:00 AM CDT Appointment [facility] [place] Pain Management [address] [place] [address] Scheduled Procedures Name Priority Associated Diagnoses Date/Ti me PLACEMENT SPINAL CORD STIMUL ATOR TRIAL Lumbar radiculitis 11/18/2023 2:55 PM CDT documented as of this encounter Visit Diagnoses Not on filedocumented in this encounter Care Teams Repair Weaver Relationship Specialty Start Date End Date Cyndee Carranza MD [address] [place] [address] PCP - General 01/21/23 documented as of this encounter
--- OUTSIDE RECORDS SUMMARY | 2023-11-08 11:31 | XMS_ITS | Encounter Summary ---
Author Organization [facility] Address [address] [address] Care Team Providers Care Swabber Name Role Phone Cyndee Carranza MD Primary Care Provider [phone] Encounter Details Date Type Department Care Team [...] Description 11/18/2023 2:55 PM CDT Hospital Encounter [facility] Day Surgery [address] [address] Sudheer Hussein, [address] [place] [address] 11/18/2023 2:55 PM CDT - 11/18/2023 3:45 PM CDT Surgery [facility] Day Surgery [address] [address] Sudheer Hussein DO [address] [place] [address] PLACEMENT SPINAL CORD STIMULATOR TRIAL 11/24/2023 10:00 AM CDT Appointment [facility] Pain Management [address] [facility]. [place], [place] [id number] Scheduled Procedures Name Priority Associated Diagnoses Date/Ti me PLACEMENT SPINAL CORD STIMUL ATOR TRIAL Lumbar radiculitis 11/18/2023 2:55 PM CDT documented as of this encounter Visit Diagnoses Not on filedocumented in this encounter Care Teams Swabber Relationship Specialty Start Date End Date Cyndee Carranza MD [address] [place] [address] PCP - General 01/21/23 documented as of this encounter
--- OUTSIDE RECORDS SUMMARY | 2023-11-08 11:31 | XMS_ITS | Encounter Summary ---
Author Organization [facility] Address [address], [place] [address] Care Team Providers Care Environmental Studies Program Director Name Role Phone Cyndee Carranza MD Primary Care Provider [phone] Encounter Details Date Type Department Care Team (Latest Contact Info) Description 10/11/1996 Orders Only Teressa Salas MD [address] [place] [address] Social History Tobacco Use Types Packs/Day Years Used Date Smoking Tobacco: Never Assessed Sex and Gender Information Value Date Recorded Sex Assigned at Not on file Gender Identity Not on file Sexual Orientation Not on file documented as of this encounter Plan of Treatment Upcoming Encounters Date Type Department Care Team (Latest Contact Info) Description 11/18/2023 2:55 PM CDT Hospital Encounter [facility] Same Day Surgery [address] [address] Sudheer Hussein, [address] [place] [address] 11/18/2023 2:55 PM CDT - 11/18/2023 3:45 PM CDT Surgery [facility] Same Day Surgery [address] [address] Sudheer Hussein, [address] [place] [address] PLACEMENT SPINAL CORD STIMULATOR TRIAL 11/24/2023 10:00 AM CDT Appointment [facility] Pain Management [address] [facility] [place], [place] [id number] Scheduled Procedures Name Priority Associated Diagnoses Date/Ti me PLACEMENT SPINAL CORD STIMUL ATOR TRIAL Lumbar radiculitis 11/18/2023 2:55 PM CDT documented as of this encounter Visit Diagnoses Not on filedocumented in this encounter Care Teams Environmental Studies Program Director Relationship Specialty Start Date End Date Cyndee Carranza MD [address] [place] [address] PCP - General 01/21/23 documented as of this encounter
== END 2023-11-08 11:19 | disposition home or self-care (01) ==
PROVIDERS: PCP Internal Medicine; Visit Provider Internal Medicine
DX: E78.5 Hyperlipidemia, unspecified (principal); Z13.1 Encounter for screening for diabetes mellitus
CPT/HCPCS: 80061; 82947

== ENCOUNTER 2024-01-10 14:47 | Outpatient (CLI) | payer OTHER, SELFPAY ==
--- OUTSIDE RECORDS SUMMARY | 2024-01-10 14:51 | XMS_ITS | Continuity of Care Document ---
Author Organization [facility] Address [address] [place] [address] Phone Care Team Providers Care Stopping Builder Name Role Phone Austen Franklin Unavailable Unavailable [...] VISIT EST Phone [facility], [address], [place], [id number], [place] tel:[phone] [facility] No Information Hebert oByce. [facility], [address], [facility], [id number] , [place]. tel:[phone] Referring Provider: Bonnie Morales, [facility] [address] [place], [address]. tel:[phone] OFFICE/OUTPAT IENT VISIT EST Phone [facility], [address], [place], [id number], [place] tel:[phone] [facility] Spinal stenosis, lumbar region Apr-2 3 4 Hebert Boyce. [facility], [address], [facility], [place], [id number] , [place]. [phone] Referring Provider: Bonnie Morales, [facility] [address] [place], [address]. tel:[phone] Office/Outpat ient Visit,Est, Mod [facility], [address], [place], [id number], [place] tel:[phone] [facility] Spinal stenosis, lumbar region with neurogenic claudication Apr-0 4 Hebert Boyce. [facility] [place], [address], [facility], [place], [id number] , [place]. [phone] Referring Provider: Bonnie Morales, [facility] [address] [place], [address]. tel:[phone] Office/Outpat ient Visit,Est, Mod [facility], [address], [place], [id number], [place] tel:[phone] [facility] [place] Low back pain, unspecifiedRadi culopathy, lumbar regionSpinal stenosis, lumbar region with neurogenic claudication Feb-0 4 Kenia Brown. [facility] [place], [address] [place] [address], [address], [place], [place], [id number] , [place]. tel:[phone] Referring Provider: Bonnie Morales, [facility] [address] [place], [address]. tel:[phone] Office/Outpat ient Visit,New, Gaurang Majano/HAYLEE Fox, [address], [place], [place], [id number], [place] tel:[phone] [facility] Other intervertebral disc degeneration, lumbar region 4 Marky Sarmiento. [facility], [address], [address], [place], [place], [id number] , [place]. tel:[phone] Referring Provider: Nader Velasco, [facility] [address] [place], [address]. tel:[phone] Family History Family Member Type Diagnosis Age At Onset Sister Problem (finding) Hypertension Mother Problem (finding) Hypertension Father Problem (finding) Cardiovascular disease Sister Problem (finding) Cancer, unknown type Father Problem (finding) Hypertension Mother Problem (finding) Diabetes mellitus Mother Problem (finding) Cancer, unknown type Payers Payer name Insurance type Covered libertarian ID Authorsonia arita(s) [employer] Medicare Jtanny CALVERT [id number] Social History Type Description Quantity Date Captured [...]
--- OUTSIDE RECORDS SUMMARY | 2024-01-10 14:52 | XMS_ITS | Encounter Summary ---
Author Organization [facility] Address [address], [place] [address] Care Team Providers Care Squaring Machine Operator Name Role Phone Cyndee Carranza MD Primary Care Provider [phone] Reason for Visit * Procedure/Equipment (Routine) - Incomplete Specialty Diagnoses / Procedures Referred By Contac t Referred To Contact Diagnoses Low back pain radiating to both legs Procedures XR Thoracic Spine 2 Views Getachew Chappell MD [address] [place] [address] Referral ID Status Reason Start Date Expiration Date V isits Requested Visits Authorized [id number] Incomplete 12/17/2023 03/17/2025 1 1 Encounter Details Date Type Department Care Team (Latest Contact Info) Description 12/17/2023 11:10 AM CDT Ancillary Procedure [facility] Radiology [address] [facility] [place] [address] Getachew Chappell MD [address] [place] [address] Low back pain radiating to both legs Social History Tobacco Use Types Packs/Day Years [...] Department Care Team (Latest Contact Info) Description 01/18/2024 7:10 AM LEGISLATIVE ADVOCATE Hospital Encounter [facility] Operating Room [address] [place] [address] Getachew Chappell MD [address] [place] [address] 01/18/2024 7:10 AM LEGISLATIVE ADVOCATE - 01/18/2024 9:30 AM LEGISLATIVE ADVOCATE Surgery Operating Room [address] [place] [address] Getachew Chappell MD [address] [place] [address] PLACEMENT DORSAL COLUMN STIMULATOR 01/27/2024 1:00 PM LEGISLATIVE ADVOCATE Appointment [facility] Neurology EEG/EMG [address] [place] [address] Kendell Perez MD [address] [place] [address] 02/01/2024 1:00 PM LEGISLATIVE ADVOCATE Appointment [facility] Neurosurgery/Ortho Spine [address] [place] [address] 02/14/2024 9:40 AM LEGISLATIVE ADVOCATE Appointment [facility] Neurosurgery/Ortho Spine [address] [place] [address] Getachew Chappell MD [address] [place] [address] Scheduled Procedures Name Priority Associated Diagnoses Date/Ti me PLACEMENT DORSAL COLUMN STIMULATOR (SDEX) [facility] Low back pain radiating to both legs 01/18/2024 7:10 AM LEGISLATIVE ADVOCATE documented as of this encounter Procedures Procedure Name Priority Date/Time Associated Diagnosis Comments XR THORACIC SPINE 2 VIEWS Routine 12/17/2023 11:14 AM CDT Low back pain radiating to both legs documented in this encounter Results * XR Thoracic Spine 2 Views (12/17/2023 11:14 AM CDT) Anatomical Region Laterality Modality Spine, T-Spine Computed Radiogr aphy 12/17/2023 11:1 4 AM CDT Narrative 12/20/2023 8:40 AM LEGISLATIVE ADVOCATE EXAM: XR THORACIC SPINE 2 VIEWS LOCATION: [facility] DATE: 12/17/2023 INDICATION: Pre op planning, Low back pain, unspecified, Pain in right leg, Pain in left leg COMPARISON: MRI lumbar spine without contrast 01/04/2023. IMPRESSION: Osteopenia. Thoracic vertebral body heights are maintained. Mild thoracic spondylosis. Mildly exaggerated thoracic kyphosis. The lungs are clear. Procedure Note Tre Pena MD - 12/20/2023 EXAM: XR THORACIC SPINE 2 VIEWS LOCATION: [facility] DATE: 12/17/2023 INDICATION: Pre op planning, Low back pain, unspecified, Pain in rightleg, Pain in left leg COMPARISON: MRI lumbar spine without contrast 01/04/2023. IMPRESSION: Osteopenia. Thoracic vertebral body heights are maintained.Mild thoracic spondylosis. Mildly exaggerated thoracic kyphosis. The lungsare clear. Getachew Chappell MD RAD GD documented in this encounter Visit Diagnoses Diagnosis Low back pain radiating to both legs- Primary Lumbago Low back pain radiating to both legs Lumbago Low back pain radiating to both legs Lumbago documented in this encounter Care Teams Squaring Machine Operator Relationship Specialty Start Date End Date Cyndee Carranza MD [address] [place] [address] PCP - General 01/21/23 documented as of this encounter
--- OUTSIDE RECORDS SUMMARY | 2024-01-10 14:52 | XMS_ITS | Encounter Summary ---
Author Organization [facility] Address [address] [address] Care Team Providers Care Radio Maintainer Name Role Phone Cyndee Carranza MD Primary Care Provider [phone] Encounter Details Date Type Department Care Team (Late st Contact Info) Description 11/18/2023 2:57 PM CDT Anesthesia Event [facility] [address] [place] [address] Woody Nicole MD [address] [place] [address] Hermes Jolly MD [address] [place] [address] Anesthesia Record Procedure Summary Procedure Name Responsible Anesthesiologist Anesthesia Start Time Anesthesia Stop Time PLACEMENT SPINAL CORD STIMULATOR TRIAL Woody Nicole MD 11/18/23 1457 11/18/23 1533 Events Date Time Event Comment 11/18/2023 1456 1457 An Start 1502 An Start Data 1503 An Oxygen Mask Spontaneous r espirations with adequate air exchange. 1512 An Local Anesthetic By Surge on 1528 an stop data 1533 An Stop Care transferre d. 1533 Care Handoff Note I discusse d with the receiving nurse and we: 1) Identified the patient, oconnor family member(s) or patient surrogate 2) Identified the responsible practitioner 3) Reviewed the pertinent medical history 4) Discussed the surgical/procedure course 5) Reviewed intra-op anesthesia management and issues during anesthesia 6) Set expectations for the post-procedure period 7) Allowed opportunity for questions and acknowledgement of understanding of report Electronically signed by Mel Allen APRN, CRNA Meds Name Total midazolam 2 mg/2 mL injection (aka VERSE D) 1 mg FENTanyl injection (aka SUBLIMAZE) 1 mL lidocaine 1% PF injection aka (XYLOCAINE ) 25 mg propofol 10 mg/mL for procedural sedatio n (aka diPRIvan) 109.4 mg ondansetron injection (aka ZOFRAN) 4 mg ceFAZolin (ANCEF) 2 g in sodium chloride 0.9 % 50 mL IVPB ADS 2 g lactated ringers infusion 250 mL * Agents Name 02 Delivery Device O2 N2O Air * Blood No blood administrations on file. Lines, Drains, and Airways Type Details Placement Removal Peripheral IV Placement Date: 11/18/23; Placement Time: 1410; Pre-existing: No; Inserted by?: RN; Size (Gauge): 20 G; Orientation: Left; Site Prep: ChloraPrep; Patient Tolerance: Tolerated well; Removal Date: 11/18/23; Removal Time: 1634 11/18/23 1410 by Chen Madera RN 11/18/23 1634 by Licha Vallecillo RN Incision/Surgical Site 11/18/23; 1513; # 1; No; Back; Medial; 11/18/23; 1634 11/18/23 1513 by Maryellen Vincent RN 11/18/23 1634 by Licha Vallecillo RN documented in this encounter Social History Tobacco Use Types Packs/Day Years [...] on file documented as of this encounter Miscellaneous Notes * Anesthesia Postprocedure Evaluation - Woody Nicole MD - 11/18/2023 4:21 PM CDT [facility] Anesthesia Post-op Note Patient: Orquidea Ortiz Post-Op Diagnosis: Pre-Op Diagnosis Codes: * Lumbar radiculitis [M54.16] Procedure Performed: Procedure(s): PLACEMENT SPINAL CORD STIMULATOR TRIAL - Wound Class: 1 CLEAN Anesthesia Type: MAC Post-op vital signs: Vitals Value Taken Time BP 103/90 11/18/23 1545 Temp 98.2 ??F (36.8 ??C) 11/18/23 1531 Pulse 73 11/18/23 1545 Resp 16 11/18/23 1545 SpO2 96 % 11/18/23 1545 Pain Score: Preferred Pain Scale: number (Numeric Rating Pain Scale) (0-10) Pain Rating: Rest: 3 Post-op assessment: Patient location: Phase 2 Airway Status: Patent Cardiovascular function: Satisfactory Hydration status: Satisfactory PONV: None Level of Consciousness: Awake Fully Participates Postop Assessment: Patient tolerated procedure well. Electronically signed by: Woody Nicole MD 11/18/2023 4:21 PM * Anesthesia Preprocedure Evaluation - Woody Nicole MD - 11/18/2023 2:49 PM CDT [facility] Anesthesia Pre-op Evaluation Procedure: PLACEMENT SPINAL CORD STIMULATOR TRIAL, N/A HPI: 68 y.o. old female. Pre-Op Diagnosis Codes: * Lumbar radiculitis [M54.16] Last Fluid Intake Time: 1100 Last Fluid Intake Date: 11/18/23 Last Food Intake Date: 11/17/23 Last Food Intake Time: 2300 Allergies Allergen Reactions Lipitor [Atorvastatin] Muscle Aches/Weakness Sulfa Antibiotics Rash Past Medical History: Diagnosis Date Alcohol dependence (HRC) In remission BP (high blood pressure) (HRC) Cervical uterine polyp Chemical dependency (HRC) alcohol Depression Depressive disorder, not elsewhere classified (HRC) Esophageal reflux Gastrointestinal disease High blood pressure (HRC) Hyperlipidemia (HRC) Inflammatory bowel disease 2009 Colitis Lymphocytic colitis Prediabetes Psychiatric disorder (HRC) panic disorder Uterine fibroid Patient Active Problem List Diagnosis Depressive disorder Panic disorder without agoraphobia (HRC) Back disorder Alcohol dependence in remission (HRC) Family history of malignant neoplasm of breast Breast implant removal status Uterine myoma Thyroid nodule (HRC) Hyperlipidemia with target LDL less than 130 (HRC) Vitamin D deficiency (HRC) Colitis Lateral epicondylitis IFG (impaired fasting glucose) Screening for malignant neoplasm of cervix Age-related nuclear cataract of both eyes 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 budesonide (ENTOCORT EC) 3 MG capsule Take 2 Capsules (6 mg) by mouth daily. Calcium Carb-Cholecalciferol 500-3.125 MG-MCG TABS Take 2 Tablets by mouth daily. cephalexin (KEFLEX) 500 MG capsule Take 1 Capsule (500 mg) by mouth two times a day. cholecalciferol (VITAMIN D3) 25 MCG (1000 UT) tablet Take 1 Tablet (1,000 Units) by mouth daily. 2 tabs/day DULoxetine (CYMBALTA) 30 MG capsule Take 1 Capsule (30 mg) by mouth daily. DULoxetine (CYMBALTA) 60 MG capsule Take 1 Capsule (60 mg) by mouth daily. DULoxetine HCl 60 MG CSDR Take 1 Capsule (60 mg) by mouth daily. famotidine (PEPCID) 10 MG tablet Take 2 Tablets (20 mg) by mouth two times a day. famotidine (PEPCID) 20 MG tablet TAKE 1 TABLET(20 MG) BY MOUTH TWICE DAILY gabapentin (NEURONTIN) 300 MG capsule Take 1 Capsule (300 mg) by mouth three times a day. gabapentin (NEURONTIN) 300 MG capsule Take 2 Capsules (600 mg) by mouth three times a day. HYDROcodone-acetaminophen (NORCO) 5-325 MG tablet Take 1 Tablet by mouth every 4 hours as needed for Pain. HYDROcodone-acetaminophen (NORCO) 5-325 MG tablet Take 1 Tablet by mouth two times daily as needed for Pain. LORazepam (ATIVAN) 1 MG tablet Take 1 Tablet (1 mg) by mouth every 8 hours as needed. multivitamin (AKA THERAGRAN) tablet Take 1 Tablet by mouth daily. pravastatin (PRAVACHOL) 40 MG tablet Take 1 Tablet (40 mg) by mouth daily. pravastatin (PRAVACHOL) 40 MG tablet TAKE 1 TABLET(40 MG) BY MOUTH DAILY AT BEDTIME traZODone (DESYREL) 50 MG tablet TAKE 1 TO 2 TABLETS BY MOUTH AT BEDTIME NEEDED Facility-Administered Medications as of 08/04/2023 Medication Dose Route Frequency ceFAZolin (ANCEF) 2 g in sodium chloride 0.9 % 50 mL IVPB ADS 2 g Intravenous Once (Non-Scheduled) lactated ringers infusion 30 mL/hr Intravenous Continuous lidocaine (XYLOCAINE) 1 % injection 0.1 mL 0.1 mL Intradermal PRN with procedures Labs: Lab Results Component Value Date/Time SODIUM 142 07/02/2022 09:15 AM K 4.0 07/02/2022 09:15 AM CHLORIDE 107 07/02/2022 09:15 AM BUN 12 07/02/2022 09:15 AM CREATININE 1.00 07/02/2022 09:15 AM GLUCOSE 97 07/02/2022 09:15 AM Lab Results Component Value Date/Time WBC 6.5 07/02/2022 09:15 AM HGB 13.2 07/02/2022 09:15 AM HCT 39.6 07/02/2022 09:15 AM PLTS 234 07/02/2022 09:15 AM INR (no units) Date Value 03/24/2022 1.0 Blood Bank: ABO (no units) Date Value 02/13/2019 A Antibody Screen Interpretation (no units) Date Value 02/13/2019 Negative EKG: Date of last EK03/24/22 ECG 12-Lead Result Value Ref Range Ventricular Rate 65 BPM Atrial Rate 65 BPM P-R Interval 144 ms QRS Duration 82 ms QT 450 ms QTc 468 ms P [place] 23 degrees R [place] 29 degrees T [place] 58 degrees Date of last EK03/12/04 EKG TRACING Result Value Ref Range EKG See Separate Report Physical Exam: BP 135/78 Pulse 63 Temp 97.5 ??F (36.4 ??C) (Temporal Artery) Resp 14 Ht 5' 4 (1.626 m) Wt 82.6 kg (182 lb) LMP 04/06/2011 (Exact Date) SpO2 97% BMI 31.24 kg/m?? Assessment/Plan: Review of Systems Patient does not have GERD. Patient is not a current smoker. The patient denies alcohol use. Patient denies any recent URI. History of PONV: No. History of motion sickness: No. Patient denies any personal or family history of anesthesia complications. NPO Status: Acceptable. Exam Mental Status: Alert and oriented. Mallampati score: II (Two). Mouth opening: Normal Thyromental Distance: > 3 finger breadths and Normal Neck Extension: Full Neck Circumference > 40 cm?: No Current airway assessment:Normal Dentition: Age appropriate. Cardiac Exam: Regular rate and rhythm. Respiratory Exam: Breath sounds clear to auscultation Assessment ASA Status: 3 . Plan Anesthesia type: MAC Induction: Propofol Maintenance: TIVA PONV Risk Score Adult: 2 PONV Prophylaxis (planned): Ondansetron Anesthetic plan, risks, benefits and alternatives discussed with the patient who agrees to the anesthesia treatment plan. H&P Reviewed and Patient examined, no change observed IV access Antibiotics per surgery Electronically signed by: Woody Nicole MD 11/18/2023 2:49 PM documented in this encounter Plan of Treatment Upcoming Encounters Date Type Department Care Team (Latest Contact Info) Description 01/18/2024 7:10 AM MACHINE CLIPPER Hospital Encounter [facility] Operating Room [address] [place] [phone] Getachew Chappell MD [address] [place] [phone] 01/18/2024 7:10 AM MACHINE CLIPPER - 01/18/2024 9:30 AM MACHINE CLIPPER Surgery Operating Room [address] [place] [phone] Getachew Chappell MD [address] [place] [address] PLACEMENT DORSAL COLUMN STIMULATOR 01/27/2024 1:00 PM MACHINE CLIPPER Appointment [facility] Neurology EEG/EMG [address] [place] [id number] Kendell Perez MD [address] [place] [id number] 02/01/2024 1:00 PM MACHINE CLIPPER Appointment [facility] Neurosurgery/Ortho Spine [address] [place] [phone] 02/14/2024 9:40 AM MACHINE CLIPPER Appointment [facility] Neurosurgery/Ortho Spine [address] [place] [address]. [place] [address] Getachew Chappell MD [address] [place] [address] Scheduled Procedures Name Priority Associated Diagnoses Date/Ti me PLACEMENT DORSAL COLUMN STIMULATOR (SDEX) Same Day Recovery Low back pain radiating to both legs 01/18/2024 7:10 AM MACHINE CLIPPER documented as of this encounter Visit Diagnoses Not on filedocumented in this encounter Administered Medications Inactive Administered Medications - up to 3 most recent administrations Medication Order MAR Action Action Date Dose Rate Site ceFAZolin (ANCEF) 2 g in sodium chloride 0.9 % 50 mL IVPB ADS 2 g, Intravenous, Administer over 30 Minutes, ONCE (NON-SCHEDULED), Starting on Soniya 11/18/23 at 1332, For 1 dose, For patient weight less than or equal to 119 kg PRE-OP, Pre-op Started 11/18/2023 3:00 PM CDT 2 g fentaNYL (SUBLIMAZE) injection Intravenous, Starting on Soniya 11/18/23 at 1457, Until Soniya 10/3/24 at 1534 Given 11/18/2023 2:57 PM CDT 1 mL lactated ringers infusion 30 mL/hr, Intravenous, CONTINUOUS, Starting on Soniya 11/18/23 at 1400, Pre-op Continued by Anesthesia 11/18/2023 2:57 PM CDT 30 mL/hr Started 11/18/2023 2:15 PM CDT 30 mL/hr 30 mL/hr lidocaine PF (XYLOCAINE) 1 % injection Intravenous, Starting on Soniya 11/18/23 at 1500 Given 11/18/2023 3:00 PM CDT 25 mg midazolam (VERSED) injection Intravenous, Starting on Soniya 11/18/23 at 1457, Until Soniya 11/18/23 at 1534 Given 11/18/2023 2:57 PM CDT 1 mg ondansetron (ZOFRAN) injection Intravenous, Starting on Soniya 11/18/23 at 1508, Until Soniya 11/18/23 at 1534 Given 11/18/2023 3:08 PM CDT 4 mg propofol (DIPRIVAN) 10 mg/mL injection Intravenous, Starting on Soniya 11/18/23 at 1500, Until Soniya 11/18/23 at 1534 Started 11/18/2023 3:00 PM CDT 100 mcg/kg/min 32.82 mL/hr documented in this encounter Care Teams Radio Maintainer Relationship Specialty Start Date End Date Cyndee Carranza MD [address] [place] [address] PCP - General 01/21/23 documented as of this encounter
--- OUTSIDE RECORDS SUMMARY | 2024-01-10 14:52 | XMS_ITS | Encounter Summary ---
Author Organization [facility] Address [address], [place] [address] Care Team Providers Care Motor Operator Name Role Phone Cyndee Craranza MD Primary Care Provider [phone] Reason for Visit * Reason Comments Pre-visit Planning Entered automaticall y based on patient selection in [employer]. Encounter Details Date Type Department Care Team (Late st Contact Info) Description 11/21/2023 3:35 PM CDT E-Visit [facility] Pain Management [address] [facility] [place], [place] [phone] Sudheer Hussein DO [address] [place], [place] [phone] Chief Comp: Pre-visit Planning Social History Tobacco Use Types Packs/Day Years [...] (Latest Contact Info) Description 01/18/2024 7:10 AM FLOW SPECIALIST Hospital Encounter [facility] Operating Room [address] [place] [phone] Getachew Chappell MD [address] [place], [place] [phone] 01/18/2024 7:10 AM FLOW SPECIALIST - 01/18/2024 9:30 AM FLOW SPECIALIST Surgery Operating Room [address] [place] [phone] Getachew Chappell MD [address] [place] [address] PLACEMENT DORSAL COLUMN STIMULATOR 01/27/2024 1:00 PM FLOW SPECIALIST Appointment [facility] Neurology EEG/EMG [address] [place] [address] Kendell Perez MD [address] [place] [address] 02/01/2024 1:00 PM FLOW SPECIALIST Appointment [facility] Neurosurgery/Ortho Spine [address] [place] [address] 02/14/2024 9:40 AM FLOW SPECIALIST Appointment [facility] Neurosurgery/Ortho Spine [address] [place] [address] Getachew Chappell MD [address] [place] [address] Scheduled Procedures Name Priority Associated Diagnoses Date/Ti me PLACEMENT DORSAL COLUMN STIMULATOR (SDEX) Same Day Recovery Low back pain radiating to both legs 01/18/2024 7:10 AM FLOW SPECIALIST documented as of this encounter Visit Diagnoses Not on filedocumented in this encounter Care Teams Motor Operator Relationship Specialty Start Date End Date Cyndee Carranza MD [address] [place] [address] PCP - General 01/21/23 documented as of this encounter
--- OUTSIDE RECORDS SUMMARY | 2024-01-10 14:52 | XMS_ITS | Clinical Summary ---
Author Organization [facility] Address [address] [place] [address] Care Team Providers Care Promotions Representative Name Role Phone Cyndee Carranza MD Primary Care Provider [phone] Source Comments You are receiving this document [...] for each transition of care or referral. [facility] Allergies Active Allergy Reactions Criticality Noted Date [...] AT BEDTIME NEEDED 180 Tablet 07/27/2023 Active gabapentin (NEURONTIN) 300 MG capsule Take 1 Capsule (300 mg) by mouth three times a day. 08/17/2023 Active HYDROcodone-acetamin ophen (NORCO) 5-325 MG tablet Take 1 Tablet by mouth every 4 hours as needed for Pain. 09/10/2023 Active pravastatin (PRAVACHOL) 40 MG tablet Take 1 Tablet (40 mg) by mouth daily. 08/02/2023 Active famotidine (PEPCID) 10 MG tablet Take 2 Tablets (20 mg) by mouth two times a day. Active cephalexin (KEFLEX) 500 MG capsule Take 1 Capsule (500 mg) by mouth two times a day. 10/15/2023 Active DULoxetine (CYMBALTA) 30 MG capsule Take 1 Capsule (30 mg) by mouth daily. Active DULoxetine HCl 60 MG CSDR Take 1 Capsule (60 mg) by mouth daily. 01/11/2023 Active HYDROcodone-acetamin ophen (NORCO) 5-325 MG tablet Take 1 Tablet by mouth two times daily as needed for Pain. 12 Tablet 11/18/2023 Active Active Problems Problem Noted Date Diagnosed Date Low back pain radiating to both legs 12/17/2023 Follow-up examination 07/29/2023 Lumbar radiculitis 06/30/2023 TIA (transient ischemic attack) 04/01/2022 Overview (04/01/2022): Seen in ED 03/24/22. Work up in progress. 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 07/12/2018 Screening for malignant neoplasm of cervix 03/05 Overview (02/25/2017): Per history: Conization in her 30's 2009 ASCUS negative hpv [id number] NILM 2014 ASCUS, hpv negative 2017 NILM, [...] (01/18/2019): Added automatically from request for surgery [id number] Endometrial polyp 01/18/2019 03/01/2019 Overview (01/18/2019): Added automatically from request for surgery [id number] Obesity 03/18/2011 05/29/2020 Overview (10/07/2016): weight concerns Encounters Date Type Department Care Team Description 12/23/2023 10:55 AM FILTER CHANGING TECHNICIAN E-Visit [facility] Neurosurgery/Ortho Spine [address] [place] [address] Getachew Chappell MD Chief Comp: QUESTIONS, GENERAL 12/20/2023 5:55 AM FILTER CHANGING TECHNICIAN E-Visit [facility] Neurosurgery/Ortho Spine [address] [place] [address] Getachew Chappell MD Dx: Lumbar radiculitis (Primary Dx) 12/17/2023 11:10 AM CDT Ancillary Procedure [facility] Radiology [address] [place] [address] Getachew Chappell MD Low back pain radiating to both legs 12/17/2023 10:00 AM CDT Office Visit [facility] Neurosurgery/Ortho Spine [address] [place] [address] Getachew Chappell MD Low back pain radiating to both legs (Primary Dx); Pre-op testing 11/26/2023 9:30 AM CDT E-Visit [facility] Pain Management [address] [place] [address] Sudheer Hussein DO Chief Comp: QUESTIONS, GENERAL 11/24/2023 10:00 AM CDT Nursing Visit [facility] Pain Management [address] [place] [address] Spinal cord stimulator status (Primary Dx) 11/24/[address] [facility] Pain Management [address] [place] [address] Sudheer Hussein DO Referral 11/21/2023 3:35 PM CDT E-Visit [facility] Pain Management [address] [place] [address] Sudheer Hussein DO Chief Comp: Pre-visit Planning 11/18/2023 3:00 PM CDT - 11/18/2023 3:50 PM CDT Surgery [facility] Same [facility] [address] [place] [address] Sudheer Hussein DO PLACEMENT SPINAL CORD STIMULATOR TRIAL 11/18/2023 2:57 PM CDT Anesthesia Event [facility] Surgery [place] [address] [place] [address] Woody Nicole MD Cooley, Sean A, MD 11/18/2023 1:30 PM CDT - 11/18/2023 4:41 PM CDT Hospital Encounter [facility] Surgery [place] [address] [place] [address] Sudheer Hussein DO Lumbar radiculitis (Primary Dx) Discharge Disposition: Home 11/18/2023 12:30 PM CDT Ancillary Procedure [facility] [address] [place] [address] Sudheer Hussein DO Lumbar radiculitis 11/09/[address] [facility] Pain Management [address] [place] [address] Sudheer Hussein DO Outside Records on File (Pre-op exam 11/08/23) 11/06/2023 6:20 AM CDT E-Visit [facility] Pain Management [address] [place] [address] Sudheer Hussein DO Chief Comp: QUESTIONS, GENERAL 10/25/2023 Refill [facility] [address] [place] [address] Reny Crooks, JEWEL SAWYER, [employer] Refill (famotidine (PEPCID) 20 MG tablet [Pharmacy Med Name: FAMOTIDINE 20MG TABLETS]) 10/13/2023 2:45 PM CDT E-Visit [facility] Pain Management [address] [place] [address] Sudheer Hussein DO Chief Comp: QUESTIONS, GENERAL from Last 3 Months Immunizations Name Administration Dates Next Due Flu Vac (3+ yrs) 11/26/2020, 7,10/22/2012,2011,11/29/2009 Influenza ([place] Only) (Flul aval Quad 0.5, 3+ yrs) 10/27/2016 Influenza IIV4 (Quadrivalent ) 0.5mL ([id number]) 11/06/2019,10/25/2018,10/26/2017,2015,10/18/2014,10/31/2013 Influenza IIV4 (Quadrivalent ) Fluzone, 65+ [...] Sign Reading Time Taken Comments Blood Pressure 124/85 12/17/2023 10:00 AM CDT Pulse 81 12/17/2023 10:00 AM CDT Temperature 37.7 C (99.8 F) 12/17/2023 10:00 AM CDT Respiratory Rate 14 11/18/2023 4:28 PM CDT Oxygen Saturation 96% 11/18/2023 4:28 PM CDT Inhaled Oxygen Concentration - - Weight 82.3 kg (181 lb 6 oz) 12/17/2023 10:00 AM CDT Height 167.1 cm (5' 5.79) 12/17/2023 10:00 AM C DT Body Mass Index 29.46 12/17/2023 10:00 AM CDT Plan of Treatment Upcoming Encounters Date Type Department Care Team (Latest Contact Info) Description 01/18/2024 7:10 AM FILTER CHANGING TECHNICIAN Hospital Encounter Operating Room [address] [place] [address] Getachew Chappell MD [address] [place] [address] 01/18/2024 7:10 AM FILTER CHANGING TECHNICIAN - 01/18/2024 9:30 AM FILTER CHANGING TECHNICIAN Surgery Operating Room [address] [place] [address] Getachew Chappell MD [address] [place] [address] PLACEMENT DORSAL COLUMN STIMULATOR 01/27/2024 1:00 PM FILTER CHANGING TECHNICIAN Appointment [facility] Neurology EEG/EMG [address] [place] [address] Kendell Perez MD [address] [place] [address] 02/01/2024 1:00 PM FILTER CHANGING TECHNICIAN Appointment [facility] Neurosurgery/Ortho Spine [address] [place] [address] 02/14/2024 9:40 AM FILTER CHANGING TECHNICIAN Appointment [facility] Neurosurgery/Ortho Spine [address] [place] [address] Getachew Chappell MD [address] [facility] [place] [address] Scheduled Procedures Name Priority Associated Diagnoses Date/Ti me PLACEMENT DORSAL COLUMN STIMULATOR (SDEX) Same Day Recovery Low back pain radiating to both legs 01/18/2024 7:10 AM FILTER CHANGING TECHNICIAN Health Maintenance Due Date Last Done Comments RSV (1 - Risk 60-74 years 1-dose series) 2016 Cholesterol 11/28/2022 11/28/2021, 04/17, 05/28/2020, Additional history exists Mammogram 11/28/2022 11/28/2021, 11/15, 08/29/2019, Additional history exists Medicare Annual Wellness Visit 02/15/2023 06/16/2022, 05/19/2021 Prediabetes: HGBA1C 07/03/2023 07/02/2022, 05/15/2021, 05/28/2020, Additional history exists MTM Targeted 09/28/2024 09/29/2023, 09/29/2023 Colonoscopy 09/03/2027 09/02/2017, 0902/2009 (Historical Completion), 10/16/2009, Additional history exists DTaP/Tdap/Td (3 - Tdap) 06/16/2032 06/17/19, 03/18/2011, 12/25/2002, Additional history exists Hep C Screening (Preventive Services) Completed 12/17/2011 Cervical Cancer Screening Discontinued 2017, 02/27/2014, 06/04/2011, Additional history exists Zoster/Shingles Completed 09/20/2019, 12/21/2018 Dexa Completed 07/21/2021 Pneumococcal 65+ Yrs Completed 06/16/2022, 05/19/2021, 11/29/2009 COVID-19 Vaccine Completed 10/29/2023, , 11/08/2021, Additional history exists Influenza Completed 10/29/2023, 10/16, [...] on patient's age to complete this topic Infant RSV Aged Out No longer eligi ble based on patient's age to complete this topic MCV4 Aged Out No longer eligi ble based on patient's age to complete this topic Medical Devices Implanted Type [facility] Device Identifier Shelf Expiration Date Model / Serial / Lot Infinion 16 Contact Trial Lead Kit Implanted:Qty: 1 on 11/18/2023 by Sudheer Hussein DO at [facility] Same Day Surgery DEVICE N/A: [facility] 09/20/2025 [facility] [id number] 0E / [id number] / Infinion 16 Contract Trial Lead Kit Implanted:Qty: 1 on 11/18/2023 by Sudheer Hussein DO at [facility] Same Day Surgery DEVICE N/A: [facility]-2316-5 0E / [id number] / 1 X 16 Or Cable And Extension Implanted:Qty: 1 on 11/18/2023 by Sudheer Hussein DO at [facility] Same Day Surgery DEVICE N/A: [facility] 06/27/2025 [facility] [id number] / / [id number] 1 X 16 Or Cable And Extension Implanted:Qty: 1 on 11/18/2023 by Sudheer Hussein DO at [facility] Same Day Surgery DEVICE N/A: [facility] 07/18/2025 [facility] [id number] / / [id number] Optimus Trial Patient - [id number] Implanted:Qty: 1 on 11/18/2023 by Sudheer Hussein DO at [facility] Same Day Surgery DEVICE N/A: [facility] Neuro Surg [place]-6500-7 2 / / [id number] Procedures Procedure Name Priority Date/Time Associated Diagnosis Comments XR THORACIC SPINE 2 VIEWS Routine 12/17/2023 11:14 AM CDT Low back pain radiating to both legs MRSA/MSSA PRE-OP CULTURE Routine 12/17/2023 11:07 AM CDT Pre-op testing INTERVENTIONAL PAIN PROCEDURE Routine 11/18/2023 3:21 PM CDT Lumbar radiculitis PLACEMENT SPINAL CORD STIMULATOR TRIAL 11/18/2023 2:48 PM CDT Lumbar radiculitis GLUCOSE, WHOLE BLOOD POCT Routine 11/18/2023 2:11 PM CDT HGB A1C Routine 07/02/2022 9:15 AM CDT [...] TEST, ROUTINE Routine 02/22/2017 4:1 9 PM FILTER CHANGING TECHNICIAN Screening for malignant neoplasm of cervix HEPATITIS C ANTIBODY, WITH REFLEX Routine 12/17/2011 9:18 AM CDT Special screening examination for viral disease from Last 3 Months or Most Recently Relevant to Health Maintenance Results * XR Thoracic Spine 2 Views (12/17/2023 11:14 AM CDT) Anatomical Region Laterality Modality Spine, T-Spine Computed Radiogr aphy 12/17/2023 11:1 4 AM CDT Narrative 12/20/2023 8:40 AM FILTER CHANGING TECHNICIAN EXAM: XR THORACIC SPINE 2 VIEWS LOCATION: [place] DATE: 12/17/2023 INDICATION: Pre op planning, Low back pain, unspecified, Pain in right leg, Pain in left leg COMPARISON: MRI lumbar spine without contrast 01/04/2023. IMPRESSION: Osteopenia. Thoracic vertebral body heights are maintained. Mild thoracic spondylosis. Mildly exaggerated thoracic kyphosis. The lungs are clear. Procedure Note Tre Pena MD - 12/20/2023 EXAM: XR THORACIC SPINE 2 VIEWS LOCATION: [place] DATE: 12/17/2023 INDICATION: Pre op planning, Low back pain, unspecified, Pain in rightleg, Pain in left leg COMPARISON: MRI lumbar spine without contrast 01/04/2023. IMPRESSION: Osteopenia. Thoracic vertebral body heights are maintained.Mild thoracic spondylosis. Mildly exaggerated thoracic kyphosis. The lungsare clear. Getachew Chappell MD RAD GD * MRSA/MSSA Pre-op Culture (12/17/2023 11:07 AM CDT) Staph aureus Culture (SACUL) No Staphylococcus aureus Isolated 12/18/2023 11:56 AM CDT [facility] Swab (Source Required) ENTIRE ANTERIOR NARIS / Unknown Non-blood Collection / Unknown 12/17/2023 11:07 AM CDT 12/17/2023 12:09 PM CDT Getachew Chappell MD LAB_1 Performing Organization Address City/State/[facility] Co de Phone Number [address] [address], [facility] * Interventional Pain Procedure (11/18/2023 3:21 PM CDT) Anatomical Region Laterality Modality X-Ray Angiograph y Narrative 11/18/2023 3:21 PM CDT This is an imaging order that has been read externally. Sudheer Hussein DO RAD GD * Glucose, Whole Blood POCT (11/18/2023 2:11 PM CDT) Glucose, Whole Blood 83 70 - 180 mg/dL 11/18/2023 2:12 PM CDT [facility] Performing Location RCLABHPSDS 11/18/2023 2:12 PM CDT [facility] Blood 11/18/2023 2:11 PM CDT 11/18/2023 2:12 PM CDT Sudheer Hussein DO LAB_1 Performing Organization Address City/[facility]/ZIP Co de Phone Number [address] * (ABNORMAL) Hgb A1C (07/02/2022 9:15 AM CDT) Pathologist [facility] Hemoglobin A1C 6.0(H) <=5.6 % 07/02/2022 4:25 PM CDT [facility] Estimated Average Glucose (Calc) 126 < 117 mg/dL 07/02/2022 4:25 PM CDT [facility] Comment:Estimated average gl ucose (eAG) converts A1c into glucose units (mg/dL) and estimates average glucose over the past approximately 3 months. The eAG reference interval (<117 mg/dL) corresponds to an A1c of <5.7%. Blood Venipuncture / Unknown 07/02/2022 9:15 AM CDT 07/02/2022 9:15 AM CDT Narrative [facility] - 07/02/2022 4:25 PM CDT For patients not previously diagnosed with diabetes: 5.7-6.4%: Increased risk for diabetes 6.5% and greater: Diagnostic for diabetes For patients diagnosed with diabetes: <8.0%: Goal of therapy for ages 18-75 Clinicians may recommend a higher or lower goal for specific individuals. Leena Spivey MD LAB_1 Performing Organization Address City/[facility]/ZIP Co de Phone Number [facility] [id number] [place] [address] * (ABNORMAL) Lipid Panel and Direct LDL(If Needed) (11/28/2021 9:18 AM CDT) Cholesterol 224(H) 0 - 199 mg/dL 11/28/2021 5:49 PM CDT [facility] Triglyceride 260(H) <=149 mg/dL 11/28/2021 5:49 PM CDT [facility] HDL Cholesterol 52 >=40 mg/dL 11/28/2021 5:49 PM CDT [facility] LDL, Calculated 120 <130 mg/dL 11/28/2021 5:49 PM CDT [facility] Non HDL Chol, Calculated 172(H) <=159 mg/dL 11/28/2021 5:49 PM CDT [facility] Cholesterol/HDL Ratio 4.3 11/28/2021 5:49 PM CDT [facility] Hours Fasting 2 11/28/2021 5:49 PM CDT [facility] Blood Venipuncture / Unknown 11/28/2021 9:18 AM CDT 11/28/2021 9:18 AM CDT Leena Spivey MD LAB_1 Performing Organization Address City/State/[facility] Co de Phone Number [facility] [address] [address] [phone] [facility] [address] [place] [phone], [facility] [phone] * MM Mammogram Screening Bilat W 3D [...] and priors to 09/12/2007 BILATERAL SCREENING MAMMOGRAM FINDINGS: Bilateral screening mammogram was performed with the assistance of Computer-Aided Detection and breast tomosynthesis. The breasts have scattered areas of fibroglandular density. There are benign findings, not significantly changed. There is no radiographic evidence of malignancy. Leena Spivey MD RAD LUIS MIGUEL * DXA Bone Density Spine/Hip (07/21/2021 3:11 PM CDT) Anatomical Region Laterality Modality Lower Extremity, Spine, Hip, L-Spine Other Narrative 07/22/2021 11:57 AM CDT [facility] and Model of Instrument: [employer] Demographics Age: 66 y.o. Gender: female Height: [...] AP spine (L1-L4) Left hip (neck) Left hip (total) BMD (gm/cm2) 0.813 0.644 0.723 T score -2.1 -1.8 -1.8 Z score -0.3 -0.3 -0.6 %change from previous scan dated: FRAX Score: 10 YR Risk Hip Fracture % 1.3% Typical threshold to start therapy in patients is a 10-year risk of hip fracture >3%. Clinician s judgment and/or patient preferences may indicate [...] and fall prevention. *Consider follow up DXA in 3-5 years, unless clinical circumstances change. WHO DEFINITIONS: Normal BMD: T-score ? -1.0 Osteopenia: T-score between -1.0 and -2.5 Osteoporosis: T-score ? -2.5 FRAX Score : The FRAX algorithms give the 10-year probability of fracture. The output is a 10-year probability of hip fracture and the 10-year probability of a major osteoporotic fracture (clinical spine, forearm, hip or shoulder fracture). The FRAX score takes into account the bone density, but also age, gender, weight, height, previous fracture, parental hip fracture, smoking status, glucocorticoid intake, history of RA, secondary osteoporosis, and high alcohol intake in determining fracture risk in patients with osteopenia and osteoporosis. FRAX and Fracture Risk Categories in terms of major osteoporotic fracture risk (clinical spine, forearm, hip, or shoulder): < 10% = low fracture risk ? 10% and <15% = mildly increased fracture risk ? 15% and <20% = moderately increased fracture risk ? 20% and <30% = high fracture risk ? 30% = very high fracture risk A clinician may consider FDA-approved medical therapies in postmenopausal women and men aged 50 years and older, if one or more of the following is present (clinical correlation required and therapy may not always be indicated): 1. The patient has a hip or vertebral (clinical or morphometric) fracture. 2. T-score ? -2.5 at the femoral neck, hip, or spine after appropriate evaluation to exclude secondary causes. 3. Low bone mass (T-score between -1.0 and -2.5 at the femoral neck, hip or spine) and a 10-year probability of a hip fracture ? 3% or a 10-year probability of a major osteoporosis-related fracture ? 20% based on the FRAX scores. 4. Clinicians judgment and/or patient preferences may result in a decision to patients with 10-year fracture probabilities above or below these levels. Leena Spivey MD RAD DEXA * COLONOSCOPY [[id number]] (09/02/2017 11:26 AM CDT) 09/02/2017 11:2 6 AM CDT Narrative GI ([facility]) - 09/02/2017 11:56 AM CDT Indications: Diarrhea, Family history of colon cancer in a distant relative, Follow-up of microscopic colitis Providers: Sampson Crocker MD, Karolyn Hill, EMILEE, Nae Pop LPN Patient Profile: This is [...] and oxygen saturations were monitored continuously. The [id number] was introduced through the anus and advanced to the terminal ileum, with identification of the appendiceal orifice and IC valve. The colonoscopy was performed without difficulty. The patient tolerated the procedure well. The quality of the bowel preparation was evaluated using the BBPS (Maple Bowel Preparation Scale) with scores of: Right [...] bowel movement. Procedure Code(s): --- Professional --- 90044 G0500 --- Technical --- 47738 G0500 Diagnosis Code(s): --- Professional --- K64.8 R19.7 Z80.0 K52.839 K57.30 --- Technical --- K64.8 R19.7 Z80.0 K52.839 K57.30 CPT copyright 2016 [employer]. All rights reserved. The codes documented in this report are preliminary and upon paver review may be revised to meet current compliance requirements. Attending Participation: Sampson Crocker MD 09/02/2017 11:55:57 AM This report has been signed electronically. Number of Addenda: 0 Note Initiated On: 09/02/2017 11:26 AM Procedure Note Sampson Crocker MD - 09/02/2017 Indications: Diarrhea, Family history of colon cancer in a distant relative, Follow-up of microscopic colitis Providers: Sampson Crocker MD, Karolyn Hill, EMILEE, Nae Pop LPN Patient Profile: This is [...] and oxygen saturations were monitored continuously. The [id number] was introduced through the anus and advanced to the terminal ileum, with identification of the appendiceal orifice and IC valve. The colonoscopy was performed without difficulty. The patient tolerated the procedure well. The quality of the bowel preparation was evaluated using the BBPS (Maple Bowel Preparation Scale) with scores of: Right [...] bowel movement. Procedure Code(s): --- Professional --- 76430 G0500 --- Technical --- 73057 G0500 Diagnosis Code(s): --- Professional --- K64.8 R19.7 Z80.0 K52.839 K57.30 --- Technical --- K64.8 R19.7 Z80.0 K52.839 K57.30 CPT copyright 2016 [employer]. All rights reserved. The codes documented in this report are preliminary and upon paver review may be revised to meet current compliance requirements. Attending Participation: Sampson Crocker MD 09/02/2017 11:55:57 AM This report has been signed electronically. Number of Addenda: 0 Note Initiated On: 09/02/2017 11:26 AM Sampson Crocker MD DIGESTIVE CARE Performing Organization Address [facility] Co de Phone Number ([facility] [place], [place] * Pap Test, Routine (02/22/2017 4:19 PM FILTER CHANGING TECHNICIAN) Cytology, Pap (NOTE) Store Protection Specialist Cytology Report Patient Name: ROGERS LINN Taken: 02/22/2017 Received: 02/23/2017 Reported: 02/25/2017 Physician(s): LEENA SPIVEY Source of Specimen Pap Test, Routine Cervical/Endocervi raul: Specimen Adequacy Satisfactory for evaluation. Endocervical component present. Final Cytologic Interpretation/Res ult NEGATIVE FOR INTRAEPITHELIAL LESION OR MALIGNANCY (NILM) *Electronically Signed Out By Merced RASMUSSEN(ASCP)* Merced RASMUSSEN(ASCP) Pap Smear History Date of Last Menstrual Period: 04/06/2011 Microscopic Description Microscopic examination is performed. [facility] Department of Pathology [address] [place] [id number] [facility] 02/22/2017 4:19 PM FILTER CHANGING TECHNICIAN 02/23/2017 3:39 PM FILTER CHANGING TECHNICIAN Leena Spivey MD LAB_1 Performing Organization Address [facility] Co de Phone Number [facility] [employer] [phone] * HEPATITIS C ANTIBODY, WITH REFLEX (12/17/2011 9:18 AM CDT) Anti-HCV Negative (Non Reactive) [facility] Comment:Does Not Rule Out In fection with HCV 12/17/2011 9:18 AM CDT 12/17/2011 9:35 AM CDT Leena Spivey MD LAB_1 [email or web address] [address] [phone] from Last 3 Months or Most Recently Relevant to Health Maintenance Advance Directives * Full Code (Latest Code Status on File) Date Activated Date Inactivated Comments 12/22/2012 6:16 AM 12/22/2012 1:40 PM * Full Code Date Activated Date Inactivated Comments 04/10/2008 12:22 PM 04/10/2008 5:14 PM Care Teams Promotions Representative Relationship Specialty Start Date End Date Cyndee Carranza MD [address] [place] [address] PCP - General 01/21/23
--- OUTSIDE RECORDS SUMMARY | 2024-01-10 14:52 | XMS_ITS | Encounter Summary ---
Author Organization Formerly [facility] Address [address], [place] [address] Care Team Providers Care Unishear Operator Name Role Phone Cyndee Carranza MD Primary Care Provider [phone] Reason for Visit * Reason Comments QUESTIONS, GENERAL Entered automaticall y based on patient selection in [employer]. Encounter Details Date Type Department Care Team (Late st Contact Info) Description 11/06/2023 6:20 AM CDT E-Visit [facility] Pain Management [address] [facility]. [place], [place] [phone] Sudheer Hussein, [address] [place], [place] [id number] Chief Comp: QUESTIONS, GENERAL Social History Tobacco [...] (Latest Contact Info) Description 01/18/2024 7:10 AM ENVIRONMENTAL AIDE Hospital Encounter Operating Room [address] [place] [address] Getachew Chappell MD [address] [place] [address] 01/18/2024 7:10 AM ENVIRONMENTAL AIDE - 01/18/2024 9:30 AM ENVIRONMENTAL AIDE Surgery Operating Room [address] [place] [address] Getachew Chappell MD [address] [place] [address] PLACEMENT DORSAL COLUMN STIMULATOR 01/27/2024 1:00 PM ENVIRONMENTAL AIDE Appointment [facility] Neurology EEG/EMG [address] [place] [address] Kendell Perez MD [address] [place] [address] 02/01/2024 1:00 PM ENVIRONMENTAL AIDE Appointment [facility] Neurosurgery/Ortho Spine [address] [place] [address] 02/14/2024 9:40 AM ENVIRONMENTAL AIDE Appointment [facility] Neurosurgery/Ortho Spine [address] [place] [address]. [place] [address] Getachew Chappell MD [address] [place] [address] Scheduled Procedures Name Priority Associated Diagnoses Date/Ti me PLACEMENT DORSAL COLUMN STIMULATOR (SDEX) Same Day Recovery Low back pain radiating to both legs 01/18/2024 7:10 AM ENVIRONMENTAL AIDE documented as of this encounter Visit Diagnoses Not on filedocumented in this encounter Care Teams Unishear Operator Relationship Specialty Start Date End Date Cyndee Carranza MD [address] [place] [address] PCP - General 01/21/23 documented as of this encounter
--- OUTSIDE RECORDS SUMMARY | 2024-01-10 14:52 | XMS_ITS | Encounter Summary ---
Author Organization [facility] Address [address], [place] [address] Care Team Providers Care Plan Consultant Name Role Phone Cyndee Carranza MD Primary Care Provider [phone] Reason for Visit * Reason Comments QUESTIONS, GENERAL Entered automaticall y based on patient selection in [employer]. Encounter Details Date Type Department Care Team (Late st Contact Info) Description 12/23/2023 10:55 AM SENIOR TRAINING AND DEVELOPMENT REP E-Visit [facility] Neurosurgery/Ortho Spine [address] [facility]. [place], [place] [phone] Getachew Chappell MD [address] [place] [phone] Chief Comp: QUESTIONS, GENERAL Social History Tobacco [...] (Latest Contact Info) Description 01/18/2024 7:10 AM SENIOR TRAINING AND DEVELOPMENT REP Hospital Encounter RH Operating Room [address] [place] [address] Getachew Chappell MD [address] [place], [place] [phone] 01/18/2024 7:10 AM SENIOR TRAINING AND DEVELOPMENT REP - 01/18/2024 9:30 AM SENIOR TRAINING AND DEVELOPMENT REP Surgery Operating Room [address] [place] [address] Getachew Chappell MD [address] [place] [address] PLACEMENT DORSAL COLUMN STIMULATOR 01/27/2024 1:00 PM SENIOR TRAINING AND DEVELOPMENT REP Appointment [facility] Neurology EEG/EMG [address] [place] [address]. [place] [address] Kendell Perez MD [address] [place] [address] 02/01/2024 1:00 PM SENIOR TRAINING AND DEVELOPMENT REP Appointment [facility] Neurosurgery/Ortho Spine [address] [facility] [place] [address] 02/14/2024 9:40 AM SENIOR TRAINING AND DEVELOPMENT REP Appointment [facility] Neurosurgery/Ortho Spine [address] [facility] [place] [address] Getachew Chappell MD [address] [place] [address] Scheduled Procedures Name Priority Associated Diagnoses Date/Ti me PLACEMENT DORSAL COLUMN STIMULATOR (SDEX) Same Day Recovery Low back pain radiating to both legs 01/18/2024 7:10 AM SENIOR TRAINING AND DEVELOPMENT REP documented as of this encounter Visit Diagnoses Not on filedocumented in this encounter Care Teams Plan Consultant Relationship Specialty Start Date End Date Cyndee Carranza MD [address] [place] [address] PCP - General 01/21/23 documented as of this encounter
--- OUTSIDE RECORDS SUMMARY | 2024-01-10 14:52 | XMS_ITS | Encounter Summary ---
Author Organization [facility] Address [address] [place] [address] Care Team Providers Care Behavioral Pediatrician Name Role Phone Cyndee Carranza MD Primary Care Provider [phone] Reason for Referral * Procedure/Equipment (Routine) - New Request Specialty Diagnoses / Procedures Referred By Laura whitlock Referred To Contact Diagnoses Lumbar radiculitis Procedures Interventional Pain Procedure Sudheer Hussein DO [address] [place] [address] Referral ID Status Reason Start Date Expiration Date V isits Requested Visits Authorized [id number] New Request 11/18/2023 02/16/2025 1 1 Reason for Visit * Procedure/Equipment (Routine) - Authorized Specialty Diagnoses / Procedures Referred By Laura whitlock Referred To Contact Diagnoses Lumbar radiculitis Procedures Case Request OR - Neurosurgery: PLACEMENT SPINAL CORD STIMULATOR [place] [address] Referral ID Status Reason Start Date Expiration Date V isits Requested Visits Authorized [id number] Authorized 08/04/2023 11/02/2024 1 1 Encounter Details Date Type Department Care Team (Latest Contact Info) Description 11/18/2023 1:30 PM CDT - 11/18/2023 4:41 PM CDT Hospital Encounter [facility] [address] [place] [address] Sudheer Hussein DO [address] [place] [address] Lumbar radiculitis (Primary Dx) Discharge Disposition: Home Social History Tobacco Use [...] Sign Reading Time Taken Comments Blood Pressure 120/60 11/18/2023 4:28 PM CDT Pulse 71 11/18/2023 4:28 PM CDT Temperature 36.8 C (98.2 F) 11/18/2023 3:31 PM CDT Respiratory Rate 14 11/18/2023 4:28 PM CDT Oxygen Saturation 96% 11/18/2023 4:28 PM CDT Inhaled Oxygen Concentration - - Weight 82.6 kg (182 lb) 11/15/2023 1:32 PM CDT Height 162.6 cm (5' 4) 11/15/2023 1:32 PM CDT Body Mass Index 31.24 11/15/2023 1:32 PM CDT documented in this encounter Discharge Instructions * Discharge Instructions* Licha Vallecillo RN - 11/18/2023 3:16 PM CDT Discharge Instructions for: Orquidea Ortiz Thank you for choosing Critical access hospital[facility] as your provider. A copy of your discharge instructions has been given to you. Please read the instructions carefully. The surgery nurse will review thisinformation with you and answer your questions. General Information Surgeon(s): Sudheer Hussein DO Procedure(s): PLACEMENT SPINAL CORD STIMULATOR TRIAL Surgeon Orders/Follow Up Appointment Interventional Pain Procedure Standing Status: Future Standing Exp. Date: 11/17/24 See case request procedure Your clinician has recommended an appointment with Critical access hospital Pain Intervention. You may call [phone] to schedule your appointment. Procedures Other (comments) Imaging Department may modify order per department protocol. Revisions will be made without the need for a new order to be placed. Yes Spinal Cord Stimulator Therapy - Trial Instructions Follow up as scheduled Follow up with @encprov@ as scheduled. Discharge Instructions for TRIAL PHASE Spinal Cord Stimulator Therapy Call [phone] with questions about the wound: Contact the device high school admissions representative with questions about programming the unit. Wound Care: Patients must be seen in the office within seven days after surgery. No showers until after you have been to the office (only sponge baths). Stay away from the leads/incision sites. DO NOT TOUCH THE DRESSING OF THE WOUND. If you feel it needs to be changed, contact the office. Trial stimulator patients will usually have their leads removed at their wound check appointment. Reprogramming may be necessary at that time. Immediate Post-operative Activity Recommendations: During the trial phase you are to be active in order to experience the benefits of the stimulator. Try to get out and walk and maximize your function during this time. Note that excessive twisting, and bending past 45 degrees could cause the stimulator lead to move slightly. This is not concerning if it occurs and should not be a reason to limit your activity during the trial phase. Other Precautions: Do not operate heavy machinery (i.e. automobile) with the stimulator ???on?? . If you develop an infection symptoms such as night sweats, fever, chills, etc. of any kind, please consult with our office. Contact Information After hours call the Careline at [phone]. Please call your clinic during business hours. Physical Medicine and Rehab: [phone] Neurosurgery: [phone] Interventional Pain: [phone] Anesthesia Minor: Today you received Minor Sedation: Rest indoors the day of surgery, then advance to normal activity the next day. Let's talk about what to expect after receiving anesthesia. After anesthesia, reactions are slow and some patients may become lightheaded or dizzy. The following safety precautions are recommended: Don't drink alcoholic beverages. Don't use any other drugs than those ordered by your physician. Don't drive a car or any other vehicle. Don't work with machinery or power tools. Be careful walking. Be extra careful walking up and down stairs. Additional Information Let's talk about the DANGER SIGNALS to watch for after you go home. I should call my clinic if I experience any of the following: *Temperature higher than 101 degrees Fahrenheit *Redness that has spread *Persistent bleeding *Infected drainage from injection site *Reaction to new medications *Severe pain *Swelling Medications You can resume your home medications. [...] it. It is our goal to make [facility] your hospital of choice and want you to feel confident in recommending [facility] to your family and friends. [...] mouth every 6 hours as needed. 11/02/2022 budesonide (ENTOCORT EC) 3 MG capsule Take 2 Capsules (6 mg) by mouth daily. 03/31/2023 Calcium Carb-Cholecalciferol 500-3.125 MG-MCG TABS Take 2 Tablets by mouth daily. 08/31/2021 cephalexin (KEFLEX) 500 MG capsule Take 1 Capsule (500 mg) by mouth two times a day. 10/15/2023 cholecalciferol (VITAMIN D3) 25 MCG (1000 UT) tablet Take 1 Tablet (1,000 Units) by mouth daily. 2 tabs/day DULoxetine (CYMBALTA) 30 MG capsule Take 1 Capsule (30 mg) by mouth daily. DULoxetine (CYMBALTA) 60 MG capsule Take 1 Capsule (60 mg) by mouth daily. 06/22/2023 DULoxetine HCl 60 MG CSDR Take 1 Capsule (60 mg) by mouth daily. 01/11/2023 famotidine (PEPCID) 10 MG tablet Take 2 Tablets (20 mg) by mouth two times a day. famotidine (PEPCID) 20 MG tablet TAKE 1 TABLET(20 MG) BY MOUTH TWICE DAILY 180 Tablet 07/26/2023 gabapentin (NEURONTIN) 300 MG capsule Take 1 Capsule (300 mg) by mouth three times a day. 08/17/2023 gabapentin (NEURONTIN) 300 MG capsule Take 2 Capsules (600 mg) by mouth three times a day. 06/16/2023 HYDROcodone-acetaminoph en (NORCO) 5-325 MG tablet Take 1 Tablet by mouth every 4 hours as needed for Pain. 09/10/2023 HYDROcodone-acetaminoph en (NORCO) 5-325 MG tablet Take 1 Tablet by mouth two times daily as needed for Pain. 12 Tablet 11/18/2023 LORazepam (ATIVAN) 1 MG tablet Take 1 Tablet (1 mg) by mouth every 8 hours as needed. multivitamin (AKA THERAGRAN) tablet Take 1 Tablet by mouth daily. 30 Tab 11 09/04/2009 pravastatin (PRAVACHOL) 40 MG tablet Take 1 Tablet (40 mg) by mouth daily. 08/02/2023 pravastatin (PRAVACHOL) 40 MG tabletIndications:Hyper lipidemia with target LDL less than 130 (HRC) TAKE 1 TABLET(40 MG) BY MOUTH DAILY AT BEDTIME 90 Tablet 04/30/2023 traZODone (DESYREL) 50 MG tablet TAKE 1 TO 2 TABLETS BY MOUTH AT BEDTIME NEEDED 180 Tablet 07/27/2023 documented as of this encounter Progress Notes * Licha Vallecillo RN - 11/18/2023 4:35 PM CDT I completed a full assessment and assessments as ordered and per policy on this patient during my work shift. Reassessments completed during my work shift are unchanged unless documented. documented in this encounter Procedure Notes * Sudheer Hussein DO - 11/18/2023 1:30 PM CDT Procedure: Percutaneous trial, spinal cord stimulation, 2 leads Dx: 1. Lumbar radiculitis Vendor: [facility] Surgeon: Dr. Hussein Date of procedure: 11/18/2023 Consent: The risks and benefits were discussed with the pt who agreed to the above procedure. She signed the consent form. Procedure description: Pt received Ancef IV 2 grams The patient was brought to OR and placed prone on the fluoroscopy table. The lumbar spine was prepared and draped in the usual sterile fashion. Fluoroscopy was utilized to identify the T12/L1 interspace. After monitored anesthesia care was initiated, the skin and subcutaneous tissues were anesthetized with 1% Lidocaine. A 14-guage stiletted epidural needle was advanced to the epidural space with right oblique angled T12/L1 paramedian approach and rvrp-xk-vqryeyvwxq to air technique at the T12/L1 level. Following this, a 50 cm lead with 16 contacts Model SC-[id number], SN [id number] was advanced inthe posterior epidural space until the upper electrode was at the top of T6. I then placed a second lead. Fluoroscopy was utilized to identify the T12/L1 interspace. After monitored anesthesia care was initiated, the skin and subcutaneous tissues were anesthetized with 1% Lidocaine. A 14-guage stiletted epidural needle was advanced to the epidural space with left oblique angled T12/L1 paramedian approach and kehk-vj-fuewihttll to air technique at the T12/L1 level. Following this, a 50 cm lead with 16 contacts Model [id number], SN [id number] was advanced in the posterior epidural space until the upper electrode was at the top of T6. The needles were removed and the leads were secured to the back with the use an achor with one suture-2-0 silk and steri-strip per side. An island dressing was placed. The patient was taken to the recovery area in excellent condition. We then programed the stimulator going through multiple combinations of the rate, amplitude, duration, and configuration of wave form to acheive optimal paresthesia coverage. Total programing time: <1 hour The pt was discharged in stable condition. Dr. Hussein * Sudheer Hussein DO - 11/18/2023 1:30 PM CDT [facility] Operative Note Surgery Date: 11/18/2023 Surgeons and Role: * Sudheer Hussein DO - Primary Pre-op Diagnosis: * Lumbar radiculitis [M54.16] Post-op Diagnosis: Post-Op Diagnosis Codes: * Lumbar radiculitis [M54.16] Procedure(s) (LRB): PLACEMENT SPINAL CORD STIMULATOR TRIAL (N/A) EBL: 0 Specimens: * No specimens in log * Findings: 0 Technique: 0 Complications: 0 documented in this encounter Plan of Treatment Upcoming Encounters Date Type Department Care Team (Latest Contact Info) Description 01/18/2024 7:10 AM BACK ROLLER Hospital Encounter Operating Room [address] [place] [address] Getachew Chappell MD [address] [place] [address] 01/18/2024 7:10 AM BACK ROLLER - 01/18/2024 9:30 AM BACK ROLLER Surgery Operating Room [address] [place] [address] Getachew Chappell MD [address] [place] [address] PLACEMENT DORSAL COLUMN STIMULATOR 01/27/2024 1:00 PM BACK ROLLER Appointment [facility] Neurology EEG/EMG [address] [place] [address] Kendell Perez MD [address] [place] [address] 02/01/2024 1:00 PM BACK ROLLER Appointment [facility] Neurosurgery/Ortho Spine [address] [place] [address] 02/14/2024 9:40 AM BACK ROLLER Appointment [facility] Neurosurgery/Ortho Spine [address] [place] [address] Getachew Chappell MD [address] [place] [address] Scheduled Orders Name Type Priority Associated Diagnoses Orde r Schedule Interventional Pain Procedure Imaging New Routine Lumbar radiculitis Expected: 11/18/2023 (Approximate), Expires: 11/17/2024 Scheduled Procedures Name Priority Associated Diagnoses Date/Ti me PLACEMENT DORSAL COLUMN STIMULATOR (SDEX) Same Day Recovery Low back pain radiating to both legs 01/18/2024 7:10 AM BACK ROLLER documented as of this encounter Procedures Procedure Name Priority Date/Time Associated Diagnosis Comments PLACEMENT SPINAL CORD STIMULATOR TRIAL 11/18/2023 2:48 PM CDT Lumbar radiculitis GLUCOSE, WHOLE BLOOD POCT Routine 11/18/2023 2:11 PM CDT documented in this encounter Results * Glucose, Whole Blood POCT (11/18/2023 2:11 PM CDT) Glucose, Whole Blood 83 70 - 180 mg/dL 11/18/2023 2:12 PM CDT [facility] Performing Location RCLABHPSDS 11/18/2023 2:12 PM CDT [facility] Blood 11/18/2023 2:11 PM CDT 11/18/2023 2:12 PM CDT Sudheer Hussein DO LAB_1 Performing Organization Address City/State/[facility] [place] [address], [facility] documented in this encounter Visit Diagnoses Diagnosis Lumbar radiculitis- Primary Thoracic or lumbosacral neuritis or radiculitis, unspecified Lumbar radiculitis Thoracic or lumbosacral neuritis or radiculitis, unspecified Low back pain radiating to both legs Lumbago documented in this encounter Admitting Diagnoses Diagnosis Lumbar radiculitis Thoracic or lumbosacral neuritis or radiculitis, unspecified documented in this encounter Administered Medications Inactive Administered Medications - up to 3 most recent administrations Medication Order MAR Action Action Date Dose Rate Site HYDROcodone-acetaminop hen (NORCO) 5-325 MG per tablet 1 Tablet 1 Tablet, Oral, Q4H PRN, Pain, Starting on Soniya 11/18/23 at 1545, Until Soniya 11/18/23 at 1841 Given 11/18/2023 3:48 PM CDT 1 Tablet lactated ringers infusion 30 mL/hr, Intravenous, CONTINUOUS, Starting on Soniya 11/18/23 at 1400, Pre-op Continued by Anesthesia 11/18/2023 2:57 PM CDT 30 mL/hr Started 11/18/2023 2:15 PM CDT 30 mL/hr 30 mL/hr documented in this encounter Care Teams Behavioral Pediatrician Relationship Specialty Start Date End Date Cyndee Carranza MD [address] [place] [address] PCP - General 01/21/23 documented as of this encounter
--- OUTSIDE RECORDS SUMMARY | 2024-01-10 14:52 | XMS_ITS | Encounter Summary ---
Author Organization [facility] Address [address] [address] Care Team Providers Care Field Coil Winder Name Role Phone Cyndee Carranza MD Primary Care Provider [phone] Reason for Visit * Reason Comments QUESTIONS, GENERAL Entered automaticall y based on patient selection in [employer]. Encounter Details Date Type Department Care Team (Late st Contact Info) Description 11/26/2023 9:30 AM CDT E-Visit [facility] Pain Management [address] [employer] [place] [address] Sudheer Hussein DO [address] [place] [address] Chief Comp: QUESTIONS, GENERAL Social History Tobacco [...] (Latest Contact Info) Description 01/18/2024 7:10 AM EYE SPECIALIST Hospital Encounter RH Operating Room [address] [place] [address] Getachew Chappell MD [address] [place], [place] [phone] 01/18/2024 7:10 AM EYE SPECIALIST - 01/18/2024 9:30 AM EYE SPECIALIST Surgery Operating Room [address] [place] [address] Getachew Chappell MD [address] [place] [address] PLACEMENT DORSAL COLUMN STIMULATOR 01/27/2024 1:00 PM EYE SPECIALIST Appointment [facility] Neurology EEG/EMG [address] [place] [address]. [place] [address] Kendell Perez MD [address] [place] [address] 02/01/2024 1:00 PM EYE SPECIALIST Appointment [facility] Neurosurgery/Ortho Spine [address] [employer] [place] [address] 02/14/2024 9:40 AM EYE SPECIALIST Appointment [facility] Neurosurgery/Ortho Spine [address] [place] [address] Getachew Chappell MD [address] [place] [address] Scheduled Procedures Name Priority Associated Diagnoses Date/Ti me PLACEMENT DORSAL COLUMN STIMULATOR (SDEX) Same Day Recovery Low back pain radiating to both legs 01/18/2024 7:10 AM EYE SPECIALIST documented as of this encounter Visit Diagnoses Not on filedocumented in this encounter Care Teams Field Coil Winder Relationship Specialty Start Date End Date Cyndee Carranza MD [address] [place] [address] PCP - General 01/21/23 documented as of this encounter
--- OUTSIDE RECORDS SUMMARY | 2024-01-10 14:52 | XMS_ITS | Encounter Summary ---
Author Organization [facility] Address [address], [place] [address] Care Team Providers Care Printed Circuit Board Pcb Draftsman Name Role Phone Cyndee Carranza MD Primary Care Provider [phone] Reason for Visit * Procedure/Equipment (Routine) - New Request Specialty Diagnoses / Procedures Referred By Laura whitlock Referred To Contact Diagnoses Lumbar radiculitis Procedures Interventional Pain Procedure Sudheer Hussein DO [address] [place] [address] Referral ID Status Reason Start Date Expiration Date V isits Requested Visits Authorized [id number] New Request 08/04/2023 11/02/2024 1 1 Encounter Details Date Type Department Care Team (Latest Contact Info) Description 11/18/2023 12:30 PM CDT Ancillary Procedure [facility] Specialty [address] [facility] [place] [address] Sudheer Hussein DO [address] [place] [address] Lumbar radiculitis Social History Tobacco Use Types Packs/Day Years [...] (Latest Contact Info) Description 01/18/2024 7:10 AM RETAIL PRESENTATION SPECIALIST Hospital Encounter RH Operating Room [address] [place] [address] Getachew Chappell MD [address] [place] [address] 01/18/2024 7:10 AM RETAIL PRESENTATION SPECIALIST - 01/18/2024 9:30 AM RETAIL PRESENTATION SPECIALIST Surgery Operating Room [address] [place] [address] Getachew Chappell MD [address] [place] [address] PLACEMENT DORSAL COLUMN STIMULATOR 01/27/2024 1:00 PM RETAIL PRESENTATION SPECIALIST Appointment [facility] Neurology EEG/EMG [address] [place] [address] Kendell Perez MD [address] [place] [address] 02/01/2024 1:00 PM RETAIL PRESENTATION SPECIALIST Appointment [facility] Neurosurgery/Ortho Spine [address] [place] [address] 02/14/2024 9:40 AM RETAIL PRESENTATION SPECIALIST Appointment [facility] Neurosurgery/Ortho Spine [address] [facility] [place] [address] Getachew Chappell MD [address] [place] [address] Scheduled Procedures Name Priority Associated Diagnoses Date/Ti me PLACEMENT DORSAL COLUMN STIMULATOR (SDEX) Same Day Recovery Low back pain radiating to both legs 01/18/2024 7:10 AM RETAIL PRESENTATION SPECIALIST documented as of this encounter Procedures Procedure Name Priority Date/Time Associated Diagnosis Comments INTERVENTIONAL PAIN PROCEDURE Routine 11/18/2023 3:21 PM CDT Lumbar radiculitis documented in this encounter Results * Interventional Pain Procedure (11/18/2023 3:21 PM CDT) Anatomical Region Laterality Modality X-Ray Angiograph y Narrative 11/18/2023 3:21 PM CDT This is an imaging order that has been read externally. Sudheer FERRELL GD documented in this encounter Visit Diagnoses Diagnosis Lumbar radiculitis Thoracic or lumbosacral neuritis or radiculitis, unspecified Low back pain radiating to both legs Lumbago documented in this encounter Care Teams Printed Circuit Board Pcb Draftsman Relationship Specialty Start Date End Date Cyndee Carranza MD [address] [place] [address] PCP - General 01/21/23 documented as of this encounter
--- OUTSIDE RECORDS SUMMARY | 2024-01-10 14:52 | XMS_ITS | Encounter Summary ---
Author Organization [facility] Address [address] [place] [address] Care Team Providers Care Spar Machine Operator Helper Name Role Phone Cyndee Carranza MD Primary Care Provider [phone] Reason for Visit * Reason Comments Outside Records on File Pre-op exam 11/07 Encounter Details Date Type Department Care Team (Late st Contact Info) Description 11/09/2023 [facility] [address] [facility] [place], [place] [id number] Sudheer Hussein, [address] [place], [place] [id number] Outside Records on File (Pre-op exam 11/08/23) Social History Tobacco Use Types Packs/Day Years [...] encounter Nursing Notes * Coretta Garcia - 11/10/2023 12:41 PM CDT Faxed to [facility]. Called to let them know it was faxed as well. Thanks! * Glendy Cordova RN - 11/09/2023 10:30 AM CDT Please forward to Same Day Surgery. Received a fax from [facility] Pre-op exam for SCS trial done on 11/08/23 Fax also can be found in provider right fax folder. Thanks. Cassia Arenas 11/09/2023, 9:45 AM Glendy Cordova RN 11/09/2023, 10:31 AM * aCssia Arenas - 11/09/2023 9:45 AM CDT Received a fax from [facility] Pre-op exam for SCS trial done on 11/08/23 Fax also can be found in provider right fax folder. Thanks. Cassia Arenas 11/09/2023, 9:45 AM documented in this encounter Plan of Treatment Upcoming Encounters Date Type Department Care Team (Latest Contact Info) Description 01/18/2024 7:10 AM POUNDMASTER Hospital Encounter RH Operating Room [address] [place] [address] Getachew Chappell MD [address] [place] [address] 01/18/2024 7:10 AM POUNDMASTER - 01/18/2024 9:30 AM POUNDMASTER Surgery [facility] Operating Room [address] [place] [address] Getachew Chappell MD [address] [place] [address] PLACEMENT DORSAL COLUMN STIMULATOR 01/27/2024 1:00 PM P[facility]MASTER [facility] EEG/EMG [address] [facility] [place] [address] Kendell Perez MD [address] [place] [address] 02/01/2024 1:00 PM POUNDMASTER Appointment [facility] Neurosurgery/Ortho Spine [address] [facility] [place] [address] 02/14/2024 9:40 AM POUNDMASTER Appointment [facility] Neurosurgery/Ortho Spine [address] [facility] [place] [address] Getachew Chappell MD [address] [place] [address] Scheduled Procedures Name Priority Associated Diagnoses Date/Ti me PLACEMENT DORSAL COLUMN STIMULATOR (SDEX) Same Day Recovery Low back pain radiating to both legs 01/18/2024 7:10 AM POUNDMASTER documented as of this encounter Visit Diagnoses Not on filedocumented in this encounter Care Teams Spar Machine Operator Helper Relationship Specialty Start Date End Date Cyndee Carranza MD [address] [place] [address] PCP - General 01/21/23 documented as of this encounter
--- OUTSIDE RECORDS SUMMARY | 2024-01-10 14:52 | XMS_ITS | Encounter Summary ---
Author Organization [facility] Address [address], [place] [address] Care Team Providers Care Char Belt Operator Name Role Phone Cyndee Carranza MD Primary Care Provider Reason for Visit * Procedure/Equipment (Routine) - Authorized Specialty Diagnoses / Procedures Referred By Laura t Referred To Contact Diagnoses Lumbar radiculitis Procedures Case Request OR - Neurosurgery: PLACEMENT SPINAL CORD STIMULATOR TRIAL Sudheer Hussein DO [address] [place] [address] Referral ID Status Reason Start Date Expiration Date V isits Requested Visits Authorized [id number] Authorized 08/04/2023 11/02/2024 1 1 Encounter Details Date Type Department Care Team (Late st Contact Info) Description 11/18/2023 3:00 PM CDT - 11/18/2023 3:50 PM CDT Surgery [facility] Same Day Surgery Center [address] [place] [address] Sudheer Hussein DO [address] [place] [address] PLACEMENT SPINAL CORD STIMULATOR TRIAL Social History Tobacco Use Types Packs/Day Years [...] Sign Reading Time Taken Comments Blood Pressure 103/90 11/18/2023 3:45 PM CDT Pulse 73 11/18/2023 3:45 PM CDT Temperature 36.8 C (98.2 F) 11/18/2023 3:31 PM CDT Respiratory Rate 16 11/18/2023 3:45 PM CDT Oxygen Saturation 96% 11/18/2023 3:45 PM CDT Inhaled Oxygen Concentration - - Weight 82.6 kg (182 lb) 11/15/2023 1:32 PM CDT Height 162.6 cm (5' 4) 11/15/2023 1:32 PM CDT Body Mass Index 31.24 11/15/2023 1:32 PM CDT documented in this encounter Discharge Instructions * Discharge Instructions* Licha Vallecillo RN - 11/18/2023 3:16 PM CDT Discharge Instructions for: Orquidea Ortiz Thank you for choosing [facility] as your provider. A copy of your [...] Your clinician has recommended an appointment with [facility] Pain Intervention. You may call [phone] to schedule your appointment. Procedures Other (comments) Imaging Department may modify order per department protocol. Revisions will be made without the need for a new order to be placed. Yes Spinal Cord Stimulator Therapy - Trial Instructions Follow up as scheduled Follow up with [email or web address]@ as scheduled. Discharge Instructions for TRIAL PHASE Spinal Cord Stimulator Therapy Call [phone] with questions about the wound: Contact the device community health program representative with questions about programming the unit. [...] Information After hours call the Careline at [phone]. Please call your clinic during business hours. Physical Medicine and Rehab: [phone] Neurosurgery: [phone] Interventional Pain: [phone] Anesthesia Minor: Today you received Minor Sedation: [...] it. It is our goal to make [facility] your hospital of choice and want you to feel confident in recommending [facility] to your family and friends. Thank you [...] in this encounter Procedure Notes * Sudheer Hussein, - 11/18/2023 1:30 PM CDT Procedure: Percutaneous trial, spinal cord stimulation, 2 leads Dx: 1. Lumbar radiculitis Vendor: [employer] Surgeon: Dr. Hussein Date of procedure: 11/18/2023 [...] right oblique angled T12/L1 paramedian approach and sbqr-tq-gxsvcubnlo to air technique at the T12/L1 level. Following this, a 50 cm lead with 16 contacts Model SC-2316-50E, SN [id number] was advanced inthe posterior epidural space until [...] left oblique angled T12/L1 paramedian approach and wtty-io-abypdqezhl to air technique at the T12/L1 level. Following this, a 50 cm lead with 16 contacts Model SC-2316-50E, SN [id number] was advanced in the posterior epidural space [...] Hussein DO - 11/18/2023 1:30 PM CDT [facility] Operative Note Surgery Date: 11/18/2023 [...] (Latest Contact Info) Description 01/18/2024 7:10 AM CHEESE CUTTER Hospital Encounter Operating Room [address] [place] [address] Getachew Chappell MD [address] [place] [address] 01/18/2024 7:10 AM CHEESE CUTTER - 01/18/2024 9:30 AM CHEESE CUTTER Surgery Operating Room [address] [place] [address] Getachew Chappell MD [address] [place] [address] PLACEMENT DORSAL COLUMN STIMULATOR 01/27/2024 1:00 PM CHEESE CUTTER Appointment [facility] Neurology EEG/EMG [address] [place] [address] Kendell Perez MD [address] [place] [address] 02/01/2024 1:00 PM CHEESE CUTTER Appointment [facility] Neurosurgery/Ortho Spine [address] [place] [address] 02/14/2024 9:40 AM CHEESE CUTTER Appointment [facility] Neurosurgery/Ortho Spine [address] [place] [address] Getachew Chappell MD [address] [place] [address] Scheduled Orders Name Type Priority Associated Diagnoses Orde r Schedule Interventional Pain Procedure Imaging New Routine Lumbar radiculitis Expected: 11/18/2023 (Approximate), Expires: 11/17/2024 Scheduled Procedures Name Priority Associated Diagnoses Date/Ti me PLACEMENT DORSAL COLUMN STIMULATOR (SDEX) Same Day Recovery Low back pain radiating to both legs 01/18/2024 7:10 AM CHEESE CUTTER documented as of this encounter Procedures Procedure Name Priority Date/Time Associated Diagnosis Comments PLACEMENT SPINAL CORD STIMULATOR TRIAL 11/18/2023 2:48 PM CDT Lumbar radiculitis GLUCOSE, WHOLE BLOOD POCT Routine 11/18/2023 2:11 PM CDT documented in this encounter Results * Glucose, Whole Blood POCT (11/18/2023 2:11 PM CDT) Glucose, Whole Blood 83 70 - 180 mg/dL 11/18/2023 2:12 PM CDT [facility] Performing Location [facility]CL[facility] 11/18/2023 2:12 PM CDT [facility] Blood 11/18/2023 2:11 PM CDT 11/18/2023 2:12 PM CDT Sudheer Deborah Hussein DO LAB_[address] [address], [facility] documented in this encounter Visit Diagnoses Diagnosis [...] Action Action Date Dose Rate Site BUPivacaine PF (SENSORCAINE) 0.5% injection ONCE PRN, Starting on Soniya 11/18/23 at 1522, Until Soniya 11/18/23 at 1841, Intra-op Given 11/18/2023 3:22 PM CDT 5 mL Back HYDROcodone-acetaminop hen (NORCO) 5-325 MG per tablet 1 Tablet 1 Tablet, Oral, Q4H PRN, Pain, Starting on Soniya 11/18/23 at 1545, Until Soniya 11/18/23 at 1841 Given 11/18/2023 3:48 PM CDT 1 Tablet lactated ringers infusion 30 mL/hr, Intravenous, CONTINUOUS, Starting on Wed11/18/23 at 1400, Pre-op Continued by Anesthesia 11/18/2023 2:57 PM CDT 30 mL/hr Started 11/18/2023 2:15 PM CDT 30 mL/hr 30 mL/hr lidocaine (XYLOCAINE) 1 % injection ONCE PRN, Starting on Soniya 11/18/23 at 1522, Until Soniya 11/18/23 at 1841, Intra-op Given 11/18/2023 3:22 PM CDT 5 mL Back documented in this encounter Care Teams Char Belt Operator Relationship Specialty Start Date End Date Cyndee Carranza MD [address] [facility] [place] [address] PCP - General 01/21/23 documented as of this encounter
--- OUTSIDE RECORDS SUMMARY | 2024-01-10 14:52 | XMS_ITS | Encounter Summary ---
Author Organization [facility] Address [address] [place] [address] Care Team Providers Care Automotive Tire Worker Name Role Phone Cyndee Carranza MD Primary Care Provider [phone] Reason for Referral * Procedure/Equipment (Routine) - Incomplete Specialty Diagnoses / Procedures Referred By Contac t Referred To Contact Diagnoses Low back pain radiating to both legs Procedures Case Request OR - Spine Surgery: PLACEMENT DORSAL COLUMN STIMULATOR Getachew Chappell MD [address] [place] [address] Referral ID Status Reason Start Date Expiration Date V isits Requested Visits Authorized [id number] Incomplete 12/17/2023 03/17/2025 1 1 * Procedure/Equipment (Routine) - Incomplete Specialty Diagnoses / Procedures Referred By Contac t Referred To Contact Diagnoses Low back pain radiating to both legs Procedures XR Thoracic Spine 2 Views Getachew Chappell MD [address] [place] [address] Referral ID Status Reason Start Date Expiration Date V isits Requested Visits Authorized [id number] Incomplete 12/17/2023 03/17/2025 1 1 Reason for Visit * Reason Comments CONSULT * Consult/Transfer Care (Routine) - New Request Specialty Diagnoses / Procedures Referred By Contac t Referred To Contact Diagnoses Spinal cord stimulator status Sudheer Hussein DO [address] [place] [address] Referral ID Status Reason Start Date Expiration Date V isits Requested Visits Authorized [id number] New Request 11/24/2023 02/22/2025 1 1 Encounter Details Date Type Department Care Team (Latest Contact Info) Description 12/17/2023 10:00 AM CDT Office Visit [facility] Neurosurgery/Ortho Spine [address] [facility] [address] Getachew Chappell MD [address] [place] [phone] Low back pain radiating to both legs (Primary Dx); Pre-op testing Social History Tobacco Use Types Packs/Day Years [...] F) 12/17/2023 10:00 AM CDT Respiratory Rate - - Oxygen Saturation - - Inhaled Oxygen Concentration - - Weight 82.3 kg (181 lb 6 oz) 12/17/2023 10:00 AM CDT Height 167.1 cm (5' 5.79) 12/17/2023 10:00 AM C DT Body Mass Index 29.46 12/17/2023 10:00 AM CDT documented in this encounter Patient Instructions * Patient Instructions* Lucy Riley RN - 12/17/2023 10:00 AM CDT Preparation for Spine Surgery You will be scheduled for surgery with Dr. Chappell. If you smoke, stop now. Your heart, lungs and spine will benefit! Nicotine in all forms may delay healing by slowing bone growth. People who continue to smoke and have a spinal fusion have a higher rate of failed (non-healing) fusion. Start a stop smoking program now. Ask your primary care provider about your stop smoking options. We recommend you start this programnow in preparation for surgery and follow through on it following the operation. Hospital policies discourage smoking while hospitalized. It is very important to stop taking any blood thinning products/medications prior to surgery to reduce the risk of bleeding. Chandni will be calling you with a date for the surgery once we have approval from your insurance company.(Can take 5-15 business days) Stop all herbal supplements 14 days prior to surgery. (Fishoil, Glucosamine, Multi-Vit, CoQ10, Flaxseed oil, Ginkgo Biloba, Saw palmetto, garlic, juju, grape seed extract, bilberry, vitamin E, etc.) Stop ibuprofen (Advil, Motrin), aspirin-based products, naproxen sodium (Aleve), celebrex, and blood thinners (such as Coumadin/Warfarin) for 7 days prior to surgery. Blood thinners such as Coumadin/Warfarin must be stopped with the advanced ok from your primary provider or semiconductor wafers tester. Anti-platelet medication such as Plavix or Platel must be stopped with the direction your primary care provider, possibly a week before the planned procedure. Tylenol may be used for pain control if you do not have prescription medication before and after surgery, unless contraindicated by another provider. You will need to schedule a pre-op physical with your primary MD within 30 days of your surgery date. We ask that this is completed 2 weeks prior to surgery. Please fax preops to [phone] Nothing to eat or drink from midnight on the day of surgery. If you take medications that were approved by your primary care provider for use prior to surgery, you make take these with a sip of water. If you are diabetic and using medications for blood sugar control, check the use of these with [facility] care provider. Be sure you understand these directions to avoid low blood sugar reactions. You may use your prescribed pain medications with a sip of water up until four (4) hours prior to your scheduled surgery. Please do the scrub surgical, you will need to complete 3 skin scrub showers with the antibacterialwipes called Theraworx before surgery. This is to help prevent post-operative infections. If you have allergies to this product or soaps, use Dial antibacterial soap instead. Please see handout for complete instructions. If your MSSA/MRSA swab comes back positive, you will need a prescription for a topical antibiotic called Bactroban prior to surgery. This is to be started 5 days prior to surgery and applied twice a day. A neurosurgery nurse will call you 1-2 weeks prior to surgery to prescribe the Bactroban. If you become sick, develop a fever, start antibiotics, or develop any open wounds before your surgery, please notify the Neurosurgery head of partner development as your surgery may need to be delayed. You can reach Chandni by calling [phone]. Day of surgery, arrive at [facility] [place] on 3rd floor 2 hours prior to surgery. [facility] will call you 1-3 days prior to surgery to inform you what time you should arrive for your surgery. If they do not reach you, please call if your surgery is at [facility]. Review your surgery packet. Contact the Neurosurgery Center [phone] if you have any questions or concerns Inpatient Stay Hospital stay is approximately 1 day When staying at [facility] our surgeons try to have all [place] [address] Post-Operative Care for Spine Surgery Resume your previous diet. Increase fluids, fiber, and protein in your diet to avoid constipation and aid in healing. Avoid weight reduction diets at this time unless prescribed by your primary care provider. Do not drive while taking narcotic pain medications and until your surgeon gives you clearance. Avoid getting in and out of a motor vehicle frequently. Please follow the following restrictions after surgery: No lifting over 5-10 pounds, based on surgeon instructions. Avoid bending, twisting, and stooping. Avoid chores like vacuuming and laundry while you recover. Do not sit or stand over 30 minutes at a time, change positions frequently. You should be up in a chair for your meals. Be up and walking frequently, walking is encouraged after surgery! Do not do long distance walking currently, increase the distances slowly as you are able to tolerate. Avoid repetitive stair climbing. You may go upstairs and downstairs for necessity if infrequent. You may receive a brace for your back following surgery. This will be done with the neurosurgeon???s order. This brace is called a Coreline brace. If you receive such a brace, it must be worn over fabric such as a soft T-shirt to avoid skin irritation. You will be given additional information on this if ordered. Care for your incision is based on the way your surgeon closed your skin. Always keep it dry. If instructed, cover the incision with the plastic dressing for your shower. After your shower, pat dry the dressing, remove the dressing, and leave the incision open to the air. Always pat it dry, no rubbing incision. Do not put creams, lotions, or peroxide on the incision. Do not sit in a bathtub, hot tub, or swimming pool at this time. Report changes in the incision-redness, swelling, drainage, and tenderness or fever greater than 100.5 degrees to the Neurosurgery clinic. Manage your pain using the prescriptions provided by your surgeon when you leave the hospital. Refills can come from this clinic. You must call the clinic 2-3 business days before running out. We will then do a pain assessment over the phone. Controlled substance prescriptions, in paper form (if requested), will need to be picked up from this clinic, these cannot be faxed to the pharmacy. Otherwise, prescriptions can be sent electronically to the pharmacy. Do not use your medications faster than prescribed. If your pain is not adequately controlled, call the Neurosurgery clinic. In addition to the incisional pain, there may be pain that responds well to ice. Use the ice liberally (20 minutes at a time, up to every hour) to help in your comfort. Avoid overdoing activities that can aggravate pain. If you are having a fusion surgery, you cannot take NSAIDS (ibuprofen, aleve, celebrex) for approximately 6 months after surgery because they slow bone growth. Return to work is usually four to twelve weeks after surgery, depending on the exact surgery you had and the type of work you do. This is typically discussed on your second visit to the Neurosurgery clinic when a tazzez-uu-fdex slip can be completed. If you have disability papers from your employer, please send them to the Neurosurgery clinic. . Allow 7-10 business days for completion. Your activity and lifting limits will progress throughout your recovery. Reconditioning exercises will be prescribed by the surgeon. Attempt to complete the exercises at least daily and plan to continue them as a lifelong habit to maintain spine health. documented in this encounter Progress Notes * Getachew Chappell MD - 12/17/2023 10:00 AM CDT [facility] Department of Neurosurgery NAME: Orquidea Ortiz : 1955 DATE OF SERVICE: 12/17/2023 Getachew Chappell MD [address] [place] [address] Office: [phone] CHIEF COMPLAINT: 30% low back pain, 70% BLE radiculopathy HISTORY OF PRESENT ILLNESS: Orquidea Ortiz is a 68 y.o. female who was referred by Dr Hussein from pain management for placement of a spinal cord stimulator. She has a pmhx of etoh abuse (sober for 40 years), colitis, hyperlipidemia, TIA, and a 14 month history of 70% bilateral lower extremity pain and 30% back pain. Patient states she was in her usual state of health until approximately 14 months ago when she started tohave severe bilateral lower extremity pain. She endorses a constant right posterior buttock thigh dull pain. He has also a left intermittent numbness in her left buttock that travels posteriorly throughout her entire leg into her big toe. Pain is worse with sitting and walking long distances. She denies any weakness, bowel or bladder incontinence, or sensory changes. She recently underwent a spinal cord stimulator trial with Dr. Hussein on 11/18/2023 and reported 50-60% pain relief. Prior to the stimulator trial, she has tried multiple injections and physical therapy without any relief. VAS Score: Leg pain: 4 / 10 Back pain: 4 / 10 Non-surgical Therapies: Physical Therapy - Yes Injections - Yes Chiropractor - No Acupuncture - No Massage - No Heat / Ice - Yes Medications - Yes PRIOR SPINE SURGERIES: None PAST MEDICAL HISTORY: Past Medical History: Diagnosis Date Alcohol dependence (HRC) In remission BP (high blood pressure) (HRC) Cervical uterine polyp Chemical dependency (HRC) alcohol Depression Depressive disorder, not elsewhere classified (HRC) Esophageal reflux Gastrointestinal disease High blood pressure (HRC) Hyperlipidemia (HRC) Inflammatory bowel disease 2009 Colitis Lymphocytic colitis Prediabetes Psychiatric disorder (HRC) panic disorder Uterine fibroid PAST SURGICAL HISTORY: Past Surgical History: Procedure Laterality Date BREAST AUGMENTATION Bilateral has had them removed. BREAST AUGMENTATION UNILATERAL 1990, 1997 implants removed BREAST BIOPSY Left 1997 benign, no scar CONIZATION CERV W/WO D&C; RAKANIF/LASR 30s minor dysplasia hysteroscocpy 01/14/06 & 04/10/08 removal of endometrial polyp, path polyp and PE hysteroscopy, polypectomy 02/13/2019 For benign endometrial polyp LAMINECT W/EXPLOR; LUMBAR EX SPONDY L5-S1 discectomy LIG FALLOPION TUBE ABD/VAG UNI/MIGUEL SALPINGO-OOPHORECTOMY Bilateral 02/13/2019 Laparoscopic; for benign ovarian cysts SPINE SURGERY 2002 STRABISMUS SURG; 1 [facility] strabismus TONSILLECT PRIM/SEC; UNDER AGE 13 TUBAL LIGATION 1984 MEDICATIONS: Current Outpatient Medications Medication Sig Note Dispense Refill acetaminophen (TYLENOL EXTRA STRENGTH) 500 MG tablet Take 2 Tablets (1,000 mg) by mouth every 6 hours as needed. budesonide (ENTOCORT EC) 3 MG capsule Take 2 Capsules (6 mg) by mouth daily. Calcium Carb-Cholecalciferol 500-3.125 MG-MCG TABS Take 2 Tablets by mouth daily. cephalexin (KEFLEX) 500 MG capsule Take 1 Capsule (500 mg) by mouth two times a day. (Patient not taking: Reported on 12/17/2023) cholecalciferol (VITAMIN D3) 25 MCG (1000 UT) tablet Take 1 Tablet (1,000 Units) by mouth daily. 2 tabs/day DULoxetine (CYMBALTA) 30 MG capsule Take 1 Capsule (30 mg) by mouth daily. (Patient not taking: Reported on 12/17/2023) DULoxetine (CYMBALTA) 60 MG capsule Take 1 Capsule (60 mg) by mouth daily. (Patient not taking: Reported on 12/17/2023) DULoxetine HCl 60 MG CSDR Take 1 Capsule (60 mg) by mouth daily. famotidine (PEPCID) 10 MG tablet Take 2 Tablets (20 mg) by mouth two times a day. (Patient not taking: Reported on 12/17/2023) famotidine (PEPCID) 20 MG tablet TAKE 1 TABLET(20 MG) BY MOUTH TWICE DAILY 180 Tablet 0 gabapentin (NEURONTIN) 300 MG capsule Take 1 Capsule (300 mg) by mouth three times a day. (Patient not taking: Reported on 12/17/2023) gabapentin (NEURONTIN) 300 MG capsule Take 2 Capsules (600 mg) by mouth three times a day. HYDROcodone-acetaminophen (NORCO) 5-325 MG tablet Take 1 Tablet by mouth every 4 hours as needed for Pain. (Patient not taking: Reported on 12/17/2023) 12/17/2023: Duplicate HYDROcodone-acetaminophen (NORCO) 5-325 MG tablet Take 1 Tablet by mouth two times daily as needed for Pain. 12 Tablet 0 LORazepam (ATIVAN) 1 MG tablet Take 1 Tablet (1 mg) by mouth every 8 hours as needed. multivitamin (AKA THERAGRAN) tablet Take 1 Tablet by mouth daily. 30 Tab 11 pravastatin (PRAVACHOL) 40 MG tablet Take 1 Tablet (40 mg) by mouth daily. (Patient not taking: Reported on 12/17/2023) pravastatin (PRAVACHOL) 40 MG tablet TAKE 1 TABLET(40 MG) BY MOUTH DAILY AT BEDTIME 90 Tablet 0 traZODone (DESYREL) 50 MG tablet TAKE 1 TO 2 TABLETS BY MOUTH AT BEDTIME NEEDED 180 Tablet 0 No current facility-administered medications for this visit. 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 Tobacco Use Smoking status: Never Passive exposure: Never Smokeless tobacco: Never Vaping Use Vaping status: Never Used Substance and Sexual Activity Alcohol use: Not Currently Comment: h/o alcohol dependence, 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 Drug use: No Sexual activity: Not Currently Partners: Male control/protection: Post-menopausal Other Topics Concern [...] on file Physical Activity: Not on file Stress: Not on file Social Connections: Not on file Intimate Partner Violence: Not on file Housing Stability: Not on file FAMILY HISTORY: Family History Problem Relation Name Age of Onset Diabetes, Type II Mother Cancer, Breast Mother 57 Heart Disease Father of heart disease age 69, multiple MIs first CABG 48, alcohol Cataract Sister Geeta Glaucoma Sister Geeta Cancer, Breast Sister Geeta 45 BRCA testing negative. Hypertension Sister Geeta Hyperlipidemia Sister age 55, Cancer, Breast Sister 63 Cancer, Thyroid Sister Cataract Brother Cancer, Pancreatic Maternal Aunt 70 Cataract Maternal Grandmother Cancer, Ovary Paternal Grandmother 60 Cancer Paternal Grandfather ? colon cancer, colostomy Macular Degeneration Negative Family History Retinal Detachment Negative Family History ALLERGIES: Allergies Allergen Reactions Lipitor [Atorvastatin] Muscle Aches/Weakness Sulfa Antibiotics Rash REVIEW OF SYSTEMS: 14 systems reviewed with pertinent positives/negatives in HPI, all others negative. EXAM: Awake, alert EO spont Very pleasant on exam Upper Extremities Motor (_/5) Right Left Sensation (_/2) Right Left C5 (Biceps) 5 5 C5 2 2 C6 (ECRL/ECRB) 5 5 C6 2 2 C7 (Triceps) 5 5 C7 2 2 C8 (FDP) 5 5 C8 2 2 T1 (Intrinsics) 5 5 T1 2 2 Lower Extremities Motor (_/5) Right Left Sensation (_/2) Right Left L2 (IP) 5 5 L2 2 2 L3 (Quad) 5 5 L3 2 2 L4 (TA) 5 5 L4 2 2 L5 (EHL) 5 5 L5 2 2 S1 (Gastroc) 5 5 S1 2 2 No atrophy noted REFLEX No temple BUE Patellar 2+ BLE No clonus BLE GAIT Normal gait PAIN No pain to palpation along midline spine No pain to palpation along paraspinal region No pain to palpation along crest No trochanteric tenderness No pain with lumbar flexion or extension IMAGING: The below imaging was personally reviewed MRI lumbar spine (01/04/23): Maintenance of lumbar lordosis. No listhesis. No evidence of vertebralbody compression fracture. Mild L2 retrolisthesis. Probable of L1 vertebral body hemangioma. SacralTarlov cysts with probable bilateral S1 perineural nerve cyst T12-L1: Mild disc height loss. Diffuse broad-based disc bulge with contact of ventral CSF space. Noassociated significant central or foraminal stenosis L1-L2: No significant disc height loss. No disc bulge or herniation. Mild ligamentum flavum thickening. No significant central or foraminal stenosis L2-L3: Mild disc height loss. Mild diffuse broad-based disc bulge. No significant central or foraminal stenosis L3-L4: No significant disc height loss. Mild facet arthropathy. Mild ligamentum flavum thickening. Mild central and lateral recess stenosis. No significant foraminal narrowing L4-L5: Mild disc height loss. Diffuse disc bulge. Moderate facet arthropathy. Ztadefgd-dc-fvzjes ligamentum flavum thickening. Mild central and moderate lateral recess stenosis. Mild foraminal narrowing bilaterally L5-S1: No significant disc height loss. No disc bulge or herniation. Mild central and mild foraminal narrowing. ASSESSMENT: Diagnoses: 1. L4-L5 moderate lateral recess stenosis 2. Tarlov cyst 3. BLE radiculopathy 4. Axial low back pain Ms. Ortiz presents today for evaluation of spinal cord stimulator placement. She was referred by from pain management. She underwent a spinal cord stimulator trial on 11/18/2023 in which she reports 50-60% pain relief. I had a long discussion with the patient regarding her clinical symptoms, imaging findings, and treatment options. I explained that on her MRI from 01/04/2023 there areno obvious reasons for her axial low back pain. I did explain that her bilateral leg symptoms can be due to her L4-5 lateral recess stenosis with compression of the bilateral L5 nerve roots. She has not undergone an EMG/NCS. However she has had multiple injections at that level without any significant relief. Patient at this time is not interested in pursuing an EMG/nerve conduction study. She would like to proceed with a spinal cord stimulator placement. I discussed that my role is to strictlyplace the stimulator but I do not have any involvement in the postoperative pain management or settings. I discussed the risks, benefits, and alternatives to a spinal cord stimulator. Risks include bleeding, infection, CSF leak, damage to underlying nerve roots causing weakness, numbness, paralysis, B/B incontinence, urinary or bowel changes, persistent or worsening symptoms, need for future surgery, hardware failure, paddle migration, discomfort at pulse generator site, and medical or anesthesia complications. The patient wishes to proceed. PLAN: 1. OR planning for spinal cord stimulator 2. Pre-op medical clearance 3. Thoracic x-ray Getachew Chappell MD Neurosurgeon CC: Referring provider Sudheer Hussein This encounter took 45 minutes of time including taking a history, performing the examination, reviewing the pertinent diagnostic imaging, reviewing the outside notes, counseling the patient on the diagnosis and documenting in the EHR. Portions of this chart may have been created with [employer] voice recognition software. Occasional wrong-word or ???sound-alike?? ?substitutions may have occurred due to the inherent limitations of voice recognition software. Please read the chart carefully and recognize, using context, where these substitutions have occurred. documented in this encounter Plan of Treatment Upcoming Encounters Date Type Department Care Team (Latest Contact Info) Description 01/18/2024 7:10 AM INSPECTION ENGINEER Hospital Encounter Operating Room [address] [place] [id number] Getachew Chappell MD [address] [place] [id number] 01/18/2024 7:10 AM INSPECTION ENGINEER - 01/18/2024 9:30 AM INSPECTION ENGINEER Surgery Operating Room [address] [place] [phone] Getachew Chappell MD [address] [place] [id number] PLACEMENT DORSAL COLUMN STIMULATOR 01/27/2024 1:00 PM INSPECTION ENGINEER Appointment [facility] Neurology EEG/EMG [address] [place] [address]. [place] [address] Kendell Perez MD [address] [place] [id number] 02/01/2024 1:00 PM INSPECTION ENGINEER Appointment [facility] Neurosurgery/Ortho Spine [address] [place] [address]. [place] [address] 02/14/2024 9:40 AM INSPECTION ENGINEER Appointment [facility] Neurosurgery/Ortho Spine [address] [place] [address]. [place] [address] Getachew Chappell MD [address] [place] [id number] Scheduled Procedures Name Priority Associated Diagnoses Date/Ti me PLACEMENT DORSAL COLUMN STIMULATOR (SDEX) Same Day Recovery Low back pain radiating to both legs 01/18/2024 7:10 AM INSPECTION ENGINEER documented as of this encounter Procedures Procedure Name Priority Date/Time Associated Diagnosis Comments MRSA/MSSA PRE-OP CULTURE Routine 12/17/2023 11:07 AM CDT Pre-op testing documented in this encounter Results * XR Thoracic Spine 2 Views (12/17/2023 11:14 AM CDT) Anatomical Region Laterality Modality Spine, T-Spine Computed Radiogr aphy 12/17/2023 11:1 4 AM CDT Narrative 12/20/2023 8:40 AM INSPECTION ENGINEER EXAM: XR THORACIC SPINE 2 VIEWS LOCATION: [facility] DATE: 12/17/2023 INDICATION: Pre op planning, Low back pain, unspecified, Pain in right leg, Pain in left leg COMPARISON: MRI lumbar spine without contrast 01/04/2023. IMPRESSION: Osteopenia. Thoracic vertebral body heights are maintained. Mild thoracic spondylosis. Mildly exaggerated thoracic kyphosis. The lungs are clear. Procedure Note Tre Pena MD - 12/20/2023 EXAM: XR THORACIC SPINE 2 VIEWS LOCATION: [facility] DATE: 12/17/2023 INDICATION: Pre op planning, [...] Staphylococcus aureus Isolated 12/18/2023 11:56 AM CDT [facility] Swab (Source Required) ENTIRE ANTERIOR NARIS / Unknown Non-blood Collection / Unknown 12/17/2023 11:07 AM CDT 12/17/2023 12:09 PM CDT Getachew Chappell MD LAB_[address] [address], [facility] documented in this encounter Visit Diagnoses Diagnosis Low back pain radiating to both legs- Primary Lumbago Pre-op testing Preoperative examination, unspecified Low back pain radiating to both legs- Primary Lumbago Low back pain radiating to both legs Lumbago Low back pain radiating to both legs Lumbago documented in this encounter Care Teams Automotive Tire Worker Relationship Specialty Start Date End Date Cyndee Carranza MD [address] [place] [address] PCP - General 01/21/23 documented as of this encounter
--- OUTSIDE RECORDS SUMMARY | 2024-01-10 14:52 | XMS_ITS | Encounter Summary ---
Author Organization [facility] Address [address], [place] [address] Care Team Providers Care Community Engagement Coordinator Name Role Phone Cyndee Carranza MD Primary Care Provider [phone] Reason for Referral * Procedure/Equipment (Routine) - New Request Specialty Diagnoses / Procedures Referred By Laura whitlock Referred To Contact Diagnoses Lumbar radiculitis Getachew Chappell MD [address] [place] [address] Referral ID Status Reason Start Date Expiration Date V isits Requested Visits Authorized [id number] New Request 12/20/2023 03/20/2025 1 1 Scheduling Instructions Scheduling Instructions (EMG): If an appointment with [facility] was advised please call [phone] at the [facility] for assistance. We suggest you call your health insurance company about your coverage and benefits for this appointment. Do not apply any lotions or oils to your skin prior to this visit. EMG appointments can take up to two hours. Question Answer Appointment Urgency? Non-Urgent Body part(s) to be tested: Right Leg, Left Leg Symptoms: Pain, Numbness/Paresthesias Reason for visit? exclude lumbar radiculopathy, include NCS RONMENTAL TECHNICIAN Reason for Visit * Reason Comments Follow-up, NOS Entered automaticall y based on patient selection in [employer]. Encounter Details Date Type Department Care Team (Late st Contact Info) Description 12/20/2023 5:55 AM ENVIRONMENTAL TECHNICIAN E-Visit [facility] Neurosurgery/Ortho Spine [address] [facility] [place] [address] Getachew Chappell MD [address] [place] [address] Dx: Lumbar radiculitis (Primary Dx) Social History [...] as of this encounter Nursing Notes * Lucy Riley RN - 12/20/2023 11:14 AM CST Per visit note on 12-16: She has not undergone an EMG/NCS. However she has had multiple injections at that level without anysignificant relief. Patient at this time is not interested in pursuing an EMG/nerve conduction study. She would like to proceed with a spinal cord stimulator placement. Pt has decided to proceed with EMG, order placed. Lucy Riley RN 12/20/2023, 11:15 AM RONMENTAL TECHNICIAN documented in this encounter Plan of Treatment Upcoming Encounters Date Type Department Care Team (Latest Contact Info) Description 01/18/2024 7:10 AM ENVIRONMENTAL TECHNICIAN Hospital Encounter Operating Room [address] [place] [address] Getachew Chappell MD [address] [place] [address] 01/18/2024 7:10 AM ENVIRONMENTAL TECHNICIAN - 01/18/2024 9:30 AM ENVIRONMENTAL TECHNICIAN Surgery Operating Room [address] [place] [address] Getachew Chappell MD [address] [place] [address] PLACEMENT DORSAL COLUMN STIMULATOR 01/27/2024 1:00 PM ENVIRONMENTAL TECHNICIAN Appointment [facility] Neurology EEG/EMG [address] [facility] [place] [address] Kendell Perez MD [address] [place] [address] 02/01/2024 1:00 PM ENVIRONMENTAL TECHNICIAN Appointment [facility] Neurosurgery/Ortho Spine [address] [facility] [place] [address] 02/14/2024 9:40 AM ENVIRONMENTAL TECHNICIAN Appointment [facility] Neurosurgery/Ortho Spine [address] [place] [address] Getachew Chappell MD [address] [place] [address] Scheduled Procedures Name Priority Associated Diagnoses Date/Ti me PLACEMENT DORSAL COLUMN STIMULATOR (SDEX) Same Day Recovery Low back pain radiating to both legs 01/18/2024 7:10 AM ENVIRONMENTAL TECHNICIAN Scheduled Referrals Name Type Priority Associated Diagnoses Orde r Schedule Emg-Electromyography Adult Referral Routine Lumbar radiculitis Ordered: 12/20/2023 documented as of this encounter Visit Diagnoses Diagnosis Low back pain radiating to both legs- Primary Lumbago Lumbar radiculitis- Primary Thoracic or lumbosacral neuritis or radiculitis, unspecified Low back pain radiating to both legs Lumbago documented in this encounter Care Teams Community Engagement Coordinator Relationship Specialty Start Date End Date Cyndee Carranza MD [address] [place] [address] PCP - General 01/21/23 documented as of this encounter
--- OUTSIDE RECORDS SUMMARY | 2024-01-10 14:52 | XMS_ITS | Encounter Summary ---
Author Organization [facility] Address [address] [address] Care Team Providers Care Enterprise Resource Planner Name Role Phone Cyndee Carranza MD Primary Care Provider [phone] Reason for Visit * Reason Comments Refill famotidine (PEPCID) 20 MG tablet [Pharmacy Med Name: FAMOTIDINE 20MG TABLETS] Encounter Details Date Type Department Care Team (Late st Contact Info) Description 10/25/2023 Refill [facility] [address] [place] [address] Reny Crooks, TOP TAPER MACHINE, PRISONER CLASSIFICATION INTERVIEWER [address] [place] [address] Refill (famotidine (PEPCID) 20 MG [...] to schedule due to: Patient goes to [facility] now, will have them take care of [...] tablet(20 mg) by mouth twice daily (unchanged) [employer] Embedded Refills, Reference: [id number], 10/25/2023 3:44:48 AM Jeremías VEGA: GI Refill EMILEE/SUKHDEV () [[id number]] ([id number]) documented in this encounter Plan of Treatment Upcoming Encounters Date Type Department Care Team (Latest Contact Info) Description 01/18/2024 7:10 AM REGIONAL CONSTRUCTION MANAGER Hospital Encounter Operating Room [address] [place] [address] Getachew Chappell MD [address] [place] [address] 01/18/2024 7:10 AM REGIONAL CONSTRUCTION MANAGER - 01/18/2024 9:30 AM REGIONAL CONSTRUCTION MANAGER Surgery Operating Room [address] [place] [address] Getachew Chappell MD [address] [place] [address] PLACEMENT DORSAL COLUMN STIMULATOR 01/27/2024 1:00 PM REGIONAL CONSTRUCTION MANAGER Appointment [facility] Neurology EEG/EMG [address] [place] [address] Kendell Perez MD [address] [place] [address] 02/01/2024 1:00 PM REGIONAL CONSTRUCTION MANAGER Appointment [facility] Neurosurgery/Ortho Spine [address] [place] [address] 02/14/2024 9:40 AM REGIONAL CONSTRUCTION MANAGER Appointment [facility] Neurosurgery/Ortho Spine [address] [place] [address]. [place] [address] Getachew Chappell MD [address] [place] [address] Scheduled Procedures Name Priority Associated Diagnoses Date/Ti me PLACEMENT DORSAL COLUMN STIMULATOR (SDEX) Same Day Recovery Low back pain radiating to both legs 01/18/2024 7:10 AM REGIONAL CONSTRUCTION MANAGER documented as of this encounter Visit Diagnoses Not on filedocumented in this encounter Care Teams Enterprise Resource Planner Relationship Specialty Start Date End Date Cyndee Carranza MD [address] [place] [address] PCP - General 01/21/23 documented as of this encounter
--- OUTSIDE RECORDS SUMMARY | 2024-01-10 14:52 | XMS_ITS | Encounter Summary ---
Author Organization [facility] Address [address], [place] [address] Care Team Providers Care Hr Internship Name Role Phone Cyndee Carranza MD Primary Care Provider [phone] Reason for Referral * Procedure/Equipment (Routine) - Incomplete Specialty Diagnoses / Procedures Referred By Contac t Referred To Contact Diagnoses Spinal cord stimulator status Procedures XR Thoracic Spine 2 Views Sudheer Hussein DO [address] [place] [address] Referral ID Status Reason Start Date Expiration Date V isits Requested Visits Authorized [id number] Incomplete 11/17/2023 02/15/2025 1 1 Reason for Visit * Reason Comments Nurse Visit End of SCS trial obey d removal Encounter Details Date Type Department Care Team (Latest Contact Info) Description 11/24/2023 10:00 AM CDT Nursing Visit [facility] Pain Management [address] [facility] [place] [place] [address] Spinal cord stimulator status (Primary Dx) Social History Tobacco Use Types [...] as of this encounter Progress Notes * Glendy Cordova RN - 11/24/2023 10:00 AM CDT Patient comes into clinic for nurse visit for end of spinal cord stimulator trial lead removal. Procedure: Percutaneous trial, spinal cord stimulation, two leads by Sudheer Hussein DO. Patient reports over >60% improvement with low back pain. Patient was able to sit for longer periods of time,walk further, and sleep more easily with less pain. Patient would like to proceed with SCS Implant. I removed old back dressings, cleaned SCS insertion areas with chloraprep and removed four sutures and two SCS trial leads with tips intact. Patient tolerated well. I placed 2 bandaids and advised patient to shower but no soaking the next day. Patient will await for [facility] Neurosurgery Department to contact patient to schedule consult for SCS permanent placement. Glendy Cordova RN 11/24/2023, 10:25 AM documented in this encounter Plan of Treatment Upcoming Encounters Date Type Department Care Team (Latest Contact Info) Description 01/18/2024 7:10 AM HOG CONFINEMENT SYSTEM MANAGER Hospital Encounter Operating Room [address] [place] [address] Getachew Chappell MD [address] [place] [address] 01/18/2024 7:10 AM HOG CONFINEMENT SYSTEM MANAGER - 01/18/2024 9:30 AM HOG CONFINEMENT SYSTEM MANAGER Surgery Operating Room [address] [place] [address] Getachew Chappell MD [address] [place] [address] PLACEMENT DORSAL COLUMN STIMULATOR 01/27/2024 1:00 PM HOG CONFINEMENT SYSTEM MANAGER Appointment [facility] Neurology EEG/EMG [address] [place] [address]. [place] [address] Kendell Perez MD [address] [place] [address] 02/01/2024 1:00 PM HOG CONFINEMENT SYSTEM MANAGER Appointment [facility] Neurosurgery/Ortho Spine [address] [facility] [place] [address] 02/14/2024 9:40 AM HOG CONFINEMENT SYSTEM MANAGER Appointment [facility] Neurosurgery/Ortho Spine [address] [facility] [place] [address] Getachew Chappell MD [address] [place] [address] Scheduled Orders Name Type Priority Associated Diagnoses Orde r Schedule XR Thoracic Spine 2 Views Imaging New Routine Spinal cord stimulator status Expected: 11/17/2023 (Approximate), Expires: 11/16/2024 Scheduled Procedures Name Priority Associated Diagnoses Date/Ti me PLACEMENT DORSAL COLUMN STIMULATOR (SDEX) Same Day Recovery Low back pain radiating to both legs 01/18/2024 7:10 AM HOG CONFINEMENT SYSTEM MANAGER documented as of this encounter Visit Diagnoses Diagnosis Spinal cord stimulator status- Primary Other postprocedural status Low back pain radiating to both legs Lumbago documented in this encounter Care Teams Hr Internship Relationship Specialty Start Date End Date Cyndee Carranza MD [address] [place] [address] PCP - General 01/21/23 documented as of this encounter
--- OUTSIDE RECORDS SUMMARY | 2024-01-10 14:52 | XMS_ITS | Encounter Summary ---
Author Organization [facility] Address [address] [place] [address] Care Team Providers Care Analyst Market Intelligence Name Role Phone Cyndee Carranza MD Primary Care Provider [phone] Reason for Referral * Consult/Transfer Care (Routine) - New Request Specialty Diagnoses / Procedures Referred By Laura whitlock Referred To Contact Diagnoses Spinal cord stimulator status Sudheer Hussein, DO [address] [place] [address] Referral ID Status Reason Start Date Expiration Date V isits Requested Visits Authorized [id number] New Request 11/24/2023 02/22/2025 1 1 Scheduling Instructions Your clinician has recommended an appointment with [facility]. You may call [phone], option 4 for questions or to schedule your appointment. There are many treatment options for back pain. Each has benefits and risks. We want to make sure you understand all the options available to you. That way you can make an informed decision about your care. You will see one of our medical spine experts to ensure you get the best information and care for your specific condition. After your visit with the medical spine expert, you may decide whether you want to pursue other treatment options or see a spine surgeon. Our medical spine experts will: - Confirm your diagnosis. - Help you understand what options are available to you - Help you decide on the best treatment option for you. - Help you care for your back. The selling specialist will help create a treatment plan with you that you and your primary care doctor can work on together to relieve your pain. Question Answer Appointment Urgency? Non-urgent Reason for visit? consult SCS permanent implant trial with Dr. Hussein 11/18/23 Comments Hemoglobin A1C Date Value Ref Range Status 07/02/2022 6.0 (H) <=5.6 % Final Estimated body mass index is 31.24 kg/m as calculated from the following: Height as of 11/15/23: 5' 4 (1.626 m). Weight as of 11/15/23: 182 lb (82.6 kg). Social History Tobacco Use Smoking status: Never Passive exposure: Never Smokeless tobacco: Never Please note, A1c>8, a BMI >40 or <18.5 or a positive nicotine status will delay surgical recommendations given the negative impact on surgical outcome for the patient. Reason for Visit * Reason Comments Referral Encounter Details Date Type Department Care Team (Late st Contact Info) Description 11/24/2023 Telephone [facility] Pain Management [address] [facility] [place] [address] Sudheer Hussein DO [address] [place] [address] Referral Social History Tobacco Use Types Packs/Day Years [...] Nursing Notes * Glendy Cordova RN - 11/24/2023 10:[address] Hussein, please review pended referral to neurosurgery for permanent scs implant consult, sign if agree. Patient comes into clinic for nurse visit [...] the next day. Patient will await for [facility] Neurosurgery Department to contact patient to schedule consult for SCS permanent placement. Glendy Cordova RN 11/24/2023, 10:25 AM documented in this encounter Plan of Treatment Upcoming Encounters Date Type Department Care Team (Latest Contact Info) Description 01/18/2024 7:10 AM RUBBER TURNER Hospital Encounter Operating Room [address] [place] [address] Getachew Chappell MD [address] [place] [address] 01/18/2024 7:10 AM RUBBER TURNER - 01/18/2024 9:30 AM RUBBER TURNER Surgery Operating Room [address] [place] [address] Getachew Chappell MD [address] [place] [address] PLACEMENT DORSAL COLUMN STIMULATOR 01/27/2024 1:00 PM RUBBER TURNER Appointment [facility] Neurology EEG/EMG [address] [place] [address] Kendell Perez MD [address] [place] [address] 02/01/2024 1:00 PM RUBBER TURNER Appointment [facility] Neurosurgery/Ortho Spine [address] [place] [address] 02/14/2024 9:40 AM RUBBER TURNER Appointment [facility] Neurosurgery/Ortho Spine [address] [place] [address] Getachew Chappell MD [address] [place] [address] Scheduled Procedures Name Priority Associated Diagnoses Date/Ti me PLACEMENT DORSAL COLUMN STIMULATOR (SDEX) Same Day Recovery Low back pain radiating to both legs 01/18/2024 7:10 AM RUBBER TURNER Scheduled Referrals Name Type Priority Associated Diagnoses Orde r Schedule Spine-Surgical Consult-Adults Referral Routine Spinal cord stimulator status Ordered: 11/24/2023 documented as of this encounter Visit Diagnoses Diagnosis Spinal cord stimulator status- Primary Other postprocedural status Low back pain radiating to both legs Lumbago documented in this encounter Care Teams Analyst Market Intelligence Relationship Specialty Start Date End Date Cyndee Carranza MD [address] [place] [address] PCP - General 01/21/23 documented as of this encounter
--- OUTSIDE RECORDS SUMMARY | 2024-01-10 14:53 | XMS_ITS | Encounter Summary ---
Author Organization [facility] Address [address], [place] [address] Care Team Providers Care Meat Dresser Name Role Phone Cyndee Carranza MD Primary [...] Contact Info) Description 01/18/2024 7:10 AM RETAIL ASSISTANT Hospital Encounter Operating Room [address] [place] [address] Getachew Chappell MD [address] [place] [address] 01/18/2024 7:10 AM RETAIL ASSISTANT - 01/18/2024 9:30 AM RETAIL ASSISTANT Surgery Operating Room [address] [place] [address] Getachew Chappell MD [address] [place] [address] PLACEMENT DORSAL COLUMN STIMULATOR 01/27/2024 1:00 PM RETAIL ASSISTANT Appointment [facility] Neurology EEG/EMG [address] [place] [address]. [place] [address] Kendell Perez MD [address] [place] [address] 02/01/2024 1:00 PM RETAIL ASSISTANT Appointment [facility] Neurosurgery/Ortho Spine [address] [place] [address] 02/14/2024 9:40 AM RETAIL ASSISTANT Appointment [facility] Neurosurgery/Ortho Spine [address] [facility] [place] [address] Getachew Chappell MD [address] [place] [address] Scheduled Procedures Name Priority Associated Diagnoses Date/Ti me PLACEMENT DORSAL COLUMN STIMULATOR (SDEX) Same Day Recovery Low back pain radiating to both legs 01/18/2024 7:10 AM RETAIL ASSISTANT documented as of this encounter Visit Diagnoses Not on filedocumented in this encounter Care Teams Meat Dresser Relationship Specialty Start Date End Date Cyndee Carranza MD [address] [place] [address] PCP - General 01/21/23 documented as of this encounter
--- OUTSIDE RECORDS SUMMARY | 2024-01-10 14:53 | XMS_ITS | Encounter Summary ---
Author Organization [facility] Address [address], [place] [address] Care Team Providers Care Armature Inspector Name Role Phone Cyndee Carranza MD Primary Care Provider [phone] Encounter Details Date Type Department Care Team [...] (Latest Contact Info) Description 01/18/2024 7:10 AM CAR BODY MECHANIC Hospital Encounter Operating Room [address] [place] [address] Getachew Chappell MD [address] [place] [address] 01/18/2024 7:10 AM CAR BODY MECHANIC - 01/18/2024 9:30 AM CAR BODY MECHANIC Surgery Operating Room [address] [place] [address] Getachew Chappell MD [address] [place] [address] PLACEMENT DORSAL COLUMN STIMULATOR 01/27/2024 1:00 PM CAR BODY MECHANIC Appointment [facility] Neurology EEG/EMG [address] [facility] [place] [address] Kendell Perez MD [address] [place] [address] 02/01/2024 1:00 PM CAR BODY MECHANIC Appointment [facility] Neurosurgery/Ortho Spine [address] [facility] [place] [address] 02/14/2024 9:40 AM CAR BODY MECHANIC Appointment [facility] Neurosurgery/Ortho Spine [address] [facility] [place] [address] Getachew Chappell MD [address] [place] [address] Scheduled Procedures Name Priority Associated Diagnoses Date/Ti me PLACEMENT DORSAL COLUMN STIMULATOR (SDEX) Same Day Recovery Low back pain radiating to both legs 01/18/2024 7:10 AM CAR BODY MECHANIC documented as of this encounter Visit Diagnoses Not on filedocumented in this encounter Care Teams Armature Inspector Relationship Specialty Start Date End Date Cyndee Carranza MD [address] [facility] [address] PCP - General 01/21/23 documented as of this encounter
--- OUTSIDE RECORDS SUMMARY | 2024-01-10 14:53 | XMS_ITS | Encounter Summary ---
Author Organization [facility] Address [address], [place] [address] Care Team Providers Care Physical Integration Practitioner Name Role Phone Cyndee Carranza MD Primary Care Provider [phone] Encounter Details Date Type Department Care Team [...] (Latest Contact Info) Description 01/18/2024 7:10 AM UPSET OPERATOR Hospital Encounter Operating Room [address] [place] [address] Getachew Chappell MD [address] [place] [address] 01/18/2024 7:10 AM UPSET OPERATOR - 01/18/2024 9:30 AM UPSET OPERATOR Surgery Operating Room [address] [place] [address] Getachew Chappell MD [address] [place] [address] PLACEMENT DORSAL COLUMN STIMULATOR 01/27/2024 1:00 PM UPSET OPERATOR Appointment [facility] Neurology EEG/EMG [address] [place] [address] Kendell Perez MD [address] [place] [address] 02/01/2024 1:00 PM UPSET OPERATOR Appointment [facility] Neurosurgery/Ortho Spine [address] [facility] [place] [address] 02/14/2024 9:40 AM UPSET OPERATOR Appointment [facility] Neurosurgery/Ortho Spine [address] [place] [address] Getachew Chappell MD [address] [place] [address] Scheduled Procedures Name Priority Associated Diagnoses Date/Ti me PLACEMENT DORSAL COLUMN STIMULATOR (SDEX) Same Day Recovery Low back pain radiating to both legs 01/18/2024 7:10 AM UPSET OPERATOR documented as of this encounter Visit Diagnoses Not on filedocumented in this encounter Care Teams Physical Integration Practitioner Relationship Specialty Start Date End Date Cyndee Carranza MD [address] [place] [address] PCP - General 01/21/23 documented as of this encounter
--- OUTSIDE RECORDS SUMMARY | 2024-01-10 14:53 | XMS_ITS | Encounter Summary ---
Author Organization [facility] Address [address] [address] Care Team Providers Care Sample Body Builder Name Role Phone Cyndee Carranza MD Primary Care Provider [phone] Encounter Details Date Type Department Care Team (Late st Contact Info) Description 09/02/2006 Consent for Procedure/Treatm ent Gastroenterology Procedures at [facility] [address] [address] Sonu Mireles MD [facility] [address] [place] [address] [facility] Informed Consent Social History Tobacco [...] (Latest Contact Info) Description 01/18/2024 7:10 AM ASSISTANT SITE MANAGER Hospital Encounter RH Operating Room [address] [place] [address] Getachew Chappell MD [address] [place] [address] 01/18/2024 7:10 AM ASSISTANT SITE MANAGER - 01/18/2024 9:30 AM ASSISTANT SITE MANAGER Surgery Operating Room [address] [place] [address] Getachew Chappell MD [address] [place] [address] PLACEMENT DORSAL COLUMN STIMULATOR 01/27/2024 1:00 PM ASSISTANT SITE MANAGER Appointment [facility] Neurology EEG/EMG [address] [place] [address]. [place] [address] Kendell Perez MD [address] [place] [address] 02/01/2024 1:00 PM ASSISTANT SITE MANAGER Appointment [facility] Neurosurgery/Ortho Spine [address] [place] [address] 02/14/2024 9:40 AM ASSISTANT SITE MANAGER Appointment [facility] Neurosurgery/Ortho Spine [address] [place] [address]. [place] [address] Getachew Chappell MD [address] [place] [address] Scheduled Procedures Name Priority Associated Diagnoses Date/Ti me PLACEMENT DORSAL COLUMN STIMULATOR (SDEX) Same Day Recovery Low back pain radiating to both legs 01/18/2024 7:10 AM ASSISTANT SITE MANAGER documented as of this encounter Visit Diagnoses Not on filedocumented in this encounter Care Teams Sample Body Builder Relationship Specialty Start Date End Date Cyndee Carranza MD [address] [place] [address] PCP - General 01/21/23 documented as of this encounter
--- OUTSIDE RECORDS SUMMARY | 2024-01-10 14:53 | XMS_ITS | Encounter Summary ---
Author Organization [facility] Address [address] [place] [address] Care Team Providers Care Laminating Press Operator Name Role Phone Cyndee Carranza MD Primary Care Provider [phone] Encounter Details Date Type Department Care Team (Latest Contact Info) Description 09/02/2017 Consent for Procedure/Treatm ent Gastroenterology Procedures at [address] [address] Sampson Crocker MD INFORMED CONSENT FOR [...] (Latest Contact Info) Description 01/18/2024 7:10 AM [facility] Hospital Encounter RH Operating Room [address] [place] [address] Getachew Chappell MD [address] [place] [address] 01/18/2024 7:10 AM PUMPER HAND - 01/18/2024 9:30 AM [facility] Surgery Operating Room [address] [place] [address] Getachew Chappell MD [address] [place] [address] [phone] PLACEMENT DORSAL COLUMN STIMULATOR 01/27/2024 1:00 PM PUMPER HAND Appointment [facility] Neurology EEG/EMG 295 [facility] [place] [address] Kendell Perez MD 295 [place] [address] 02/01/2024 1:00 PM PUMPER HAND Appointment [facility] Neurosurgery/Ortho Spine 295 [facility] [place] [address] 02/14/2024 9:40 AM PUMPER HAND Appointment [facility] Neurosurgery/Ortho Spine 295 [facility] [place] [address] Getachew Chappell MD 295 [place] [address] Scheduled Procedures Name Priority Associated Diagnoses Date/Ti me PLACEMENT DORSAL COLUMN STIMULATOR (SDEX) Same Day Recovery Low back pain radiating to both legs 01/18/2024 7:10 AM PUMPER HAND documented as of this encounter Visit Diagnoses Not on filedocumented in this encounter Care Teams Laminating Press Operator Relationship Specialty Start Date End Date Cyndee Carranza MD [address] [place] [address] PCP - General 01/21/23 documented as of this encounter
--- OUTSIDE RECORDS SUMMARY | 2024-01-10 14:53 | XMS_ITS | Encounter Summary ---
Author Organization [facility] Address [address], [place] [address] Care Team Providers Care Hot Frame Tender Name Role Phone Cyndee Carranza MD Primary Care Provider [phone] Encounter Details Date Type Department Care Team (Late st Contact Info) Description 11/04/2015 [facility] Internal Medicine [address] [place] [address] Leena Spivey MD Social History Tobacco Use [...] (Latest Contact Info) Description 01/18/2024 7:10 AM DATA PROCESSING CONTROL CLERK Hospital Encounter RH Operating Room [address] [place] [address] Getachew Chappell MD [address] [place] [address] 01/18/2024 7:10 AM DATA PROCESSING CONTROL CLERK - 01/18/2024 9:30 AM DATA PROCESSING CONTROL CLERK Surgery Operating Room [address] [place] [address] Getachew Chappell MD 295 [place] [address] PLACEMENT DORSAL COLUMN STIMULATOR 01/27/2024 1:00 PM DATA PROCESSING CONTROL CLERK Appointment [facility] Neurology EEG/EMG [address] [place] [address] Kendell Perez MD 295 [place] [address] 02/01/2024 1:00 PM DATA PROCESSING CONTROL CLERK Appointment [facility] Neurosurgery/Ortho Spine 295 [place] [address] 02/14/2024 9:40 AM DATA PROCESSING CONTROL CLERK Appointment [facility] Neurosurgery/Ortho Spine [address] [place] [address]. [place] [address] Getachew Chappell MD 295 [place] [address] Scheduled Procedures Name Priority Associated Diagnoses Date/Ti me PLACEMENT DORSAL COLUMN STIMULATOR (SDEX) Same Day Recovery Low back pain radiating to both legs 01/18/2024 7:10 AM DATA PROCESSING CONTROL CLERK documented as of this encounter Visit Diagnoses Diagnosis Encounter for long-term (current) use of medications- Primary Encounter for long-term (current) use of other medications Low back pain radiating to both legs Lumbago documented in this encounter Care Teams Hot Frame Tender Relationship Specialty Start Date End Date Cyndee Carranza MD [address] [place] [address] PCP - General 01/21/23 documented as of this encounter
--- OUTSIDE RECORDS SUMMARY | 2024-01-10 14:53 | XMS_ITS | Encounter Summary ---
Author Organization [facility] Address [address], [place] [address] Care Team Providers Care Coyote Hunter Name Role Phone Cyndee Carranza MD Primary Care Provider [phone] Encounter Details Date Type Department Care Team [...] (Latest Contact Info) Description 01/18/2024 7:10 AM FARMWORKER LIVESTOCK Hospital Encounter Operating Room [address] [place] [address] Getachew Chappell MD [address] [place] [address] 01/18/2024 7:10 AM FARMWORKER LIVESTOCK - 01/18/2024 9:30 AM FARMWORKER LIVESTOCK Surgery Operating Room [address] [place] [address] Getachew Chappell MD [address] [place] [address] PLACEMENT DORSAL COLUMN STIMULATOR 01/27/2024 1:00 PM FARMWORKER LIVESTOCK Appointment [facility] Neurology EEG/EMG [address] [facility] [place] [address] Kendell Perez MD 295 [place] [address] 02/01/2024 1:00 PM FARMWORKER LIVESTOCK Appointment [facility] Neurosurgery/Ortho Spine [address] [facility] [address] 02/14/2024 9:40 AM FARMWORKER LIVESTOCK Appointment [facility] Neurosurgery/Ortho Spine [address] [facility] [place] [address] Getachew Chappell MD 295 [place] [address] Scheduled Procedures Name Priority Associated Diagnoses Date/Ti me PLACEMENT DORSAL COLUMN STIMULATOR (SDEX) Same Day Recovery Low back pain radiating to both legs 01/18/2024 7:10 AM FARMWORKER LIVESTOCK documented as of this encounter Visit Diagnoses Not on filedocumented in this encounter Care Teams Coyote Hunter Relationship Specialty Start Date End Date Cyndee Carranza MD [address] [place] [address] PCP - General 01/21/23 documented as of this encounter
--- OUTSIDE RECORDS SUMMARY | 2024-01-10 14:53 | XMS_ITS | Encounter Summary ---
Author Organization [email or web address] Address [address], [place] [address] Care Team Providers Care Barn Boss Name Role Phone Cyndee Carranza MD Primary Care Provider [phone] Encounter Details Date Type Department Care Team (Late st Contact Info) Description 02/07/2019 Correspondence External to External, [place] [address] CONSENT AND RELEASE Social History Tobacco Use [...] (Latest Contact Info) Description 01/18/2024 7:10 AM [facility] Hospital Encounter Operating Room [address] [place] [address] Getachew Chappell MD [address] [place] [address] 01/18/2024 7:10 AM FEED MILL LAB TECHNICIAN - 01/18/2024 9:30 AM [facility] Surgery Operating Room [address] [place] [address] Getachew Chappell MD [address] [place] [address] PLACEMENT DORSAL COLUMN STIMULATOR 01/27/2024 1:00 PM FEED MILL LAB TECHNICIAN Appointment [facility] Neurology EEG/EMG 295 [facility] [address] Kendell Perez MD 295 [place] [address] 02/01/2024 1:00 PM FEED MILL LAB TECHNICIAN Appointment [facility] Neurosurgery/Ortho Spine 295 [facility] [address] 02/14/2024 9:40 AM FEED MILL LAB TECHNICIAN Appointment [facility] Neurosurgery/Ortho Spine [address] [place] [address] Getachew Chappell MD 295 [place] [address] Scheduled Procedures Name Priority Associated Diagnoses Date/Ti me PLACEMENT DORSAL COLUMN STIMULATOR (SDEX) Same Day Recovery Low back pain radiating to both legs 01/18/2024 7:10 AM FEED MILL LAB TECHNICIAN documented as of this encounter Visit Diagnoses Not on filedocumented in this encounter Care Teams Barn Boss Relationship Specialty Start Date End Date Cyndee Carranza MD [address] [place] [address] PCP - General 01/21/23 documented as of this encounter
--- OUTSIDE RECORDS SUMMARY | 2024-01-10 14:53 | XMS_ITS | Encounter Summary ---
Author Organization [facility] Address [address], [place] [address] Care Team Providers Care Sr. Unix System Administrator Name Role Phone Cyndee Carranza MD Primary Care Provider [phone] Encounter Details Date Type Department Care Team [...] (Latest Contact Info) Description 01/18/2024 7:10 AM CAPTAIN FIRE PREVENTION BUREAU Hospital Encounter Operating Room [address] [place] [address] Getachew Chappell MD [address] [place] [address] 01/18/2024 7:10 AM CAPTAIN FIRE PREVENTION BUREAU - 01/18/2024 9:30 AM CAPTAIN FIRE PREVENTION BUREAU Surgery Operating Room [address] [place] [address] Getachew Chappell MD [address] [place] [address] PLACEMENT DORSAL COLUMN STIMULATOR 01/27/2024 1:00 PM CAPTAIN FIRE PREVENTION BUREAU Appointment [facility] Neurology EEG/EMG 295 [place] [address] Kendell Perez MD 295 [place] [address] 02/01/2024 1:00 PM CAPTAIN FIRE PREVENTION BUREAU Appointment [facility] Neurosurgery/Ortho Spine 295 [facility] [address] 02/14/2024 9:40 AM CAPTAIN FIRE PREVENTION BUREAU Appointment [facility] Neurosurgery/Ortho Spine [address] [place] [address] Getachew Chappell MD 295 [place] [address] Scheduled Procedures Name Priority Associated Diagnoses Date/Ti me PLACEMENT DORSAL COLUMN STIMULATOR (SDEX) Same Day Recovery Low back pain radiating to both legs 01/18/2024 7:10 AM CAPTAIN FIRE PREVENTION BUREAU documented as of this encounter Visit Diagnoses Not on filedocumented in this encounter Care Teams Sr. Unix System Administrator Relationship Specialty Start Date End Date Cyndee Carranza MD [address] [place] [address] PCP - General 01/21/23 documented as of this encounter
--- OUTSIDE RECORDS SUMMARY | 2024-01-10 14:53 | XMS_ITS | Encounter Summary ---
Author Organization [facility] Address [address], [place] [address] Care Team Providers Care Systems Mgr Name Role Phone Cyndee Carranza MD Primary Care Provider [phone] Encounter Details Date Type Department Care Team [...] (Latest Contact Info) Description 01/18/2024 7:10 AM AGILE DEVELOPER Hospital Encounter Operating Room [address] [place] [address] Getachew Chappell MD [address] [place] [address] 01/18/2024 7:10 AM AGILE DEVELOPER - 01/18/2024 9:30 AM AGILE DEVELOPER Surgery Operating Room [address] [place] [address] Getachew Chappell MD [address] [place] [address] PLACEMENT DORSAL COLUMN STIMULATOR 01/27/2024 1:00 PM AGILE DEVELOPER Appointment [facility] Neurology EEG/EMG 295 [facility] [place] [address] Kendell Perez MD 295 [place] [address] 02/01/2024 1:00 PM AGILE DEVELOPER Appointment [facility] Neurosurgery/Ortho Spine [address] [facility] [address] 02/14/2024 9:40 AM AGILE DEVELOPER Appointment [facility] Neurosurgery/Ortho Spine [address] [facility] [place] [address] Getachew Chappell MD 295 [place] [address] Scheduled Procedures Name Priority Associated Diagnoses Date/Ti me PLACEMENT DORSAL COLUMN STIMULATOR (SDEX) Same Day Recovery Low back pain radiating to both legs 01/18/2024 7:10 AM AGILE DEVELOPER documented as of this encounter Visit Diagnoses Not on filedocumented in this encounter Care Teams Systems Mgr Relationship Specialty Start Date End Date Cyndee Carranza MD [address] [place] [address] PCP - General 01/21/23 documented as of this encounter
--- OUTSIDE RECORDS SUMMARY | 2024-01-10 14:53 | XMS_ITS | Encounter Summary ---
Author Organization [facility] Address [address] [place] [address] Care Team Providers Care Wastewater Treatment Plant Chemist Name Role Phone Cyndee Carranza MD Primary Care Provider [phone] Encounter Details Date Type Department Care Team (Late st Contact Info) Description 08/07/2014 Consent for Procedure/Treatme nt [facility] Department INFORMED CONSENT RECORD Social History Tobacco [...] (Latest Contact Info) Description 01/18/2024 7:10 AM COD CLERK Hospital Encounter Operating Room [address] [place] [address] Getachew Chappell MD 295 [place] [address] 01/18/2024 7:10 AM COD CLERK - 01/18/2024 9:30 AM COD CLERK Surgery Operating Room [address] [place] [address] Getachew Chappell MD 295 [place] [address] PLACEMENT DORSAL COLUMN STIMULATOR 01/27/2024 1:00 PM COD CLERK Appointment [facility] Neurology EEG/EMG 295 [place] [address] Kendell Perez MD 295 [place] [address] 02/01/2024 1:00 PM COD CLERK Appointment [facility] Neurosurgery/Ortho Spine [address] [place] [address] 02/14/2024 9:40 AM COD CLERK Appointment [facility] Neurosurgery/Ortho Spine [address] [place] [address] eGtachew Chappell MD [address] [place], [place] [phone] Scheduled Procedures Name Priority Associated Diagnoses Date/Ti me PLACEMENT DORSAL COLUMN STIMULATOR (SDEX) Same Day Recovery Low back pain radiating to both legs 01/18/2024 7:10 AM COD CLERK documented as of this encounter Visit Diagnoses Not on filedocumented in this encounter Care Teams Wastewater Treatment Plant Chemist Relationship Specialty Start Date End Date Cyndee Carranza MD [address] [place] [address] PCP - General 01/21/23 documented as of this encounter
--- OUTSIDE RECORDS SUMMARY | 2024-01-10 14:53 | XMS_ITS | Encounter Summary ---
Author Organization [facility] Address [address], [place] [address] Care Team Providers Care Supervisor Carpenters Name Role Phone Cyndee Cararnza MD Primary Care Provider [phone] Encounter Details Date Type Department Care Team (Late st Contact Info) Description 01/18/2019 Consent for Procedure/Treatme nt [facility] Department INFORMED CONSENT RECORD Social [...] (Latest Contact Info) Description 01/18/2024 7:10 AM DIRECTOR OF COMPLIANCE Hospital Encounter Operating Room [address] [place] [address] Getachew Chappell MD [address] [place] [address] 01/18/2024 7:10 AM DIRECTOR OF COMPLIANCE - 01/18/2024 9:30 AM DIRECTOR OF COMPLIANCE Surgery Operating Room [address] [place] [address] Getachew Chappell MD [address] [place] [address] PLACEMENT DORSAL COLUMN STIMULATOR 01/27/2024 1:00 PM DIRECTOR OF COMPLIANCE Appointment [facility] Neurology EEG/EMG [address] [place] [address] Kendell Perez MD 295 [place] [address] 02/01/2024 1:00 PM DIRECTOR OF COMPLIANCE Appointment [facility] Neurosurgery/Ortho Spine [address] [place] [address] 02/14/2024 9:40 AM DIRECTOR OF COMPLIANCE Appointment [facility] Neurosurgery/Ortho Spine [address] [place] [address] Getachew Chappell MD 295 [place] [address] Scheduled Procedures Name Priority Associated Diagnoses Date/Ti me PLACEMENT DORSAL COLUMN STIMULATOR (SDEX) Same Day Recovery Low back pain radiating to both legs 01/18/2024 7:10 AM DIRECTOR OF COMPLIANCE documented as of this encounter Visit Diagnoses Not on filedocumented in this encounter Care Teams Supervisor Carpenters Relationship Specialty Start Date End Date Cyndee Carranza MD [address] [facility] [place] [address] PCP - General 01/21/23 documented as of this encounter
--- OUTSIDE RECORDS SUMMARY | 2024-01-10 14:53 | XMS_ITS | Encounter Summary ---
Author Organization [facility] Address [address] [place] [address] Care Team Providers Care Gift Packer Name Role Phone Cyndee Carranza MD Primary Care Provider [phone] Encounter Details Date Type Department Care Team (Latest Contact Info) Description 12/22/1995 Orders Only Garland Phillips MD [address] [place] [address] Social History Tobacco Use Types Packs/Day Years Used Date Smoking Tobacco: Never Assessed Sex and Gender Information Value Date Recorded Sex Assigned at Not on file Gender Identity Not on file Sexual Orientation Not on file documented as of this encounter Plan of Treatment Upcoming Encounters Date Type Department Care Team (Latest Contact Info) Description 01/18/2024 7:10 AM PEDIATRIC PHYSICIAN Hospital Encounter Operating Room [address] [place] [address] Getachew Chappell MD [address] [place] [address] 01/18/2024 7:10 AM PEDIATRIC PHYSICIAN - 01/18/2024 9:30 AM PEDIATRIC PHYSICIAN Surgery Operating Room [address] [place] [address] Getachew Chappell MD [address] [place] [address] PLACEMENT DORSAL COLUMN STIMULATOR 01/27/2024 1:00 PM PEDIATRIC PHYSICIAN Appointment [facility] Neurology EEG/EMG 295 [facility] [place] [address] Kendell Perez MD 295 [place] [address] 02/01/2024 1:00 PM PEDIATRIC PHYSICIAN Appointment [facility] Neurosurgery/Ortho Spine 295 [facility] [place] [address] 02/14/2024 9:40 AM PEDIATRIC PHYSICIAN Appointment [facility] Neurosurgery/Ortho Spine 295 [facility] [place] [address] Getachew Chappell MD [address] [place], [place] [phone] Scheduled Procedures Name Priority Associated Diagnoses Date/Ti me PLACEMENT DORSAL COLUMN STIMULATOR (SDEX) Same Day Recovery Low back pain radiating to both legs 01/18/2024 7:10 AM PEDIATRIC PHYSICIAN documented as of this encounter Visit Diagnoses Not on filedocumented in this encounter Care Teams Gift Packer Relationship Specialty Start Date End Date Cyndee Carranza MD [address] [place] [address] PCP - General 01/21/23 documented as of this encounter
--- OUTSIDE RECORDS SUMMARY | 2024-01-10 14:53 | XMS_ITS | Encounter Summary ---
Author Organization [facility] Address [address], [place] [address] Care Team Providers Care Architectural Job Captain Name Role Phone Cyndee Carranza MD Primary Care Provider [phone] Encounter Details Date Type Department Care Team [...] (Latest Contact Info) Description 01/18/2024 7:10 AM LAST TRIMMER Hospital Encounter Operating Room [address] [place] [address] Getachew Chappell MD [address] [place] [address] 01/18/2024 7:10 AM LAST TRIMMER - 01/18/2024 9:30 AM LAST TRIMMER Surgery Operating Room [address] [place] [address] Getachew Chappell MD [address] [place] [address] PLACEMENT DORSAL COLUMN STIMULATOR 01/27/2024 1:00 PM LAST TRIMMER Appointment [facility] Neurology EEG/EMG [address] [place] [address] Kendell Perez MD 295 [place] [address] 02/01/2024 1:00 PM LAST TRIMMER Appointment [facility] Neurosurgery/Ortho Spine [address] [place] [place] [address] 02/14/2024 9:40 AM LAST TRIMMER Appointment [facility] Neurosurgery/Ortho Spine [address] [place] [address] Getachew Chappell MD 295 [place] [address] Scheduled Procedures Name Priority Associated Diagnoses Date/Ti me PLACEMENT DORSAL COLUMN STIMULATOR (SDEX) Same Day Recovery Low back pain radiating to both legs 01/18/2024 7:10 AM LAST TRIMMER documented as of this encounter Visit Diagnoses Not on filedocumented in this encounter Care Teams Architectural Job Captain Relationship Specialty Start Date End Date Cyndee Carranza MD [address] [place] [address] PCP - General 01/21/23 documented as of this encounter
--- OUTSIDE RECORDS SUMMARY | 2024-01-10 14:53 | XMS_ITS | Encounter Summary ---
Author Organization [facility] Address [address], [place] [address] Care Team Providers Care Climate Change Risk Assessor Name Role Phone Cyndee Carranza MD Primary Care Provider [phone] Encounter Details Date Type Department Care Team [...] (Latest Contact Info) Description 01/18/2024 7:10 AM SURVEY ENGINEER Hospital Encounter Operating Room [address] [place] [address] Getachew Chappell MD [address] [place] [address] 01/18/2024 7:10 AM SURVEY ENGINEER - 01/18/2024 9:30 AM SURVEY ENGINEER Surgery Operating Room [address] [place] [address] Getachew Chappell MD [address] [place] [address] PLACEMENT DORSAL COLUMN STIMULATOR 01/27/2024 1:00 PM SURVEY ENGINEER Appointment [facility] Neurology EEG/EMG [address] [place] [address]. [place] [address] Kendell Perez MD 295 [place] [address] 02/01/2024 1:00 PM SURVEY ENGINEER Appointment [facility] Neurosurgery/Ortho Spine 295 [facility] [place] [address] 02/14/2024 9:40 AM SURVEY ENGINEER Appointment [facility] Neurosurgery/Ortho Spine [address] [facility] [place] [address] Getachew Chappell MD [address] [place] [address] Scheduled Procedures Name Priority Associated Diagnoses Date/Ti me PLACEMENT DORSAL COLUMN STIMULATOR (SDEX) Same Day Recovery Low back pain radiating to both legs 01/18/2024 7:10 AM SURVEY ENGINEER documented as of this encounter Visit Diagnoses Not on filedocumented in this encounter Care Teams Climate Change Risk Assessor Relationship Specialty Start Date End Date Cyndee Carranza MD [address] [place] [address] PCP - General 01/21/23 documented as of this encounter
--- OUTSIDE RECORDS SUMMARY | 2024-01-10 14:53 | XMS_ITS | Encounter Summary ---
Author Organization [facility] Address [address] [place] [address] Care Team Providers Care Laborer Vegetable Farm Name Role Phone Cyndee Carranza MD Primary Care Provider [phone] Reason for Visit * Reason Comments QUESTIONS, GENERAL Entered automaticall y based on patient selection in [employer]. Encounter Details Date Type Department Care Team (Late st Contact Info) Description 10/13/2023 2:45 PM CDT E-Visit [facility] 295 [facility] [place], [place] [id number] Sudheer Hussein, [address] [place], [place] [id number] Chief Comp: QUESTIONS, GENERAL Social History Tobacco [...] (Latest Contact Info) Description 01/18/2024 7:10 AM STORE DELI MANAGER Hospital Encounter Operating Room [address] [place] [address] Getachew Chappell MD [address] [place] [address] 01/18/2024 7:10 AM STORE DELI MANAGER - 01/18/2024 9:30 AM STORE DELI MANAGER Surgery Operating Room [address] [place] [address] Getachew Chappell MD [address] [place] [address] PLACEMENT DORSAL COLUMN STIMULATOR 01/27/2024 1:00 PM STORE DELI MANAGER Appointment [facility] Neurology EEG/EMG [address] [place] [address] Kendell Perez MD [address] [place] [address] 02/01/2024 1:00 PM STORE DELI MANAGER Appointment [facility] Neurosurgery/Ortho Spine [address] [place] [address] 02/14/2024 9:40 AM STORE DELI MANAGER Appointment [facility] Neurosurgery/Ortho Spine [address] [place] [address] Getachew Chappell MD [address] [place] [address] Scheduled Procedures Name Priority Associated Diagnoses Date/Ti me PLACEMENT DORSAL COLUMN STIMULATOR (SDEX) Same Day Recovery Low back pain radiating to both legs 01/18/2024 7:10 AM STORE DELI MANAGER documented as of this encounter Visit Diagnoses Not on filedocumented in this encounter Care Teams Laborer Vegetable Farm Relationship Specialty Start Date End Date Cyndee Carranza MD [address] [facility] [address] PCP - General 01/21/23 documented as of this encounter
--- OUTSIDE RECORDS SUMMARY | 2024-01-10 14:53 | XMS_ITS | Encounter Summary ---
Author Organization Count includes the [facility] Address [address], [place] [address] Care Team Providers Care Sales Demonstrator Name Role Phone Cyndee Carranza MD Primary Care Provider [phone] Encounter Details Date Type Department Care Team [...] (Latest Contact Info) Description 01/18/2024 7:10 AM SALES FORCE ADMINISTRATOR Hospital Encounter Operating Room [address] [place] [address] Getachew Chappell MD [address] [place] [address] 01/18/2024 7:10 AM SALES FORCE ADMINISTRATOR - 01/18/2024 9:30 AM SALES FORCE ADMINISTRATOR Surgery Operating Room [address] [place] [address] Getachew Chappell MD [address] [place] [address] PLACEMENT DORSAL COLUMN STIMULATOR 01/27/2024 1:00 PM SALES FORCE ADMINISTRATOR Appointment [facility] Neurology EEG/EMG [address] [place] [address] Kendell Perez MD [address] [place] [address] 02/01/2024 1:00 PM SALES FORCE ADMINISTRATOR Appointment [facility] Neurosurgery/Ortho Spine [address] [facility] [address] 02/14/2024 9:40 AM SALES FORCE ADMINISTRATOR Appointment [facility] Neurosurgery/Ortho Spine [address] [place] [address] Getachew Chappell MD [address] [place] [address] Scheduled Procedures Name Priority Associated Diagnoses Date/Ti me PLACEMENT DORSAL COLUMN STIMULATOR (SDEX) Same Day Recovery Low back pain radiating to both legs 01/18/2024 7:10 AM SALES FORCE ADMINISTRATOR documented as of this encounter Visit Diagnoses Not on filedocumented in this encounter Care Teams Sales Demonstrator Relationship Specialty Start Date End Date Cyndee Carranza MD [address] [place] [address] PCP - General 01/21/23 documented as of this encounter
--- OUTSIDE RECORDS SUMMARY | 2024-01-10 14:53 | XMS_ITS | Encounter Summary ---
Author Organization [facility] Address [address] [address] Care Team Providers Care Pneumatic Systems Operator Name Role Phone Cyndee Carranza MD Primary Care Provider [phone] Encounter Details Date Type Department Care Team (Late st Contact Info) Description 12/22/2012 Consent for Procedure/Treatme nt [facility] Department INFORMED CONSENT RECORD Social [...] as of this encounter Progress Notes * [facility], PROVIDER - 12/22/2012 12:00 AM CST ILE ARTIST documented in this encounter Plan of Treatment Upcoming Encounters Date Type Department Care Team (Latest Contact Info) Description 01/18/2024 7:10 AM TEXTILE ARTIST Hospital Encounter RH Operating Room [address] [place] [address] Getachew Chappell MD [address] [place] [address] 01/18/2024 7:10 AM TEXTILE ARTIST - 01/18/2024 9:30 AM TEXTILE ARTIST Surgery RH Operating Room [address] [place] [address] Getachew Chappell MD [address] [place] [address] PLACEMENT DORSAL COLUMN STIMULATOR 01/27/2024 1:00 PM TEXTILE ARTIST Appointment [facility] Neurology EEG/EMG [address] [facility] [place] [address] Kendell Perez MD 295 [place] [address] 02/01/2024 1:00 PM TEXTILE ARTIST Appointment [facility] Neurosurgery/Ortho Spine [address] [facility] [place] [address] 02/14/2024 9:40 AM TEXTILE ARTIST Appointment [facility] Neurosurgery/Ortho Spine [address] [place] [address]. [place] [address] Getachew Chappell MD [address] [place] [address] Scheduled Procedures Name Priority Associated Diagnoses Date/Ti me PLACEMENT DORSAL COLUMN STIMULATOR (SDEX) Same Day Recovery Low back pain radiating to both legs 01/18/2024 7:10 AM TEXTILE ARTIST documented as of this encounter Visit Diagnoses Not on filedocumented in this encounter Care Teams Pneumatic Systems Operator Relationship Specialty Start Date End Date Cyndee Carranza MD [address] [place] [address] PCP - General 01/21/23 documented as of this encounter
--- OUTSIDE RECORDS SUMMARY | 2024-01-10 14:53 | XMS_ITS | Encounter Summary ---
Author Organization [facility] Address [address], [place] [address] Care Team Providers Care Finishing Tunnel Operator Name Role Phone Cyndee Carranza MD Primary Care Provider [phone] Encounter Details Date Type Department Care Team [...] (Latest Contact Info) Description 01/18/2024 7:10 AM CLOTH LAMINATING SUPERVISOR Hospital Encounter RH Operating Room [address] [place] [address] Getachew Chappell MD [address] [place] [address] 01/18/2024 7:10 AM CLOTH LAMINATING SUPERVISOR - 01/18/2024 9:30 AM CLOTH LAMINATING SUPERVISOR Surgery RH Operating Room [address] [place] [address] Getachew Chappell MD [address] [place] [address] PLACEMENT DORSAL COLUMN STIMULATOR 01/27/2024 1:00 PM CLOTH LAMINATING SUPERVISOR Appointment [facility] Neurology EEG/EMG [address] [facility] [place] [address] Kendell Perez MD [address] [place] [address] 02/01/2024 1:00 PM CLOTH LAMINATING SUPERVISOR Appointment [facility] Neurosurgery/Ortho Spine [address] [facility] [place] [address] 02/14/2024 9:40 AM CLOTH LAMINATING SUPERVISOR Appointment [facility] Neurosurgery/Ortho Spine [address] [facility] [place] [address] Getachew Chappell MD [address] [place] [address] Scheduled Procedures Name Priority Associated Diagnoses Date/Ti me PLACEMENT DORSAL COLUMN STIMULATOR (SDEX) Same Day Recovery Low back pain radiating to both legs 01/18/2024 7:10 AM CLOTH LAMINATING SUPERVISOR documented as of this encounter Visit Diagnoses Not on filedocumented in this encounter Care Teams Finishing Tunnel Operator Relationship Specialty Start Date End Date Cyndee Carranza MD [address] [place] [address] PCP - General 01/21/23 documented as of this encounter
--- OUTSIDE RECORDS SUMMARY | 2024-01-10 14:53 | XMS_ITS | Encounter Summary ---
Author Organization [facility] Address [address], [place] [address] Care Team Providers Care Paving Crew Foreman Name Role Phone Cyndee Carranza MD Primary Care Provider [phone] Encounter Details Date Type Department Care Team [...] (Latest Contact Info) Description 01/18/2024 7:10 AM BRIDGE OPERATOR Hospital Encounter RH Operating Room [address] [place] [address] Getachew Chappell MD [address] [place] [address] 01/18/2024 7:10 AM BRIDGE OPERATOR - 01/18/2024 9:30 AM BRIDGE OPERATOR Surgery RH Operating Room [address] [place] [address] Getachew Chappell MD [address] [place] [address] PLACEMENT DORSAL COLUMN STIMULATOR 01/27/2024 1:00 PM BRIDGE OPERATOR Appointment [facility] Neurology EEG/EMG [address] [facility] [place] [address] Kendell Perez MD [address] [place] [address] 02/01/2024 1:00 PM BRIDGE OPERATOR Appointment [facility] Neurosurgery/Ortho Spine [address] [facility] [place] [address] 02/14/2024 9:40 AM BRIDGE OPERATOR Appointment [facility] Neurosurgery/Ortho Spine [address] [facility] [place] [address] Getachew Chappell MD [address] [place] [address] Scheduled Procedures Name Priority Associated Diagnoses Date/Ti me PLACEMENT DORSAL COLUMN STIMULATOR (SDEX) Same Day Recovery Low back pain radiating to both legs 01/18/2024 7:10 AM BRIDGE OPERATOR documented as of this encounter Visit Diagnoses Not on filedocumented in this encounter Care Teams Paving Crew Foreman Relationship Specialty Start Date End Date Cyndee Carranza MD [address] [place] [address] PCP - General 01/21/23 documented as of this encounter
--- OUTSIDE RECORDS SUMMARY | 2024-01-10 14:53 | XMS_ITS | Encounter Summary ---
Author Organization [facility] Address [address], [place] [address] Care Team Providers Care Edge Beader Name Role Phone Cyndee Carranza MD Primary Care Provider [phone] Encounter Details Date Type Department Care Team [...] (Latest Contact Info) Description 01/18/2024 7:10 AM SCHOOL PROGRAM DIRECTOR Hospital Encounter Operating Room [address] [place] [address] Getachew Chappell MD [address] [place] [address] 01/18/2024 7:10 AM SCHOOL PROGRAM DIRECTOR - 01/18/2024 9:30 AM SCHOOL PROGRAM DIRECTOR Surgery Operating Room [address] [place] [address] Getachew Chappell MD [address] [place] [address] PLACEMENT DORSAL COLUMN STIMULATOR 01/27/2024 1:00 PM SCHOOL PROGRAM DIRECTOR Appointment [facility] Neurology EEG/EMG [address] [facility] [place] [address] Kendell Perez MD [address] [place] [address] 02/01/2024 1:00 PM SCHOOL PROGRAM DIRECTOR Appointment [facility] Neurosurgery/Ortho Spine [address] [facility] [address] 02/14/2024 9:40 AM SCHOOL PROGRAM DIRECTOR Appointment [facility] Neurosurgery/Ortho Spine [address] [facility] [place] [address] Getachew Chappell MD [address] [place] [address] Scheduled Procedures Name Priority Associated Diagnoses Date/Ti me PLACEMENT DORSAL COLUMN STIMULATOR (SDEX) Same Day Recovery Low back pain radiating to both legs 01/18/2024 7:10 AM SCHOOL PROGRAM DIRECTOR documented as of this encounter Visit Diagnoses Not on filedocumented in this encounter Care Teams Edge Beader Relationship Specialty Start Date End Date Cyndee Carranza MD [address] [place] [address] PCP - General 01/21/23 documented as of this encounter
--- OUTSIDE RECORDS SUMMARY | 2024-01-10 14:53 | XMS_ITS | Encounter Summary ---
Author Organization [facility] Address [address] [address] Care Team Providers Care Industrial Fabric Cutter Name Role Phone Cyndee Carranza MD Primary Care Provider [phone] Encounter Details Date Type Department Care Team [...] (Latest Contact Info) Description 01/18/2024 7:10 AM GYPSUM CALCINER Hospital Encounter Operating Room [address] [place] [address] Getachew Chappell MD [address] [place] [address] 01/18/2024 7:10 AM GYPSUM CALCINER - 01/18/2024 9:30 AM GYPSUM CALCINER Surgery Operating Room [address] [place] [address] Getachew Chappell MD [address] [place] [address] PLACEMENT DORSAL COLUMN STIMULATOR 01/27/2024 1:00 PM GYPSUM CALCINER Appointment [facility] Neurology EEG/EMG [address] [facility] [place] [address] Kendell Perez MD [address] [place] [address] 02/01/2024 1:00 PM GYPSUM CALCINER Appointment [facility] Neurosurgery/Ortho Spine [address] [facility] [address] 02/14/2024 9:40 AM GYPSUM CALCINER Appointment [facility] Neurosurgery/Ortho Spine [address] [facility] [place] [address] Getachew Chappell MD [address] [place] [address] Scheduled Procedures Name Priority Associated Diagnoses Date/Ti me PLACEMENT DORSAL COLUMN STIMULATOR (SDEX) Same Day Recovery Low back pain radiating to both legs 01/18/2024 7:10 AM GYPSUM CALCINER documented as of this encounter Visit Diagnoses Not on filedocumented in this encounter Care Teams Industrial Fabric Cutter Relationship Specialty Start Date End Date Cyndee Carranza MD [address] [facility] [place] [address] PCP - General 01/21/23 documented as of this encounter
--- OUTSIDE RECORDS SUMMARY | 2024-01-10 14:53 | XMS_ITS | Encounter Summary ---
Author Organization [facility] Address [address], [place] [address] Care Team Providers Care Human Resources Psychologist Name Role Phone Cyndee Carranza MD Primary Care Provider [phone] Encounter Details Date Type Department Care Team (Late st Contact Info) Description 01/18/2019 Consent for Procedure/Treatme nt [facility] Department INFORMED CONSENT RECORD Social History [...] (Latest Contact Info) Description 01/18/2024 7:10 AM RETURNED MATERIALS INSPECTOR Hospital Encounter Operating Room [address] [place] [address] Getachew Chappell MD [address] [place] [address] 01/18/2024 7:10 AM RETURNED MATERIALS INSPECTOR - 01/18/2024 9:30 AM RETURNED MATERIALS INSPECTOR Surgery Operating Room [address] [place] [address] Getachew Chappell MD [address] [place] [address] PLACEMENT DORSAL COLUMN STIMULATOR 01/27/2024 1:00 PM RETURNED MATERIALS INSPECTOR Appointment [facility] Neurology EEG/EMG [address] [facility] [place] [address] Kendell Perez MD [address] [place] [address] 02/01/2024 1:00 PM RETURNED MATERIALS INSPECTOR Appointment [facility] Neurosurgery/Ortho Spine [address] [facility] [place] [address] 02/14/2024 9:40 AM RETURNED MATERIALS INSPECTOR Appointment [facility] Neurosurgery/Ortho Spine [address] [facility] [place] [address] Getachew Chappell MD [address] [place] [address] Scheduled Procedures Name Priority Associated Diagnoses Date/Ti me PLACEMENT DORSAL COLUMN STIMULATOR (SDEX) Same Day Recovery Low back pain radiating to both legs 01/18/2024 7:10 AM RETURNED MATERIALS INSPECTOR documented as of this encounter Visit Diagnoses Not on filedocumented in this encounter Care Teams Human Resources Psychologist Relationship Specialty Start Date End Date Cyndee Carranza MD [address] [place] [address] PCP - General 01/21/23 documented as of this encounter
--- OUTSIDE RECORDS SUMMARY | 2024-01-10 14:53 | XMS_ITS | Encounter Summary ---
Author Organization [facility] Address [address] [place] [address] Care Team Providers Care Time Clock Inspector Name Role Phone Cyndee Carranza MD Primary Care Provider [phone] Encounter Details Date Type Department Care Team (Latest Contact Info) Description 10/11/1996 Orders Only Teressa Salas MD [address] [place] [address] Social History Tobacco Use Types Packs/Day Years Used Date Smoking Tobacco: Never Assessed Sex and Gender Information Value Date Recorded Sex Assigned at Not on file Gender Identity Not on file Sexual Orientation Not on file documented as of this encounter Plan of Treatment Upcoming Encounters Date Type Department Care Team (Latest Contact Info) Description 01/18/2024 7:10 AM SET UP / OPERATOR Hospital Encounter Operating Room [address] [place] [address] Getachew Chappell MD [address] [place] [address] 01/18/2024 7:10 AM SET UP / OPERATOR - 01/18/2024 9:30 AM SET UP / OPERATOR Surgery Operating Room [address] [place] [address] Getachew Chappell MD [address] [place] [address] PLACEMENT DORSAL COLUMN STIMULATOR 01/27/2024 1:00 PM SET UP / OPERATOR Appointment [facility] Neurology EEG/EMG [address] [facility] [place] [address] Kendell Perez MD [address] [place] [address] 02/01/2024 1:00 PM SET UP / OPERATOR Appointment [facility] Neurosurgery/Ortho Spine [address] [facility] [place] [address] 02/14/2024 9:40 AM SET UP / OPERATOR Appointment [facility] Neurosurgery/Ortho Spine [address] [facility] [place] [address] Getachew Chappell MD [address] [place], [place] [phone] Scheduled Procedures Name Priority Associated Diagnoses Date/Ti me PLACEMENT DORSAL COLUMN STIMULATOR (SDEX) Same Day Recovery Low back pain radiating to both legs 01/18/2024 7:10 AM SET UP / OPERATOR documented as of this encounter Visit Diagnoses Not on filedocumented in this encounter Care Teams Time Clock Inspector Relationship Specialty Start Date End Date Cyndee Carranza MD [address] [place] [address] PCP - General 01/21/23 documented as of this encounter
--- OUTSIDE RECORDS SUMMARY | 2024-01-10 14:53 | XMS_ITS | Encounter Summary ---
Author Organization [facility] Address [address] [address] Care Team Providers Care News Photographer Name Role Phone Cyndee Carranza MD Primary Care Provider [phone] Encounter Details Date Type Department Care Team (Latest Contact Info) Description 09/02/2017 Correspondence Gastroenterology Procedures at [address] [place] [address] Sampson Crocker MD INSTRUCTIONS AFTER COLONOSCOPY [...] (Latest Contact Info) Description 01/18/2024 7:10 AM [facility] Hospital Encounter Operating Room [address] [place] [address] Getachew Chappell MD [address] [place] [address] 01/18/2024 7:10 AM SWITCHGEAR REPAIRER - 01/18/2024 9:30 AM [facility] Surgery Operating Room [address] [place] [address] Getachew Chappell MD [address] [place] [address] PLACEMENT DORSAL COLUMN STIMULATOR 01/27/2024 1:00 PM SWITCHGEAR REPAIRER Appointment [facility] Neurology EEG/EMG [address] [place] [address] Kendell Perez MD [address] [place] [address] 02/01/2024 1:00 PM SWITCHGEAR REPAIRER Appointment [facility] Neurosurgery/Ortho Spine [address] [facility] [place] [address] 02/14/2024 9:40 AM SWITCHGEAR REPAIRER Appointment [facility] Neurosurgery/Ortho Spine [address] [place] [address]. [place] [address] Getachew Chappell MD [address] [place] [address] Scheduled Procedures Name Priority Associated Diagnoses Date/Ti me PLACEMENT DORSAL COLUMN STIMULATOR (SDEX) Same Day Recovery Low back pain radiating to both legs 01/18/2024 7:10 AM SWITCHGEAR REPAIRER documented as of this encounter Visit Diagnoses Not on filedocumented in this encounter Care Teams News Photographer Relationship Specialty Start Date End Date Cyndee Carranza MD [address] [place] [address] PCP - General 01/21/23 documented as of this encounter
== END 2024-01-10 14:48 | disposition home or self-care (01) ==
PROVIDERS: PCP Internal Medicine; Visit Provider Family Medicine
DX: M54.50 Low back pain, unspecified (principal); Z01.818 Encounter for other preprocedural examination
CPT/HCPCS: 80053

== ENCOUNTER 2024-01-22 11:17 | Emergency (ER) | payer OTHER, SELFPAY ==
[2024-01-22 11:22] VITALS: BP 189/88; PULSE 57; RESP 18; TEMP 36.5; O2SAT 96; BMI 30.9
--- NOTE | 2024-01-22 11:45 | ED_ITS ---
HPI - General Adult General Chief complaint: Shortness of Breath/Dyspnea Stated complaint: COVID+, SOB, low HR Time Seen by Provider: 01/22/24 11:18 History of Present Illness HPI narrative: Patient is a 68-year-old woman who is being treated for COVID-19. She presents she has noticed a decrease in her heart rate. She is not terribly symptomatic feels like her COVID respiratory symptoms are improving. She is on Paxlovid. EKG upon arrival shows normal sinus rhythm with rate of 59 beats per minute. Again she has no signs of congestive heart failure no chest pain shortness a breath orthopnea or PND. Related Data Home Medications ?Medication ?Instructions ?Recorded ?Confirmed calcium acetate 1 cap PO BID 12/07/22 01/10/24 cholecalciferol (vitamin D3) 50 50 mcg PO QDAY 12/07/22 01/10/24 mcg (2,000 unit) capsule multivitamin 1 tab PO QAM 12/07/22 01/10/24 acetaminophen 325 mg capsule 4,000 mg PO DAILY 02/16/23 01/10/24 (Tylenol) duloxetine 20 mg capsule,delayed 60 mg PO QDAY 02/16/23 01/10/24 release budesonide 3 mg 0 mg PO 11/08/23 01/10/24 capsule,delayed,extended release Previous Rx's ?Medication ?Instructions ?Recorded lorazepam 1 mg tablet 0.5 - 1 mg (0.5 - 1 x 1 mg) PO BID 01/04/23 PRN anxiety #8 tabs hydrocodone 5 mg-acetaminophen 325 1 tab PO Q4-6H PRN pain #20 tabs 09/10/23 mg tablet pravastatin 40 mg tablet 40 mg PO DAILY #90 tabs 11/08/23 trazodone 100 mg tablet 100 mg PO .HS #90 tabs 11/08/23 famotidine 20 mg tablet 20 mg PO BID #90 tabs 12/02/23 gabapentin 300 mg capsule 600 mg (2 x 300 mg) PO TID #180 12/10/23 caps nirmatrelvir 300 mg (150 mg 3 ea (3 x 300 mg (150 mg x 2)-100 01/18/24 x2)-ritonavir 100 mg tablet,dose mg) PO QAM AND QPM #30 tabs pack (Paxlovid) Allergies Allergy/AdvReac Type Severity Reaction Status Date / Time Sulfa (Sulfonamide Allergy Unknown Rash Verified 01/10/24 14:32 Antibiotics) atorvastatin (From Lipitor) AdvReac Unknown Muscle Pain Verified 01/10/24 14:32 Review of Systems Status of ROS: Reports: 10 or more systems reviewed and unremarkable except as noted in History and [facility] Thyroid nodule ?E04.1 - Nontoxic single thyroid nodule (ICD-10) History of depression ?Z86.59 - Personal history of other mental and behavioral disorders (ICD-10) History of abnormal cervical Pap smear (2009) ?Z87.42 - Personal history of other diseases of the female genital tract (ICD-10) Surgical History History of malignant melanoma ?Z85.820 - Personal history of malignant melanoma of skin (ICD-10) History of basal cell carcinoma excision ?Z98.890 - Other specified postprocedural states (ICD-10) ?Z85.828 - Personal history of other malignant neoplasm of skin (ICD-10) History of colonoscopy ?Z98.890 - Other specified postprocedural states (ICD-10) History of hysteroscopy ?Z98.890 - Other specified postprocedural states (ICD-10) History of salpingo-oophorectomy ?Z90.79 - Acquired absence of other genital organ(s) (ICD-10) ?Z90.721 - Acquired absence of ovaries, unilateral (ICD-10) Status post biopsy of thyroid gland (2009) ?Z98.890 - Other specified postprocedural states (ICD-10) History of conization of cervix (~1986) ?Z98.890 - Other specified postprocedural states (ICD-10) History of bilateral breast implants ?Z98.82 - Breast implant status (ICD-10) Family History Mother Breast cancer Sister Breast cancer Social History What is your current living situation?: I presently have a place to live Problems where you live: no known problems In the past 12 months, utilities in danger of being shut off: no In the past 12 mos, have been you worried that your food would run out before you had money to buy more?: never true In the past 12 mos, the food you bought just didn't last and you didn't have money to buy more?: never true Smoking Status: Never smoker Do you use any of these nicotine containing products: None Second hand tobacco smoke exposure: No How often do you have a drink containing alcohol: never How often do you have six or more drinks on one occasion: Never AUDIT-C Alcohol total score: 0 Non-prescribed substance use: denies use How often does anyone, including family, friends and others, physically hurt you : never How often does anyone, including family, friends and others, insult or talk down to you: never How often does anyone, including family, friends and others, threaten you with harm: never How often does anyone, including family, friends and others, scream or curse at you: never service: No Exam Narrative: Exam Narrative: EXAM GENERAL: Patient appears comfortable and well. EYES: No scleral icterus. LYMPH: No supraclavicular or cervical lymphadenopathy. SKIN: Visible skin seen during exam normal or with benign process only. EXT: No dependent lower extremity pedal edema. HEART: Regular rate and rhythm with no murmurs, rubs, or gallops. LUNGS: Clear to auscultation bilaterally with no crackles or wheezes. ABD: Soft, non tender, non distended. PSYCH: Good eye contact, speech is not pressured. Const: Vital Signs, click to edit/add: Vital Signs - 24 hr 01/22/24 11:22 Temperature 97.7 F Pulse Rate [Pulse Oximeter] 57 L Respiratory Rate 18 Blood Pressure [Ri ght Upper Arm] 189/88 H Pulse Oximetry 96 Oxygen Delivery Me thod Room Air Course Course ED Course: Patient seen and examined. EKG interpreted. Vital Signs Vital signs: Initial Vital Signs Respiratory Depth Normal 01/22/24 11:20 Vital Signs Temperature 97.7 F 01/22/24 11:22 Pulse Rate 57 L 01/22/24 11:22 Respiratory Rate 18 01/22/24 11:22 Blood Pressure 189/88 H 01/22/24 11:22 Pulse Oximetry 96 01/22/24 11:22 Oxygen Delivery Method Room Air 01/22/24 11:22 Temperature 97.7 F 01/22/24 11:22 Pulse Rate 57 L 01/22/24 11:22 Respiratory Rate 18 01/22/24 11:22 Blood Pressure 189/88 H 01/22/24 11:22 Pulse Oximetry 96 01/22/24 11:22 Oxygen Delivery Method Room Air 01/22/24 11:22 Medical Decision Making MDM Narrative Medical decision making narrative: Patient is a 68-year-old woman who is currently being successfully treated for COVID-19. She has had a low heart rate noted on her pulse ox at home but no hypoxia. She has a normal sinus rhythm on her EKG today. Do not find any significant abnormalities on my exam. This time reassurance is offered. If bradycardia persists would recommend Zio patch I did recommend follow-up in primary care this week. Discharge Plan Discharge Clinical Impression: COVID-19 Patient Disposition: Home, Self-Care Condition: Stable Instructions: COVID-19 (Coronavirus Disease 2019) (ED) Additional Instructions: Continue current care Activity Level: No Restrictions Discharge Diet: Regular Prescriptions: No Action duloxetine 20 mg capsule,delayed release(DR/EC) 60 mg PO QDAY multivitamin Tablet 1 tab PO QAM cholecalciferol (vitamin D3) 50 mcg (2,000 unit) capsule 50 mcg PO QDAY calcium acetate 1 cap PO BID acetaminophen [Tylenol] 325 mg capsule 4,000 mg PO DAILY budesonide 3 mg capsule,delayed,extend.release 0 mg PO pravastatin 40 mg tablet 40 mg PO DAILY Qty: 90 3RF trazodone 100 mg tablet 100 mg PO .HS Qty: 90 3RF Paxlovid 300 mg (150 mg x 2)-100 mg tablets,dose pack 3 ea PO QAM AND QPM Qty: 30 0RF lorazepam 1 mg tablet 0.5 - 1 mg PO BID PRN (Reason: anxiety) Qty: 8 0RF hydrocodone-acetaminophen 5-325 mg tablet 1 tab PO Q4-6H PRN (Reason: pain) Qty: 20 0RF famotidine 20 mg tablet 20 mg PO BID Qty: 90 1RF gabapentin 300 mg capsule 600 mg PO TID Qty: 180 2RF Follow Up/Referrals: Bonnie Esteban MD [Primary Care Provider] - Stand Alone Forms: [facility] Info Instructions
== END 2024-01-22 12:10 | disposition home or self-care (01) ==
LOC: ED 11:58
PROVIDERS: Emergency Provider Internal Medicine; PCP Internal Medicine
DX: U07.1 COVID-19 (principal)
CPT/HCPCS: 93005; 99283

== ENCOUNTER 2024-01-28 10:14 | Emergency (ER) | payer OTHER, SELFPAY ==
[2024-01-28 10:22] VITALS: BP 143/83; PULSE 90; RESP 18; TEMP 36.6; O2SAT 97
--- NOTE | 2024-01-28 10:30 | CRLHL7_ITS ---
For Patients: As a result of the Century Cures Act, medical imaging exams and procedure reports are released immediately into your electronic medical record. You may view this report before your referring provider. If you have questions, please contact your health care provider. INDICATION: Cough COMPARISON: September 10, 2023 TECHNIQUE: PA and lateral views of the chest were acquired FINDINGS: TUBES AND LINES: None. HEART AND MEDIASTINUM: The heart size is normal. The mediastinal contour appears normal for patient age. LUNGS AND PLEURAL SPACES: The lungs appear normal.The pleural spaces are unremarkable. OSSEOUS STRUCTURES: Age-appropriate appearance. No acute focal finding. IMPRESSION: No evidence of active pulmonary disease. Dictated by Brad Pineda MD @ 01/28/2024 10:48:16 AM (Electronically Signed)
--- NOTE | 2024-01-28 10:32 | ED.GENADULT ---
HPI - General Adult General Date Seen: 01/28/24 Chief complaint: Shortness of Breath/Dyspnea Stated complaint: SOB, fatigue, Day 13 of Covid Time Seen by Provider: 01/28/24 10:17 Source: patient History of Present Illness HPI narrative: Patient is a 68-year-old woman who is here for re-evaluation after diagnosis of COVID. She is on about day 13 since diagnosis. She was seen here on the 7th at that time evaluation was unremarkable and she was discharged home. She was treated with Paxlovid. She said that there was about 24 hours where she started to feel better but she feels like she now has a cough which is new and continues to feel significantly fatigued. Occasionally she feels a little short of breath but she has been tracking her oxygen levels at home and says those have been normal. She has not had chest pain, she has not had vomiting or diarrhea. Says she has been eating and drinking well. Lives at home with her . He is not ill. She does not smoke or drink. Related Data Home Medications ?Medication ?Instructions ?Recorded ?Confirmed calcium acetate 1 cap PO BID 12/07/22 01/10/24 cholecalciferol (vitamin D3) 50 50 mcg PO QDAY 12/07/22 01/10/24 mcg (2,000 unit) capsule multivitamin 1 tab PO QAM 12/07/22 01/10/24 acetaminophen 325 mg capsule 4,000 mg PO DAILY 02/16/23 01/10/24 (Tylenol) duloxetine 20 mg capsule,delayed 60 mg PO QDAY 02/16/23 01/10/24 release budesonide 3 mg 0 mg PO 11/08/23 01/10/24 capsule,delayed,extended release Previous Rx's ?Medication ?Instructions ?Recorded lorazepam 1 mg tablet 0.5 - 1 mg (0.5 - 1 x 1 mg) PO BID 01/04/23 PRN anxiety #8 tabs hydrocodone 5 mg-acetaminophen 325 1 tab PO Q4-6H PRN pain #20 tabs 09/10/23 mg tablet pravastatin 40 mg tablet 40 mg PO DAILY #90 tabs 11/08/23 trazodone 100 mg tablet 100 mg PO .HS #90 tabs 11/08/23 famotidine 20 mg tablet 20 mg PO BID #90 tabs 10/17/24 gabapentin 300 mg capsule 600 mg (2 x 300 mg) PO TID #180 12/10/23 caps nirmatrelvir 300 mg (150 mg 3 ea (3 x 300 mg (150 mg x 2)-100 01/18/24 x2)-ritonavir 100 mg tablet,dose mg) PO QAM AND QPM #30 tabs pack (Paxlovid) Allergies Allergy/AdvReac Type Severity Reaction Status Date / Time Sulfa (Sulfonamide Allergy Unknown Rash Verified 01/10/24 14:32 Antibiotics) atorvastatin (From Lipitor) AdvReac Unknown Muscle Pain Verified 01/10/24 14:32 Review of Systems Status of ROS: Reports: 10 or more systems reviewed and unremarkable except as noted in History and below PFSH [facility] Medical History Thyroid nodule ?E04.1 - Nontoxic single thyroid nodule (ICD-10) History of depression ?Z86.59 - Personal history of other mental and behavioral disorders (ICD-10) History of abnormal cervical Pap smear (2009) ?Z87.42 - Personal history of other diseases of the female genital tract (ICD-10) Surgical History History of malignant melanoma ?Z85.820 - Personal history of malignant melanoma of skin (ICD-10) History of basal cell carcinoma excision ?Z98.890 - Other specified postprocedural states (ICD-10) ?Z85.828 - Personal history of other malignant neoplasm of skin (ICD-10) History of colonoscopy ?Z98.890 - Other specified postprocedural states (ICD-10) History of hysteroscopy ?Z98.890 - Other specified postprocedural states (ICD-10) History of salpingo-oophorectomy ?Z90.79 - Acquired absence of other genital organ(s) (ICD-10) ?Z90.721 - Acquired absence of ovaries, unilateral (ICD-10) Status post biopsy of thyroid gland (2009) ?Z98.890 - Other specified postprocedural states (ICD-10) History of conization of cervix (~1986) ?Z98.890 - Other specified postprocedural states (ICD-10) History of bilateral breast implants ?Z98.82 - Breast implant status (ICD-10) Family History Mother Breast cancer Sister Breast cancer Social History What is your current living situation?: I presently have a place to live Problems where you live: no known problems In the past 12 months, utilities in danger of being shut off: no In the past 12 mos, have been you worried that your food would run out before you had money to buy more?: never true In the past 12 mos, the food you bought just didn't last and you didn't have money to buy more?: never true Smoking Status: Never smoker Do you use any of these nicotine containing products: None Second hand tobacco smoke exposure: No How often do you have a drink containing alcohol: never How often do you have six or more drinks on one occasion: Never AUDIT-C Alcohol total score: 0 Non-prescribed substance use: denies use How often does anyone, including family, friends and others, physically hurt you: never How often does anyone, including family, friends and others, insult or talk down to you: never How often does anyone, including family, friends and others, threaten you with harm: never How often does anyone, including family, friends and others, scream or curse at you: never service: No Exam Narrative: Exam Narrative: Vital signs reviewed In general, alert, nontoxic elderly woman. Breathing easily. Head: Normocephalic, atraumatic. Eyes: Sclera clear. Pupils equal and reactive. ENT: Mucous membranes moist. Neck: Supple without adenopathy. Heart: Regular rate and rhythm without murmur. Lungs: Clear. No increased work of breathing, crackles or wheezes. Abdomen: Soft, nontender to palpation. Extremities: Well perfused, pulses intact. No significant edema. Neurologic: Alert, conversant. Speech fluent, face symmetric. Moves all extremities equally. Skin: Warm, dry well perfused. Affect: Normal. Const: Vital Signs, click to edit/add: Vital Signs - 24 hr 01/28/24 10:22 Temperature 98 F Pulse Rate [Pulse Oximeter] 90 Respiratory Rate 18 Blood Pressure [Ri ght Upper Arm] 143/83 H Pulse Oximetry 97 Oxygen Delivery Me thod Room Air Documenting provider has reviewed patient's vital signs: yes Course Course ED Course: It does not sound as if IV fluids will be helpful, she says she has been hydrating well. Will go ahead and check labs, make sure there is no evidence of metabolic derangement, get an x-ray to look for pneumonia. Symptoms may represent ongoing side effects from COVID. Chest x-ray by my review is negative for infiltrate, effusion, pulmonary edema or other findings. Final radiology read likewise negative. She had an EKG here which shows a normal sinus rhythm, ventricular rate of 72. She has some ST elevation in the inferior and lateral leads with QRS notch in, overall this does look consistent with early repolarization. She does not have widespread ST elevation more suggestive of pericarditis. No previous EKGs available for comparison. I did do a bedside cardiac echo, I do not see a significant pleural effusion. She appears to have good global function and her troponin is 0. In this setting, EKG findings are likely not significant. Labs are reassuring. White blood cell count is normal, hemoglobin is normal. Electrolytes, kidney function, liver function all within normal limits. CRP is less than 0.5. Discussed with her that I do not see evidence of significant metabolic derangement, pneumonia, cardiac complication or other issues. I suspect she just needs more time to recover. Primary care follow-up if she does not feel she is improving over the next week or so. Return any time for significant worsening. Vital Signs Vital signs: Initial Vital Signs Temperature 98 F 01/28/24 10:22 Temperature Source Temporal Artery Scan 01/28/24 10:22 Pulse Rate 90 01/28/24 10:22 Respiratory Rate 18 01/28/24 10:22 Blood Pressure 143/83 H 01/28/24 10:22 Blood Pressure Mean 103 01/28/24 10:22 Pulse Oximetry 97 01/28/24 10:22 Oxygen Delivery Method Room Air 01/28/24 10:22 Vital Signs Temperature 98 F 01/28/24 10:22 Pulse Rate 90 01/28/24 10:22 Respiratory Rate 18 01/28/24 10:22 Blood Pressure 143/83 H 01/28/24 10:22 Pulse Oximetry 97 01/28/24 10:22 Oxygen Delivery Method Room Air 01/28/24 10:22 Temperature 98 F 01/28/24 10:22 Pulse Rate 90 01/28/24 10:22 Respiratory Rate 18 01/28/24 10:22 Blood Pressure 143/83 H 01/28/24 10:22 Pulse Oximetry 97 01/28/24 10:22 Oxygen Delivery Method Room Air 01/28/24 10:22 Medical Decision Making Lab Data Labs: Lab Results 01/28/24 01/28/24 Range/Units 10:31 10:51 WBC 11.61 H (4.50-11.00) K/uL RBC 4.73 (4.00-5.20) m/uL Hgb 14.3 (12.0-16.0) gm/dL Hct 43.0 (33.0-51.0) % MCV 91 (80-100) fL MCH 30 (26-34) pg MCHC 33 (32-36) gm/dL RDW Coeff of Aline 12.0 (11.5-15.5) % Plt Count 298 (140-440) K/uL Neut % (Auto) 70.6 (42.0-72.0) % Lymph % (Auto) 19.4 L (20-44) % Moffat % (Auto) 7.9 (0.0-11.0) % Eos % (Auto) 1.5 (0.0-7.0) % Baso % (Auto) 0.2 (0.0-3.0) % Neut # (Auto) 8.20 H (1.7-7.0) K/uL Lymph # (Auto) 2.30 (0.90-2.90) K/uL Moffat # (Auto) 0.90 (0.00-0.90) K/UL Eos # (Auto) 0.20 (0.00-0.50) K/uL Baso # (Auto) 0.00 (0.00-0.30) K/uL Abs Immat Gran (auto) 0.00 (0.00-0.30) K/uL Imm/Tot Granulo (auto) 0.4 % Sodium 138 (135-149) mmol/L Potassium 4.3 (3.6-5.1) mmol/L Chloride 104 (96-114) mmol/L Carbon Dioxide 26 (20-32) mmol/L Anion Gap 8 (7-15) mEq/L BUN 16 (7-30) mg/dL Creatinine 0.6 (0.5-1.5) mg/dL Estimated Creat Clear 47.14 Estimated GFR 98 ml/min Glucose 129 H (60-115) mg/dL Calcium 9.8 (8.4-10.6) mg/dL Total Bilirubin 0.4 (0.1-1.5) mg/dL Direct Bilirubin 0.0 (0.0-0.5) mg/dL AST 22 (12-35) U/L ALT 32 (4-35) U/L Alkaline Phosphatase 52 (40-150) U/L C-Reactive Protein < 0.5 L (0.5-1.0) mg/dL Total Protein 7.0 (6.0-8.3) g/dL Albumin 4.2 (3.3-5.0) g/dL POC Troponin I 0.00 L (0.01-0.04) ng/ml Discharge Plan Discharge Clinical Impression: COVID-19 Patient Disposition: Home, Self-Care Condition: Stable Instructions: COVID-19 (Coronavirus Disease 2019) (ED) Additional Instructions: Your lab tests all look good. I did order thyroid testing, this is not back yet, I will call you if there is anything that needs to be followed up there. Otherwise, there is no evidence of pneumonia, significant dehydration, if normal electrolytes, kidney function, liver function, heart function. I would recommend giving this little more time. Rest as much as needed. See your primary doctor if you do not feel that you are improving in the next days to week. Prescriptions: No Action duloxetine 20 mg capsule,delayed release(DR/EC) 60 mg PO QDAY multivitamin Tablet 1 tab PO QAM cholecalciferol (vitamin D3) 50 mcg (2,000 unit) capsule 50 mcg PO QDAY calcium acetate 1 cap PO BID acetaminophen [Tylenol] 325 mg capsule 4,000 mg PO DAILY budesonide 3 mg capsule,delayed,extend.release 0 mg PO pravastatin 40 mg tablet 40 mg PO DAILY Qty: 90 3RF trazodone 100 mg tablet 100 mg PO .HS Qty: 90 3RF Paxlovid 300 mg (150 mg x 2)-100 mg tablets,dose pack 3 ea PO QAM AND QPM Qty: 30 0RF lorazepam 1 mg tablet 0.5 - 1 mg PO BID PRN (Reason: anxiety) Qty: 8 0RF hydrocodone-acetaminophen 5-325 mg tablet 1 tab PO Q4-6H PRN (Reason: pain) Qty: 20 0RF famotidine 20 mg tablet 20 mg PO BID Qty: 90 1RF gabapentin 300 mg capsule 600 mg PO TID Qty: 180 2RF Follow Up/Referrals: Bonnie Esteban MD [Primary Care Provider] - Stand Alone Forms: [facility] Info Instructions
[2024-01-28 11:05] LABS: Basophils Percent Auto 0.2 % (0.0-3.0); Mean Corpuscular HGB Conc 33 gm/dL (32-36); Mean Corpuscular Hemoglobin 30 pg (26-34); Mean Corpuscular Volume 91 fL (80-100)
[2024-01-28 11:09] LABS: Albumin* 4.2 g/dL (3.3-5.0); Chloride* 104 mmol/L (96-114); Sodium* 138 mmol/L (135-149)
[2024-01-28 11:10] LABS: Potassium* 4.3 mmol/L (3.6-5.1)
[2024-01-28 11:12] LABS: Alanine Aminotransferase* 32 U/L (4-35); Alkaline Phosphatase* 52 U/L (40-150); Anion Gap 8 mEq/L (7-15); Aspartate Amino Transferase* 22 U/L (12-35); Bilirubin Total* 0.4 mg/dL (0.1-1.5); Blood Urea Nitrogen* 16 mg/dL (7-30); Carbon Dioxide* 26 mmol/L (20-32); Creatinine* 0.6 mg/dL (0.5-1.5); Est. Creatinine Clearance* 47.14; Estimated Glomerular Filt Rate 98 ml/min; Glucose* 129 mg/dL (60-115)
[2024-01-28 11:13] LABS: Calcium* 9.8 mg/dL (8.4-10.6)
[2024-01-28 11:17] LABS: C Reactive Protein* < 0.5 mg/dL (0.5-1.0)
[2024-01-28 11:30] LABS: Eosinophils Percent Auto 1.5 % (0.0-7.0); Hemoglobin* 14.3 gm/dL (12.0-16.0); Immature Granulocytes Pct Auto 0.4 %; Lymphocytes Percent Auto 19.4 % (20-44); Monocytes Percent Auto 7.9 % (0.0-11.0); Neutrophils Percent Auto 70.6 % (42.0-72.0); Platelet Count* 298 K/uL (140-440); Red Blood Count 4.73 m/uL (4.00-5.20); Slide Review Reflex No; White Blood Count* 11.61 K/uL (4.50-11.00)
== END 2024-01-28 11:55 | disposition home or self-care (01) ==
PROVIDERS: Emergency Provider Emergency Medicine; PCP Internal Medicine
DX: U07.1 COVID-19 (principal); R06.02 Shortness of breath
CPT/HCPCS: 36415; 71046; 80048; 80076; 84443; 84484; 85025; 86140; 93005; 93308; 99284

== ENCOUNTER 2024-03-31 13:04 | Outpatient (CLI) | payer OTHER, SELFPAY ==
--- NOTE | 2024-03-31 | CRLHL7_ITS ---
For Patients: As a result of the Century Cures Act, medical imaging exams and procedure reports are released immediately into your electronic medical record. You may view this report before your referring provider. If you have questions, please contact your health care provider. BILATERAL SCREENING MAMMOGRAM WITH COMPUTER-AIDED DETECTION AND TOMOSYNTHESIS TECHNIQUE: CC and MLO views were obtained. These mammographic images have been obtained using full-field digital technique. These mammographic images were interpreted with the benefit of computer-aided detection. Breast Tomosynthesis was used in this interpretation. COMPARISON FILM: 03/02/23, 11/28/21, 11/26/20. FINDINGS: There are scattered areas of fibroglandular density. IMPRESSION: There is no radiographic evidence for malignancy. ASSESSMENT: BI-RADS Category 2: Benign RECOMMENDATION: Routine screening mammogram in 1 year. A lay language report of this examination will be provided to the patient. Kendell Wise M.D. Diagnostic Radiologist [email or web address] SP/Dictated by: Kendell Wise MD @ 04/10/2024 8:32:00 AM (Electronically Signed)
== END 2024-03-31 13:05 | disposition home or self-care (01) ==
LOC: MAMMO 13:04
PROVIDERS: PCP Internal Medicine; Visit Provider Internal Medicine
DX: Z12.31 Encounter for screening mammogram for malignant neoplasm of breast (principal)
CPT/HCPCS: 77063; 77067

== ENCOUNTER 2024-05-04 10:00 | Outpatient (RCR) | payer OTHER, SELFPAY | END 2024-09-01 23:59 | disposition home or self-care (01) | PROVIDERS: PCP Internal Medicine; Visit Provider Neurological Surgery | DX: M54.9 Dorsalgia, unspecified (principal); G89.18 Other acute postprocedural pain; Z51.89 Encounter for other specified aftercare | CPT/HCPCS: 97110; 97140; 97163 ==

== ENCOUNTER 2024-10-17 17:11 | Outpatient (CLI) | payer OTHER, SELFPAY ==
--- NOTE | 2024-10-17 17:30 | CRLHL7_ITS ---
For Patients: As a result of the Century Cures Act, medical imaging exams and procedure reports are released immediately into your electronic medical record. You may view this report before your referring provider. If you have questions, please contact your health care provider. Indication: Low back pain Technique: Multiplanar, multisequence, MRI of the lumbar spine, obtained without contrast. Comparison: Lumbar spine x-ray 09/02/2024, MRI lumbar spine report 01/04/2023 Findings: T12 superior endplate compression fracture with mild vertebral height loss and localized bony edema. No cortical retropulsion. No other acute osseous abnormality. No suspicious bone marrow lesion. Preserved lumbar lordosis. Trace retrolisthesis at L2-3. Conus medullaris terminates at L1-2. No suspicious findings in the paravertebral soft tissues. Included SI joints are unremarkable. T12-L1: Mild disc bulge with small left central protrusion and annular fissure. No neural foraminal or spinal canal stenosis. L1-L2: No neural foraminal or spinal canal stenosis. L2-L3: Mild left eccentric disc bulge. No neural foraminal or spinal canal stenosis. L3-L4: Mild disc bulge mild facet arthropathy. No neural foraminal or spinal canal stenosis. L4-L5: Mild disc bulge, facet arthropathy. No neural foraminal stenosis. Lateral recess stenosis, potentially impinging the descending bilateral L5 nerve roots, without central spinal canal stenosis. L5-S1: Mild disc bulge, left asymmetric facet arthropathy. No neural foraminal or spinal canal stenosis. Impression: 1. Acute T12 superior endplate compression fracture with mild vertebral height loss. No cortical retropulsion. 2. Lumbar spondylosis and trace degenerative spondylolisthesis as detailed. 3. At L4-L5, lateral recess stenosis, potentially impinging the descending bilateral L5 nerve roots. 4. No high-grade neural foraminal or central spinal canal stenosis. Dictated by Pooja Landaverde MD @ 10/18/2024 1:46:36 PM (Electronically Signed)
== END 2024-10-17 17:12 | disposition home or self-care (01) ==
LOC: MRI 17:11
PROVIDERS: PCP Internal Medicine; Visit Provider Family Medicine
DX: M54.50 Low back pain, unspecified (principal); M48.54XA Collapsed vertebra, not elsewhere classified, thoracic region, initial encounter for fracture; M47.896 Other spondylosis, lumbar region; M79.604 Pain in right leg; M79.605 Pain in left leg
CPT/HCPCS: 72148

== ENCOUNTER 2024-10-26 14:17 | Outpatient (CLI) | payer OTHER, SELFPAY | END 2024-10-26 14:18 | disposition home or self-care (01) | LOC: NFLDREF 14:24 | PROVIDERS: PCP Internal Medicine; Visit Provider Internal Medicine | DX: E78.5 Hyperlipidemia, unspecified (principal); M81.0 Age-related osteoporosis without current pathological fracture; Z79.899 Other long term (current) drug therapy | CPT/HCPCS: 80061; 82306 ==

== ENCOUNTER 2024-11-15 12:40 | Outpatient (CLI) | payer OTHER, SELFPAY ==
--- NOTE | 2024-11-15 13:00 | CRLHL7_ITS ---
For Patients: As a result of the Century Cures Act, medical imaging exams and procedure reports are released immediately into your electronic medical record. You may view this report before your referring provider. If you have questions, please contact your health care provider. DXA BONE MINERAL DENSITY STUDY Reason for exam: Age-related osteoporosis without current pathology. Current height (in): 64. Weight (lb): 180. Menopause age: 56. Ethnicity: White. 1. Have you had a previous hip or vertebral fracture? Yes. 2. Have you had any fractures during your adult life which did not result from significant trauma (e.g., auto accident)? Yes. 3. Did either of your parents have a hip fracture? No. 4. Do you smoke? No. 5. Have you ever taken Glucocorticoids? Yes. 6. Do you have rheumatoid arthritis? No. 7. Do you have secondary osteoporosis? No. 8. Do you drink 3 or more alcoholic drinks per day? No. 9. Are you being treated for osteoporosis? Yes. 10. Have you ever taken any of the following medications: Actonel, Evista, Fosamax, Miacalcin, Reclast, Boniva, Forteo, HRT (i.e. estrogen/hormone therapy), Protelos, Prolia, Vitamin D, Calcium, other ??? please specify. ANSWER: Yes, vitamin D and calcium. 11. Do you have any of the following medical conditions: Anorexia or bulimia, asthma or emphysema, end stage renal disease, hyperparathyroidism, any seizure disorders, cancer, inflammatory bowel diseases, hysterectomy, other ??? please specify. ANSWER: Yes, inflammatory bowel diseases. 12. What was your maximum height (inches)? 66. 13. Do you perform weight bearing exercise regularly? No. 14. Do you regularly consume dairy products? No. 15. Do you drink caffeinated beverages? Yes. 16. At what age did your period start? 15. 17. Are you premenopausal? No. 18. How many full-term pregnancies have you had? 1. 19. Have you ever missed your period for more than 6 months in a row (not including or menopause)? No. TECHNIQUE: Bone mineral density study was performed using the [facility]. FINDINGS: The results of the study expressed as bone mineral density (BMD) are as follows: Lumbar spine L1 to L4: BMD: 0.833 g/cm2. T-score: -1.9. Z-score: 0.1. Neck Left: BMD: 0.620 g/cm2. T-score: -2.1. Z-score: -0.3. Right: BMD: 0.650 g/cm2. T-score: -1.8. Z-score: -0.1. Total Left: BMD: 0.789 g/cm2. T-score: -1.3. Z-score: 0.2. Right: BMD: 0.843 g/cm2. T-score: -0.8. Z-score: 0.6. IMPRESSION: Osteopenia. *Comparison exams done prior to 07/2019 were performed on different unit, [employer]. Kendell Wise M.D. Diagnostic Radiologist [email or web address]/Dictated by: Kendell Wise MD @ 11/15/2024 2:12:00 PM (Electronically Signed)
== END 2024-11-15 12:41 | disposition home or self-care (01) ==
PROVIDERS: PCP Internal Medicine; Visit Provider Internal Medicine
DX: M81.0 Age-related osteoporosis without current pathological fracture (principal); M85.89 Other specified disorders of bone density and structure, multiple sites
CPT/HCPCS: 77080

== ENCOUNTER 2024-11-17 15:29 | Outpatient (CLI) | payer OTHER, SELFPAY ==
[2024-11-20 20:54] LABS: HPV Source Cervical
[2024-11-21 18:18] LABS: Pap Test Digital Imaging Done
== END 2024-11-17 15:30 | disposition home or self-care (01) ==
PROVIDERS: PCP Internal Medicine; Visit Provider Obstetrics & Gynecology
DX: Z87.42 Personal history of other diseases of the female genital tract (principal)
CPT/HCPCS: 87624; 87625; 88141; 88142; 88175

== ENCOUNTER 2024-12-12 07:28 | Outpatient (CLI) | payer MEDICARE, SELFPAY | END 2024-12-12 07:29 | disposition home or self-care (01) | LOC: INJ CL 07:29 | PROVIDERS: PCP Internal Medicine; Visit Provider Family Medicine | DX: M53.3 Sacrococcygeal disorders, not elsewhere classified (principal) | CPT/HCPCS: 27096; J0702; Q9966 ==

== ENCOUNTER 2024-12-25 07:56 | Outpatient (CLI) | payer OTHER, SELFPAY | END 2024-12-25 07:57 | disposition home or self-care (01) | LOC: NFLDREF 07:56 | PROVIDERS: PCP Internal Medicine; Visit Provider Internal Medicine | DX: E78.5 Hyperlipidemia, unspecified (principal) | CPT/HCPCS: 80061 ==